=== PATIENT | male | born 1960 | race Caucasian/White ===

== ENCOUNTER 2018-07-08 02:00 | Inpatient (IN) | payer OTHER ==
--- NOTE | 2018-07-08 02:29 | PDOC ---
Attending Attestation - Resident Resident Name: Branden Mars - ED Attending Attestation I have performed the following: I have examined & evaluated the patient, The case was reviewed & discussed with the resident, I agree w/resident's findings & plan - HPI HPI: 07/08/18 03:49 Pt comes with fever as well vomiting and diarrhea x 2-3 days. - Physicial Exam PE: 07/08/18 03:49 Petechiae all over face -likely from vomiting. Tachycardia; SOB; but clear lungs. Abdsoft and NT and ND Pt is febrile. Diaphoretic. No complaint of CP. - Medical Decision Making 07/08/18 03:52 Pt has hyponatremia and hypochloremia. Pt is febrile - received ofirmev and 1L NSS only. 07/08/18 03:55 influenza negative 07/08/18 03:56 Pt has flank pain; no dysuria noted 07/08/18 06:30 Pt still looks exhausted and ill; states he feels better though. I gave tc turkey sandwich as well as apple juice. Pt's is at bedside and she is tending to him Heart Score/ECG Review - ECG Intrepretation Rhythm: Regular Rhythm - [place]: Normal - P and CO Prominent R with upright T in V1 (true posterior [place]): No Delta Wave(s) Present: No WPW: No - QRS Poor R Wave Progression: No Q Wave Present: No - ST and T Early Repolarization: No Non Specific ST-T Wave changes: No - ECG Impressions Normal ECG: Yes Non-specific ST Elevation: No Ischemic Changes: No Bradycardia: No Torsades julio c Pointes: No WPW: No
[2018-07-08] MEDS ORDERED: SODIUM CHLORIDE 1,000 ML IV STA ×2 (02:53→04:08)
--- NOTE | 2018-07-08 03:02 | PDOC ---
History of Present Illness - General Chief Complaint: Cold Symptoms Stated Complaint: FEVER Time Seen by Provider: 07/08/18 02:25 History Source: Patient Exam Limitations: Language Barrier (fairly fluent in Green[place]ic but some vocabulary limitations) - History of Present Illness Initial Comments: Patient is a 58 y/o M new to this facility w/ reported PMHx NIDDM, HTN, HLD, reports having ceased all home medications several months ago and no longer having a PMD d/t unspecified social circumstances. P/w 4 days febrile illness that begin with diarrhea, characterized by subjective fevers, chills, febrile temperatures measured at home (does not recall the temperatures), continuing diarrhea, nausea, vomiting, substernal chest pain, pleuritic pain, SOB, weakness , diffuse body and muscle aches, also states legs "feel swollen." States he did not receive flu vaccine this year. 07/08/18 02:57 Past History - Past Medical History Allergies/Adverse Reactions: Allergies Allergy/AdvReac Type Severity Reaction Status Date / Time No Known Allergies Allergy Verified 07/08/18 02:16 - Suicide/Smoking/Psychosocial Hx Smoking History: Unknown if ever smoked Have you smoked in the past 12 months: No Information on smoking cessation initiated: No Hx Alcohol Use: No Drug/Substance Use Hx: No Review of Systems - Review of Systems Comments:: As per HPI 07/08/18 03:02 *Physical Exam - Vital Signs Last Vital Signs Temp Pulse Resp BP Pulse Ox 100.9 F H 113 H 22 H 133/69 99 07/08/18 02:14 07/08/18 02:14 07/08/18 02:14 07/08/18 02:14 07/08/18 02:14 - Physical Exam Comments: Gen: A&Ox3, toxic appearing HEENT: NC/AT, PERRLA, EOMI, MMM Neck: supple, NT, scant JVD, no LAD CV: tachycardic no m/r/g Resp: CTA b/l Abd: +bs, soft, NT, ND, states that deep abdominal palpation exacerbates substernal chest pain Ext: 2+ pulses, wwp, no edema, no calf tenderness Neuro: ug designer, motor w/o focal deficit, reports symmetric b/l loss of sensation in distal LE otherwise sensorium intact Psych: normal mood, normal affect Skin: warm, dry, normal turgor 07/08/18 03:02 Moderate Sedation - Procedure Monitoring Vital Signs: Procedure Monitoring Vital Signs Temperature 100.9 F H 07/08/18 02:14 Pulse Rate 113 H 07/08/18 02:14 Respiratory Rate 22 H 07/08/18 02:14 Blood Pressure 133/69 07/08/18 02:14 O2 Sat by Pulse Oximetry (%) 99 07/08/18 02:14 Medical Decision Making - Medical Decision Making Presentation is most consistent w/ viral syndrome. Ordered flu screening. As patient is febrile, tachycardic, and tachypneic on arrival and c/o unremitting substernal pain, will obtain sepsis and cardiac w/u. Giving NS bolus, Ofirmev. 07/08/18 03:05 WBC 14.8 w/ L shift. Flu swab negative. 07/08/18 03:46 Na 127 (corrected 130), LFTs mildly elevated, glucose 294, troponin negative. Adding urine and serum osm to w/u. RUQ US to assess LFT abnormalities. Urine legionella antigens. Further fluid bolus. 07/08/18 03:57 D/w Dr. Lozano, will admit to med/surg. 07/08/18 04:15 *DC/Admit/Observation/Transfer Diagnosis at time of Disposition: Hyponatremia Sepsis Qualifiers: Sepsis type: sepsis due to unspecified organism Qualified Code(s): A41.9 - Sepsis, unspecified organism - Discharge Dispostion Condition at time of disposition: Guarded - Referrals - Patient Instructions - Post Discharge Activity
[2018-07-08 03:23] LABS: BASO % 0.3 % (0-2.0); EOS % 0.1 % (0-4.5); HEMATOCRIT 36.2 % (35.4-49); HEMOGLOBIN 12.9 GM/dL (11.7-16.9); LYMPH % 2.7 % (8-40); MCH 30.7 pg (25.7-33.7); MCHC 35.7 g/dl (32.0-35.9); MEAN PLT VOLUME 8.1 fl (7.5-11.1); MONO % 2.2 % (3.8-10.2); NEUT % 94.7 % (42.8-82.8); PLATELET COUNT 262 K/MM3 (134-434); RDW 12.7 % (11.9-15.9); WHITE BLOOD COUNT 14.8 K/mm3 (4.0-10.0)
[2018-07-08] MEDS ORDERED: ACETAMINOPHEN INJECTION 100 ML IVPB ONE (03:24)
[2018-07-08 03:48] LABS: ALBUMIN 2.6 g/dl (3.4-5.0); ALK PHOS 210 U/L (45-117); ANION GAP 11 MMOL/L (8-16); BILIRUBIN,TOTAL 0.8 mg/dL (0.2-1); BLOOD UREA NITROGEN 13 mg/dL (7-18); CHLORIDE 91 mmol/L (98-107); CO2 24 mmol/L (21-32); CREATININE 1.4 mg/dL (0.55-1.3); GLUCOSE,RANDOM 294 mg/dL (74-106); N-TERMINAL BNP 407.8 pg/ml (5-125); POTASSIUM 4.2 mmol/L (3.5-5.1); SGOT/AST 55 U/L (15-37); SGPT/ALT 72 U/L (13-61); SODIUM 127 mmol/L (136-145); TOT PROT 6.6 g/dl (6.4-8.2)
[2018-07-08 03:51] LABS: INR 1.2 (0.83-1.09); PROTHROMBIN TIME (PATIENT) 14.2 SEC (9.7-13.0)
[2018-07-08] MEDS ORDERED: FOLIC ACID INJECTION - 1 MG, THIAMINE HCL 100 MG, MULTIVIT INJECTION ADULT 10 ML in SOD... IVPB ONE (03:55)
[2018-07-08] MEDS ORDERED: PIPERACILLIN/TAZOB 3.375 GM 3.375 GM in DEXTROSE 5%-WATER - 50 ML IVPB ONE (04:22)
[2018-07-08] MEDS ORDERED: PIPERACILLIN/TAZOB 3.375 GM 3.375 GM/50 ML BAG IVPB ONE (05:16)
--- NOTE | 2018-07-08 05:32 | PN ---
Teaching Attending Note Name of Resident: Marquise Lozano ATTENDING PHYSICIAN STATEMENT I saw and evaluated the patient. I reviewed the resident's note and discussed the case with the resident. I agree with the resident's findings and plan as documented. SUBJECTIVE: Patient is a 58 year old man with PMH of NIDDM, HTN and HLD who presents with febrile illness that begin with diarrhea several days ago. There is associated chills, ongoing diarrhea, nausea, vomiting, substernal pleuritic chest pain, SOB and weakness. Also has diffuse body and muscle aches, and states legs "feel swollen. He stopped all home medications several months ago and no longer having a PMD due to unspecified social circumstances. Did not receive flu vaccine this year. OBJECTIVE: Alert Vital Signs Period Temp Pulse Resp BP Sys/Negron Pulse Ox Last 24 Hr 100.9 F 113 22 133/69 99 HEENT: No Jaundice, eye redness or discharge, PERRLA, EOMI. Normocephalic, atraumatic. External ears are normal and hearing is grossly intact. No nasal discharge. Neck: Supple, nontender. No palpable adenopathy or thyromegaly. No JVD Chest: Good effort. Clear to auscultation and percussion. Heart: Regular. No S3, rub or murmur Abdomen: Not distended, soft, nontender and no HSM. No rebound or guarding. Normoactive bowel sounds. Ext: Peripheral pulses intact. No leg edema. Skin: Warm and dry. No petechiae, rash or ecchymosis. Neuro: Alert. Oriented x3. CN 2-12 grossly intact. Sensation grossly intact in all four extremities and DTR are symmetric. Abnormal Lab Results 07/08/18 07/08/18 07/08/18 03:11 03:11 03:11 WBC 14.8 H Absolute Neuts (auto) 14.0 H Neutrophils % 94.7 H Lymphocytes % 2.7 L Monocytes % 2.2 L PT with INR INR Sodium 127 L Chloride 91 L Creatinine 1.4 H Random Glucose 294 H Calcium 8.0 L AST 55 H ALT 72 H Alkaline Phosphatase 210 H B-Natriuretic Peptide 407.8 H Albumin 2.6 L 07/08/18 03:15 WBC Absolute Neuts (auto) Neutrophils % Lymphocytes % Monocytes % PT with INR 14.20 H INR 1.20 H Sodium Chloride Creatinine Random Glucose Calcium AST ALT Alkaline Phosphatase B-Natriuretic Peptide Albumin ASSESSMENT AND PLAN: 1. Sepsis - Source of sepsis is unclear. Flu swab negative. CXR and Urinalysis pending. Will get STAT CT scan of abdomen/pelvis in view of elevated LFTs ( hepatobiliary source) and loose bowel movements (colon). Blood cultures and urine for legionella antigen sent. Will hydrate with IV NS and treat with stat dose of Zosyn pending results of the workup. 2. Hypoalbuminemia - Possibly due to combined effects of malnutrition and inflammation associated with comorbid chronic conditions. Will ensure adequate dietary protein intake and also consult clinical cytogeneticist. Will rule out proteinuria. 3. DM For now, we will hold the home diabetes drugs and implement sliding scale insulin regimen. Provide comprehensive diabetes care with patient teaching and counseling about the importance of adherence to prescribed diabetes regimen, euglycemia, eye care and foot care. Patient needs social work evaluation to figure out the issues that are hindering his access to outpatient care and failure to take his medications for his chronic comorbid issues. 4. KENAN - Likely due to dehydration though he has risk factors for CKD. Will continue hydration and avoid nephrotoxic agents such as NSAIDS, aminoglycosides , contrast dyes and certain Alternative medicine products. 5. DVT prophylaxis - Lovenox 40 mg SQ q 24 hours. 6. Advance directives - Full code
--- NOTE | 2018-07-08 06:11 | HP ---
CHIEF COMPLAINT: Fevers and diarrhea PCP: None HISTORY OF PRESENT ILLNESS: 58yo M with PHx of HTN, HLD, and DM presents with four days of watery diarrhea, fevers, nausea, and some intermittent shortness of breath. Pt reports being in good health about 4 days ago when his symptoms developed and eventually worsened. Pt currently endorses diaphoresis as well. Pt denies any sick contacts known to him and states that the did not receive his influenza vaccine. Pt denies any unusual foods eaten or travel outside of the area. Pt denies headache, lightheadedness, rhinorrhea, ear pain, sore throat, cough, chest pain/discomfort, abdominal pain, back pain, hematuria, polyuria, and dysuria. in addition pt has had chronic diabetic neuropathy present in his feet , however denies any ulcerations/wounds that have developed as a result. Of note, pt reports stopping his medications several months ago due to thinking that since he was feeling better he didn't need them. Pt reports he used to take a pill twice per day for his DM (likely metformin) and an antihypertensive once per day in the morning. Pt does not know the exact name of the medications but used to pick them up at [facility] in [place]. 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 Independent in ADLs and lives with Family History: Noncontributory Allergies No Known Allergies Allergy (Verified 07/08/18 02:16) REVIEW OF SYSTEMS As per HPI PHYSICAL EXAMINATION Vital Signs - 24 hr 07/08/18 02:14 Temperature 100.9 F H Pulse Rate 113 H Respiratory 22 H Rate Blood Pressure 133/69 O2 Sat by Pulse 99 Oximetry (%) GENERAL: NAD, Awake, alert, and fully oriented, diaphoretic HEENT: NC/AT, EOMI, KARL, sclera anicteric, TM's b/l carlson and translucent w/o erythema, posterior oropharynx w/o exudates or erythema, [id number]-no-[id number] mucosa NECK: No JVD, or lymphadenopathy appreciated LUNGS: Overall CTA bilaterally with minimal bibasillar end-expiratory wheeze. No crackles. No accessory muscle use. 100% on RA HEART: Tachycardic and regular rhythm, normal S1 and S2 without murmur ABDOMEN: Soft, NT/ND, normoactive bowel sounds, no guarding, no suprapubic tenderness. MUSCULOSKELETAL: No CVA tenderness. No spinal tenderness EXTREMITIES: 2+ DP pulses, very warm, No peripheral edema, no wounds or rash noted NEUROLOGICAL: director workforce management II-XII intact. Strength symmetrical and 5/5 throughout. Sensation dulled at soles of feet b/l. Normal speech. Gait not observed. PSYCHIATRIC: Cooperative. Good eye contact. Appropriate mood and affect. SKIN: Warm, no rashes or lesions noted Laboratory Results 07/08/18 07/08/18 03:11 03:11 WBC 14.8 H RBC 4.20 Hgb 12.9 Hct 36.2 MCV 86.0 MCH 30.7 MCHC 35.7 RDW 12.7 Plt Count 262 MPV 8.1 Absolute Neuts (auto) 14.0 H Neutrophils % 94.7 H Lymphocytes % 2.7 L Monocytes % 2.2 L Eosinophils % 0.1 Basophils % 0.3 Nucleated RBC % 0 PT with INR INR Sodium 127 L Potassium 4.2 Chloride 91 L Carbon Dioxide 24 Anion Gap 11 BUN 13 Creatinine 1.4 H Creat Clearance w eGFR 52.05 Random Glucose 294 H Lactic Acid 1.7 Calcium 8.0 L Total Bilirubin 0.8 AST 55 H ALT 72 H Alkaline Phosphatase 210 H Creatine Kinase Troponin I <0.02 B-Natriuretic Peptide Total Protein 6.6 Albumin 2.6 L Acetone, Qual Influenza A (Rapid) Negative Influenza B (Rapid) Negative ASSESSMENT/PLAN: Sepsis 2/2 to unknown source Hyponatremia Transaminitis ? Acute Kidney insufficiency Diabetes Mellitus HTN HLD --Source being investigated at this time --Still awaiting CXR and urine studies --Noncontrast abdomen and pelvis ordered urgently --F/u Urine and Blood cultures --NS@100cc/hr --Zosyn 3.375mg q8h IVPB for now until ID consult tomorrow morning --Dr. Santiago consulted --Cannot give tylenol for fevers due to transaminitis; Motrin PRN for fevers --Hyponatremia likely dehydration related; fluid as above --Monitor Na --Urine Legionella ordered --Urine Na, Cr, osm and serum osm ordered --CT A/P as above for post-obstructive etiology as well --Monitor Urine output --Continue to hydrate as above --BGM ACHS --ISS coverage for hyperglycemic states; control glucose <180 --HTN and HLD medications need to be reconciled with pharmacy FEN: Fluids: NS@100cc/hr (s/p 2LNS boluses) Electrolyte abnormalities: HypoNa as above (no active signs/symptoms) Nutrition: Diabetic diet PPX: DVT - Heparin SQ TID GI - Not indicated currently GOC: Full code Dispo: Admit M/S Case discussed with Dr. Zach Lozano, DO - IM PGY-2 Visit type - Emergency Visit Emergency Visit: Yes ED Registration Date: 07/08/18 Care time: The patient presented to the Emergency Department on the above date and was hospitalized for further evaluation of their emergent condition. - New Patient This patient is new to me today: Yes Date on this admission: 07/08/18 - Critical Care Critical Care patient: No
[2018-07-08] MEDS ORDERED: CEFAZOLIN 1 GM/D5W 1 GM/50 ML BAG IVPB SCH (06:15)
[2018-07-08] MEDS: INSULIN SLIDING SCALE (NOVOLOG) 1 VIAL SQ SCH ×4 (07:34→21:20)
[2018-07-08] MEDS: SODIUM CHLORIDE 1,000 ML IV SCH ×2 (07:34→11:36)
[2018-07-08] MEDS: HEPARIN NA (PORCINE) 5,000 UNITS/ML 1ML VIAL SQ SCH ×3 (07:34→21:20)
[2018-07-08 08:26] LABS: URINE APPEARANCE CLEAR; URINE BILIRUBIN NEGATIVE (<2.0 mg/dL); URINE COLOR YELLOW; URINE GLUCOSE (UA) 3+ (NEGATIVE); URINE KETONE NEGATIVE (NEGATIVE); URINE LEUK ESTERASE NEGATIVE (NEGATIVE); URINE NITRITE NEGATIVE (NEGATIVE); URINE PROTEIN 3+ (NEGATIVE); URINE UROBILINOGEN NEGATIVE mg/dL (0.2-1.0)
[2018-07-08 08:30] LABS: EPI CELLS RARE /HPF (FEW); URINE HYALINE CAST 21 /lpf
[2018-07-08] MEDS ORDERED: PNEUMOC 13-VAL CONJ-DIP CRM/PF 0.5 ML DISP.SYRIN IM ONE (10:08)
[2018-07-08 11:03] LABS: ANISOCYTOSIS 0; MACROCYTOSIS 0; PLATELET ESTIMATE NORMAL
[2018-07-08] MEDS: IBUPROFEN 400 MG TABLET (FP) PO PRN ×2 (11:40→17:39)
--- NOTE | 2018-07-08 12:40 | PN ---
Progress Note (short form) - Note Progress Note: SUBJECTIVE: Feels okay - no further diarrhea since yesterday. No cough/sputum/ abdominal pain/dysuria/hematuria. OBJECTIVE: Tmax 100.9, Hemodynamically stable. Last Vital Signs Temp Pulse Resp BP Pulse Ox 98.6 F 87 18 104/58 L 95 07/08/18 10:08 07/08/18 10:08 07/08/18 10:09 07/08/18 10:08 07/08/18 10:09 HEENT - Atraumatic, Normocephalic Heart - S1, S2, RRR Lungs - clear to auscultation Abdomen - soft, non-tender. Bowel Sounds normal. Extremities - no edema. No calf tenderness. Neuro - AAO x 3. Tone/Power normal all 4 extremities. Laboratory Results - last 24 hr 07/08/18 07/08/18 07/08/18 03:00 03:00 03:00 WBC RBC Hgb Hct MCV MCH MCHC RDW Plt Count MPV Absolute Neuts (auto) Neutrophils % Neutrophils % (Manual) Band Neutrophils % Lymphocytes % Lymphocytes % (Manual) Monocytes % Monocytes % (Manual) Eosinophils % Eosinophils % (Manual) Basophils % Basophils % (Manual) Myelocytes % (Man) Promyelocytes % (Man) Blast Cells % (Manual) Nucleated RBC % Metamyelocytes Hypochromia Platelet Estimate Platelet Comment Polychromasia Poikilocytosis Anisocytosis Microcytosis Macrocytosis PT with INR INR Sodium Potassium Chloride Carbon Dioxide Anion Gap BUN Creatinine Creat Clearance w eGFR POC Glucometer Random Glucose Serum Osmolality Lactic Acid Calcium Total Bilirubin AST ALT Alkaline Phosphatase Creatine Kinase Troponin I B-Natriuretic Peptide Total Protein Albumin Urine Color Yellow Urine Appearance Clear Urine pH 5.0 Ur Specific [place] 1.013 Urine Protein 3+ H Urine Glucose (UA) 3+ H Urine Ketones Negative Urine Blood Negative Urine Nitrite Negative Urine Bilirubin Negative Urine Urobilinogen Negative Ur Leukocyte Esterase Negative Urine WBC (Auto) 2 Urine RBC (Auto) 1 Ur Epithelial Cells Rare Hyaline Casts 21 Urine Osmolality 268 L Ur Random Sodium < 18 L Urine Creatinine 155.0 Acetone, Qual Influenza A (Rapid) Influenza B (Rapid) 07/08/18 07/08/18 07/08/18 03:11 03:11 03:11 WBC 14.8 H RBC 4.20 Hgb 12.9 Hct 36.2 MCV 86.0 MCH 30.7 MCHC 35.7 RDW 12.7 Plt Count 262 MPV 8.1 Absolute Neuts (auto) 14.0 H Neutrophils % 94.7 H Neutrophils % (Manual) 79.2 Band Neutrophils % 13.5 Lymphocytes % 2.7 L Lymphocytes % (Manual) 3.1 L Monocytes % 2.2 L Monocytes % (Manual) 1 L Eosinophils % 0.1 Eosinophils % (Manual) 1.1 Basophils % 0.3 Basophils % (Manual) 0.0 Myelocytes % (Man) 0 Promyelocytes % (Man) 0 Blast Cells % (Manual) 0 Nucleated RBC % 0 Metamyelocytes 1 Hypochromia 0 Platelet Estimate Normal Platelet Comment Present Polychromasia 1+ Poikilocytosis 0 Anisocytosis 0 Microcytosis 0 Macrocytosis 0 PT with INR INR Sodium 127 L Potassium 4.2 Chloride 91 L Carbon Dioxide 24 Anion Gap 11 BUN 13 Creatinine 1.4 H Creat Clearance w eGFR 52.05 POC Glucometer Random Glucose 294 H Serum Osmolality Lactic Acid Calcium 8.0 L Total Bilirubin 0.8 AST 55 H ALT 72 H Alkaline Phosphatase 210 H Creatine Kinase Troponin I B-Natriuretic Peptide Total Protein 6.6 Albumin 2.6 L Urine Color Urine Appearance Urine pH Ur Specific [place] Urine Protein Urine Glucose (UA) Urine Ketones Urine Blood Urine Nitrite Urine Bilirubin Urine Urobilinogen Ur Leukocyte Esterase Urine WBC (Auto) Urine RBC (Auto) Ur Epithelial Cells Hyaline Casts Urine Osmolality Ur Random Sodium Urine Creatinine Acetone, Qual Influenza A (Rapid) Negative Influenza B (Rapid) Negative 07/08/18 07/08/18 07/08/18 03:11 03:11 03:15 WBC RBC Hgb Hct MCV MCH MCHC RDW Plt Count MPV Absolute Neuts (auto) Neutrophils % Neutrophils % (Manual) Band Neutrophils % Lymphocytes % Lymphocytes % (Manual) Monocytes % Monocytes % (Manual) Eosinophils % Eosinophils % (Manual) Basophils % Basophils % (Manual) Myelocytes % (Man) Promyelocytes % (Man) Blast Cells % (Manual) Nucleated RBC % Metamyelocytes Hypochromia Platelet Estimate Platelet Comment Polychromasia Poikilocytosis Anisocytosis Microcytosis Macrocytosis PT with INR INR Sodium Potassium Chloride Carbon Dioxide Anion Gap BUN Creatinine Creat Clearance w eGFR POC Glucometer Random Glucose Serum Osmolality Lactic Acid 1.7 Calcium Total Bilirubin AST ALT Alkaline Phosphatase Creatine Kinase 38 Troponin I < 0.02 B-Natriuretic Peptide 407.8 H Total Protein Albumin Urine Color Urine Appearance Urine pH Ur Specific [place] Urine Protein Urine Glucose (UA) Urine Ketones Urine Blood Urine Nitrite Urine Bilirubin Urine Urobilinogen Ur Leukocyte Esterase Urine WBC (Auto) Urine RBC (Auto) Ur Epithelial Cells Hyaline Casts Urine Osmolality Ur Random Sodium Urine Creatinine Acetone, Qual Positive small 1+ Influenza A (Rapid) Influenza B (Rapid) 07/08/18 07/08/18 07/08/18 03:15 03:40 06:00 WBC RBC Hgb Hct MCV MCH MCHC RDW Plt Count MPV Absolute Neuts (auto) Neutrophils % Neutrophils % (Manual) Band Neutrophils % Lymphocytes % Lymphocytes % (Manual) Monocytes % Monocytes % (Manual) Eosinophils % Eosinophils % (Manual) Basophils % Basophils % (Manual) Myelocytes % (Man) Promyelocytes % (Man) Blast Cells % (Manual) Nucleated RBC % Metamyelocytes Hypochromia Platelet Estimate Platelet Comment Polychromasia Poikilocytosis Anisocytosis Microcytosis Macrocytosis PT with INR 14.20 H INR 1.20 H Sodium Potassium Chloride Carbon Dioxide Anion Gap BUN Creatinine Creat Clearance w eGFR POC Glucometer Random Glucose Serum Osmolality 276 L Lactic Acid Calcium Total Bilirubin AST ALT Alkaline Phosphatase Creatine Kinase Troponin I < 0.02 B-Natriuretic Peptide Total Protein Albumin Urine Color Urine Appearance Urine pH Ur Specific [place] Urine Protein Urine Glucose (UA) Urine Ketones Urine Blood Urine Nitrite Urine Bilirubin Urine Urobilinogen Ur Leukocyte Esterase Urine WBC (Auto) Urine RBC (Auto) Ur Epithelial Cells Hyaline Casts Urine Osmolality Ur Random Sodium Urine Creatinine Acetone, Qual Influenza A (Rapid) Influenza B (Rapid) 07/08/18 11:50 WBC RBC Hgb Hct MCV MCH MCHC RDW Plt Count MPV Absolute Neuts (auto) Neutrophils % Neutrophils % (Manual) Band Neutrophils % Lymphocytes % Lymphocytes % (Manual) Monocytes % Monocytes % (Manual) Eosinophils % Eosinophils % (Manual) Basophils % Basophils % (Manual) Myelocytes % (Man) Promyelocytes % (Man) Blast Cells % (Manual) Nucleated RBC % Metamyelocytes Hypochromia Platelet Estimate Platelet Comment Polychromasia Poikilocytosis Anisocytosis Microcytosis Macrocytosis PT with INR INR Sodium Potassium Chloride Carbon Dioxide Anion Gap BUN Creatinine Creat Clearance w eGFR POC Glucometer 309 Random Glucose Serum Osmolality Lactic Acid Calcium Total Bilirubin AST ALT Alkaline Phosphatase Creatine Kinase Troponin I B-Natriuretic Peptide Total Protein Albumin Urine Color Urine Appearance Urine pH Ur Specific [place] Urine Protein Urine Glucose (UA) Urine Ketones Urine Blood Urine Nitrite Urine Bilirubin Urine Urobilinogen Ur Leukocyte Esterase Urine WBC (Auto) Urine RBC (Auto) Ur Epithelial Cells Hyaline Casts Urine Osmolality Ur Random Sodium Urine Creatinine Acetone, Qual Influenza A (Rapid) Influenza B (Rapid) Current Medications Generic Name Dose Route Start Last Admin Trade Name Freq PRN Reason Stop Dose Admin Heparin Sodium (Porcine) 5,000 unit 07/08/18 06:15 07/08/18 07:34 Heparin - SQ Not Given TID ALEXANDRA Sodium Chloride 1,000 mls @ 100 mls/hr 07/08/18 06:15 07/08/18 11:36 Normal Saline - IV 100 mls/hr ASDIR ALEXANDRA Administration Metronidazole 500 mg in 100 mls @ 100 mls/hr 07/08/18 10:57 07/08/18 11:37 Flagyl 500mg Premixed Ivpb - IVPB 100 mls/hr Q8H-IV ALEXANDRA Administration Ibuprofen 400 mg 07/08/18 06:04 07/08/18 11:40 Motrin - PO 400 mg Q6H PRN Administration FEVER Influenza Virus Vaccine Quadrival 60 mcg 07/08/18 13:00 Flulaval Quad [id number] IM 07/08/18 13:01 .ONCE ONE Insulin Aspart 1 vial 07/08/18 07:00 07/08/18 11:57 Novolog Vial Sliding Scale - SQ 4 units ACHS ALEXANDRA Administration Protocol Pneumococcal Polyvalent Vaccine 0.5 ml 07/08/18 13:00 Pneumovax - IM 07/08/18 13:01 .ONCE ONE ASSESSMENT/PLAN: 58 year old male with HTN, HLD, DM 2 with neuropathy, presented with 4 day history of watery diarrhea, fevers, nausea - no vomiting/melena/hematochezia. 1. Sepsis, etiology unclear Fever, leukocytosis CXR - no acute cardiopulmonary process ?intra-abdominal source If any further diarrhea, will send Stool for culture and Cdiff. Abdominal exam currently benign - CT A/P pending. Will empirically add Flagyl to Zosyn pending Culture results. ID consulted. 2. Hyponatremia, likely sec to dehydration due to diarrhea. Will monitor Na levels in response to hydration. Serum Osmo pending. 3. Transaminitis - mild, possibly due to sepsis versus fatty liver. CT A/P for further imaging. 4. DM 2 - will maintain on sliding scale insulin. 5. HTN/HLD - Home meds unclear - need clarification/reconciliation. Anti- hypertensive meds held for now due to borderline BP. DVT Px - Heparin SQ GI Px - Protonix. Visit type - Emergency Visit Emergency Visit: Yes ED Registration Date: 07/08/18 Care time: The patient presented to the Emergency Department on the above date and was hospitalized for further evaluation of their emergent condition. - New Patient This patient is new to me today: Yes Date on this admission: 07/08/18 - Critical Care Critical Care patient: No - Discharge Referral Referred to [facility] Med [facility] No
[2018-07-08] MEDS ORDERED: PNEUMOCOCCAL 23 VACCINE 0.5 ML VIAL IM ONE (13:00)
[2018-07-08] MEDS ORDERED: FLU VACCINE QUAD 60 MCG/0.5 ML (MDV 18-19) IM ONE (13:00)
--- NOTE | 2018-07-08 13:04 | CON.ID ---
Consult - History of Present Illness History of Present Illness: Pt is a 58 y.o. male with PMH of HTN, DM, and HLD presenting with c/o abdominal pain/n/v/d and subjective fever/chills. He states that symptoms began several days ago with loose, nonbloody BMs 4-5x per day and few episodes of non-bloody vomiting. Describes abd pain mainly focused in the epigastric area and occurring after meals. Also has been having non-specific generalized chest discomfort intermittently. He denies cough, rhinorrhea, sore throat and has no other specific symptoms. Pt states he has not been taking his medications for the past 6 months and has not followed up with a physician. He was noted to have leukocytosis (wbc 14.8K) and fever (100.9F) along with tachycardia and mildly elevated RR. Today he states he has minimal abd pain and no episodes of vomiting, reported 1 loose BM in the a.m. - History Source History Provided By: Patient Limitations to Obtaining History: No Limitations - Past Medical History Cardio/Vascular: Yes: HTN Endocrine: Yes: Diabetes Mellitus - Alcohol/Substance Use Hx Alcohol Use: No - Smoking History Smoking history: Unknown if ever smoked Have you smoked in the past 12 months: No - Social History History of Recent Travel: No Home Medications - Allergies Allergies/Adverse Reactions: Allergies Allergy/AdvReac Type Severity Reaction Status Date / Time No Known Allergies Allergy Verified 07/08/18 02:16 Review of Systems - Review of Systems Constitutional: reports: Fever, Weakness Eyes: reports: No Symptoms HENT: reports: No Symptoms Neck: reports: No Symptoms Cardiovascular: reports: No Symptoms Respiratory: reports: No Symptoms Gastrointestinal: reports: Abdominal Pain (now decreased, epigastric) Genitourinary: reports: No Symptoms Musculoskeletal: reports: No Symptoms Integumentary: reports: No Symptoms Neurological: reports: No Symptoms Endocrine: reports: No Symptoms Hematology/Lymphatic: reports: No Symptoms Psychiatric: reports: No Symptoms Physical Exam Vital Signs: Vital Signs Temperature 98.6 F 07/08/18 10:08 Pulse Rate 87 07/08/18 10:08 Respiratory Rate 18 07/08/18 10:09 Blood Pressure 104/58 L 07/08/18 10:08 O2 Sat by Pulse Oximetry (%) 95 07/08/18 10:09 Constitutional: Yes: No Distress, Calm Eyes: Yes: Conjunctiva Clear, EOM Intact HENT: Yes: Atraumatic Neck: Yes: Supple Cardiovascular: Yes: Regular Rate and Rhythm Respiratory: Yes: CTA Bilaterally Gastrointestinal: Yes: Normal Bowel Sounds, Soft Renal/: Yes: WNL Musculoskeletal: Yes: WNL Extremities: Yes: WNL Integumentary: Yes: WNL Neurological: Yes: Alert, Oriented Labs: CBC, BMP 07/08/18 03:11 07/08/18 03:11 Laboratory Tests 07/08/18 07/08/18 07/08/18 03:00 03:00 03:00 WBC RBC Hgb Hct MCV MCH MCHC RDW Plt Count MPV Absolute Neuts (auto) Neutrophils % Neutrophils % (Manual) Band Neutrophils % Lymphocytes % Lymphocytes % (Manual) Monocytes % Monocytes % (Manual) Eosinophils % Eosinophils % (Manual) Basophils % Basophils % (Manual) Myelocytes % (Man) Promyelocytes % (Man) Blast Cells % (Manual) Nucleated RBC % Metamyelocytes Hypochromia Platelet Estimate Platelet Comment Polychromasia Poikilocytosis Anisocytosis Microcytosis Macrocytosis PT with INR INR Sodium Potassium Chloride Carbon Dioxide Anion Gap BUN Creatinine Creat Clearance w eGFR POC Glucometer Random Glucose Serum Osmolality Lactic Acid Calcium Total Bilirubin AST ALT Alkaline Phosphatase Creatine Kinase Troponin I B-Natriuretic Peptide Total Protein Albumin Urine Color Yellow Urine Appearance Clear Urine pH 5.0 Ur Specific [place] 1.013 Urine Protein 3+ H Urine Glucose (UA) 3+ H Urine Ketones Negative Urine Blood Negative Urine Nitrite Negative Urine Bilirubin Negative Urine Urobilinogen Negative Ur Leukocyte Esterase Negative Urine WBC (Auto) 2 Urine RBC (Auto) 1 Ur Epithelial Cells Rare Hyaline Casts 21 Urine Osmolality 268 L Ur Random Sodium < 18 L Urine Creatinine 155.0 Acetone, Qual Influenza A (Rapid) Influenza B (Rapid) 07/08/18 07/08/18 07/08/18 03:11 03:11 03:11 WBC 14.8 H RBC 4.20 Hgb 12.9 Hct 36.2 MCV 86.0 MCH 30.7 MCHC 35.7 RDW 12.7 Plt Count 262 MPV 8.1 Absolute Neuts (auto) 14.0 H Neutrophils % 94.7 H Neutrophils % (Manual) 79.2 Band Neutrophils % 13.5 Lymphocytes % 2.7 L Lymphocytes % (Manual) 3.1 L Monocytes % 2.2 L Monocytes % (Manual) 1 L Eosinophils % 0.1 Eosinophils % (Manual) 1.1 Basophils % 0.3 Basophils % (Manual) 0.0 Myelocytes % (Man) 0 Promyelocytes % (Man) 0 Blast Cells % (Manual) 0 Nucleated RBC % 0 Metamyelocytes 1 Hypochromia 0 Platelet Estimate Normal Platelet Comment Present Polychromasia 1+ Poikilocytosis 0 Anisocytosis 0 Microcytosis 0 Macrocytosis 0 PT with INR INR Sodium 127 L Potassium 4.2 Chloride 91 L Carbon Dioxide 24 Anion Gap 11 BUN 13 Creatinine 1.4 H Creat Clearance w eGFR 52.05 POC Glucometer Random Glucose 294 H Serum Osmolality Lactic Acid Calcium 8.0 L Total Bilirubin 0.8 AST 55 H ALT 72 H Alkaline Phosphatase 210 H Creatine Kinase Troponin I B-Natriuretic Peptide Total Protein 6.6 Albumin 2.6 L Urine Color Urine Appearance Urine pH Ur Specific [place] Urine Protein Urine Glucose (UA) Urine Ketones Urine Blood Urine Nitrite Urine Bilirubin Urine Urobilinogen Ur Leukocyte Esterase Urine WBC (Auto) Urine RBC (Auto) Ur Epithelial Cells Hyaline Casts Urine Osmolality Ur Random Sodium Urine Creatinine Acetone, Qual Influenza A (Rapid) Negative Influenza B (Rapid) Negative 07/08/18 07/08/18 07/08/18 03:11 03:11 03:15 WBC RBC Hgb Hct MCV MCH MCHC RDW Plt Count MPV Absolute Neuts (auto) Neutrophils % Neutrophils % (Manual) Band Neutrophils % Lymphocytes % Lymphocytes % (Manual) Monocytes % Monocytes % (Manual) Eosinophils % Eosinophils % (Manual) Basophils % Basophils % (Manual) Myelocytes % (Man) Promyelocytes % (Man) Blast Cells % (Manual) Nucleated RBC % Metamyelocytes Hypochromia Platelet Estimate Platelet Comment Polychromasia Poikilocytosis Anisocytosis Microcytosis Macrocytosis PT with INR INR Sodium Potassium Chloride Carbon Dioxide Anion Gap BUN Creatinine Creat Clearance w eGFR POC Glucometer Random Glucose Serum Osmolality Lactic Acid 1.7 Calcium Total Bilirubin AST ALT Alkaline Phosphatase Creatine Kinase 38 Troponin I < 0.02 B-Natriuretic Peptide 407.8 H Total Protein Albumin Urine Color Urine Appearance Urine pH Ur Specific [place] Urine Protein Urine Glucose (UA) Urine Ketones Urine Blood Urine Nitrite Urine Bilirubin Urine Urobilinogen Ur Leukocyte Esterase Urine WBC (Auto) Urine RBC (Auto) Ur Epithelial Cells Hyaline Casts Urine Osmolality Ur Random Sodium Urine Creatinine Acetone, Qual Positive small 1+ Influenza A (Rapid) Influenza B (Rapid) 07/08/18 07/08/18 07/08/18 03:15 03:40 06:00 WBC RBC Hgb Hct MCV MCH MCHC RDW Plt Count MPV Absolute Neuts (auto) Neutrophils % Neutrophils % (Manual) Band Neutrophils % Lymphocytes % Lymphocytes % (Manual) Monocytes % Monocytes % (Manual) Eosinophils % Eosinophils % (Manual) Basophils % Basophils % (Manual) Myelocytes % (Man) Promyelocytes % (Man) Blast Cells % (Manual) Nucleated RBC % Metamyelocytes Hypochromia Platelet Estimate Platelet Comment Polychromasia Poikilocytosis Anisocytosis Microcytosis Macrocytosis PT with INR 14.20 H INR 1.20 H Sodium Potassium Chloride Carbon Dioxide Anion Gap BUN Creatinine Creat Clearance w eGFR POC Glucometer Random Glucose Serum Osmolality 276 L Lactic Acid Calcium Total Bilirubin AST ALT Alkaline Phosphatase Creatine Kinase Troponin I < 0.02 B-Natriuretic Peptide Total Protein Albumin Urine Color Urine Appearance Urine pH Ur Specific [place] Urine Protein Urine Glucose (UA) Urine Ketones Urine Blood Urine Nitrite Urine Bilirubin Urine Urobilinogen Ur Leukocyte Esterase Urine WBC (Auto) Urine RBC (Auto) Ur Epithelial Cells Hyaline Casts Urine Osmolality Ur Random Sodium Urine Creatinine Acetone, Qual Influenza A (Rapid) Influenza B (Rapid) 07/08/18 11:50 WBC RBC Hgb Hct MCV MCH MCHC RDW Plt Count MPV Absolute Neuts (auto) Neutrophils % Neutrophils % (Manual) Band Neutrophils % Lymphocytes % Lymphocytes % (Manual) Monocytes % Monocytes % (Manual) Eosinophils % Eosinophils % (Manual) Basophils % Basophils % (Manual) Myelocytes % (Man) Promyelocytes % (Man) Blast Cells % (Manual) Nucleated RBC % Metamyelocytes Hypochromia Platelet Estimate Platelet Comment Polychromasia Poikilocytosis Anisocytosis Microcytosis Macrocytosis PT with INR INR Sodium Potassium Chloride Carbon Dioxide Anion Gap BUN Creatinine Creat Clearance w eGFR POC Glucometer 309 Random Glucose Serum Osmolality Lactic Acid Calcium Total Bilirubin AST ALT Alkaline Phosphatase Creatine Kinase Troponin I B-Natriuretic Peptide Total Protein Albumin Urine Color Urine Appearance Urine pH Ur Specific [place] Urine Protein Urine Glucose (UA) Urine Ketones Urine Blood Urine Nitrite Urine Bilirubin Urine Urobilinogen Ur Leukocyte Esterase Urine WBC (Auto) Urine RBC (Auto) Ur Epithelial Cells Hyaline Casts Urine Osmolality Ur Random Sodium Urine Creatinine Acetone, Qual Influenza A (Rapid) Influenza B (Rapid) Imaging - Results X-ray: Report Reviewed Assessment/Plan 58 y.o. male with DM, HTN, HLD presenting with complaints of fever/chills, epigastric pain/n/v/d x several days noted to have fever, leukocytosis, tachycardia, and hyponatremia. He is noncompliant with medications or f/u with PMD. Sepsis Abd Pain/Diarrhea Fever Leukocytosis -- labs/imaging results noted -- continue Zosyn empirically for now -- CXR/uA/Influenza rapid testing neg -- Urine legionella Ag requested -- suggest abdominal imaging -- follow up Blood cultures -- no current diarrhea/vomiting, if diarrhea noted send stool cultures -- monitor temps/wbc trend Will follow up Thank you
[2018-07-08] MEDS ORDERED: DEXTROSE 5%-WATER - 50 ML IVPB ONE ×2 (13:29→16:15)
[2018-07-08] MEDS ORDERED: PIPERACILLIN/TAZOBACTAM 3.375 GM VIAL IVPB ONE ×2 (13:29→16:14)
[2018-07-08] MEDS: PIPERACILLIN/TAZOB 3.375 GM 3.375 GM in DEXTROSE 5%-WATER - 50 ML IVPB SCH ×2 (13:32→17:40)
--- NOTE | 2018-07-08 15:37 | EKG ---
Test Reason : Blood Pressure : / mmHG Vent. Rate : 102 BPM Atrial Rate : 102 BPM P-R Int : 154 ms QRS Dur : 090 ms QT Int : 342 ms P-R-T Axes : 029 055 039 degrees QTc Int : 445 ms SINUS TACHYCARDIA OTHERWISE NORMAL ECG NO PREVIOUS ECGS AVAILABLE Confirmed by FRANKO BRYANT MD ([id number]) on 07/08/2018 3:36:34 PM Referred By: Confirmed By:FRANKO BRYANT MD
[2018-07-09] MEDS ORDERED: PIPERACILLIN/TAZOBACTAM 3.375 GM VIAL IVPB ONE ×3 (00:36→16:18)
[2018-07-09] MEDS ORDERED: DEXTROSE 5%-WATER - 50 ML IVPB ONE ×3 (00:36→16:19)
[2018-07-09] MEDS: SODIUM CHLORIDE 1,000 ML IV SCH ×3 (01:03→15:44)
[2018-07-09] MEDS: PIPERACILLIN/TAZOB 3.375 GM 3.375 GM in DEXTROSE 5%-WATER - 50 ML IVPB SCH ×3 (01:03→17:39)
[2018-07-09] MEDS: IBUPROFEN 400 MG TABLET (FP) PO PRN (01:50)
[2018-07-09] MEDS: HEPARIN NA (PORCINE) 5,000 UNITS/ML 1ML VIAL SQ SCH (06:04)
[2018-07-09] MEDS: INSULIN SLIDING SCALE (NOVOLOG) 1 VIAL SQ SCH ×4 (06:04→21:23)
[2018-07-09 09:20] LABS: BASO % 0.2 % (0-2.0); EOS % 0.3 % (0-4.5); HEMATOCRIT 33.5 % (35.4-49); HEMOGLOBIN 11.8 GM/dL (11.7-16.9); LYMPH % 6.8 % (8-40); MCHC 35.3 g/dl (32.0-35.9); MEAN CELL VOLUME 87.9 fl (80-96); MEAN PLT VOLUME 7.9 fl (7.5-11.1); MONO % 5.3 % (3.8-10.2); NEUT % 87.4 % (42.8-82.8); PLATELET COUNT 256 K/MM3 (134-434); RBC 3.81 M/mm3 (4.00-5.60); RDW 12.6 % (11.9-15.9); WHITE BLOOD COUNT 14.6 K/mm3 (4.0-10.0)
[2018-07-09 09:55] LABS: ALBUMIN 2.3 g/dl (3.4-5.0); ALK PHOS 221 U/L (45-117); ANION GAP 5 MMOL/L (8-16); BILIRUBIN,TOTAL 0.4 mg/dL (0.2-1); BLOOD UREA NITROGEN 12 mg/dL (7-18); CALCIUM 7.8 mg/dL (8.5-10.1); CHLORIDE 102 mmol/L (98-107); CO2 26 mmol/L (21-32); CREATININE 1.2 mg/dL (0.55-1.3); GLUCOSE,RANDOM 286 mg/dL (74-106); POTASSIUM 4.3 mmol/L (3.5-5.1); SGOT/AST 57 U/L (15-37); SGPT/ALT 75 U/L (13-61); SODIUM 132 mmol/L (136-145); TOT PROT 6.1 g/dl (6.4-8.2)
--- NOTE | 2018-07-09 11:45 | PN ---
Physical Exam: SUBJECTIVE: Patient seen and examined this AM. He states he is feeling better than yesterday. He does endorse one fever yesterday late but denies any overnight. OBJECTIVE: Vital Signs Period Temp Pulse Resp BP Sys/Negron Pulse Ox Last 24 Hr 98.1 F-101 F 65-114 16-20 106-137/54-72 95-95 GENERAL: A&O, no acute distress EYES: PERRL, no scleral icterus EARS, NOSE, THROAT: oropharynx clear without exudates. Moist mucous membranes. NECK: supple without lymphadenopathy LUNGS: CTA b/l, no crackles or wheezes HEART: Regular rate and rhythm, normal S1 and S2 without murmur ABDOMEN: Soft, nontender to palpation, normoactive bowel sounds EXTREMITIES: warm, well-perfused. No peripheral edema. NEUROLOGICAL: Cranial nerves II-XII grossly intact. Normal speech. Laboratory Results - last 24 hr 07/08/18 07/08/18 07/08/18 03:11 06:00 11:50 WBC RBC Hgb Hct MCV MCH MCHC RDW Plt Count MPV Absolute Neuts (auto) Neutrophils % Neutrophils % (Manual) 79.2 Band Neutrophils % 13.5 Lymphocytes % Lymphocytes % (Manual) 3.1 L Monocytes % Monocytes % (Manual) 1 L Eosinophils % Eosinophils % (Manual) 1.1 Basophils % Basophils % (Manual) 0.0 Myelocytes % (Man) 0 Promyelocytes % (Man) 0 Blast Cells % (Manual) 0 Nucleated RBC % 0 Metamyelocytes 1 Hypochromia 0 Platelet Estimate Normal Platelet Comment Present Polychromasia 1+ Poikilocytosis 0 Anisocytosis 0 Microcytosis 0 Macrocytosis 0 Sodium Potassium Chloride Carbon Dioxide Anion Gap BUN Creatinine Creat Clearance w eGFR POC Glucometer 309 Random Glucose Serum Osmolality 276 L Calcium Total Bilirubin AST ALT Alkaline Phosphatase Total Protein Albumin 07/08/18 07/08/18 07/09/18 17:37 21:16 06:03 WBC RBC Hgb Hct MCV MCH MCHC RDW Plt Count MPV Absolute Neuts (auto) Neutrophils % Neutrophils % (Manual) Band Neutrophils % Lymphocytes % Lymphocytes % (Manual) Monocytes % Monocytes % (Manual) Eosinophils % Eosinophils % (Manual) Basophils % Basophils % (Manual) Myelocytes % (Man) Promyelocytes % (Man) Blast Cells % (Manual) Nucleated RBC % Metamyelocytes Hypochromia Platelet Estimate Platelet Comment Polychromasia Poikilocytosis Anisocytosis Microcytosis Macrocytosis Sodium Potassium Chloride Carbon Dioxide Anion Gap BUN Creatinine Creat Clearance w eGFR POC Glucometer 242 222 300 Random Glucose Serum Osmolality Calcium Total Bilirubin AST ALT Alkaline Phosphatase Total Protein Albumin 07/09/18 07/09/18 08:55 08:55 WBC 14.6 H RBC 3.81 L Hgb 11.8 Hct 33.5 L MCV 87.9 MCH 31.0 MCHC 35.3 RDW 12.6 Plt Count 256 MPV 7.9 Absolute Neuts (auto) 12.8 H Neutrophils % 87.4 H Neutrophils % (Manual) Band Neutrophils % Lymphocytes % 6.8 L D Lymphocytes % (Manual) Monocytes % 5.3 D Monocytes % (Manual) Eosinophils % 0.3 D Eosinophils % (Manual) Basophils % 0.2 Basophils % (Manual) Myelocytes % (Man) Promyelocytes % (Man) Blast Cells % (Manual) Nucleated RBC % 0 Metamyelocytes Hypochromia Platelet Estimate Platelet Comment Polychromasia Poikilocytosis Anisocytosis Microcytosis Macrocytosis Sodium 132 L Potassium 4.3 Chloride 102 Carbon Dioxide 26 Anion Gap 5 L BUN 12 Creatinine 1.2 Creat Clearance w eGFR > 60 POC Glucometer Random Glucose 286 H Serum Osmolality Calcium 7.8 L Total Bilirubin 0.4 AST 57 H ALT 75 H Alkaline Phosphatase 221 H Total Protein 6.1 L Albumin 2.3 L Active Medications Generic Name Dose Route Start Last Admin Trade Name Freq PRN Reason Stop Dose Admin Heparin Sodium (Porcine) 5,000 unit 07/08/18 06:15 07/09/18 06:04 Heparin - SQ 5,000 unit TID ALEXANDRA Administration Sodium Chloride 1,000 mls @ 100 mls/hr 07/08/18 06:15 07/09/18 09:30 Normal Saline - IV Not Given ASDIR ALEXANDRA Piperacillin Sod/Tazobactam 50 mls @ 100 mls/hr 07/08/18 13:15 07/09/18 09:31 Sod 3.375 gm/ Dextrose IVPB 100 mls/hr Q8H-IV ALEXANDRA Administration Protocol Insulin Aspart 1 vial 07/08/18 07:00 07/09/18 06:04 Novolog Vial Sliding Scale - SQ 3 units ACHS ALEXANDRA Administration Protocol ASSESSMENT/PLAN: 58yo M with PHx of HTN, HLD, and DM presents with four days of watery diarrhea, fevers, nausea, and some intermittent shortness of breath Sepsis secondary to Gram negative bacteremia, source uncertain, possible hepatic abscess -Afebrile overnight, 101 yesterday -Blood cultures pending Lactose fermenting Gram Negative Bacilli -CT Abd/Pelv: hepatomegally with hepatic mass vs abscess -Zosyn -ID consult appreciated -GI consulted, will await further recs -Consider IR drainage, will hold DVT prophylaxis for now HTN -on lisinopril in the past, has not picked up in almost a year -currently stable, will monitor and restart as needed NIDDM -BGMs ACHS -Insulin sliding scale for glycemic control DVT Prophylaxis -Hold for possible IR/surgical intervention FEN -Fluids: none -Electrolytes: No electrolyte abnormalities, BMP in AM -Nutrition: Diabetic Diet Disposition Med/Surg Visit type - Emergency Visit Emergency Visit: Yes ED Registration Date: 07/08/18 Care time: The patient presented to the Emergency Department on the above date and was hospitalized for further evaluation of their emergent condition. - New Patient This patient is new to me today: Yes Date on this admission: 07/09/18 - Critical Care Critical Care patient: No
--- NOTE | 2018-07-09 12:07 | CON.GI ---
Consult Consult Specialty:: GI Referred by:: Medicine Reason for Consultation:: liver abscess vs mass - History of Present Illness Chief Complaint: fevers/chills History of Present Illness: 58M HTN, DM with neuropathy, HL a/w abdominal pain and fevers/chills for several days. GI asked to comment on CT showing possible liver abscess vs mass. Patient reports R flank pain for some time, several months now. Denies any further diarrhea. Is reporting epigastric discomfort and GERD sx post-prandially. He reports he was told he had [place] in [place]. Never a big ETOH drinker, denies illicit drug use. Has not been reliably taking medications for the above ailments. - History Source History Provided By: Patient Limitations to Obtaining History: No Limitations - Past Medical History Cardio/Vascular: Yes: HTN Endocrine: Yes: Diabetes Mellitus - Alcohol/Substance Use Hx Alcohol Use: No - Smoking History Smoking history: Unknown if ever smoked Have you smoked in the past 12 months: No - Social History History of Recent Travel: No Home Medications - Allergies Allergies/Adverse Reactions: Allergies Allergy/AdvReac Type Severity Reaction Status Date / Time No Known Allergies Allergy Verified 07/08/18 02:16 Review of Systems - Review of Systems Constitutional: reports: Chills, Fever Eyes: reports: No Symptoms HENT: reports: No Symptoms Neck: reports: No Symptoms Cardiovascular: reports: No Symptoms Respiratory: reports: No Symptoms Gastrointestinal: reports: Abdominal Pain, Diarrhea, Nausea, Vomiting Musculoskeletal: reports: No Symptoms Integumentary: reports: No Symptoms Neurological: reports: No Symptoms Endocrine: reports: No Symptoms Hematology/Lymphatic: reports: No Symptoms Physical Exam-GI Vital Signs: Vital Signs Temperature 98.6 F 07/09/18 10:00 Pulse Rate 86 07/09/18 10:00 Respiratory Rate 16 07/09/18 10:00 Blood Pressure 137/68 07/09/18 10:00 O2 Sat by Pulse Oximetry (%) 95 07/09/18 09:00 Constitutional: Yes: Well Nourished, No Distress Eyes: Yes: Conjunctiva Clear Cardiovascular: Yes: Regular Rate and Rhythm Respiratory: Yes: CTA Bilaterally ...Palpate: Yes: Soft, Tenderness (ttp in RUQ/R flank without guarding) ...Rectal Exam: Yes: Deferred Extremities: Yes: WNL Neurological: Yes: Alert, Oriented Labs: CBC, BMP 07/09/18 08:55 07/09/18 08:55 INR, PTT INR 1.20 (0.83-1.09) H 07/08/18 03:15 Hepatic Panel Total Bilirubin 0.4 mg/dL (0.2-1) 07/09/18 08:55 AST 57 U/L (15-37) H 07/09/18 08:55 ALT 75 U/L (13-61) H 07/09/18 08:55 Alkaline Phosphatase 221 U/L (45-117) H 07/09/18 08:55 Albumin 2.3 g/dl (3.4-5.0) L 07/09/18 08:55 Blood cultures growing GNRs Imaging - Results Cat Scan: Report Reviewed Assessment/Plan Impression: liver lesion is likely a hepatic abscess given constitutional symptoms and imaging findings, albeit noncontrast CT, and gram negative bacteremia. Would continue IV antibiotics Would perform contrast enhanced triple phase imaging - MRI with contrast (? if can patient can have given gold dental work) -- if not, consider contrast enhanced triple phase CT Would consult IR for drainage
--- NOTE | 2018-07-09 12:25 | PN ---
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 - Current Medication List Current Medications: Active Medications Heparin Sodium (Porcine) (Heparin -) 5,000 unit SQ TID ALEXANDRA Last Admin: 07/09/18 06:04 Dose: 5,000 unit Piperacillin Sod/Tazobactam (Sod 3.375 gm/ Dextrose) 50 mls @ 100 mls/hr IVPB Q8H-IV ALEXANDRA; Protocol Last Admin: 07/09/18 09:31 Dose: 100 mls/hr Sodium Chloride (Normal Saline -) 1,000 mls @ 75 mls/hr IV ASDIR ALEXANDRA Insulin Aspart (Novolog Vial Sliding Scale -) 1 vial SQ ACHS ALEXANDRA; Protocol Last Admin: 07/09/18 11:41 Dose: 4 units - Objective Vital Signs: Vital Signs Temperature 98.6 F 07/09/18 10:00 Pulse Rate 86 07/09/18 10:00 Respiratory Rate 16 07/09/18 10:00 Blood Pressure 137/68 07/09/18 10:00 O2 Sat by Pulse Oximetry (%) 95 07/09/18 09:00 Constitutional: Yes: Calm, Mild Distress Cardiovascular: Yes: Regular Rate and Rhythm Respiratory: Yes: Regular, CTA Bilaterally Gastrointestinal: Yes: Normal Bowel Sounds, Soft Musculoskeletal: Yes: WNL Extremities: Yes: WNL Neurological: Yes: Alert, Oriented Psychiatric: Yes: Alert, Oriented Labs: CBC, BMP 07/09/18 08:55 07/09/18 08:55 INR, PTT INR 1.20 (0.83-1.09) H 07/08/18 03:15 Assessment/Plan 58 y.o. male with DM, HTN, HLD presenting with complaints of fever/chills, epigastric pain/n/v/d x several days noted to have fever, leukocytosis, tachycardia, and hyponatremia. He is noncompliant with medications or f/u with PMD. Sepsis Abd Pain/Diarrhea Fever Leukocytosis gm negative bacteremia plan continue zosyn repeat blood cx close monitoring of wbc rest as per the team
--- NOTE | 2018-07-09 15:10 | PN ---
Teaching Attending Note Name of Resident: Delano Prieto
--- NOTE | 2018-07-09 15:19 | PN ---
Teaching Attending Note Name of Resident: Delano Prieto ATTENDING PHYSICIAN STATEMENT I saw and evaluated the patient. I reviewed the resident's note and discussed the case with the resident. I agree with the resident's findings and plan as documented. SUBJECTIVE: Feels better - no further diarrhea. No cough/sputum/abdominal pain/ dysuria/hematuria. OBJECTIVE: Tmax 101 yesterday, Hemodynamically stable. Last Vital Signs Temp Pulse Resp BP Pulse Ox 98.4 F 92 H 17 141/76 95 07/09/18 14:35 07/09/18 14:35 07/09/18 14:35 07/09/18 14:35 07/09/18 09:00 HEENT - Atraumatic, Normocephalic Heart - S1, S2, RRR Lungs - clear to auscultation Abdomen - soft, non-tender. Bowel Sounds normal. Extremities - no edema. No calf tenderness. Neuro - AAO x 3. Tone/Power normal all 4 extremities. Laboratory Results - last 24 hr 07/08/18 07/08/18 07/09/18 17:37 21:16 06:03 WBC RBC Hgb Hct MCV MCH MCHC RDW Plt Count MPV Absolute Neuts (auto) Neutrophils % Lymphocytes % Monocytes % Eosinophils % Basophils % Nucleated RBC % Sodium Potassium Chloride Carbon Dioxide Anion Gap BUN Creatinine Creat Clearance w eGFR POC Glucometer 242 222 300 Random Glucose Calcium Total Bilirubin AST ALT Alkaline Phosphatase Total Protein Albumin 07/09/18 07/09/18 07/09/18 08:55 08:55 11:37 WBC 14.6 H RBC 3.81 L Hgb 11.8 Hct 33.5 L MCV 87.9 MCH 31.0 MCHC 35.3 RDW 12.6 Plt Count 256 MPV 7.9 Absolute Neuts (auto) 12.8 H Neutrophils % 87.4 H Lymphocytes % 6.8 L D Monocytes % 5.3 D Eosinophils % 0.3 D Basophils % 0.2 Nucleated RBC % 0 Sodium 132 L Potassium 4.3 Chloride 102 Carbon Dioxide 26 Anion Gap 5 L BUN 12 Creatinine 1.2 Creat Clearance w eGFR > 60 POC Glucometer 341 Random Glucose 286 H Calcium 7.8 L Total Bilirubin 0.4 AST 57 H ALT 75 H Alkaline Phosphatase 221 H Total Protein 6.1 L Albumin 2.3 L Current Medications Generic Name Dose Route Start Last Admin Trade Name Freq PRN Reason Stop Dose Admin Heparin Sodium (Porcine) 5,000 unit 07/08/18 06:15 07/09/18 06:04 Heparin - SQ 5,000 unit TID ALEXANDRA Administration Piperacillin Sod/Tazobactam 50 mls @ 100 mls/hr 07/08/18 13:15 07/09/18 09:31 Sod 3.375 gm/ Dextrose IVPB 100 mls/hr Q8H-IV ALEXANDRA Administration Protocol Sodium Chloride 1,000 mls @ 75 mls/hr 07/09/18 11:24 Normal Saline - IV ASDIR ALEXANDRA Insulin Aspart 1 vial 07/08/18 07:00 07/09/18 11:41 Novolog Vial Sliding Scale - SQ 4 units ACHS ALEXANDRA Administration Protocol ASSESSMENT/PLAN: 58 year old male with HTN, HLD, DM 2 with neuropathy, presented with 4 day history of watery diarrhea, fevers, nausea - no vomiting/melena/hematochezia, found to have Gram neg bacteremia and liver mass/abscess on abdominal imaging. 1. Sepsis sec to Bacteremia due to Liver Abscess Fever, leukocytosis - Tmax 101 07/08/18 CXR - no acute cardiopulmonary process CT A/P - Hepatomegaly with R lobe mass suspicious for abscess/malignancy Stool Cdiff neg. Abdominal exam currently benign. Will continue Zosyn. ID and GI Following IR consulted for guided drainage/biopsy. 2. Hyponatremia, likely sec to dehydration due to diarrhea. Improving with IV hydration 3. Transaminitis - mild, stable, possibly due to sepsis versus hepatocellular process/abscess/mass 4. DM 2 - will maintain on sliding scale insulin. 5. HTN/HLD - Home meds unclear - need clarification/reconciliation. DVT Px - Heparin SQ GI Px - Protonix.
[2018-07-10] MEDS ORDERED: PIPERACILLIN/TAZOBACTAM 3.375 GM VIAL IVPB ONE ×4 (00:23→23:44)
[2018-07-10] MEDS ORDERED: DEXTROSE 5%-WATER - 50 ML IVPB ONE ×4 (00:24→23:44)
[2018-07-10] MEDS: PIPERACILLIN/TAZOB 3.375 GM 3.375 GM in DEXTROSE 5%-WATER - 50 ML IVPB SCH ×3 (01:32→17:15)
[2018-07-10] MEDS ORDERED: IBUPROFEN 600 MG TABLET (FP) PO PRN (06:19)
[2018-07-10] MEDS ORDERED: ACETAMINOPHEN 325 MG TABLET (FP) ONE (06:26)
[2018-07-10 06:49] LABS: BASO % 0.3 % (0-2.0); EOS % 0.1 % (0-4.5); HEMATOCRIT 31.9 % (35.4-49); HEMOGLOBIN 11.2 GM/dL (11.7-16.9); LYMPH % 7.8 % (8-40); MCH 30.5 pg (25.7-33.7); MCHC 35.2 g/dl (32.0-35.9); MEAN CELL VOLUME 86.5 fl (80-96); MEAN PLT VOLUME 7.7 fl (7.5-11.1); MONO % 6.7 % (3.8-10.2); NEUT % 85.1 % (42.8-82.8); PLATELET COUNT 300 K/MM3 (134-434); RBC 3.69 M/mm3 (4.00-5.60); RDW 12.6 % (11.9-15.9); WHITE BLOOD COUNT 15.4 K/mm3 (4.0-10.0)
[2018-07-10] MEDS: INSULIN SLIDING SCALE (NOVOLOG) 1 VIAL SQ SCH ×4 (07:17→22:15)
[2018-07-10 07:19] LABS: ANION GAP 9 MMOL/L (8-16); BLOOD UREA NITROGEN 7 mg/dL (7-18); CALCIUM 8.3 mg/dL (8.5-10.1); CHLORIDE 100 mmol/L (98-107); CO2 24 mmol/L (21-32); CREATININE 1.1 mg/dL (0.55-1.3); GLUCOSE,RANDOM 152 mg/dL (74-106); MAGNESIUM 1.9 mg/dL (1.8-2.4); PHOSPHOROUS 3.4 mg/dL (2.5-4.9); POTASSIUM 4.2 mmol/L (3.5-5.1); SODIUM 133 mmol/L (136-145)
[2018-07-10] MEDS: SODIUM CHLORIDE 1,000 ML IV SCH ×2 (08:00→11:30)
[2018-07-10] MEDS ORDERED: MAGNESIUM OXIDE 400 MG TABLET (FP) PO ONE (09:05)
[2018-07-10 09:38] LABS: ALBUMIN 2.3 g/dl (3.4-5.0); ALK PHOS 245 U/L (45-117); BILIRUBIN,DIRECT 0.3 mg/dL (0.0-0.2); BILIRUBIN,TOTAL 0.6 mg/dL (0.2-1); SGOT/AST 48 U/L (15-37); SGPT/ALT 65 U/L (13-61); TOT PROT 6.2 g/dl (6.4-8.2)
[2018-07-10] MEDS ORDERED: CEFTRIAXONE 1 GM in DEXTROSE 5%-WATER - 100 ML IVPB SCH (12:15)
--- NOTE | 2018-07-10 12:17 | PN ---
Progress Note, Physician History of Present Illness: wbc has increased patient does not feel well - Current Medication List Current Medications: Active Medications Sodium Chloride (Normal Saline -) 1,000 mls @ 75 mls/hr IV ASDIR ALEXANDRA Last Admin: 07/09/18 15:44 Dose: 75 mls/hr Piperacillin Sod/Tazobactam (Sod 3.375 gm/ Dextrose) 50 mls @ 100 mls/hr IVPB Q8H-IV ALEXANDRA; Protocol Ibuprofen (Motrin -) 600 mg PO Q6H PRN PRN Reason: FEVER Last Admin: 07/10/18 06:28 Dose: 600 mg Insulin Aspart (Novolog Vial Sliding Scale -) 1 vial SQ ACHS ALEXANDRA; Protocol Last Admin: 07/10/18 07:17 Dose: Not Given - Objective Vital Signs: Vital Signs Temperature 97 F L 07/10/18 10:00 Pulse Rate 86 07/10/18 10:00 Respiratory Rate 16 07/10/18 10:00 Blood Pressure 150/83 07/10/18 10:00 O2 Sat by Pulse Oximetry (%) 98 07/10/18 09:00 Constitutional: Yes: Calm, Mild Distress Cardiovascular: Yes: Regular Rate and Rhythm Respiratory: Yes: Regular, CTA Bilaterally Gastrointestinal: Yes: Soft, Hypoactive Bowel Sounds Musculoskeletal: Yes: WNL Extremities: Yes: WNL Neurological: Yes: Alert, Oriented Psychiatric: Yes: Alert, Oriented Labs: CBC, BMP 07/10/18 05:40 07/10/18 05:40 INR, PTT INR 1.20 (0.83-1.09) H 07/08/18 03:15 Assessment/Plan 58 y.o. male with DM, HTN, HLD presenting with complaints of fever/chills, epigastric pain/n/v/d x several days noted to have fever, leukocytosis, tachycardia, and hyponatremia. Sepsis Abd Pain/Diarrhea Fever Leukocytosis gm negative bacteremia liver abscess patient continues to spike fever plan will continue abx await for ir to drain the abscess cx to be send rest as per the team
--- NOTE | 2018-07-10 14:24 | PN ---
Physical Exam: SUBJECTIVE: Patient seen and examined this AM. He states he was having some fevers overnight. He states overall he is feeling better than admission, however that he is not feeling as well today as yesterday. OBJECTIVE: Vital Signs Period Temp Pulse Resp BP Sys/Negron Pulse Ox Last 24 Hr 97 F-101.2 F 86-101 16-20 141-150/76-88 98-98 GENERAL: A&O, no acute distress EYES: PERRL, no scleral icterus EARS, NOSE, THROAT: oropharynx clear without exudates. Moist mucous membranes. NECK: supple without lymphadenopathy LUNGS: CTA b/l, no crackles or wheezes HEART: Regular rate and rhythm, normal S1 and S2 without murmur ABDOMEN: Soft, nontender to palpation, normoactive bowel sounds EXTREMITIES: warm, well-perfused. No peripheral edema. NEUROLOGICAL: Cranial nerves II-XII grossly intact. Normal speech. Laboratory Results - last 24 hr 07/09/18 07/09/18 07/10/18 17:36 21:22 05:40 WBC 15.4 H RBC 3.69 L Hgb 11.2 L Hct 31.9 L MCV 86.5 MCH 30.5 MCHC 35.2 RDW 12.6 Plt Count 300 MPV 7.7 Absolute Neuts (auto) 13.1 H Neutrophils % 85.1 H Lymphocytes % 7.8 L Monocytes % 6.7 Eosinophils % 0.1 Basophils % 0.3 Nucleated RBC % 0 Sodium Potassium Chloride Carbon Dioxide Anion Gap BUN Creatinine Creat Clearance w eGFR POC Glucometer 270 139 Random Glucose Calcium Phosphorus Magnesium Total Bilirubin Direct Bilirubin AST ALT Alkaline Phosphatase Total Protein Albumin Blood Type Antibody Screen 07/10/18 07/10/18 07/10/18 05:40 06:13 09:20 WBC RBC Hgb Hct MCV MCH MCHC RDW Plt Count MPV Absolute Neuts (auto) Neutrophils % Lymphocytes % Monocytes % Eosinophils % Basophils % Nucleated RBC % Sodium 133 L Potassium 4.2 Chloride 100 Carbon Dioxide 24 Anion Gap 9 BUN 7 Creatinine 1.1 Creat Clearance w eGFR > 60 POC Glucometer 157 Random Glucose 152 H Calcium 8.3 L Phosphorus 3.4 Magnesium 1.9 Total Bilirubin 0.6 Direct Bilirubin 0.3 H AST 48 H ALT 65 H Alkaline Phosphatase 245 H Total Protein 6.2 L Albumin 2.3 L Blood Type A POSITIVE Antibody Screen Negative 07/10/18 11:42 WBC RBC Hgb Hct MCV MCH MCHC RDW Plt Count MPV Absolute Neuts (auto) Neutrophils % Lymphocytes % Monocytes % Eosinophils % Basophils % Nucleated RBC % Sodium Potassium Chloride Carbon Dioxide Anion Gap BUN Creatinine Creat Clearance w eGFR POC Glucometer 281 Random Glucose Calcium Phosphorus Magnesium Total Bilirubin Direct Bilirubin AST ALT Alkaline Phosphatase Total Protein Albumin Blood Type Antibody Screen Active Medications Generic Name Dose Route Start Last Admin Trade Name Freq PRN Reason Stop Dose Admin Acetaminophen 650 mg 07/10/18 13:27 Tylenol - PO Q4H PRN FEVER Sodium Chloride 1,000 mls @ 75 mls/hr 07/09/18 11:24 07/09/18 15:44 Normal Saline - IV 75 mls/hr ASDIR ALEXANDRA Administration Piperacillin Sod/Tazobactam 50 mls @ 100 mls/hr 07/10/18 18:00 Sod 3.375 gm/ Dextrose IVPB Q8H-IV ALEXANDRA Protocol Insulin Aspart 1 vial 07/08/18 07:00 07/10/18 12:15 Novolog Vial Sliding Scale - SQ 3 units ACHS ALEXANDRA Administration Protocol ASSESSMENT/PLAN: 58yo M with PHx of HTN, HLD, and DM presents with four days of watery diarrhea, fevers, nausea, and some intermittent shortness of breath Sepsis secondary to Gram negative bacteremia, source uncertain, possible hepatic abscess -Febrile overnight to 101.2 -Blood cultures positive for Klebsiella -CT Abd/Pelv: hepatomegally with hepatic mass vs abscess -Repeat CT with contrast suspicious for abscess -Zosyn -ID consult appreciated -GI consult appreciated -For IR guided drainage in AM. PLEASE HOLD ALL HEPARIN AND NSAIDS HTN -on lisinopril in the past, has not picked up in almost a year -currently stable, will monitor and restart as needed NIDDM -BGMs ACHS -Insulin sliding scale for glycemic control -will likely need Metformin restarted on discharge or close follow up with primary as sugars have been elevated DVT Prophylaxis -Hold for possible IR/surgical intervention FEN -Fluids: none -Electrolytes: No electrolyte abnormalities, BMP in AM -Nutrition: Diabetic Diet Disposition Med/Surg Visit type - Emergency Visit Emergency Visit: Yes ED Registration Date: 07/08/18 Care time: The patient presented to the Emergency Department on the above date and was hospitalized for further evaluation of their emergent condition. - New Patient This patient is new to me today: No - Critical Care Critical Care patient: No
--- NOTE | 2018-07-10 16:52 | PN ---
Teaching Attending Note Name of Resident: Delano Prieto ATTENDING PHYSICIAN STATEMENT I saw and evaluated the patient. I reviewed the resident's note and discussed the case with the resident. I agree with the resident's findings and plan as documented. SUBJECTIVE:c/o RUQ pain not worse with anything. felt feverish last night. denies CP, SOB, fever, chills, N/V/C/D OBJECTIVE: Last Vital Signs Temp Pulse Resp BP Pulse Ox 97 F L 86 16 150/83 98 07/10/18 10:00 07/10/18 10:00 07/10/18 10:00 07/10/18 10:07/10/18 09:00 General NAD CV S1 S2 RRR Lungs CTA B/L no wheezing/rales/rhonchi Abdomen soft NT/ND no hepatomegaly ASSESSMENT AND PLAN: 58 year old male with HTN, HLD, DM 2 with neuropathy, presented with 4 day history of watery diarrhea, fevers, nausea - no vomiting/melena/hematochezia, found to have Gram neg bacteremia and liver mass/abscess on abdominal imaging. 1. Sepsis sec to klebsiella Bacteremia due to Liver Abscess- Tm101.2 and tachycardic. will repeat Bcx today. plan for Liver abscess drain by IR today. NPO. will cont zosyn day 3. cont IVF. pain control. can give tylenol as needed would hold motrin with pending bx 2. Hyponatremia-due to dehydration. slowly improving 3. Transaminitis- likely due to abscess and sepsis. stable not worsening. will trend 4. DM 2 -hold oral agents. cont BGM/ISS 5. HTN/HLD - Home meds unclear - need clarification/reconciliation. 6.DVT Px - Heparin SQ
--- NOTE | 2018-07-10 17:27 | PN ---
GI Progress Note Subjective: No acute events overnight Found sleeping comfortably Did complain of some RUQ pain Triple phase CT scan revealed a 7 x 4 x 3.7cm right hepatic lobe fluid structure as well as a possible peripheral thrombosed branch of right hepatic vein, splenomegaly and enlarged Retroperitoneal LN's noted as well. Patient denies a history of liver disease. Denies recent travel. No change in bowel habits, no rectal bleeding. He has never had a colonoscopy. - Objective Vital Signs: Vital Signs Temperature 97 F L 07/10/18 10:00 Pulse Rate 86 07/10/18 10:00 Respiratory Rate 16 07/10/18 10:00 Blood Pressure 150/83 07/10/18 10:00 O2 Sat by Pulse Oximetry (%) 98 07/10/18 09:00 Constitutional: Calm Eyes: No: Sclera Icterus Cardiovascular: Yes: Regular Rate and Rhythm Respiratory: Yes: CTA Bilaterally Gastrointestinal Inspection: No: Distention ...Auscultate: Yes: Normoactive Bowel Sounds ...Palpate: Yes: Soft, Tenderness (Mild TTP RUQ). No: Guarding, Hepatomegaly, Splenomegaly ...Percussion: No: Tympanitic Edema: No (No Le edema) Neurological: Yes: Alert Labs: CBC, BMP 07/10/18 05:40 07/10/18 05:40 INR, PTT INR 1.20 (0.83-1.09) H 07/08/18 03:15 Problem List - Problems (1) Pyogenic liver abscess Assessment/Plan: Pyogenic Liver Abscess with Kelb Pneumoniae bacteremia in a Diabetic (unclear how well controlled his diabetes is as an outpatient) IV Abx per ID For IR drainage tomorrow Code(s): K75.0 - ABSCESS OF LIVER
[2018-07-10] MEDS: ACETAMINOPHEN 325 MG TABLET (FP) PO PRN (19:14)
[2018-07-10] MEDS ORDERED: ACETAMINOPHEN 1000 MG/100 ML VIAL (NON FORMULARY) IVPB PRN (20:47)
[2018-07-11] MEDS: SODIUM CHLORIDE 1,000 ML IV SCH ×3 (00:47→14:43)
[2018-07-11] MEDS: PIPERACILLIN/TAZOB 3.375 GM 3.375 GM in DEXTROSE 5%-WATER - 50 ML IVPB SCH ×3 (01:30→19:03)
[2018-07-11] MEDS ORDERED: PIPERACILLIN/TAZOB 3.375 GM 3.375 GM in DEXTROSE 5%-WATER - 50 ML IVPB SCH (02:00)
[2018-07-11] MEDS: ACETAMINOPHEN 325 MG TABLET (FP) PO PRN ×4 (02:58→18:43)
[2018-07-11] MEDS: INSULIN SLIDING SCALE (NOVOLOG) 1 VIAL SQ SCH ×4 (06:27→22:01)
[2018-07-11 07:47] LABS: BASO % 0.2 % (0-2.0); EOS % 0.1 % (0-4.5); HEMATOCRIT 29.5 % (35.4-49); HEMOGLOBIN 10.5 GM/dL (11.7-16.9); LYMPH % 7.5 % (8-40); MCH 30.9 pg (25.7-33.7); MCHC 35.7 g/dl (32.0-35.9); MEAN CELL VOLUME 86.6 fl (80-96); MEAN PLT VOLUME 7.5 fl (7.5-11.1); MONO % 7.9 % (3.8-10.2); NEUT % 84.3 % (42.8-82.8); PLATELET COUNT 327 K/MM3 (134-434); RBC 3.41 M/mm3 (4.00-5.60); RDW 12.7 % (11.9-15.9); WHITE BLOOD COUNT 13.9 K/mm3 (4.0-10.0)
[2018-07-11 08:37] LABS: ALK PHOS 263 U/L (45-117); ANION GAP 7 MMOL/L (8-16); BILIRUBIN,TOTAL 0.8 mg/dL (0.2-1); BLOOD UREA NITROGEN 8 mg/dL (7-18); CALCIUM 7.5 mg/dL (8.5-10.1); CHLORIDE 101 mmol/L (98-107); CO2 26 mmol/L (21-32); CREATININE 1.1 mg/dL (0.55-1.3); GLUCOSE,RANDOM 199 mg/dL (74-106); MAGNESIUM 1.9 mg/dL (1.8-2.4); PHOSPHOROUS 3.6 mg/dL (2.5-4.9); POTASSIUM 3.9 mmol/L (3.5-5.1); SGOT/AST 56 U/L (15-37); SGPT/ALT 65 U/L (13-61); SODIUM 134 mmol/L (136-145); TOT PROT 5.9 g/dl (6.4-8.2)
[2018-07-11] MEDS ORDERED: PIPERACILLIN/TAZOBACTAM 3.375 GM VIAL IVPB ONE (09:26)
[2018-07-11] MEDS ORDERED: DEXTROSE 5%-WATER - 50 ML IVPB ONE (09:27)
--- NOTE | 2018-07-11 11:24 | PN ---
Progress Note, Physician History of Present Illness: patient stable no new issues - Current Medication List Current Medications: Active Medications Acetaminophen (Tylenol -) 650 mg PO Q4H PRN PRN Reason: FEVER Last Admin: 07/11/18 09:53 Dose: 650 mg Acetaminophen (Ofirmev Injection -) 650 mg IVPB Q6H PRN PRN Reason: FEVER Sodium Chloride (Normal Saline -) 1,000 mls @ 75 mls/hr IV ASDIR ALEXANDRA Last Admin: 07/11/18 00:47 Dose: 75 mls/hr Piperacillin Sod/Tazobactam (Sod 3.375 gm/ Dextrose) 50 mls @ 100 mls/hr IVPB Q8H-IV ALEXANDRA; Protocol Last Admin: 07/11/18 09:28 Dose: 100 mls/hr Insulin Aspart (Novolog Vial Sliding Scale -) 1 vial SQ ACHS ALEXANDRA; Protocol Last Admin: 07/11/18 11:11 Dose: Not Given - Objective Vital Signs: Vital Signs Temperature 98.8 F 07/11/18 06:28 Pulse Rate 90 07/11/18 11:17 Respiratory Rate 22 H 07/11/18 11:17 Blood Pressure 123/77 07/11/18 11:17 O2 Sat by Pulse Oximetry (%) 100 07/11/18 11:17 Constitutional: Yes: No Distress, Calm Neck: Yes: Supple, Trachea Midline Cardiovascular: Yes: Regular Rate and Rhythm Respiratory: Yes: Regular, CTA Bilaterally Gastrointestinal: Yes: Normal Bowel Sounds, Soft Musculoskeletal: Yes: WNL Extremities: Yes: WNL Labs: CBC, BMP 07/11/18 06:20 07/11/18 06:20 INR, PTT INR 1.20 (0.83-1.09) H 07/08/18 03:15 Assessment/Plan 58 y.o. male with DM, HTN, HLD presenting with complaints of fever/chills, epigastric pain/n/v/d x several days noted to have fever, leukocytosis, tachycardia, and hyponatremia. He is noncompliant with medications or f/u with PMD. Sepsis Abd Pain/Diarrhea Fever Leukocytosis gm negative bacteremia plan continue zosyn repeat blood cx negative question of hepatic abscess of further management rest as per the team
--- NOTE | 2018-07-11 11:32 | PN ---
Physical Exam: SUBJECTIVE: Patient seen and examined this AM. He states his is feeling okay but not better. Fevers overnight noted. For IR drainage of liver abscess today OBJECTIVE: Vital Signs Period Temp Pulse Resp BP Sys/Negron Pulse Ox Last 24 Hr 98.8 F-102 F 86-93 15-22 123-153/66-88 96-100 GENERAL: A&O, no acute distress EYES: PERRL, no scleral icterus EARS, NOSE, THROAT: oropharynx clear without exudates. Moist mucous membranes. NECK: supple without lymphadenopathy LUNGS: CTA b/l, no crackles or wheezes HEART: Regular rate and rhythm, normal S1 and S2 without murmur ABDOMEN: Soft, minimal RUQ tenderness to palpation, normoactive bowel sounds EXTREMITIES: warm, well-perfused. No peripheral edema. NEUROLOGICAL: Cranial nerves II-XII grossly intact. Normal speech. Laboratory Results - last 24 hr 07/10/18 07/10/18 07/10/18 09:20 11:42 12:30 WBC RBC Hgb Hct MCV MCH MCHC RDW Plt Count MPV Absolute Neuts (auto) Neutrophils % Lymphocytes % Monocytes % Eosinophils % Basophils % Nucleated RBC % Sodium Potassium Chloride Carbon Dioxide Anion Gap BUN Creatinine Creat Clearance w eGFR POC Glucometer 281 Random Glucose Hemoglobin A1c % Calcium Phosphorus Magnesium Total Bilirubin AST ALT Alkaline Phosphatase Total Protein Albumin Blood Type A POSITIVE A POSITIVE Antibody Screen Negative 07/10/18 07/10/18 07/11/18 16:32 21:40 06:20 WBC 13.9 H RBC 3.41 L Hgb 10.5 L Hct 29.5 L MCV 86.6 MCH 30.9 MCHC 35.7 RDW 12.7 Plt Count 327 MPV 7.5 Absolute Neuts (auto) 11.7 H Neutrophils % 84.3 H Lymphocytes % 7.5 L Monocytes % 7.9 Eosinophils % 0.1 Basophils % 0.2 Nucleated RBC % 0 Sodium Potassium Chloride Carbon Dioxide Anion Gap BUN Creatinine Creat Clearance w eGFR POC Glucometer 281 280 Random Glucose Hemoglobin A1c % Calcium Phosphorus Magnesium Total Bilirubin AST ALT Alkaline Phosphatase Total Protein Albumin Blood Type Antibody Screen 07/11/18 07/11/18 07/11/18 06:20 06:25 06:40 WBC RBC Hgb Hct MCV MCH MCHC RDW Plt Count MPV Absolute Neuts (auto) Neutrophils % Lymphocytes % Monocytes % Eosinophils % Basophils % Nucleated RBC % Sodium 134 L Potassium 3.9 Chloride 101 Carbon Dioxide 26 Anion Gap 7 L BUN 8 Creatinine 1.1 Creat Clearance w eGFR > 60 POC Glucometer 221 Random Glucose 199 H Hemoglobin A1c % 11.3 H Calcium 7.5 L Phosphorus 3.6 Magnesium 1.9 Total Bilirubin 0.8 AST 56 H ALT 65 H Alkaline Phosphatase 263 H Total Protein 5.9 L Albumin 2.0 L Blood Type Antibody Screen Active Medications Generic Name Dose Route Start Last Admin Trade Name Anabell PRN Reason Stop Dose Admin Acetaminophen 650 mg 07/10/18 13:27 07/11/18 09:53 Tylenol - PO 650 mg Q4H PRN Administration FEVER Acetaminophen 650 mg 07/10/18 20:47 Ofirmev Injection - IVPB Q6H PRN FEVER Sodium Chloride 1,000 mls @ 75 mls/hr 07/09/18 11:24 07/11/18 00:47 Normal Saline - IV 75 mls/hr ASDIR ALEXANDRA Administration Piperacillin Sod/Tazobactam 50 mls @ 100 mls/hr 07/10/18 18:00 07/11/18 09:28 Sod 3.375 gm/ Dextrose IVPB 100 mls/hr Q8H-IV ALEXANDRA Administration Protocol Insulin Aspart 1 vial 07/08/18 07:00 07/11/18 11:11 Novolog Vial Sliding Scale - SQ Not Given ACHS ALEXANDRA Protocol ASSESSMENT/PLAN: 58yo M with PHx of HTN, HLD, and DM presents with four days of watery diarrhea, fevers, nausea, and some intermittent shortness of breath Sepsis secondary to Gram negative bacteremia, source uncertain, possible hepatic abscess -Febrile overnight to 102 -Blood cultures positive for Klebsiella -CT Abd/Pelv: hepatomegally with hepatic mass vs abscess -Repeat CT with contrast suspicious for abscess -Continue Zosyn -ID consult appreciated -GI consult appreciated -For IR guided drainage today HTN -on lisinopril in the past, has not picked up in almost a year -currently stable, will monitor and restart as needed NIDDM -BGMs ACHS -Insulin sliding scale for glycemic control -A1C noted 11.3 DVT Prophylaxis -Can restart heparin following IR procedure FEN -Fluids: none -Electrolytes: No electrolyte abnormalities, BMP in AM -Nutrition: Diabetic Diet Disposition Med/Surg Visit type - Emergency Visit Emergency Visit: Yes ED Registration Date: 07/08/18 Care time: The patient presented to the Emergency Department on the above date and was hospitalized for further evaluation of their emergent condition. - New Patient This patient is new to me today: No - Critical Care Critical Care patient: No
--- NOTE | 2018-07-11 13:19 | PN ---
Progress Note, Physician History of Present Illness: Pt seen/examined at bedside this am, ambulating around the room, still with RUQ pain and intermittent fevers, denies n/v. Feels hungry, currently NPO for IR drainage today. - Current Medication List Current Medications: Active Medications Acetaminophen (Tylenol -) 650 mg PO Q4H PRN PRN Reason: FEVER Last Admin: 07/11/18 09:53 Dose: 650 mg Acetaminophen (Ofirmev Injection -) 650 mg IVPB Q6H PRN PRN Reason: FEVER Sodium Chloride (Normal Saline -) 1,000 mls @ 75 mls/hr IV ASDIR ALEXANDRA Last Admin: 07/11/18 12:48 Dose: Not Given Piperacillin Sod/Tazobactam (Sod 3.375 gm/ Dextrose) 50 mls @ 100 mls/hr IVPB Q8H-IV ALEXANDRA; Protocol Last Admin: 07/11/18 09:28 Dose: 100 mls/hr Insulin Aspart (Novolog Vial Sliding Scale -) 1 vial SQ ACHS ALEXANDRA; Protocol Last Admin: 07/11/18 11:11 Dose: Not Given - Objective Vital Signs: Vital Signs Temperature 98.8 F 07/11/18 12:20 Pulse Rate 86 07/11/18 12:20 Respiratory Rate 20 07/11/18 12:20 Blood Pressure 131/74 07/11/18 12:20 O2 Sat by Pulse Oximetry (%) 98 07/11/18 13:03 Constitutional: Yes: Well Nourished, No Distress, Calm Cardiovascular: Yes: WNL, Regular Rate and Rhythm Respiratory: Yes: WNL, Regular, CTA Bilaterally Gastrointestinal: Yes: WNL, Normal Bowel Sounds, Soft, Other (Soft, tender in RUQ on palpation, nondistended) Labs: CBC, BMP 07/11/18 06:20 07/11/18 06:20 INR, PTT INR 1.20 (0.83-1.09) H 07/08/18 03:15 Problem List - Problems (1) Pyogenic liver abscess Assessment/Plan: 58yo male h/o Diabetes presenting with abdominal pain and fevers with CT evidence of a 7 x 4 x 3.7cm right hepatic lobe fluid structure suggestive of an abscess, also with mild splenomegaly and retroperitoneal LNs. LFTs elevated. No prior colonoscopy. -Pt for IR drainage of the abscess today -Continue IV antibiotics per ID -Monitor LFT trend -Follow up hepatitis serologies -Pt will also require close follow up for colonoscopy in setting of liver abscess and klebsiella bacteremia due to association with possible colorectal ca. Discussed with medicine team. Code(s): K75.0 - ABSCESS OF LIVER
--- NOTE | 2018-07-11 13:56 | PN ---
Teaching Attending Note Name of Resident: Delano Prieto ATTENDING PHYSICIAN STATEMENT I saw and evaluated the patient. I reviewed the resident's note and discussed the case with the resident. I agree with the resident's findings and plan as documented. SUBJECTIVE:c/o feeling feverish. denies CP, SOB, N/V/C/D. some slight discomfort in RUQ OBJECTIVE: Last Vital Signs Temp Pulse Resp BP Pulse Ox 98.8 F 86 20 131/74 98 07/11/18 12:20 07/11/18 12:20 07/11/18 12:20 07/11/18 12:20 07/11/18 13:03 General NAD CV S1 S2 RRR Lungs CTA B/L no wheezing/rales/rhonchi Abdomen soft NT/ND no hepatomegaly ASSESSMENT AND PLAN: 58 year old male with HTN, HLD, DM 2 with neuropathy, presented with 4 day history of watery diarrhea, fevers, nausea - no vomiting/melena/hematochezia, found to have Gram neg bacteremia and liver mass/abscess on abdominal imaging. 1. Sepsis sec to klebsiella Bacteremia due to Liver Abscess-multiple fever spikes. Tm 102. NPO for Liver abscess drainage today. repeat Bcx NGTD. on zosyn day 4, ivf, pain control. will need colonoscopy in the future to r/o colorectal cancer as high association. GI and ID on board. 2. Hyponatremia-due to dehydration. slowly improving 3. Transaminitis- likely due to abscess and sepsis. stable not worsening. will trend. hep serologies pending 4. Normocytic anemia- likely dilutional component with underyling chronic anemia. check iron studies. no indication for txn. no signs of bleeding 5. DM 2 - A1c 11.2. pt was not taking medications for 6+ months. will benefit from insulin therapy at this time. start levemir 5 units HS and titrate as needed to optimize control. RN teaching of how to check BGM and administer insulin. dietary consult. 6. HTN- will start acei to optimize control. 7. dyslipidemia- stated he was on statin in past but d/c himself. should have dietary/lifestyle changes and Lipid panel checked in 3 months to assess if needs statin therapy. would hold this time in setting of acute transaminitis. 8.DVT Px - Heparin SQ
[2018-07-11] MEDS ORDERED: oxyCODONE HCL 5 MG TABLET PO ONE (14:53)
[2018-07-11] MEDS ORDERED: INSULIN (NOVOLOG) ASPART 100 UNITS/ML 10ML VIAL ONE (16:43)
[2018-07-11] MEDS: INSULIN (LEVEMIR) 100 UNITS/ML UNITS SQ SCH (22:02)
[2018-07-12] MEDS ORDERED: PIPERACILLIN/TAZOBACTAM 3.375 GM VIAL IVPB ONE ×3 (02:07→17:48)
[2018-07-12] MEDS ORDERED: DEXTROSE 5%-WATER - 50 ML IVPB ONE ×3 (02:07→17:48)
[2018-07-12] MEDS: PIPERACILLIN/TAZOB 3.375 GM 3.375 GM in DEXTROSE 5%-WATER - 50 ML IVPB SCH ×3 (02:44→17:58)
[2018-07-12] MEDS: SODIUM CHLORIDE 1,000 ML IV SCH ×2 (03:48→11:31)
[2018-07-12] MEDS ORDERED: oxyCODONE HCL 5 MG TABLET PO ONE (04:13)
[2018-07-12] MEDS: INSULIN SLIDING SCALE (NOVOLOG) 1 VIAL SQ SCH ×4 (07:45→21:13)
[2018-07-12 07:57] LABS: HEMOGLOBIN 10.4 GM/dL (11.7-16.9); MCH 30.5 pg (25.7-33.7); MCHC 34.8 g/dl (32.0-35.9); MEAN CELL VOLUME 87.7 fl (80-96); MEAN PLT VOLUME 7.4 fl (7.5-11.1); PLATELET COUNT 381 K/MM3 (134-434); RBC 3.42 M/mm3 (4.00-5.60); RDW 12.7 % (11.9-15.9); WHITE BLOOD COUNT 14.3 K/mm3 (4.0-10.0)
[2018-07-12 08:37] LABS: ALK PHOS 214 U/L (45-117); ANION GAP 8 MMOL/L (8-16); BILIRUBIN,TOTAL 0.7 mg/dL (0.2-1); BLOOD UREA NITROGEN 10 mg/dL (7-18); CALCIUM 7.6 mg/dL (8.5-10.1); CHLORIDE 98 mmol/L (98-107); CO2 26 mmol/L (21-32); CREATININE 1.2 mg/dL (0.55-1.3); GLUCOSE,RANDOM 181 mg/dL (74-106); PHOSPHOROUS 2.4 mg/dL (2.5-4.9); POTASSIUM 4.2 mmol/L (3.5-5.1); SGOT/AST 33 U/L (15-37); SGPT/ALT 52 U/L (13-61); SODIUM 132 mmol/L (136-145); TOT PROT 6.1 g/dl (6.4-8.2)
[2018-07-12] MEDS ORDERED: NAPH,MB-DB/K PH,MBDB POWDER PACKET PO ONE (08:52)
[2018-07-12] MEDS: oxyCODONE HCL 5 MG TABLET PO PRN ×3 (09:32→21:17)
--- NOTE | 2018-07-12 11:26 | PN ---
Physical Exam: SUBJECTIVE: Patient seen and examined this AM. He states that he is still having significant pain today from the catheter insertion site. OBJECTIVE: Vital Signs Period Temp Pulse Resp BP Sys/Negron Pulse Ox Last 24 Hr 98.7 F-100.9 F 80-91 18-22 118-132/61-81 98-100 GENERAL: A&O, no acute distress EYES: PERRL, no scleral icterus EARS, NOSE, THROAT: oropharynx clear without exudates. Moist mucous membranes. NECK: supple without lymphadenopathy LUNGS: CTA b/l, no crackles or wheezes HEART: Regular rate and rhythm, normal S1 and S2 without murmur ABDOMEN: Soft, minimal RUQ tenderness to palpation, normoactive bowel sounds EXTREMITIES: warm, well-perfused. No peripheral edema. NEUROLOGICAL: Cranial nerves II-XII grossly intact. Normal speech. Laboratory Results - last 24 hr 07/11/18 07/11/18 07/11/18 06:20 16:40 21:11 WBC RBC Hgb Hct MCV MCH MCHC RDW Plt Count MPV Retic Count Sodium Potassium Chloride Carbon Dioxide Anion Gap BUN Creatinine Creat Clearance w eGFR POC Glucometer 241 322 Random Glucose Calcium Phosphorus Magnesium Ferritin Total Bilirubin AST ALT Alkaline Phosphatase Total Protein Albumin Hep C Ab Diagnostic 0.2 07/12/18 07/12/18 07/12/18 05:43 06:30 06:30 WBC 14.3 H RBC 3.42 L Hgb 10.4 L Hct 30.0 L MCV 87.7 MCH 30.5 MCHC 34.8 RDW 12.7 Plt Count 381 MPV 7.4 L Retic Count Sodium 132 L Potassium 4.2 Chloride 98 Carbon Dioxide 26 Anion Gap 8 BUN 10 Creatinine 1.2 Creat Clearance w eGFR > 60 POC Glucometer 212 Random Glucose 181 H Calcium 7.6 L Phosphorus 2.4 L Magnesium 2.0 Ferritin 467.7 H Total Bilirubin 0.7 AST 33 ALT 52 Alkaline Phosphatase 214 H Total Protein 6.1 L Albumin 2.0 L Hep C Ab Diagnostic 07/12/18 06:30 WBC RBC Hgb Hct MCV MCH MCHC RDW Plt Count MPV Retic Count 1.98 H Sodium Potassium Chloride Carbon Dioxide Anion Gap BUN Creatinine Creat Clearance w eGFR POC Glucometer Random Glucose Calcium Phosphorus Magnesium Ferritin Total Bilirubin AST ALT Alkaline Phosphatase Total Protein Albumin Hep C Ab Diagnostic Active Medications Generic Name Dose Route Start Last Admin Trade Name Freq PRN Reason Stop Dose Admin Acetaminophen 650 mg 07/10/18 13:27 07/11/18 18:43 Tylenol - PO 650 mg Q4H PRN Administration FEVER Acetaminophen 650 mg 07/10/18 20:47 07/11/18 22:15 Ofirmev Injection - IVPB 650 mg Q6H PRN Administration FEVER Sodium Chloride 1,000 mls @ 75 mls/hr 07/09/18 11:24 07/12/18 03:48 Normal Saline - IV 75 mls/hr ASDIR ALEXANDRA Administration Piperacillin Sod/Tazobactam 50 mls @ 100 mls/hr 07/10/18 18:00 07/12/18 09:32 Sod 3.375 gm/ Dextrose IVPB 100 mls/hr Q8H-IV ALEXANDRA Administration Protocol Insulin Aspart 1 vial 07/08/18 07:00 07/12/18 07:45 Novolog Vial Sliding Scale - SQ Not Given ACHS ALEXANDRA Protocol Insulin Detemir 5 units 07/11/18 22:00 07/11/18 22:02 Levemir Vial SQ 5 units HS ALEXANDRA Administration Oxycodone HCl 5 mg 07/12/18 09:10 07/12/18 09:32 Roxicodone - PO 5 mg Q4H PRN Administration PAIN LEVEL 6-10 Zolpidem Tartrate 5 mg 07/12/18 10:59 Ambien - PO HS PRN INSOMNIA ASSESSMENT/PLAN: 58yo M with PHx of HTN, HLD, and DM presents with four days of watery diarrhea, fevers, nausea, and some intermittent shortness of breath Sepsis secondary to Gram negative bacteremia, source uncertain, possible hepatic abscess -Febrile overnight to 100.9 -Blood cultures positive for Klebsiella -CT Abd/Pelv: hepatomegally with hepatic mass vs abscess -Repeat CT with contrast suspicious for abscess -Continue Zosyn -ID consult appreciated -GI consult appreciated -IR guided drainage yesterday, pigtail with DOMENICA drain in place -Will discuss with IR about length drain should remain and follow up imaging -Awaiting cultures for further antibiotic decisions. Pt will likely need PICC for 14 day course of Abx HTN -on lisinopril in the past, has not picked up in almost a year -currently stable, will monitor and restart as needed NIDDM -BGMs ACHS -Insulin sliding scale for glycemic control -A1C noted 11.3 -will need diabetic teaching and Insulin on discharge DVT Prophylaxis -Lovenox 40 units SQ Daily FEN -Fluids: none -Electrolytes: No electrolyte abnormalities, BMP in AM -Nutrition: Diabetic Diet Disposition Med/Surg Visit type - Emergency Visit Emergency Visit: Yes ED Registration Date: 07/08/18 Care time: The patient presented to the Emergency Department on the above date and was hospitalized for further evaluation of their emergent condition. - New Patient This patient is new to me today: No - Critical Care Critical Care patient: No
--- NOTE | 2018-07-12 11:30 | PN ---
Teaching Attending Note Name of Resident: Delano Prieto ATTENDING PHYSICIAN STATEMENT I saw and evaluated the patient. I reviewed the resident's note and discussed the case with the resident. I agree with the resident's findings and plan as documented. SUBJECTIVE:continues to have pain in the RUQ. was unable to sleep last night due to pain. denies CP, SOB, fever, chills, N/V/C/D OBJECTIVE: Last Vital Signs Temp Pulse Resp BP Pulse Ox 100.9 F H 91 H 20 125/69 98 07/12/18 06:00 07/12/18 06:00 07/12/18 06:00 07/12/18 06:00 07/11/18 21:00 General NAD CV S1 S2 RRR Lungs CTA B/L no wheezing/rales/rhonchi Abdomen soft NT/ND no hepatomegaly + R back drain with bandage c/d/i. no swelling. DOMENICA with serosangenous drainage ASSESSMENT AND PLAN: 58 year old male with HTN, HLD, DM 2 with neuropathy, presented with 4 day history of watery diarrhea, fevers, nausea - no vomiting/melena/hematochezia, found to have Gram neg bacteremia and liver mass/abscess on abdominal imaging. 1. Sepsis sec to klebsiella Bacteremia due to Liver Abscess-Tm 100.9. s/p IR drainage of abscess wtih 10cc of purulent material removed. with DOMENICA drain in place. will give oxycodone for pain relief. on Zosyn day 5. will need 2 weeks total of IV abx. pt would be unable to complete at home. will need PICC and SNF placement for Abx and DOMENICA drain management. will need repeat CT scan in 1 week and then drain removal at that time if abscess has resolved.will need colonoscopy in the future to r/o colorectal cancer as high association. GI and ID on board. 2. Hyponatremia-due to dehydration. resolved 3. Transaminitis- likely due to abscess and sepsis. resolved. hep serologies pending 4. Normocytic anemia- likely dilutional component with underyling chronic anemia. iron studies pending. no indication for txn. no signs of bleeding 5. DM 2 - A1c 11.2. titrate levemir to optimize control.RN teaching of how to check BGM and administer insulin. dietary consult. counseled on [employer] risk of uncontrolled hypergylcemia including blindness, CVA, heart disease, renal failure and recurrent infections. 6. HTN-controlled off medication 7. dyslipidemia- stated he was on statin in past but d/c himself. should have dietary/lifestyle changes and Lipid panel checked in 3 months to assess if needs statin therapy. would hold this time in setting of acute transaminitis. 8.DVT Px - Heparin SQ 9, will need SNF placement when medically optimized for discharge
--- NOTE | 2018-07-12 11:37 | PN ---
GI Progress Note Subjective: Had drain placed by IR. Turbid brown drainage Complains of pain in back at insertion site Abdominal pain improved He states that blood sugar at home is routinely above 300. Association with Kleb pneumoniae abscesses and poorly controlled diabetes IV Abx and follow-up imaging per ID When acute issues are resolved, patient can have colonoscopy to exclude malignancy. Explained to Mr. Gamboa - Objective Vital Signs: Vital Signs Temperature 100.9 F H 07/12/18 06:00 Pulse Rate 91 H 07/12/18 06:00 Respiratory Rate 20 07/12/18 06:00 Blood Pressure 125/69 07/12/18 06:00 O2 Sat by Pulse Oximetry (%) 98 07/11/18 21:00 Eyes: No: Sclera Icterus Cardiovascular: Yes: Regular Rate and Rhythm Respiratory: Yes: CTA Bilaterally Gastrointestinal Inspection: No: Scars ...Auscultate: Yes: Normoactive Bowel Sounds ...Palpate: No: Hepatomegaly, Splenomegaly, Tenderness ...Percussion: No: Tympanitic Edema: No (No LE edema) Neurological: Yes: Alert Labs: CBC, BMP 07/12/18 06:30 07/12/18 06:30 INR, PTT INR 1.20 (0.83-1.09) H 07/08/18 03:15 Problem List - Problems (1) Pyogenic liver abscess Assessment/Plan: In setting of poorly controlled diabetes Drain in place Code(s): K75.0 - ABSCESS OF LIVER
[2018-07-12] MEDS: ENOXAPARIN NA (PORCINE) 40 MG/0.4 ML DISP.SYRIN SQ SCH (12:25)
--- NOTE | 2018-07-12 14:06 | PN ---
Progress Note, Physician History of Present Illness: patient with abscess drainage ibrahima full of pus feels better low grade fever - Current Medication List Current Medications: Active Medications Acetaminophen (Tylenol -) 650 mg PO Q4H PRN PRN Reason: FEVER Last Admin: 07/11/18 18:43 Dose: 650 mg Acetaminophen (Ofirmev Injection -) 650 mg IVPB Q6H PRN PRN Reason: FEVER Last Admin: 07/11/18 22:15 Dose: 650 mg Enoxaparin Sodium (Lovenox -) 40 mg SQ DAILY [facility] Last Admin: 07/12/18 12:25 Dose: 40 mg Sodium Chloride (Normal Saline -) 1,000 mls @ 75 mls/hr IV ASDIR [facility] Last Admin: 07/12/18 11:31 Dose: Not Given Piperacillin Sod/Tazobactam (Sod 3.375 gm/ Dextrose) 50 mls @ 100 mls/hr IVPB Q8H-IV [facility]; Protocol Last Admin: 07/12/18 09:32 Dose: 100 mls/hr Insulin Aspart (Novolog Vial Sliding Scale -) 1 vial SQ ACHS [facility]; Protocol Last Admin: 07/12/18 12:28 Dose: 2 units Insulin Detemir (Levemir Vial) 5 units SQ HS [facility] Last Admin: 07/11/18 22:02 Dose: 5 units Oxycodone HCl (Roxicodone -) 5 mg PO Q4H PRN PRN Reason: PAIN LEVEL 6-10 Last Admin: 07/12/18 13:47 Dose: 5 mg Zolpidem Tartrate (Ambien -) 5 mg PO HS PRN PRN Reason: INSOMNIA - Objective Vital Signs: Vital Signs Temperature 98.5 F 07/12/18 10:00 Pulse Rate 94 H 07/12/18 10:00 Respiratory Rate 20 07/12/18 10:00 Blood Pressure 111/67 07/12/18 10:00 O2 Sat by Pulse Oximetry (%) 94 L 07/12/18 09:00 Constitutional: Yes: No Distress, Calm Cardiovascular: Yes: Regular Rate and Rhythm Respiratory: Yes: Regular, CTA Bilaterally Gastrointestinal: Yes: Normal Bowel Sounds, Soft Musculoskeletal: Yes: WNL Extremities: Yes: WNL Neurological: Yes: Alert, Oriented Psychiatric: Yes: Alert, Oriented Labs: CBC, BMP 07/12/18 06:30 07/12/18 06:30 INR, PTT INR 1.20 (0.83-1.09) H 07/08/18 03:15 Assessment/Plan 58 y.o. male with DM, HTN, HLD presenting with complaints of fever/chills, epigastric pain/n/v/d x several days noted to have fever, leukocytosis, tachycardia, and hyponatremia. He is noncompliant with medications or f/u with PMD. Sepsis Abd Pain/Diarrhea Fever Leukocytosis gm negative bacteremia liver abscess plan patient feeling better monitor fever close watch rest as per the team abx
[2018-07-12 15:23] LABS: HBSAG SCREEN Negative (Negative); HEP A AB, IGM Negative (Negative); HEP B CORE AB, TOT Negative (Negative)
[2018-07-12 17:03] VITALS: BMI 29.7
[2018-07-12] MEDS ORDERED: INSULIN (NOVOLOG) ASPART 100 UNITS/ML 10ML VIAL ONE (20:44)
[2018-07-12] MEDS: INSULIN (LEVEMIR) 100 UNITS/ML UNITS SQ SCH (21:13)
[2018-07-12] MEDS: ZOLPIDEM TARTRATE 5 MG TABLET PO PRN (21:18)
[2018-07-13] MEDS ORDERED: PIPERACILLIN/TAZOBACTAM 3.375 GM VIAL IVPB ONE ×3 (02:01→17:36)
[2018-07-13] MEDS ORDERED: DEXTROSE 5%-WATER - 50 ML IVPB ONE ×3 (02:01→17:37)
[2018-07-13] MEDS: PIPERACILLIN/TAZOB 3.375 GM 3.375 GM in DEXTROSE 5%-WATER - 50 ML IVPB SCH ×3 (02:26→18:02)
[2018-07-13 04:17] LABS: SERUM IRON SATURATION 12 % (15-55); TOTAL IRON BINDING CAPACITY 137 ug/dL (250-450); UIBC 121 ug/dL (111-343)
[2018-07-13] MEDS: INSULIN SLIDING SCALE (NOVOLOG) 1 VIAL SQ SCH ×4 (06:31→22:21)
[2018-07-13] MEDS: ACETAMINOPHEN 325 MG TABLET (FP) PO PRN ×2 (06:32→14:48)
[2018-07-13 07:33] LABS: BASO % 0.4 % (0-2.0); EOS % 0.1 % (0-4.5); HEMATOCRIT 29.1 % (35.4-49); LYMPH % 8.7 % (8-40); MCHC 34.2 g/dl (32.0-35.9); MEAN CELL VOLUME 87.7 fl (80-96); MEAN PLT VOLUME 7.4 fl (7.5-11.1); MONO % 8.6 % (3.8-10.2); NEUT % 82.2 % (42.8-82.8); PLATELET COUNT 456 K/MM3 (134-434); RBC 3.32 M/mm3 (4.00-5.60); RDW 12.9 % (11.9-15.9); WHITE BLOOD COUNT 11.2 K/mm3 (4.0-10.0)
[2018-07-13] MEDS: oxyCODONE HCL 5 MG TABLET PO PRN ×3 (10:04→22:16)
[2018-07-13] MEDS: ENOXAPARIN NA (PORCINE) 40 MG/0.4 ML DISP.SYRIN SQ SCH (10:05)
[2018-07-13 10:12] LABS: ANISOCYTOSIS 0; MACROCYTOSIS 0; PLATELET ESTIMATE NORMAL
[2018-07-13] MEDS ORDERED: IRON SUCROSE INJECTION 200 MG in SODIUM CHLORIDE 90 ML IVPB ONE (10:16)
[2018-07-13] MEDS ORDERED: RANITIDINE HCL 150 MG TABLET (FP) PO ONE (10:16)
--- NOTE | 2018-07-13 10:45 | PN ---
Physical Exam: SUBJECTIVE: Patient seen and examined this AM. He states he is feeling well and knows that he is still having fevers but that they are much improved. He says his pain is well controlled overnight and he was able to sleep well with the ambien last night. OBJECTIVE: Vital Signs Period Temp Pulse Resp BP Sys/Negron Pulse Ox Last 24 Hr 99.0 F-102.5 F 96-102 18-20 125-154/66-84 GENERAL: A&O, no acute distress EYES: PERRL, no scleral icterus EARS, NOSE, THROAT: oropharynx clear without exudates. Moist mucous membranes. NECK: supple without lymphadenopathy LUNGS: CTA b/l, no crackles or wheezes HEART: Regular rate and rhythm, normal S1 and S2 without murmur ABDOMEN: Soft, minimal RUQ tenderness to palpation, normoactive bowel sounds, DOMENICA drain in place EXTREMITIES: warm, well-perfused. No peripheral edema. NEUROLOGICAL: Cranial nerves II-XII grossly intact. Normal speech. Laboratory Results - last 24 hr 07/11/18 07/12/18 07/12/18 06:20 06:30 06:30 WBC RBC Hgb Hct MCV MCH MCHC RDW Plt Count MPV Absolute Neuts (auto) Neutrophils % Neutrophils % (Manual) Band Neutrophils % Lymphocytes % Lymphocytes % (Manual) Monocytes % Monocytes % (Manual) Eosinophils % Eosinophils % (Manual) Basophils % Basophils % (Manual) Myelocytes % (Man) Promyelocytes % (Man) Blast Cells % (Manual) Nucleated RBC % Metamyelocytes Hypochromia Platelet Estimate Polychromasia Poikilocytosis Anisocytosis Microcytosis Macrocytosis Stomatocytes POC Glucometer Iron 16 L TIBC 137 L Iron Saturation 12 L Stool Occult Blood Negative Hep A IgM Ab Confirm Negative Hepatitis A Ab Total Positive H Hep Bs Antigen Negative Hep Bs Antibody Non reactive Hep B Core Total Ab Negative 07/12/18 07/12/18 07/12/18 12:26 17:41 21:10 WBC RBC Hgb Hct MCV MCH MCHC RDW Plt Count MPV Absolute Neuts (auto) Neutrophils % Neutrophils % (Manual) Band Neutrophils % Lymphocytes % Lymphocytes % (Manual) Monocytes % Monocytes % (Manual) Eosinophils % Eosinophils % (Manual) Basophils % Basophils % (Manual) Myelocytes % (Man) Promyelocytes % (Man) Blast Cells % (Manual) Nucleated RBC % Metamyelocytes Hypochromia Platelet Estimate Polychromasia Poikilocytosis Anisocytosis Microcytosis Macrocytosis Stomatocytes POC Glucometer 216 211 255 Iron TIBC Iron Saturation Stool Occult Blood Hep A IgM Ab Confirm Hepatitis A Ab Total Hep Bs Antigen Hep Bs Antibody Hep B Core Total Ab 07/13/18 07/13/18 06:20 06:29 WBC 11.2 H RBC 3.32 L Hgb 10.0 L Hct 29.1 L MCV 87.7 MCH 30.0 MCHC 34.2 RDW 12.9 Plt Count 456 H MPV 7.4 L Absolute Neuts (auto) 9.2 H Neutrophils % 82.2 Neutrophils % (Manual) 91.1 H Band Neutrophils % 1.0 Lymphocytes % 8.7 Lymphocytes % (Manual) 4.9 L D Monocytes % 8.6 Monocytes % (Manual) 2 L D Eosinophils % 0.1 Eosinophils % (Manual) 0.0 D Basophils % 0.4 Basophils % (Manual) 0.0 Myelocytes % (Man) 1 D Promyelocytes % (Man) 0 Blast Cells % (Manual) 0 Nucleated RBC % 0 Metamyelocytes 0 D Hypochromia 0 Platelet Estimate Normal Polychromasia 0 Poikilocytosis 0 Anisocytosis 0 Microcytosis 0 Macrocytosis 0 Stomatocytes 1+ POC Glucometer 232 Iron TIBC Iron Saturation Stool Occult Blood Hep A IgM Ab Confirm Hepatitis A Ab Total Hep Bs Antigen Hep Bs Antibody Hep B Core Total Ab Active Medications Generic Name Dose Route Start Last Admin Trade Name Freq PRN Reason Stop Dose Admin Acetaminophen 650 mg 07/10/18 13:27 07/13/18 06:32 Tylenol - PO 650 mg Q4H PRN Administration FEVER Enoxaparin Sodium 40 mg 07/12/18 11:30 07/13/18 10:05 Lovenox - SQ 40 mg DAILY [facility] Administration Sodium Chloride 1,000 mls @ 75 mls/hr 07/09/18 11:24 07/12/18 11:31 Normal Saline - IV Not Given ASDIR ALEXANDRA Piperacillin Sod/Tazobactam 50 mls @ 100 mls/hr 07/10/18 18:00 07/13/18 10:05 Sod 3.375 gm/ Dextrose IVPB 100 mls/hr Q8H-IV [facility] Administration Protocol Iron Sucrose 200 mg/ Sodium 100 mls @ 100 mls/hr 07/13/18 10:16 Chloride IVPB 07/13/18 11:15 ONCE ONE Insulin Aspart 1 vial 07/08/18 07:00 07/13/18 06:31 Novolog Vial Sliding Scale - SQ 2 units ACHS [facility] Administration Protocol Insulin Detemir 5 units 07/11/18 22:00 07/12/18 21:13 Levemir Vial SQ 5 units HS [facility] Administration Oxycodone HCl 5 mg 07/12/18 09:10 07/13/18 10:04 Roxicodone - PO 5 mg Q4H PRN Administration PAIN LEVEL 6-10 Zolpidem Tartrate 5 mg 07/12/18 10:59 07/12/18 21:18 Ambien - PO 5 mg HS PRN Administration INSOMNIA ASSESSMENT/PLAN: 58yo M with PHx of HTN, HLD, and DM presents with four days of watery diarrhea, fevers, nausea, and some intermittent shortness of breath Sepsis secondary to Gram negative bacteremia, source uncertain, possible hepatic abscess -Febrile overnight to 102.5 overnight -Blood cultures positive for Klebsiella, repeat cultures negative, additional repeat with new fever pending -CT Abd/Pelv: hepatomegally with hepatic mass vs abscess -Repeat CT with contrast suspicious for abscess -Continue Zosyn, will discuss with ID about sensitivities and possible switch to Rocephin -ID consult appreciated -GI consult appreciated -IR guided drain placed, pigtail with DOMENICA drain in place -Will discuss with IR about length drain should remain and follow up imaging -Awaiting cultures for further antibiotic decisions. Pt will likely need PICC for 14 day course of Abx HTN -on lisinopril in the past, has not picked up in almost a year -currently stable, will monitor and restart as needed NIDDM -BGMs ACHS -Insulin sliding scale for glycemic control -A1C noted 11.3 -will need diabetic teaching and Insulin on discharge DVT Prophylaxis -Lovenox 40 units SQ Daily FEN -Fluids: none -Electrolytes: No electrolyte abnormalities, BMP in AM -Nutrition: Diabetic Diet Disposition Med/Surg Visit type - Emergency Visit Emergency Visit: Yes ED Registration Date: 07/08/18 Care time: The patient presented to the Emergency Department on the above date and was hospitalized for further evaluation of their emergent condition. - New Patient This patient is new to me today: No - Critical Care Critical Care patient: No
--- NOTE | 2018-07-13 10:55 | PN ---
Teaching Attending Note Name of Resident: Delano Prieto ATTENDING PHYSICIAN STATEMENT I saw and evaluated the patient. I reviewed the resident's note and discussed the case with the resident. I agree with the resident's findings and plan as documented. SUBJECTIVE:pain is much improved. has some dysuria. denies CP, SOb, fever, chills, N/V/C/D OBJECTIVE: Last Vital Signs Temp Pulse Resp BP Pulse Ox 102.5 F H 99 H 20 154/84 94 L 07/13/18 06:00 07/13/18 06:00 07/13/18 06:00 07/13/18 06:00 07/12/18 09:00 General NAD CV S1 S2 RRR Lungs CTA B/L no wheezing/rales/rhonchi Abdomen soft NT/ND no hepatomegaly + R back drain with bandage c/d/i. no swelling. DOMENICA with serosangenous drainage ASSESSMENT AND PLAN: 58 year old male with HTN, HLD, DM 2 with neuropathy, presented with 4 day history of watery diarrhea, fevers, nausea - no vomiting/melena/hematochezia, found to have Gram neg bacteremia and liver mass/abscess on abdominal imaging. 1. Sepsis sec to klebsiella Bacteremia due to Liver Abscess-Tm 102.5. s/p IR drainage of abscess wtih 10cc of purulent material removed. with DOMENICA drain in place. sepsis workup ordered. on Zosyn day 6. will need PICC for 2 weeks total of IV abx. will need repeat CT scan in 1 week and then drain removal at that time if abscess has resolved.will need colonoscopy in the future to r/o colorectal cancer as high association. GI and ID on board. 2. Hyponatremia-due to dehydration. resolved 3. Transaminitis- likely due to abscess and sepsis. resolved. hep serologies pending 4. Normocytic anemia- +iron def anemia. will give venfer while here. repeat iron studies in 3 months. no indication for txn. no signs of bleeding 5. DM 2 - A1c 11.2. cont lev 5 units. cont ISS and BGM. 6. HTN-controlled off medication 7. dyslipidemia- stated he was on statin in past but d/c himself. should have dietary/lifestyle changes and Lipid panel checked in 3 months to assess if needs statin therapy. would hold this time in setting of acute transaminitis. 8.DVT Px - Heparin SQ 9, will need SNF placement when medically optimized for discharge
[2018-07-13] MEDS: FERROUS GLUCONATE 324 MG TAB (FP) PO SCH (11:20)
[2018-07-13] MEDS: SODIUM CHLORIDE 1,000 ML IV SCH (11:42)
--- NOTE | 2018-07-13 11:49 | PN ---
Progress Note, Physician History of Present Illness: says pain has increased patient also spiked a fever high grade minimal drainage noted - Current Medication List Current Medications: Active Medications Acetaminophen (Tylenol -) 650 mg PO Q4H PRN PRN Reason: FEVER Last Admin: 07/13/18 06:32 Dose: 650 mg Enoxaparin Sodium (Lovenox -) 40 mg SQ DAILY [facility] Last Admin: 07/13/18 10:05 Dose: 40 mg Ferrous Gluconate (Fergon -) 324 mg PO DAILY [facility] Last Admin: 07/13/18 11:20 Dose: 324 mg Sodium Chloride (Normal Saline -) 1,000 mls @ 75 mls/hr IV ASDIR [facility] Last Admin: 07/13/18 11:42 Dose: 75 mls/hr Piperacillin Sod/Tazobactam (Sod 3.375 gm/ Dextrose) 50 mls @ 100 mls/hr IVPB Q8H-IV [facility]; Protocol Last Admin: 07/13/18 10:05 Dose: 100 mls/hr Insulin Aspart (Novolog Vial Sliding Scale -) 1 vial SQ ACHS [facility]; Protocol Last Admin: 07/13/18 11:38 Dose: 2 units Insulin Detemir (Levemir Vial) 5 units SQ HS [facility] Last Admin: 07/12/18 21:13 Dose: 5 units Oxycodone HCl (Roxicodone -) 5 mg PO Q4H PRN PRN Reason: PAIN LEVEL 6-10 Last Admin: 07/13/18 10:04 Dose: 5 mg Zolpidem Tartrate (Ambien -) 5 mg PO HS PRN PRN Reason: INSOMNIA Last Admin: 07/12/18 21:18 Dose: 5 mg - Objective Vital Signs: Vital Signs Temperature 102.5 F H 07/13/18 06:00 Pulse Rate 99 H 07/13/18 06:00 Respiratory Rate 20 07/13/18 06:00 Blood Pressure 154/84 07/13/18 06:00 O2 Sat by Pulse Oximetry (%) 94 L 07/12/18 09:00 Constitutional: Yes: No Distress, Calm Cardiovascular: Yes: Regular Rate and Rhythm Respiratory: Yes: Regular, CTA Bilaterally Gastrointestinal: Yes: Normal Bowel Sounds, Soft, Other (drain in place) Musculoskeletal: Yes: WNL Extremities: Yes: WNL Neurological: Yes: Alert, Oriented Psychiatric: Yes: Alert, Oriented Labs: CBC, BMP 07/13/18 06:20 07/12/18 06:30 INR, PTT INR 1.20 (0.83-1.09) H 07/08/18 03:15 Assessment/Plan 58 y.o. male with DM, HTN, HLD presenting with complaints of fever/chills, epigastric pain/n/v/d x several days noted to have fever, leukocytosis, tachycardia, and hyponatremia. He is noncompliant with medications or f/u with PMD. Sepsis Abd Pain/Diarrhea Fever Leukocytosis gm negative bacteremia liver abscess plan repeat cx done monitor for fevers wbc trending down rest as per the team
[2018-07-13 13:11] LABS: URINE APPEARANCE CLEAR; URINE BILIRUBIN NEGATIVE (<2.0 mg/dL); URINE COLOR STRAW; URINE GLUCOSE (UA) 1+ (NEGATIVE); URINE KETONE NEGATIVE (NEGATIVE); URINE LEUK ESTERASE NEGATIVE (NEGATIVE); URINE NITRITE NEGATIVE (NEGATIVE); URINE PROTEIN 2+ (NEGATIVE); URINE UROBILINOGEN NEGATIVE mg/dL (0.2-1.0)
[2018-07-13 13:33] LABS: EPI CELLS RARE /HPF (FEW)
[2018-07-13] MEDS ORDERED: MORPHINE SULFATE 2 MG/ML VIAL IVPUSH ONE (15:46)
--- NOTE | 2018-07-13 16:55 | PATH ---
Cytology Non-Gynecological Report Patient Name: FRANK PERAZA Med. Rec. #: [id number] /Age/Gender: 1960 (Age: 58) / M Account: [id number] Location: [facility] MED/SURG Taken: 07/11/2018 Received: 07/11/2018 Reported: 07/13/2018 Physicians: Deshawn Mike M.D. Specimen(s) Received LIVER ABSCESS Clinical History Liver mass/abscess Final Diagnosis LIVER ABSCESS FOR CYTOLOGY: SATISFACTORY FOR EVALUATION. NO MALIGNANT CELLS IDENTIFIED. ACUTE INFLAMMATORY EXUDATE COMPRISED OF NUMEROUS NEUTROPHILS, SCATTERED LYMPHOCYTES, AND DEGENERATED CELLS CONSISTENT WITH ABSCESS. Comment: Suggest clinical and microbiology studies correlation. Electronically Signed Shannon Vincent M.D. Gross Description Approximately 35 cc of brown fluid received fixed in 50% alcohol. One cytofunnel prepared and Pap stained. One cellblock prepared.
[2018-07-13] MEDS: ZOLPIDEM TARTRATE 5 MG TABLET PO PRN (22:15)
[2018-07-13] MEDS: INSULIN (LEVEMIR) 100 UNITS/ML UNITS SQ SCH (22:16)
[2018-07-14] MEDS ORDERED: DEXTROSE 5%-WATER - 50 ML IVPB ONE ×3 (01:29→17:04)
[2018-07-14] MEDS ORDERED: PIPERACILLIN/TAZOBACTAM 3.375 GM VIAL IVPB ONE ×3 (01:29→17:04)
[2018-07-14] MEDS: PIPERACILLIN/TAZOB 3.375 GM 3.375 GM in DEXTROSE 5%-WATER - 50 ML IVPB SCH ×3 (01:55→17:53)
[2018-07-14] MEDS: oxyCODONE HCL 5 MG TABLET PO PRN ×3 (05:21→16:31)
[2018-07-14] MEDS: INSULIN SLIDING SCALE (NOVOLOG) 1 VIAL SQ SCH ×4 (06:10→21:36)
[2018-07-14] MEDS: ACETAMINOPHEN 325 MG TABLET (FP) PO PRN (06:10)
--- NOTE | 2018-07-14 08:02 | PN ---
Progress Note (short form) - Note Progress Note: states he feels much better today. pain is better controlled. still have fevers but no assoc chills. denies Cp, SOB, chills, N/V/C/D. tolerating diet Current Medications Generic Name Dose Route Start Last Admin Trade Name Freq PRN Reason Stop Dose Admin Acetaminophen 650 mg 07/10/18 13:27 07/14/18 06:10 Tylenol - PO 650 mg Q4H PRN Administration FEVER Enoxaparin Sodium 40 mg 07/12/18 11:30 07/13/18 10:05 Lovenox - SQ 40 mg DAILY [facility] Administration Ferrous Gluconate 324 mg 07/13/18 11:00 07/13/18 11:20 Fergon - PO 324 mg DAILY [facility] Administration Sodium Chloride 1,000 mls @ 75 mls/hr 07/09/18 11:24 07/13/18 11:42 Normal Saline - IV 75 mls/hr ASDIR [facility] Administration Piperacillin Sod/Tazobactam 50 mls @ 100 mls/hr 07/10/18 18:00 07/14/18 01:55 Sod 3.375 gm/ Dextrose IVPB 100 mls/hr Q8H-IV [facility] Administration Protocol Insulin Aspart 1 vial 07/08/18 07:00 07/14/18 06:10 Novolog Vial Sliding Scale - SQ Not Given [facility] Protocol Insulin Detemir 5 units 07/11/18 22:00 07/13/18 22:16 Levemir Vial SQ 5 units HS [facility] Administration Lisinopril 5 mg 07/14/18 10:00 Prinivil PO DAILY [facility] Oxycodone HCl 5 mg 07/12/18 09:10 07/14/18 05:21 Roxicodone - PO 5 mg Q4H PRN Administration PAIN LEVEL 6-10 Zolpidem Tartrate 5 mg 07/12/18 10:59 07/13/18 22:15 Ambien - PO 5 mg HS PRN Administration INSOMNIA Last Vital Signs Temp Pulse Resp BP Pulse Ox 101.9 F H 99 H 20 148/72 100 07/14/18 06:00 07/14/18 06:00 07/14/18 06:00 07/14/18 06:00 07/13/18 21:00 General NAD CV S1 S2 RRR Lungs CTA B/L no wheezing/rales/rhonchi Abdomen soft NT/ND no hepatomegaly + R back drain with bandage c/d/i. no swelling. DOMENICA with serosangenous drainage CBCD WBC 11.2 K/mm3 (4.0-10.0) H 07/13/18 06:20 RBC 3.32 M/mm3 (4.00-5.60) L 07/13/18 06:20 Hgb 10.0 GM/dL (11.7-16.9) L 07/13/18 06:20 Hct 29.1 % (35.4-49) L 07/13/18 06:20 MCV 87.7 fl (80-96) 07/13/18 06:20 MCHC 34.2 g/dl (32.0-35.9) 07/13/18 06:20 RDW 12.9 % (11.9-15.9) 07/13/18 06:20 Plt Count 456 K/MM3 (134-434) H 07/13/18 06:20 MPV 7.4 fl (7.5-11.1) L 07/13/18 06:20 CMP Sodium 132 mmol/L (136-145) L 07/12/18 06:30 Potassium 4.2 mmol/L (3.5-5.1) 07/12/18 06:30 Chloride 98 mmol/L (98-107) 07/12/18 06:30 Carbon Dioxide 26 mmol/L (21-32) 07/12/18 06:30 Anion Gap 8 MMOL/L (8-16) 07/12/18 06:30 BUN 10 mg/dL (7-18) 07/12/18 06:30 Creatinine 1.2 mg/dL (0.55-1.3) 07/12/18 06:30 Creat Clearance w eGFR > 60 (>60) 07/12/18 06:30 Calcium 7.6 mg/dL (8.5-10.1) L 07/12/18 06:30 Total Bilirubin 0.7 mg/dL (0.2-1) 07/12/18 06:30 AST 33 U/L (15-37) 07/12/18 06:30 ALT 52 U/L (13-61) 07/12/18 06:30 Alkaline Phosphatase 214 U/L (45-117) H 07/12/18 06:30 Total Protein 6.1 g/dl (6.4-8.2) L 07/12/18 06:30 Albumin 2.0 g/dl (3.4-5.0) L 07/12/18 06:30 Microbiology 07/13/18 08:35 Blood - Peripheral Venous Blood Culture - Preliminary NO GROWTH OBTAINED AFTER 24 HOURS, INCUBATION TO CONTINUE FOR 4 DAYS. 07/11/18 11:30 Abscess AFB Smear Concentration - Final 07/11/18 11:30 Abscess Mycobacterial Culture - Preliminary 07/11/18 11:30 Abscess Gram Stain - Final 07/11/18 11:30 Abscess Body Fluid Culture - Preliminary Klebsiella Pneumoniae 07/11/18 11:30 Abscess Anaerobic Culture - Final NO ANAEROBES WERE ISOLATED 07/10/18 09:51 Blood - Peripheral Venous Blood Culture - Preliminary NO GROWTH OBTAINED AFTER 72 HOURS, INCUBATION TO CONTINUE FOR 2 DAYS. 07/10/18 09:55 Blood - Peripheral Venous Blood Culture - Preliminary NO GROWTH OBTAINED AFTER 72 HOURS, INCUBATION TO CONTINUE FOR 2 DAYS. 07/11/18 11:30 Abscess ZELALEM Preparation - Preliminary 07/11/18 11:30 Abscess Fungal Culture - Preliminary 07/09/18 18:00 Urine For Antigen Detection Legionella Antigen - Final 07/09/18 18:00 Urine For Antigen Detection Streptococcus pneumoniae Antigen (M - Final 07/08/18 03:11 Blood - Peripheral Venous Blood Culture - Final Klebsiella Pneumoniae 07/08/18 03:11 Blood - Peripheral Venous Blood Culture - Final Klebsiella Pneumoniae 07/08/18 22:38 Stool Clostridium difficile Antigen (ISSA) - Final 07/08/18 22:38 Stool Clostridium difficile Toxin Assay - Final 07/08/18 03:00 Urine - Urine Clean Catch Urine Culture - Final NO GROWTH OBTAINED ASSESSMENT AND PLAN: 58 year old male with HTN, HLD, DM 2 with neuropathy, presented with 4 day history of watery diarrhea, fevers, nausea - no vomiting/melena/hematochezia, found to have Gram neg bacteremia and liver mass/abscess on abdominal imaging. 1. Sepsis sec to klebsiella Bacteremia due to Liver Abscess- multiple fever spikes. Tm 102.5. s/p IR drainage of abscess wtih 10cc of purulent material removed. with DOMENICA drain in place. reepat CT done yesterday to assess if DOMENICA is adequately draining. BCx and UA negative. Cx showing same organism. if CT is unrevealing will d/w ID about adjusting abx. on Zosyn day 7. will need PICC for 2 weeks total of IV abx. will need repeat CT scan in 1 week and then drain removal at that time if abscess has resolved.will need colonoscopy in the future to r/o colorectal cancer as high association. GI and ID on board. 2. Hyponatremia-due to dehydration. resolved 3. Transaminitis- likely due to abscess and sepsis. resolved. hep serologies pending 4. Normocytic anemia- +iron def anemia. will give venfer while here day 2. repeat iron studies in 3 months. no indication for txn. no signs of bleeding 5. DM 2 - A1c 11.2. cont lev 5 units. cont ISS and BGM. 6. HTN-started low dose lisinopril. titrate to optimize control 7. dyslipidemia- stated he was on statin in past but d/c himself. should have dietary/lifestyle changes and Lipid panel checked in 3 months to assess if needs statin therapy. would hold this time in setting of acute transaminitis. 8.DVT Px - Heparin SQ 9, will need SNF placement when medically optimized for discharge Visit type - Emergency Visit Emergency Visit: Yes ED Registration Date: 07/08/18 Care time: The patient presented to the Emergency Department on the above date and was hospitalized for further evaluation of their emergent condition. - New Patient This patient is new to me today: No - Critical Care Critical Care patient: No - Discharge Referral Referred to [facility] Med P.C[facility] No
[2018-07-14] MEDS ORDERED: PT OWN MED DRAWER 7, Y5N ONE ×2 (09:54→17:07)
[2018-07-14] MEDS: FERROUS GLUCONATE 324 MG TAB (FP) PO SCH (10:00)
[2018-07-14] MEDS: LISINOPRIL 5 MG TABLET (FP) PO SCH (10:01)
[2018-07-14] MEDS: ENOXAPARIN NA (PORCINE) 40 MG/0.4 ML DISP.SYRIN SQ SCH (10:01)
[2018-07-14 10:22] LABS: BASO % 0.6 % (0-2.0); EOS % 0.4 % (0-4.5); HEMATOCRIT 29.6 % (35.4-49); HEMOGLOBIN 10.3 GM/dL (11.7-16.9); LYMPH % 9.5 % (8-40); MCH 30.7 pg (25.7-33.7); MCHC 34.7 g/dl (32.0-35.9); MEAN CELL VOLUME 88.5 fl (80-96); MEAN PLT VOLUME 7.3 fl (7.5-11.1); MONO % 11.5 % (3.8-10.2); PLATELET COUNT 539 K/MM3 (134-434); RBC 3.35 M/mm3 (4.00-5.60); RDW 12.8 % (11.9-15.9); WHITE BLOOD COUNT 9.9 K/mm3 (4.0-10.0)
[2018-07-14 10:51] LABS: ALBUMIN 1.8 g/dl (3.4-5.0); ALK PHOS 194 U/L (45-117); ANION GAP 6 MMOL/L (8-16); BILIRUBIN,TOTAL 0.4 mg/dL (0.2-1); BLOOD UREA NITROGEN 8 mg/dL (7-18); CALCIUM 7.6 mg/dL (8.5-10.1); CHLORIDE 98 mmol/L (98-107); CO2 26 mmol/L (21-32); CREATININE 1.3 mg/dL (0.55-1.3); GLUCOSE,RANDOM 154 mg/dL (74-106); POTASSIUM 4.4 mmol/L (3.5-5.1); SGOT/AST 25 U/L (15-37); SGPT/ALT 33 U/L (13-61); SODIUM 130 mmol/L (136-145)
[2018-07-14] MEDS: IRON SUCROSE INJECTION 200 MG in SODIUM CHLORIDE 90 ML IVPB SCH (11:51)
[2018-07-14] MEDS: SODIUM CHLORIDE 1,000 ML IV SCH (13:15)
--- NOTE | 2018-07-14 13:58 | PN ---
Progress Note, Physician History of Present Illness: continues to spike fever repeat cx are send drain draining pus patient feels weak - Current Medication List Current Medications: Active Medications Acetaminophen (Tylenol -) 650 mg PO Q4H PRN PRN Reason: FEVER Last Admin: 07/14/18 06:10 Dose: 650 mg Enoxaparin Sodium (Lovenox -) 40 mg SQ DAILY [facility] Last Admin: 07/14/18 10:01 Dose: 40 mg Ferrous Gluconate (Fergon -) 324 mg PO DAILY [facility] Last Admin: 07/14/18 10:00 Dose: 324 mg Piperacillin Sod/Tazobactam (Sod 3.375 gm/ Dextrose) 50 mls @ 100 mls/hr IVPB Q8H-IV [facility]; Protocol Last Admin: 07/14/18 10:00 Dose: 100 mls/hr Iron Sucrose 200 mg/ Sodium (Chloride) 100 mls @ 100 mls/hr IVPB DAILY [facility] Stop: 07/17/18 10:59 Last Admin: 07/14/18 11:51 Dose: 100 mls/hr Insulin Aspart (Novolog Vial Sliding Scale -) 1 vial SQ [facility]; Protocol Last Admin: 07/14/18 12:08 Dose: 1 units Insulin Detemir (Levemir Vial) 5 units SQ HS [facility] Last Admin: 07/13/18 22:16 Dose: 5 units Lisinopril (Prinivil) 5 mg PO DAILY [facility] Last Admin: 07/14/18 10:01 Dose: 5 mg Oxycodone HCl (Roxicodone -) 5 mg PO Q4H PRN PRN Reason: PAIN LEVEL 6-10 Last Admin: 07/14/18 10:00 Dose: 5 mg Zolpidem Tartrate (Ambien -) 5 mg PO HS PRN PRN Reason: INSOMNIA Last Admin: 07/13/18 22:15 Dose: 5 mg - Objective Vital Signs: Vital Signs Temperature 100.5 F H 07/14/18 12:11 Pulse Rate 97 H 07/14/18 12:11 Respiratory Rate 20 07/14/18 12:11 Blood Pressure 156/85 07/14/18 12:11 O2 Sat by Pulse Oximetry (%) 100 07/13/18 21:00 Constitutional: Yes: No Distress, Calm Cardiovascular: Yes: Regular Rate and Rhythm Respiratory: Yes: Regular, CTA Bilaterally Gastrointestinal: Yes: Normal Bowel Sounds, Soft, Other (drain in place) Musculoskeletal: Yes: WNL Extremities: Yes: WNL Neurological: Yes: Alert, Oriented Psychiatric: Yes: Alert, Oriented Labs: CBC, BMP 07/14/18 09:52 07/14/18 09:52 INR, PTT INR 1.20 (0.83-1.09) H 07/08/18 03:15 Assessment/Plan 58 y.o. male with DM, HTN, HLD presenting with complaints of fever/chills, epigastric pain/n/v/d x several days noted to have fever, leukocytosis, tachycardia, and hyponatremia. Sepsis Abd Pain/Diarrhea Fever Leukocytosis gm negative bacteremia liver abscess patient continues to spike fever plan we will continue abx monitor for fever will d/w the team rest as per the team
[2018-07-14] MEDS ORDERED: ENOXAPARIN NA (PORCINE) 80 MG/0.8 ML DISP.SYRIN SQ ONE (19:00)
[2018-07-14] MEDS: ZOLPIDEM TARTRATE 5 MG TABLET PO PRN (21:35)
[2018-07-14] MEDS: INSULIN (LEVEMIR) 100 UNITS/ML UNITS SQ SCH (21:36)
[2018-07-15] MEDS ORDERED: DEXTROSE 5%-WATER - 50 ML IVPB ONE ×4 (01:28→20:20)
[2018-07-15] MEDS ORDERED: PIPERACILLIN/TAZOBACTAM 3.375 GM VIAL IVPB ONE ×4 (01:28→20:19)
[2018-07-15] MEDS: PIPERACILLIN/TAZOB 3.375 GM 3.375 GM in DEXTROSE 5%-WATER - 50 ML IVPB SCH ×3 (01:46→18:23)
[2018-07-15] MEDS: ACETAMINOPHEN 325 MG TABLET (FP) PO PRN ×3 (01:48→13:38)
[2018-07-15] MEDS: oxyCODONE HCL 5 MG TABLET PO PRN ×4 (01:52→20:47)
[2018-07-15] MEDS: INSULIN SLIDING SCALE (NOVOLOG) 1 VIAL SQ SCH ×4 (06:49→21:53)
--- NOTE | 2018-07-15 08:22 | PN ---
GI Progress Note Subjective: No acute events Temp spikes overnight Does complain of some RUQ discomfort since having drain placed - Objective Vital Signs: Vital Signs Temperature 99.2 F 07/15/18 06:00 Pulse Rate 89 07/15/18 06:00 Respiratory Rate 20 07/15/18 06:00 Blood Pressure 113/64 07/15/18 06:00 O2 Sat by Pulse Oximetry (%) 96 07/14/18 21:00 Constitutional: Calm Eyes: No: Sclera Icterus Cardiovascular: Yes: Regular Rate and Rhythm Respiratory: Yes: Diminished (at base R>L with some splinting with deep insp) Gastrointestinal Inspection: No: Distention ...Auscultate: Yes: Normoactive Bowel Sounds ...Palpate: Yes: Tenderness (Mild TTP RUQ) ...Percussion: No: Tympanitic ...Rectal Exam: Yes: Other (No external lesions, no masses, light brown guaiac negative stool) Edema: No (No LE edema) Neurological: Yes: Alert Labs: CBC, BMP 07/14/18 09:52 07/14/18 09:52 INR, PTT INR 1.20 (0.83-1.09) H 07/08/18 03:15 Problem List - Problems (1) Pyogenic liver abscess Assessment/Plan: CT scan reveals improved appearance of the abscess fluid. Still w/ question of hepatic vein thrombosis at the site of the abscess. No clear data regarding A/C in this setting. Hematology consult has been placed to give opinion. Continued fever spikes: ordered repeat CBC/CMP for today. ID following Guaiac negative on exam today. Will need colonoscopy when acute issues are resolved Code(s): K75.0 - ABSCESS OF LIVER
[2018-07-15] MEDS ORDERED: PT OWN MED DRAWER 7, Y5N ONE (08:55)
[2018-07-15] MEDS: LISINOPRIL 5 MG TABLET (FP) PO SCH (09:07)
[2018-07-15] MEDS: FERROUS GLUCONATE 324 MG TAB (FP) PO SCH (09:07)
[2018-07-15 09:22] LABS: BASO % 0.3 % (0-2.0); EOS % 0.8 % (0-4.5); HEMATOCRIT 32.8 % (35.4-49); HEMOGLOBIN 11.2 GM/dL (11.7-16.9); MCH 30.2 pg (25.7-33.7); MCHC 34.2 g/dl (32.0-35.9); MEAN CELL VOLUME 88.3 fl (80-96); MEAN PLT VOLUME 6.9 fl (7.5-11.1); MONO % 10.6 % (3.8-10.2); NEUT % 77.3 % (42.8-82.8); PLATELET COUNT 660 K/MM3 (134-434); RBC 3.71 M/mm3 (4.00-5.60); RDW 12.7 % (11.9-15.9); WHITE BLOOD COUNT 9.9 K/mm3 (4.0-10.0)
[2018-07-15] MEDS ORDERED: ENOXAPARIN NA (PORCINE) 40 MG/0.4 ML DISP.SYRIN SQ ONE ×2 (09:25→09:28)
[2018-07-15] MEDS: IRON SUCROSE INJECTION 200 MG in SODIUM CHLORIDE 90 ML IVPB SCH (09:31)
[2018-07-15] MEDS: ENOXAPARIN NA (PORCINE) 80 MG/0.8 ML DISP.SYRIN SQ SCH ×2 (09:33→21:53)
[2018-07-15 09:54] LABS: ALK PHOS 211 U/L (45-117); ANION GAP 6 MMOL/L (8-16); BILIRUBIN,TOTAL 0.5 mg/dL (0.2-1); BLOOD UREA NITROGEN 10 mg/dL (7-18); CALCIUM 8.6 mg/dL (8.5-10.1); CHLORIDE 95 mmol/L (98-107); CO2 28 mmol/L (21-32); CREATININE 1.4 mg/dL (0.55-1.3); GLUCOSE,RANDOM 135 mg/dL (74-106); POTASSIUM 4.5 mmol/L (3.5-5.1); SGOT/AST 29 U/L (15-37); SGPT/ALT 35 U/L (13-61); SODIUM 129 mmol/L (136-145); TOT PROT 6.5 g/dl (6.4-8.2)
[2018-07-15] MEDS ORDERED: FUROSEMIDE 20 MG TABLET (FP) PO ONE (10:28)
[2018-07-15 10:49] LABS: ANISOCYTOSIS 0; HELMET CELLS 0; HOWELL-JOLLY BODIES 0; MACROCYTOSIS 0; OVALOCYTE 0; PLATELET ESTIMATE INCREASED; ROULEAU 0; SICKELED CELLS 0; TARGET CELLS 0; TEAR DROP CELLS 0; TOXIC GRANULATION 0
--- NOTE | 2018-07-15 11:27 | PN ---
Teaching Attending Note Name of Resident: Marquise Lozano ATTENDING PHYSICIAN STATEMENT I saw and evaluated the patient. I reviewed the resident's note and discussed the case with the resident. I agree with the resident's findings and plan as documented. SUBJECTIVE:feels SOB today with non productive cough. pain persists but improved. denies CP, fever, chills, N/V/C/D OBJECTIVE: Last Vital Signs Temp Pulse Resp BP Pulse Ox 99.2 F 89 20 113/64 96 07/15/18 06:00 07/15/18 06:00 07/15/18 06:00 07/15/18 06:00 07/14/18 21:00 General NAD CV S1 S2 RRR Lungs decreased breath sounds on R to mid lung field Abdomen soft NT/ND no hepatomegaly + R back drain with bandage c/d/i. no swelling. DOMENICA with serosangenous drainage ASSESSMENT AND PLAN: 58 year old male with HTN, HLD, DM 2 with neuropathy, presented with 4 day history of watery diarrhea, fevers, nausea - no vomiting/melena/hematochezia, found to have Gram neg bacteremia and liver mass/abscess on abdominal imaging. 1. Sepsis sec to klebsiella Bacteremia due to Liver Abscess- multiple fever spikes. Tm 101.9. s/p IR drainage of abscess wtih 10cc of purulent material removed. with DOMENICA drain in place. CT shwoing abscess improvement. with hepatic vein thrombosis. this is liekly due to infection but unclear if require anticoauglation. started on full dose lovenox. hematology consult. fevers possible due to this vs atelectasis seen on CT. on Zosyn day 8. will need PICC for 2 weeks total of IV abx. will need repeat CT scan in 1 week and then drain removal at that time if abscess has resolved.will need colonoscopy in the future to r/o colorectal cancer as high association. GI and ID on board. 2. SOB- due to pleural effusion and atelectasis. saturating 93% on RA. lasix 20mg po and incentive spirometer 3. Hypervolemia Hyponatremia-will give lasix 4. Transaminitis- likely due to abscess and sepsis. resolved. hep serologies pending 5. Normocytic anemia- +iron def anemia. will give venfer while here day 3. repeat iron studies in 3 months. no indication for txn. no signs of bleeding 6. DM 2 - A1c 11.2. cont lev 5 units. cont ISS and BGM. 7. HTN-started low dose lisinopril. titrate to optimize control 8. dyslipidemia- stated he was on statin in past but d/c himself. should have dietary/lifestyle changes and Lipid panel checked in 3 months to assess if needs statin therapy. would hold this time in setting of acute transaminitis. 9.DVT Px - Heparin SQ 10, will need SNF placement when medically optimized for discharge
--- NOTE | 2018-07-15 11:51 | PN ---
Progress Note, Physician History of Present Illness: still spiking fever findings noted on the ct scan - Current Medication List Current Medications: Active Medications Acetaminophen (Tylenol -) 650 mg PO Q4H PRN PRN Reason: FEVER Last Admin: 07/15/18 09:07 Dose: 650 mg Enoxaparin Sodium (Lovenox -) 80 mg SQ BID [facility] Last Admin: 07/15/18 09:33 Dose: 80 mg Ferrous Gluconate (Fergon -) 324 mg PO DAILY [facility] Last Admin: 07/15/18 09:07 Dose: 324 mg Piperacillin Sod/Tazobactam (Sod 3.375 gm/ Dextrose) 50 mls @ 100 mls/hr IVPB Q8H-IV [facility]; Protocol Last Admin: 07/15/18 09:07 Dose: 100 mls/hr Iron Sucrose 200 mg/ Sodium (Chloride) 100 mls @ 100 mls/hr IVPB DAILY [facility] Stop: 07/17/18 10:59 Last Admin: 07/15/18 09:31 Dose: 100 mls/hr Insulin Aspart (Novolog Vial Sliding Scale -) 1 vial SQ [facility]; Protocol Last Admin: 07/15/18 11:02 Dose: 2 units Insulin Detemir (Levemir Vial) 5 units SQ HS [facility] Last Admin: 07/14/18 21:36 Dose: 5 units Lisinopril (Prinivil) 5 mg PO DAILY [facility] Last Admin: 07/15/18 09:07 Dose: 5 mg Oxycodone HCl (Roxicodone -) 5 mg PO Q4H PRN PRN Reason: PAIN LEVEL 6-10 Last Admin: 07/15/18 09:06 Dose: 5 mg Zolpidem Tartrate (Ambien -) 5 mg PO HS PRN PRN Reason: INSOMNIA Last Admin: 07/14/18 21:35 Dose: 5 mg - Objective Vital Signs: Vital Signs Temperature 99.2 F 07/15/18 06:00 Pulse Rate 89 07/15/18 06:00 Respiratory Rate 20 07/15/18 06:00 Blood Pressure 113/64 07/15/18 06:00 O2 Sat by Pulse Oximetry (%) 96 07/14/18 21:00 Constitutional: Yes: Calm, Mild Distress Cardiovascular: Yes: Regular Rate and Rhythm Respiratory: Yes: Regular, CTA Bilaterally Gastrointestinal: Yes: Soft, Hypoactive Bowel Sounds Musculoskeletal: Yes: WNL Extremities: Yes: WNL Wound/Incision: Yes: Other (drain in place) Neurological: Yes: Alert, Oriented Psychiatric: Yes: Alert Labs: CBC, BMP 07/15/18 08:50 07/15/18 08:50 INR, PTT INR 1.20 (0.83-1.09) H 07/08/18 03:15 Assessment/Plan 58 y.o. male with DM, HTN, HLD presenting with complaints of fever/chills, epigastric pain/n/v/d x several days noted to have fever, leukocytosis, tachycardia, and hyponatremia. Sepsis Abd Pain/Diarrhea Fever Leukocytosis gm negative bacteremia liver abscess thrombosed hepatic vein patient continues to spike fever plan will continue abx vascular monitor fevers rest as per the team
--- NOTE | 2018-07-15 13:01 | PN ---
Physical Exam: SUBJECTIVE: No acute events overnight. Temperature last night 101.8 max. Over the weekend pt was found to have hepatic clot. Today pt has RUQ pain that is unchanged. OBJECTIVE: Vital Signs Period Temp Pulse Resp BP Sys/Negron Pulse Ox Last 24 Hr 99.2 F-101.8 F 76-109 20-20 113-160/64-87 96 GENERAL: NAD, alert, laying in bed, orientedx3 HEENT: NC/AT, PERRL, no scleral icterus, MMM LUNGS: CTA b/l, no crackles or wheezes HEART: RRR, normal S1 and S2 without murmur ABDOMEN: Soft, minimal RUQ tenderness to palpation, nondistended, DOMENICA drain intact with minimal darker fluid in collecting bulb. EXTREMITIES: 2+ DP pulses, warm, no edema. PSYCH: Depressed mood noted Laboratory Results - last 24 hr 07/14/18 07/14/18 07/15/18 16:35 20:37 05:42 WBC RBC Hgb Hct MCV MCH MCHC RDW Plt Count MPV Absolute Neuts (auto) Neutrophils % Neutrophils % (Manual) Band Neutrophils % Lymphocytes % Lymphocytes % (Manual) Monocytes % Monocytes % (Manual) Eosinophils % Eosinophils % (Manual) Basophils % Basophils % (Manual) Myelocytes % (Man) Promyelocytes % (Man) Blast Cells % (Manual) Nucleated RBC % Metamyelocytes Hypochromia Toxic Granulation Dohle Bodies Platelet Estimate Polychromasia Poikilocytosis Basophilic Stippling Anisocytosis Microcytosis Macrocytosis Spherocytes Sickle Cells Target Cells Tear Drop Cells Ovalocytes Stomatocytes Helmet Cells [place] Bodies [place] Rings Gayla Cells Acanthocytes (Spur) Rouleaux Fragmented RBCs Schistocytes Sodium Potassium Chloride Carbon Dioxide Anion Gap BUN Creatinine Creat Clearance w eGFR POC Glucometer 221 211 150 Random Glucose Calcium Total Bilirubin AST ALT Alkaline Phosphatase Total Protein Albumin 07/15/18 07/15/18 07/15/18 08:50 08:50 11:01 WBC 9.9 RBC 3.71 L Hgb 11.2 L Hct 32.8 L MCV 88.3 MCH 30.2 MCHC 34.2 RDW 12.7 Plt Count 660 H D MPV 6.9 L Absolute Neuts (auto) 7.6 Neutrophils % 77.3 Neutrophils % (Manual) 75.2 Band Neutrophils % 5.0 Lymphocytes % 11.0 Lymphocytes % (Manual) 9.9 D Monocytes % 10.6 H Monocytes % (Manual) 7 D Eosinophils % 0.8 D Eosinophils % (Manual) 1.0 D Basophils % 0.3 Basophils % (Manual) 0.0 Myelocytes % (Man) 0 D Promyelocytes % (Man) 0 Blast Cells % (Manual) 0 Nucleated RBC % 0 Metamyelocytes 0 Hypochromia 0 Toxic Granulation 0 Dohle Bodies 0 Platelet Estimate Increased Polychromasia 0 Poikilocytosis 0 Basophilic Stippling 0 Anisocytosis 0 Microcytosis 0 Macrocytosis 0 Spherocytes 0 Sickle Cells 0 Target Cells 0 Tear Drop Cells 0 Ovalocytes 0 Stomatocytes 0 Helmet Cells 0 [place] Bodies 0 [place] Rings 0 Gayla Cells 0 Acanthocytes (Spur) 0 Rouleaux 0 Fragmented RBCs 0 Schistocytes 0 Sodium 129 L Potassium 4.5 Chloride 95 L Carbon Dioxide 28 Anion Gap 6 L BUN 10 Creatinine 1.4 H Creat Clearance w eGFR 52.05 POC Glucometer 226 Random Glucose 135 H Calcium 8.6 Total Bilirubin 0.5 AST 29 ALT 35 Alkaline Phosphatase 211 H Total Protein 6.5 Albumin 2.0 L Active Medications Generic Name Dose Route Start Last Admin Trade Name Freq PRN Reason Stop Dose Admin Acetaminophen 650 mg 07/10/18 13:27 07/15/18 09:07 Tylenol - PO 650 mg Q4H PRN Administration FEVER Enoxaparin Sodium 80 mg 07/15/18 10:00 07/15/18 09:33 Lovenox - SQ 80 mg BID ALEXANDRA Administration Ferrous Gluconate 324 mg 07/13/18 11:00 07/15/18 09:07 Fergon - PO 324 mg DAILY ALEXANDRA Administration Piperacillin Sod/Tazobactam 50 mls @ 100 mls/hr 07/10/18 18:00 07/15/18 09:07 Sod 3.375 gm/ Dextrose IVPB 100 mls/hr Q8H-IV ALEXANDRA Administration Protocol Iron Sucrose 200 mg/ Sodium 100 mls @ 100 mls/hr 07/14/18 10:00 07/15/18 09: 31 Chloride IVPB 07/17/18 10:59 100 mls/hr DAILY ALEXANDRA Administration Insulin Aspart 1 vial 07/08/18 07:00 07/15/18 11:02 Novolog Vial Sliding Scale - SQ 2 units ACHS ALEXANDRA Administration Protocol Insulin Detemir 5 units 07/11/18 22:00 07/14/18 21:36 Levemir Vial SQ 5 units HS ALEXANDRA Administration Lisinopril 5 mg 07/14/18 10:00 07/15/18 09:07 Prinivil PO 5 mg DAILY ALEX[facility]A Administration Oxycodone HCl 5 mg 07/12/18 09:10 07/15/18 09:06 Roxicodone - PO 5 mg Q4H PRN Administration PAIN LEVEL 6-10 Zolpidem Tartrate 5 mg 07/12/18 10:59 07/14/18 21:35 Ambien - PO 5 mg HS PRN Administration INSOMNIA ASSESSMENT/PLAN: Sepsis 2/2 to Klebisella bacteremia and liver abscess Hepatic vein thrombosis Hypervolemic Hyponatremia Iron deficiency anemia Thrombocytosis HTN Type 2 DM HLD Transaminitis (resolved) --Post DOMENICA drain insertion into liver abscess. --Continue Zosyn day 8 today --Pt's fevers likely 2/2 to mixed picture of atelectasis and thrombosis --Monitor for fevers --Will need 2 weeks total of ABX (picc line insertion prior to D/c to SNF) --GI on board --Will need colonscopy on an outpatient basis due to high incidence of Klebsiella bactermia, liver abscess, and colon Ca --ID on board --Lovenox 80mg BID SQ for full AC --Will await Hem/Onc recommendation for hepatic vein thrombosis --Lasix 20mg PO today due to effusion on CT and hypervolemic hyponatremia --Monitor Na --Likely will see improvement tomorrow --Continue Lisinopril 5mg qdaily PO --Hold statin in setting of transaminitis; now resolved. Lipid panel recommendation on outpatient basis with dietary and lifestyle changes implemented --ISS, Levemir 5U HS, BGM ACHS --Pt's A1c this admission 11.2% --Will need recheck in 3 mo with insulin regiment on board --Iron supplementation to continue (day 3) --Repeat iron studies on outpatient basis FEN: Fluids: Encourage PO; diuresis currently Electrolyte abnormalities: Nutrition: PPX: DVT - Already on full dose AC GI - Already on Protonix daily Dispo: Continue monitoring; will need SNF and 2wks total of IV ABX Case discussed with Dr. Mai and Dr. Nirmal Lozano, DO - IM PGY-2 Visit type - Emergency Visit Emergency Visit: Yes ED Registration Date: 07/08/18 Care time: The patient presented to the Emergency Department on the above date and was hospitalized for further evaluation of their emergent condition. - New Patient This patient is new to me today: No - Critical Care Critical Care patient: No
--- NOTE | 2018-07-15 14:45 | CONSULT ---
Consult Consult Specialty:: Hematology Oncology Referred by:: Lisa Mai Reason for Consultation:: Hepatic vein thrombosis - History of Present Illness Chief Complaint: diarrhea, fevers, abdominal pain X 4-5 days prior to admission History of Present Illness: 58 y/o H M w 4-5 d hx of diarrhea,fever,chills, mild SOB, weakness, myalgias/ arthralgias, swollen feet , found to have a 3.8x4.8x4.6cm R lobe liver mass on US(and also CT) most c/w liver abcess ; abdominal CT's also showed tubular structure associated w the abcess c/w a thrombosed peripheral hepatic vein . Pt Rx w iv antibiotics, blood c/s- Klebsiella s/p pigtail placed by IR to drain abcess , 10cc pus removed initially. Post-procedure CT a/p showed liver abcess/ mass again as well as the thrombosed peripheral hepatic vein. He was started on full dose Lovenox. He has no hx ETOH abuse , Hep B and C profile neg , no family hx cancer / blood or clotting problems ; he has been told he had a fatty liver on an US from [facility] yrs ago.He has not had any endoscopies and denies melena/BRBPR, change bowel habits/dyspepsia/anemia/N&V.Blood studies on admission revealed WBC 14.8 w mostly polys, plates 262K , AST/ALT 55/72 ALK 210 Alb2.6 PT14.Pt has mild anemia , normocytic , Retic 1.9 T.prot 6.1 Ferritin 467 , Iron sat12% (started on FeSO4) ; CTa/p also showed small pleural effusions R> L , enlarged prostate, borderline spleen size ; doppler legs neg DVT ; initial CXR neg. Pt seems to be improving , on Zosyn. Last Hgb11 ,MCV88,plates up to 660K.He c/o mild RUQ discomfort. 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 hx fatty liver). No: Ascites, Cancer, Constipation, Crohn's Disease, Diverticulitis, Diverticulosis, Esophageal Varices, Gastritis, GERD, GI Bleed, Hemorrhoids, Hiatal Hernia, Inflamatory Bowel Disease, Irritable Bowel Disease, Pancreatitis, Peptic Ulcer Disease, Ulcerative Colitis Hepatobiliary: Yes: Hepatitis A Infectious Disease: No: AIDS, C-Diff, Herpes Zoster, HIV, MRSA, STD's, Tuberculosis, VREF, Other Psych: No: Addictions, Anxiety, Bipolar, Depression, Panic, Psychosis, Schizophrenia, Other Musculoskeletal: No: Bursitis, Chronic low back pain, Hemiparesis, Hemiplegia, Osteoarthritis, Paraplegia, Other Rheumatology: No: Fibromyalgia, Gout, Lupus, Rheumatoid Arthritis, Sarcoidosis, Vasculitis, Other ENT: No: Allergic Rhinitis, Sinusitis, Other Endocrine: Yes: Diabetes Mellitus Dermatology: No: Basal Cell, Cellulitis, Eczema, Melanoma, Psoriasis, Squamous Cell, Other - Past Surgical History Past Surgical History: No: None, AAA Repair, AICD, Amputation, Appendectomy, Arthrosocopy, AV Fistula/Graft, Bariatric Surgery, Breast Biopsy, Bypass, CABG, Carotid Endarterectomy, Cataract Removal, Cholecystectomy, Colectomy, Colonoscopy, Colostomy, Craniotomy, , Cystectomy, Hernia Repair, Hysterectomy, Ileal Conduit, Ileosotomy, Joint Replacement, Kidney Transplant, Laminectomy, Liver Transplant, Mastectomy, Nephrectomy, Oopherectomy, Orchiectomy, Permanent Pacemaker, Prostatectomy, Splenectomy, Stent, Thoracotomy , TURP, Tonsillectomy, Tubal Ligation, Upper Endoscopy, Valve Replacement, Vasectomy, Vein Stripping/Ligation - Alcohol/Substance Use Hx Alcohol Use: No - Smoking History Smoking history: Unknown if ever smoked Have you smoked in the past 12 months: No - Social History History of Recent Travel: No Home Medications - Allergies Allergies/Adverse Reactions: Allergies Allergy/AdvReac Type Severity Reaction Status Date / Time No Known Allergies Allergy Verified 07/08/18 02:16 - Home Medications Home Medications: Ambulatory Orders NK [No Known Home Medication] 07/10/18 Family Disease History - Family Disease History Family History: Denies (denies hx cancer/clotting issues/bleeding problems) Family Disease History: Other: Father (had ? DVT) Review of Systems - Review of Systems Constitutional: reports: Loss of Appetite, Weakness Eyes: reports: No Symptoms HENT: reports: No Symptoms Neck: reports: No Symptoms Cardiovascular: reports: No Symptoms Respiratory: reports: No Symptoms Gastrointestinal: reports: Abdominal Pain Genitourinary: denies: No Symptoms, Burning, Discharge, Dysuria, Flank Pain, Frequency, Hematuria, Incontinence, Lesions, Menses, Pain, Testicular Mass, Testicular Pain, Testicular Swelling, Urgency, Vaginal Bleeding, Other Breasts: denies: No Symptoms Reported, See HPI, Breast Implants, Discharge from Nipple, Lumps, Pain, Skin Changes, Other Musculoskeletal: denies: No Symptoms, Back Pain, Crepitus, Decreased ROM, Extremity Pain, Joint Pain, Joint Swelling, Muscle Pain, Muscle Cramps, Muscle Weakness, Other Integumentary: reports: No Symptoms Neurological: reports: No Symptoms Endocrine: reports: No Symptoms Hematology/Lymphatic: reports: No Symptoms Psychiatric: reports: No Symptoms Physical Exam Vital Signs: Vital Signs Temperature 99.9 F H 07/15/18 10:00 Pulse Rate 90 07/15/18 10:00 Respiratory Rate 18 07/15/18 10:00 Blood Pressure 148/83 07/15/18 10:00 O2 Sat by Pulse Oximetry (%) 96 07/14/18 21:00 Constitutional: Yes: Well Nourished, No Distress, Calm Eyes: Yes: WNL, Conjunctiva Clear, EOM Intact HENT: Yes: WNL, Atraumatic, Normocephalic Neck: Yes: WNL, Supple, Trachea Midline Cardiovascular: Yes: WNL, Regular Rate and Rhythm Respiratory: Yes: WNL, Regular, CTA Bilaterally, Other ( decreased BS R base) Labs: CBC, BMP 07/15/18 08:50 07/15/18 08:50 Assessment/Plan 58 y/o male w hepatic vein thrombosis on Lovenox , liver abcess but need to r/o underlying malignancy in near future, r/o another prothrombotic state . Pt will need full GI w/u w endoscopies. He may have a mild iron def anemia , thrombocytosis (likely secondary to iron def or infection) but if still present in 2 weeks may need to r/o myeloprolif diseases. Continue Lovenox unless there is signif bleeding, length of Rx to be determined. Suggested to pt to see me in 2 weeks in office [phone] #[id number] for f/u
[2018-07-15] MEDS ORDERED: INSULIN (NOVOLOG) ASPART 100 UNITS/ML 10ML VIAL ONE (20:43)
[2018-07-15] MEDS: INSULIN (LEVEMIR) 100 UNITS/ML UNITS SQ SCH (21:52)
[2018-07-16] MEDS: PIPERACILLIN/TAZOB 3.375 GM 3.375 GM in DEXTROSE 5%-WATER - 50 ML IVPB SCH ×3 (02:27→17:16)
[2018-07-16] MEDS: INSULIN SLIDING SCALE (NOVOLOG) 1 VIAL SQ SCH ×4 (06:37→21:34)
--- NOTE | 2018-07-16 08:57 | PN ---
Physical Exam: SUBJECTIVE: Patient seen and examined overnight. No acute complaints. Fever to 101.2 in AM. Remains in pain without change. OBJECTIVE: Vital Signs Period Temp Pulse Resp BP Sys/Negron Pulse Ox Last 24 Hr 98.8 F-101.2 F 90-96 18-20 130-148/69-87 92-92 GENERAL: A&Ox3, NAD HEENT: NC/AT, PERRLA, EOMI, anicteric sclera NECK: Trachea midline, full range of motion, supple. LUNGS: CTA b/l HEART: RRR no m/r/g ABDOMEN: soft, mild right-sided TTP upper>lower, DOMENICA drain intact w/ minimal sanguineous drainage EXTREMITIES: 2+ pulses, warm, well-perfused, no edema. 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 w/o focal deficit PSYCH: Depressed mood Laboratory Results - last 24 hr 07/15/18 07/15/18 07/15/18 08:50 08:50 11:01 WBC 9.9 RBC 3.71 L Hgb 11.2 L Hct 32.8 L MCV 88.3 MCH 30.2 MCHC 34.2 RDW 12.7 Plt Count 660 H D MPV 6.9 L Absolute Neuts (auto) 7.6 Neutrophils % 77.3 Neutrophils % (Manual) 75.2 Band Neutrophils % 5.0 Lymphocytes % 11.0 Lymphocytes % (Manual) 9.9 D Monocytes % 10.6 H Monocytes % (Manual) 7 D Eosinophils % 0.8 D Eosinophils % (Manual) 1.0 D Basophils % 0.3 Basophils % (Manual) 0.0 Myelocytes % (Man) 0 D Promyelocytes % (Man) 0 Blast Cells % (Manual) 0 Nucleated RBC % 0 Metamyelocytes 0 Hypochromia 0 Toxic Granulation 0 Dohle Bodies 0 Platelet Estimate Increased Polychromasia 0 Poikilocytosis 0 Basophilic Stippling 0 Anisocytosis 0 Microcytosis 0 Macrocytosis 0 Spherocytes 0 Sickle Cells 0 Target Cells 0 Tear Drop Cells 0 Ovalocytes 0 Stomatocytes 0 Helmet Cells 0 [place] Bodies 0 Rifle Rings 0 Gayla Cells 0 Acanthocytes (Spur) 0 Rouleaux 0 Fragmented RBCs 0 Schistocytes 0 Sodium 129 L Potassium 4.5 Chloride 95 L Carbon Dioxide 28 Anion Gap 6 L BUN 10 Creatinine 1.4 H Creat Clearance w eGFR 52.05 POC Glucometer 226 Random Glucose 135 H Calcium 8.6 Total Bilirubin 0.5 AST 29 ALT 35 Alkaline Phosphatase 211 H Total Protein 6.5 Albumin 2.0 L 07/15/18 07/15/18 07/16/18 17:52 20:40 06:33 WBC RBC Hgb Hct MCV MCH MCHC RDW Plt Count MPV Absolute Neuts (auto) Neutrophils % Neutrophils % (Manual) Band Neutrophils % Lymphocytes % Lymphocytes % (Manual) Monocytes % Monocytes % (Manual) Eosinophils % Eosinophils % (Manual) Basophils % Basophils % (Manual) Myelocytes % (Man) Promyelocytes % (Man) Blast Cells % (Manual) Nucleated RBC % Metamyelocytes Hypochromia Toxic Granulation Dohle Bodies Platelet Estimate Polychromasia Poikilocytosis Basophilic Stippling Anisocytosis Microcytosis Macrocytosis Spherocytes Sickle Cells Target Cells Tear Drop Cells Ovalocytes Stomatocytes Helmet Cells [place] Bodies Rifle Rings Gayla Cells Acanthocytes (Spur) Rouleaux Fragmented RBCs Schistocytes Sodium Potassium Chloride Carbon Dioxide Anion Gap BUN Creatinine Creat Clearance w eGFR POC Glucometer 247 297 198 Random Glucose Calcium Total Bilirubin AST ALT Alkaline Phosphatase Total Protein Albumin Active Medications Generic Name Dose Route Start Last Admin Trade Name Freq PRN Reason Stop Dose Admin Acetaminophen 650 mg 07/10/18 13:27 07/15/18 13:38 Tylenol - PO 650 mg Q4H PRN Administration FEVER Enoxaparin Sodium 80 mg 07/15/18 10:00 07/15/18 21:53 Lovenox - SQ 80 mg BID ALEXANDRA Administration Ferrous Gluconate 324 mg 07/13/18 11:00 07/15/18 09:07 Fergon - PO 324 mg DAILY ALEXANDRA Administration Piperacillin Sod/Tazobactam 50 mls @ 100 mls/hr 07/10/18 18:00 07/16/18 02:27 Sod 3.375 gm/ Dextrose IVPB 100 mls/hr Q8H-IV ALEXANDRA Administration Protocol Iron Sucrose 200 mg/ Sodium 100 mls @ 100 mls/hr 07/14/18 10:00 07/15/18 09: 31 Chloride IVPB 07/17/18 10:59 100 mls/hr DAILY ALEXANDRA Administration Insulin Aspart 1 vial 07/08/18 07:00 07/16/18 06:37 Novolog Vial Sliding Scale - SQ 1 units ACHS ALEXANDRA Administration Protocol Insulin Detemir 5 units 07/11/18 22:00 07/15/18 21:52 Levemir Vial SQ 5 units HS ALEXANDRA Administration Lisinopril 10 mg 07/16/18 08:02 Prinivil PO DAILY ALEXANDRA Oxycodone HCl 5 mg 07/12/18 09:10 07/15/18 20:47 Roxicodone - PO 5 mg Q4H PRN Administration PAIN LEVEL 6-10 Zolpidem Tartrate 5 mg 07/12/18 10:59 07/14/18 21:35 Ambien - PO 5 mg HS PRN Administration INSOMNIA ASSESSMENT/PLAN: 58 y/o M w/ PMHx HTN, HLD, DM admitted for sepsis 2/2 Klebsiella bacteremia and liver abscess #Sepsis 2/2 to Klebisella bacteremia and liver abscess -fever 101.2 this AM, may be 2/2 to thrombosis/atelectasis -cont Zosyn day 9 -DOMENICA drain in place w/ minimal sanguineous drainage -will need 2 weeks IV ABx, PICC line insertion prior to d/c -will need outpt colon Ca surveillance given increased risk in setting of Klebsiella bacteremia and liver abscess -GI following -ID following -low threshold for re-imaging #Hepatic vein thrombosis -heme/onc following, recommends AC unless significant bleeding results and outpt f/u -Lovenox 80mg BID SQ for full AC -Oxy PRN for pain #hypervolemic hyponatremia -monitor Na #HLD -hold statin given recently resolved transaminitis #HTN -increased lisinopril to 10mg qd #DM -SSI, Levemir 5U HS, BGM ACHS -Pt's A1c this admission 11.2% -Will need recheck in 3 mo with insulin regiment on board #iron deficiency anemia -cont iron supplementation -repeat iron studies as outpt #FEN: -Encourage PO; diuresis currently -monitor and correct electrolytes -diabetic/sodium diet #PPX: -DVT: full dose Lovenox -GI: PTX #code -full #dispo -continue to monitoring on med/surg -can D/C after 24 hours afebrile -will need SNF and 2wks total of IV ABX Visit type - Emergency Visit Emergency Visit: No - New Patient This patient is new to me today: Yes Date on this admission: 07/16/18 - Critical Care Critical Care patient: No
[2018-07-16 09:34] LABS: HEMATOCRIT 31.1 % (35.4-49); HEMOGLOBIN 10.7 GM/dL (11.7-16.9); MCH 30.2 pg (25.7-33.7); MCHC 34.5 g/dl (32.0-35.9); MEAN CELL VOLUME 87.5 fl (80-96); MEAN PLT VOLUME 7.1 fl (7.5-11.1); PLATELET COUNT 680 K/MM3 (134-434); RBC 3.55 M/mm3 (4.00-5.60); RDW 12.7 % (11.9-15.9); WHITE BLOOD COUNT 9.3 K/mm3 (4.0-10.0)
[2018-07-16] MEDS ORDERED: PT OWN MED DRAWER 7, Y5N ONE (09:59)
[2018-07-16] MEDS ORDERED: PIPERACILLIN/TAZOBACTAM 3.375 GM VIAL IVPB ONE ×3 (09:59→19:58)
[2018-07-16] MEDS ORDERED: DEXTROSE 5%-WATER - 50 ML IVPB ONE ×3 (09:59→19:58)
[2018-07-16 10:02] LABS: ALBUMIN 1.8 g/dl (3.4-5.0); ALK PHOS 184 U/L (45-117); ANION GAP 7 MMOL/L (8-16); BILIRUBIN,TOTAL 0.3 mg/dL (0.2-1); BLOOD UREA NITROGEN 10 mg/dL (7-18); CALCIUM 8.7 mg/dL (8.5-10.1); CHLORIDE 97 mmol/L (98-107); CO2 26 mmol/L (21-32); CREATININE 1.3 mg/dL (0.55-1.3); GLUCOSE,RANDOM 139 mg/dL (74-106); POTASSIUM 4.6 mmol/L (3.5-5.1); SGOT/AST 26 U/L (15-37); SGPT/ALT 33 U/L (13-61); SODIUM 130 mmol/L (136-145); TOT PROT 6.2 g/dl (6.4-8.2)
[2018-07-16] MEDS: FERROUS GLUCONATE 324 MG TAB (FP) PO SCH (10:11)
[2018-07-16] MEDS: ENOXAPARIN NA (PORCINE) 80 MG/0.8 ML DISP.SYRIN SQ SCH ×2 (10:11→21:42)
[2018-07-16] MEDS: oxyCODONE HCL 5 MG TABLET PO PRN ×2 (10:11→15:04)
[2018-07-16] MEDS: LISINOPRIL 10 MG TABLET (FP) PO SCH (10:11)
[2018-07-16] MEDS: ACETAMINOPHEN 325 MG TABLET (FP) PO PRN ×2 (10:12→17:16)
[2018-07-16] MEDS: IRON SUCROSE INJECTION 200 MG in SODIUM CHLORIDE 90 ML IVPB SCH (10:13)
--- NOTE | 2018-07-16 11:43 | PN ---
Progress Note, Physician History of Present Illness: patient does not feel so good looks fatigued still running fevers - Current Medication List Current Medications: Active Medications Acetaminophen (Tylenol -) 650 mg PO Q4H PRN PRN Reason: FEVER Last Admin: 07/16/18 10:12 Dose: 650 mg Enoxaparin Sodium (Lovenox -) 80 mg SQ BID [facility] Last Admin: 07/16/18 10:11 Dose: 80 mg Ferrous Gluconate (Fergon -) 324 mg PO DAILY [facility] Last Admin: 07/16/18 10:11 Dose: 324 mg Piperacillin Sod/Tazobactam (Sod 3.375 gm/ Dextrose) 50 mls @ 100 mls/hr IVPB Q8H-IV [facility]; Protocol Last Admin: 07/16/18 10:12 Dose: 100 mls/hr Iron Sucrose 200 mg/ Sodium (Chloride) 100 mls @ 100 mls/hr IVPB DAILY [facility] Stop: 07/17/18 10:59 Last Admin: 07/16/18 10:13 Dose: 100 mls/hr Insulin Aspart (Novolog Vial Sliding Scale -) 1 vial SQ ACHS [facility]; Protocol Last Admin: 07/16/18 06:37 Dose: 1 units Insulin Detemir (Levemir Vial) 5 units SQ HS [facility] Last Admin: 07/15/18 21:52 Dose: 5 units Lisinopril (Prinivil) 10 mg PO DAILY [facility] Last Admin: 07/16/18 10:11 Dose: 10 mg Zolpidem Tartrate (Ambien -) 5 mg PO HS PRN PRN Reason: INSOMNIA Last Admin: 07/14/18 21:35 Dose: 5 mg - Objective Vital Signs: Vital Signs Temperature 101.2 F H 07/16/18 07:47 Pulse Rate 96 H 07/16/18 07:47 Respiratory Rate 20 07/16/18 07:47 Blood Pressure 147/74 07/16/18 07:47 O2 Sat by Pulse Oximetry (%) 92 L 07/15/18 21:00 Constitutional: Yes: Calm, Mild Distress Cardiovascular: Yes: Regular Rate and Rhythm Respiratory: Yes: Regular, CTA Bilaterally Gastrointestinal: Yes: Normal Bowel Sounds, Soft Musculoskeletal: Yes: WNL Extremities: Yes: WNL Neurological: Yes: Alert, Oriented Psychiatric: Yes: Alert, Oriented Labs: CBC, BMP 07/16/18 08:40 07/16/18 08:40 INR, PTT INR 1.20 (0.83-1.09) H 07/08/18 03:15 Assessment/Plan 58 y.o. male with DM, HTN, HLD presenting with complaints of fever/chills, epigastric pain/n/v/d x several days noted to have fever, leukocytosis, tachycardia, and hyponatremia. Sepsis Abd Pain/Diarrhea Fever Leukocytosis gm negative bacteremia liver abscess thrombosed hepatic vein patient continues to spike fever plan will continue abx watch drainage monitor fevers rest as per the team
--- NOTE | 2018-07-16 12:45 | PN ---
Progress Note, Physician History of Present Illness: Pt seen/examined at bedside, sitting in chair, still with RUQ pain and fevers. Appetite poor, denies n/v. - Current Medication List Current Medications: Active Medications Acetaminophen (Tylenol -) 650 mg PO Q4H PRN PRN Reason: FEVER Last Admin: 07/16/18 10:12 Dose: 650 mg Enoxaparin Sodium (Lovenox -) 80 mg SQ BID [facility] Last Admin: 07/16/18 10:11 Dose: 80 mg Ferrous Gluconate (Fergon -) 324 mg PO DAILY ALEXANDRA Last Admin: 07/16/18 10:11 Dose: 324 mg Piperacillin Sod/Tazobactam (Sod 3.375 gm/ Dextrose) 50 mls @ 100 mls/hr IVPB Q8H-IV ALEXANDRA; Protocol Last Admin: 07/16/18 10:12 Dose: 100 mls/hr Iron Sucrose 200 mg/ Sodium (Chloride) 100 mls @ 100 mls/hr IVPB DAILY ALEXANDRA Stop: 07/17/18 10:59 Last Admin: 07/16/18 10:13 Dose: 100 mls/hr Insulin Aspart (Novolog Vial Sliding Scale -) 1 vial SQ ACHS [facility]; Protocol Last Admin: 07/16/18 11:59 Dose: 2 units Insulin Detemir (Levemir Vial) 5 units SQ HS [facility] Last Admin: 07/15/18 21:52 Dose: 5 units Lisinopril (Prinivil) 10 mg PO DAILY [facility] Last Admin: 07/16/18 10:11 Dose: 10 mg Zolpidem Tartrate (Ambien -) 5 mg PO HS PRN PRN Reason: INSOMNIA Last Admin: 07/14/18 21:35 Dose: 5 mg - Objective Vital Signs: Vital Signs Temperature 101.2 F H 07/16/18 07:47 Pulse Rate 96 H 07/16/18 07:47 Respiratory Rate 20 07/16/18 07:47 Blood Pressure 147/74 07/16/18 07:47 O2 Sat by Pulse Oximetry (%) 92 L 07/15/18 21:00 Constitutional: Yes: Well Nourished, No Distress, Calm Cardiovascular: Yes: WNL, Regular Rate and Rhythm Respiratory: Yes: WNL, Regular, CTA Bilaterally Gastrointestinal: Yes: WNL, Normal Bowel Sounds, Soft, Other (Tender in RUQ on palpation, nondistended, +DOMENICA drain in place (minimal serosanguineous fluid)) Labs: CBC, BMP 07/16/18 08:40 07/16/18 08:40 INR, PTT INR 1.20 (0.83-1.09) H 07/08/18 03:15 Problem List - Problems (1) Pyogenic liver abscess Assessment/Plan: 58yo male h/o Diabetes presenting with abdominal pain and fevers with CT evidence of a 7 x 4 x 3.7cm right hepatic lobe fluid structure suggestive of an abscess s/p IR drainage with DOMENICA in place. Still with RUQ pain and fevers, no leucocytosis. Repeat CT abd revealing similar abscess size though less fluid, and with evidence of hepatic vein thrombosis. No prior colonoscopy. -Monitor drain output -Antibiotics per ID -Follow up cultures -Therapeutic dose lovenox per hematology -Colonoscopy once clinically improved Code(s): K75.0 - ABSCESS OF LIVER
--- NOTE | 2018-07-16 15:02 | PN ---
Teaching Attending Note Name of Resident: Branden Mars ATTENDING PHYSICIAN STATEMENT I saw and evaluated the patient. I reviewed the resident's note and discussed the case with the resident. I agree with the resident's findings and plan as documented. SUBJECTIVE:c/o RUQ pain, improves with pain medication. breathing has improved. denies Cp, SOB, cough, N/V/C/D OBJECTIVE: Last Vital Signs Temp Pulse Resp BP Pulse Ox 100.4 F H 100 H 18 141/70 94 L 07/16/18 10:00 07/16/18 10:00 07/16/18 10:00 07/16/18 10:00 07/16/18 09:00 General NAD CV S1 S2 RRR Lungs CTA B/L no wheeizng/rales/rhonchi Abdomen soft NT/ND no hepatomegaly + R back drain with bandage c/d/i. no swelling. DOMENICA with serosangenous drainage ASSESSMENT AND PLAN: 58 year old male with HTN, HLD, DM 2 with neuropathy, presented with 4 day history of watery diarrhea, fevers, nausea - no vomiting/melena/hematochezia, found to have Gram neg bacteremia and liver mass/abscess on abdominal imaging. 1. Sepsis sec to klebsiella Bacteremia due to Liver Abscess- Tm 101.2. s/p IR drainage of abscess wtih 10cc of purulent material removed. with DOMENICA drain in place. fever curve coming down, more liekly due to inflammation than infection. on zosyn day 9. will need a total of [address] scan next week to determine if drain can be pulled. will need colonoscopy in the future to r/o colorectal cancer as high association. GI and ID on board. 2. 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 on full dose lovenox. f/u heme as outpatient 3. SOB- due to pleural effusion and atelectasis. improved. cont incentive spirometer 4. Hypervolemia Hyponatremia-slwoing improving. hold IVF 5. Transaminitis- likely due to abscess and sepsis. resolved. hep serologies pending 6. Normocytic anemia- +iron def anemia. will give venfer while here day 3. repeat iron studies in 3 months. no indication for txn. no signs of bleeding 7. DM 2 - A1c 11.2. cont lev 5 units. cont ISS and BGM. 8. HTN-titrate lisinopril to optimize control. some component may be due to pain 9. dyslipidemia- stated he was on statin in past but d/c himself. should have dietary/lifestyle changes and Lipid panel checked in 3 months to assess if needs statin therapy. would hold this time in setting of acute transaminitis. 10.DVT Px - Heparin SQ 11. will need SNF placement when medically optimized for discharge
[2018-07-16] MEDS ORDERED: oxyCODONE HCL 5 MG TABLET PO ONE (16:51)
[2018-07-16] MEDS: INSULIN (LEVEMIR) 100 UNITS/ML UNITS SQ SCH (21:34)
[2018-07-17] MEDS: PIPERACILLIN/TAZOB 3.375 GM 3.375 GM in DEXTROSE 5%-WATER - 50 ML IVPB SCH ×3 (01:49→17:07)
[2018-07-17] MEDS: INSULIN SLIDING SCALE (NOVOLOG) 1 VIAL SQ SCH ×4 (06:54→21:22)
[2018-07-17] MEDS: ACETAMINOPHEN 325 MG TABLET (FP) PO PRN ×2 (06:57→14:03)
[2018-07-17] MEDS: oxyCODONE HCL 5 MG TABLET PO PRN ×2 (06:59→14:02)
[2018-07-17 07:34] LABS: BASO % 0.9 % (0-2.0); EOS % 0.6 % (0-4.5); HEMATOCRIT 31.9 % (35.4-49); HEMOGLOBIN 11.1 GM/dL (11.7-16.9); MCH 30.3 pg (25.7-33.7); MCHC 34.7 g/dl (32.0-35.9); MEAN CELL VOLUME 87.3 fl (80-96); MONO % 9.7 % (3.8-10.2); NEUT % 81.8 % (42.8-82.8); PLATELET COUNT 693 K/MM3 (134-434); RBC 3.65 M/mm3 (4.00-5.60); RDW 12.9 % (11.9-15.9); WHITE BLOOD COUNT 8.7 K/mm3 (4.0-10.0)
--- NOTE | 2018-07-17 07:34 | PN ---
Physical Exam: SUBJECTIVE: Patient seen and examined at bedside. Had low grade fevers during daytime yesterday, spiked to 101.2 this AM. C/o ongoing pain, requested additional pain medications overnight. Had episode of vomiting during encounter. OBJECTIVE: Vital Signs Period Temp Pulse Resp BP Sys/Negron Pulse Ox Last 24 Hr 98.4 F-101.2 F 64-103 18-20 127-187/66-85 94-94 GENERAL: A&Ox3, NAD HEENT: NC/AT, PERRLA, EOMI, anicteric sclera NECK: Trachea midline, full range of motion, supple. LUNGS: CTA b/l HEART: RRR no m/r/g ABDOMEN: soft, mild right-sided TTP upper>lower, DOMENICA drain intact w/ minimal sanguineous drainage EXTREMITIES: 2+ pulses, warm, well-perfused, no edema. 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 PSYCH: Depressed mood Laboratory Results - last 24 hr 07/16/18 07/16/18 07/16/18 08:40 08:40 11:50 WBC 9.3 RBC 3.55 L Hgb 10.7 L Hct 31.1 L MCV 87.5 MCH 30.2 MCHC 34.5 RDW 12.7 Plt Count 680 H MPV 7.1 L Sodium 130 L Potassium 4.6 Chloride 97 L Carbon Dioxide 26 Anion Gap 7 L BUN 10 Creatinine 1.3 Creat Clearance w eGFR 56.70 POC Glucometer 209 Random Glucose 139 H Calcium 8.7 Total Bilirubin 0.3 AST 26 ALT 33 Alkaline Phosphatase 184 H Total Protein 6.2 L Albumin 1.8 L 07/16/18 07/16/18 07/17/18 17:35 21:31 06:49 WBC RBC Hgb Hct MCV MCH MCHC RDW Plt Count MPV Sodium Potassium Chloride Carbon Dioxide Anion Gap BUN Creatinine Creat Clearance w eGFR POC Glucometer 189 279 159 Random Glucose Calcium Total Bilirubin AST ALT Alkaline Phosphatase Total Protein Albumin Active Medications Generic Name Dose Route Start Last Admin Trade Name Freq PRN Reason Stop Dose Admin Acetaminophen 650 mg 07/10/18 13:27 07/17/18 06:57 Tylenol - PO 650 mg Q4H PRN Administration FEVER Enoxaparin Sodium 80 mg 07/15/18 10:00 07/16/18 21:42 Lovenox - SQ 80 mg BID ALEXANDRA Administration Ferrous Gluconate 324 mg 07/13/18 11:00 07/16/18 10:11 Fergon - PO 324 mg DAILY ALEXANDRA Administration Piperacillin Sod/Tazobactam 50 mls @ 100 mls/hr 07/10/18 18:00 07/17/18 01:49 Sod 3.375 gm/ Dextrose IVPB 100 mls/hr Q8H-IV ALEXANDRA Administration Protocol Iron Sucrose 200 mg/ Sodium 100 mls @ 100 mls/hr 07/14/18 10:00 07/16/18 10: 13 Chloride IVPB 07/17/18 10:59 100 mls/hr DAILY ALEXANDRA Administration Insulin Aspart 1 vial 07/08/18 07:00 07/17/18 06:54 Novolog Vial Sliding Scale - SQ 1 units ACHS ALEXANDRA Administration Protocol Insulin Detemir 5 units 07/11/18 22:00 07/16/18 21:34 Levemir Vial SQ 5 units HS ALEXANDRA Administration Lisinopril 10 mg 07/16/18 08:02 07/16/18 10:11 Prinivil PO 10 mg DAILY ALEXANDRA Administration Oxycodone HCl 5 mg 07/16/18 14:32 07/17/18 06:59 Roxicodone - PO 5 mg Q4H PRN Administration PAIN LEVEL 6-10 Zolpidem Tartrate 5 mg 07/12/18 10:59 07/14/18 21:35 Ambien - PO 5 mg HS PRN Administration INSOMNIA ASSESSMENT/PLAN: 58 y/o M w/ PMHx HTN, HLD, DM admitted for sepsis 2/2 Klebsiella bacteremia and liver abscess #Sepsis 2/2 to Klebisella bacteremia and liver abscess -fever 101.2 this AM, may be 2/2 to thrombosis/atelectasis -cont Zosyn day 10 -DOMENICA drain in place w/ minimal sanguineous drainage -will need 2 weeks IV ABx, PICC line insertion prior to d/c -will need outpt colon Ca surveillance given increased risk in setting of Klebsiella bacteremia and liver abscess -GI following -ID following -recurrent fever may be secondary to malignancy -re-imaging with contrast CT a/p obtained, awaiting read #Hepatic vein thrombosis -heme/onc following, recommends AC unless significant bleeding results and outpt f/u -Lovenox 80mg BID SQ for full AC -Oxy PRN for pain -re-imaging with contrast CT a/p obtained, awaiting read #hypervolemic hyponatremia -slowly improving -monitor Na #HLD -hold statin given recently resolved transaminitis #HTN -cont lisinopril #DM -SSI, Levemir 5U HS, BGM ACHS -Pt's A1c this admission 11.2% -Will need recheck in 3 mo with insulin regiment on board #iron deficiency anemia -cont iron supplementation -repeat iron studies as outpt #FEN: -no IVF -monitor and correct electrolytes -diabetic/sodium diet #PPX: -DVT: full dose Lovenox -GI: not indicated #code -full #dispo -continue monitoring on med/surg -can D/C after 24 hours afebrile -will need SNF and 2wks total of IV ABX Visit type - Emergency Visit Emergency Visit: No - New Patient This patient is new to me today: No - Critical Care Critical Care patient: No
[2018-07-17 09:02] LABS: ANION GAP 9 MMOL/L (8-16); CALCIUM 8.3 mg/dL (8.5-10.1); CHLORIDE 97 mmol/L (98-107); CO2 24 mmol/L (21-32); CREATININE 1.2 mg/dL (0.55-1.3); GLUCOSE,RANDOM 153 mg/dL (74-106); MAGNESIUM 2.3 mg/dL (1.8-2.4); POTASSIUM 4.4 mmol/L (3.5-5.1); SODIUM 131 mmol/L (136-145)
[2018-07-17] MEDS ORDERED: PIPERACILLIN/TAZOBACTAM 3.375 GM VIAL IVPB ONE ×2 (09:40→16:57)
[2018-07-17] MEDS ORDERED: DEXTROSE 5%-WATER - 50 ML IVPB ONE ×2 (09:41→16:57)
[2018-07-17] MEDS: FERROUS GLUCONATE 324 MG TAB (FP) PO SCH (09:47)
[2018-07-17] MEDS: LISINOPRIL 10 MG TABLET (FP) PO SCH (09:47)
[2018-07-17] MEDS: ENOXAPARIN NA (PORCINE) 80 MG/0.8 ML DISP.SYRIN SQ SCH ×2 (09:47→21:21)
[2018-07-17 11:39] LABS: ANISOCYTOSIS 1+; MACROCYTOSIS 0; PLATELET ESTIMATE INCREASED
[2018-07-17] MEDS: IRON SUCROSE INJECTION 200 MG in SODIUM CHLORIDE 90 ML IVPB SCH (11:51)
--- NOTE | 2018-07-17 17:45 | PN ---
Teaching Attending Note Name of Resident: Branden Mars ATTENDING PHYSICIAN STATEMENT I saw and evaluated the patient. I reviewed the resident's note and discussed the case with the resident. I agree with the resident's findings and plan as documented. SUBJECTIVE: Feels ok - some R flank pain. Tolerating breakfast. Some nausea/ retching overnight. Fevers +. No diarrhea. OBJECTIVE: Temp 102.3, Hemodynamically Stable. Last Vital Signs Temp Pulse Resp BP Pulse Ox 102.3 F H 104 H 20 153/75 96 07/17/18 16:40 07/17/18 16:40 07/17/18 16:40 07/17/18 16:40 07/17/18 09:00 HEENT - Atraumatic, Normocephalic. Heart - S1, S2, RRR Lungs - bi-basal crackles, R>L. Abdomen - Soft, non-tender anterior abdomen. R flank area tenderness in region of posterior DOMENICA drain with thick purulent material in tubing. Extremities - no edema. No calf swelling/tenderness Neuro - AAO x3. Tone/Power normal all 4 extremities. Laboratory Results - last 24 hr 07/16/18 07/16/18 07/17/18 17:35 21:31 06:30 WBC 8.7 RBC 3.65 L Hgb 11.1 L Hct 31.9 L MCV 87.3 MCH 30.3 MCHC 34.7 RDW 12.9 Plt Count 693 H MPV 7.0 L Absolute Neuts (auto) 7.1 Neutrophils % 81.8 Neutrophils % (Manual) 84.8 H Band Neutrophils % 0.0 Lymphocytes % 7.0 L D Lymphocytes % (Manual) 7.1 L D Monocytes % 9.7 Monocytes % (Manual) 5 Eosinophils % 0.6 Eosinophils % (Manual) 1.0 Basophils % 0.9 Basophils % (Manual) 0.0 Myelocytes % (Man) 1 D Promyelocytes % (Man) 0 Blast Cells % (Manual) 0 Nucleated RBC % 0 Metamyelocytes 0 Hypochromia 0 Platelet Estimate Increased Polychromasia 1+ Poikilocytosis 0 Anisocytosis 1+ Microcytosis 1+ Macrocytosis 0 Sodium Potassium Chloride Carbon Dioxide Anion Gap BUN Creatinine Creat Clearance w eGFR POC Glucometer 189 279 Random Glucose Calcium Phosphorus Magnesium 07/17/18 07/17/18 07/17/18 06:30 06:49 11:50 WBC RBC Hgb Hct MCV MCH MCHC RDW Plt Count MPV Absolute Neuts (auto) Neutrophils % Neutrophils % (Manual) Band Neutrophils % Lymphocytes % Lymphocytes % (Manual) Monocytes % Monocytes % (Manual) Eosinophils % Eosinophils % (Manual) Basophils % Basophils % (Manual) Myelocytes % (Man) Promyelocytes % (Man) Blast Cells % (Manual) Nucleated RBC % Metamyelocytes Hypochromia Platelet Estimate Polychromasia Poikilocytosis Anisocytosis Microcytosis Macrocytosis Sodium 131 L Potassium 4.4 Chloride 97 L Carbon Dioxide 24 Anion Gap 9 BUN Creatinine 1.2 Creat Clearance w eGFR > 60 POC Glucometer 159 217 Random Glucose 153 H Calcium 8.3 L Phosphorus 3.0 Magnesium 2.3 07/17/18 16:20 WBC RBC Hgb Hct MCV MCH MCHC RDW Plt Count MPV Absolute Neuts (auto) Neutrophils % Neutrophils % (Manual) Band Neutrophils % Lymphocytes % Lymphocytes % (Manual) Monocytes % Monocytes % (Manual) Eosinophils % Eosinophils % (Manual) Basophils % Basophils % (Manual) Myelocytes % (Man) Promyelocytes % (Man) Blast Cells % (Manual) Nucleated RBC % Metamyelocytes Hypochromia Platelet Estimate Polychromasia Poikilocytosis Anisocytosis Microcytosis Macrocytosis Sodium Potassium Chloride Carbon Dioxide Anion Gap BUN Creatinine Creat Clearance w eGFR POC Glucometer 216 Random Glucose Calcium Phosphorus Magnesium Current Medications Generic Name Dose Route Start Last Admin Trade Name Freq PRN Reason Stop Dose Admin Acetaminophen 650 mg 07/10/18 13:27 07/17/18 14:03 Tylenol - PO 650 mg Q4H PRN Administration FEVER Enoxaparin Sodium 80 mg 07/15/18 10:00 07/17/18 09:47 Lovenox - SQ 80 mg BID ALEXANDRA Administration Ferrous Gluconate 324 mg 07/13/18 11:00 07/17/18 09:47 Fergon - PO 324 mg DAILY ALEXANDRA Administration Piperacillin Sod/Tazobactam 50 mls @ 100 mls/hr 07/10/18 18:00 07/17/18 17:07 Sod 3.375 gm/ Dextrose IVPB 100 mls/hr Q8H-IV ALEXANDRA Administration Protocol Insulin Aspart 1 vial 07/08/18 07:00 07/17/18 16:22 Novolog Vial Sliding Scale - SQ 2 units ACHS ALEXANDRA Administration Protocol Insulin Detemir 5 units 07/11/18 22:00 07/16/18 21:34 Levemir Vial SQ 5 units HS ALEXANDRA Administration Lisinopril 10 mg 07/16/18 08:02 07/17/18 09:47 Prinivil PO 10 mg DAILY ALEXANDRA Administration Oxycodone HCl 5 mg 07/16/18 14:32 07/17/18 14:02 Roxicodone - PO 5 mg Q4H PRN Administration PAIN LEVEL 6-10 Zolpidem Tartrate 5 mg 07/12/18 10:59 07/14/18 21:35 Ambien - PO 5 mg HS PRN Administration INSOMNIA ASSESSMENT AND PLAN: 58 year old male with history of HTN, HLD, DM 2 with neuropathy, presented with 4 day history of watery diarrhea, fevers, nausea - no vomiting/melena/ hematochezia, found to have Gram neg bacteremia and liver abscess on abdominal imaging. 1. Sepsis secondary to Klebsiella Bacteremia with Liver Abscess as source s/p IR guided drainage 07/11/18 with 10cc of purulence removed. DOMENICA drain in situ with thick purulent material in tubing. Still on Zosyn - Day 10 - continue. Still spiking fevers up to 102.3 ID following - opinion that fever is non-infectious but rather related to thrombosis. Repeat BCx neg, Chest imaging positive for R sided effusion. Repeat CT A/P - decreased size of abscess, onoing hepatic vein thrombus, retroperitoneal lymphadenopathy. 2. Hepatic Vein Thrombosis - etiology unclear Continue Lovenox. Hem/Onc consulted for possible Hypercoagulable state - for out-patient follow up. Will eventually need further GI work-up to eliminate malignancy. 3. DM 2 - Uncontrolled, A1C 11.2, continue Levemir and Sliding Scale . 4. HTN - Continue Lisinopril 5. HLD - Previously on Statin, self-stopped. Not started on this admission due to initial transaminitis, now resolved. Can resume after acute illness. 6. 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 For repeat CT/ MRI in 3 months to ensure resolution. 7. Iron Deficiency Anemia - Low Iron and Iron Saturation. Will need GI work-up as out-patient. Iron supplementation ongoing. 8. Thrombocytosis, reactive versus due to iron deficiency - for iron replacement and recheck in 2 weeks with Hematology out-patient follow up to exclude myeloproliferative disorder. DVT Px - on treatment dose Lovenox for hepatic vein thrombosis.
[2018-07-17] MEDS: INSULIN (LEVEMIR) 100 UNITS/ML UNITS SQ SCH (21:21)
[2018-07-18] MEDS ORDERED: PIPERACILLIN/TAZOBACTAM 3.375 GM VIAL IVPB ONE ×3 (01:19→17:05)
[2018-07-18] MEDS ORDERED: DEXTROSE 5%-WATER - 50 ML IVPB ONE ×3 (01:19→17:06)
[2018-07-18] MEDS: PIPERACILLIN/TAZOB 3.375 GM 3.375 GM in DEXTROSE 5%-WATER - 50 ML IVPB SCH ×3 (01:36→17:24)
[2018-07-18] MEDS: ACETAMINOPHEN 325 MG TABLET (FP) PO PRN ×2 (05:30→17:39)
[2018-07-18] MEDS: oxyCODONE HCL 5 MG TABLET PO PRN (05:30)
[2018-07-18] MEDS: INSULIN SLIDING SCALE (NOVOLOG) 1 VIAL SQ SCH ×4 (06:08→22:40)
[2018-07-18 07:25] LABS: BASO % 0.9 % (0-2.0); EOS % 0.4 % (0-4.5); HEMOGLOBIN 10.9 GM/dL (11.7-16.9); LYMPH % 8.3 % (8-40); MCH 29.9 pg (25.7-33.7); MCHC 34.1 g/dl (32.0-35.9); MEAN CELL VOLUME 87.7 fl (80-96); MEAN PLT VOLUME 7.1 fl (7.5-11.1); MONO % 9.7 % (3.8-10.2); NEUT % 80.7 % (42.8-82.8); PLATELET COUNT 661 K/MM3 (134-434); RBC 3.65 M/mm3 (4.00-5.60); RDW 12.7 % (11.9-15.9)
[2018-07-18 07:47] LABS: ANION GAP 8 MMOL/L (8-16); BLOOD UREA NITROGEN 13 mg/dL (7-18); CHLORIDE 93 mmol/L (98-107); CO2 27 mmol/L (21-32); CREATININE 1.4 mg/dL (0.55-1.3); GLUCOSE,RANDOM 132 mg/dL (74-106); MAGNESIUM 2.3 mg/dL (1.8-2.4); PHOSPHOROUS 3.6 mg/dL (2.5-4.9); POTASSIUM 4.5 mmol/L (3.5-5.1); SODIUM 128 mmol/L (136-145)
[2018-07-18] MEDS ORDERED: SODIUM CHLORIDE 500 ML IV STA (08:01)
--- NOTE | 2018-07-18 08:06 | PN ---
Physical Exam: SUBJECTIVE: Patient seen and examined at bedside. Fever curve worsening, peaked at 102.3 yesterday, again spiked to 101.2 this AM. C/o ongoing pain, no improvement. OBJECTIVE: Vital Signs Period Temp Pulse Resp BP Sys/Negron Pulse Ox Last 24 Hr 98.4 F-102.3 F 80-104 16-20 139-164/64-82 96-96 GENERAL: A&Ox3, NAD HEENT: NC/AT, PERRLA, EOMI, anicteric sclera NECK: Trachea midline, full range of motion, supple. LUNGS: CTA b/l HEART: RRR no m/r/g ABDOMEN: soft, mild right-sided TTP upper>lower EXTREMITIES: 2+ pulses, warm, well-perfused, no edema. 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 deficit PSYCH: Depressed mood Laboratory Results - last 24 hr 07/17/18 07/17/18 07/17/18 06:30 06:30 11:50 WBC RBC Hgb Hct MCV MCH MCHC RDW Plt Count MPV Absolute Neuts (auto) Neutrophils % Neutrophils % (Manual) 84.8 H Band Neutrophils % 0.0 Lymphocytes % Lymphocytes % (Manual) 7.1 L D Monocytes % Monocytes % (Manual) 5 Eosinophils % Eosinophils % (Manual) 1.0 Basophils % Basophils % (Manual) 0.0 Myelocytes % (Man) 1 D Promyelocytes % (Man) 0 Blast Cells % (Manual) 0 Nucleated RBC % Metamyelocytes 0 Hypochromia 0 Platelet Estimate Increased Polychromasia 1+ Poikilocytosis 0 Anisocytosis 1+ Microcytosis 1+ Macrocytosis 0 Sodium 131 L Potassium 4.4 Chloride 97 L Carbon Dioxide 24 Anion Gap 9 BUN Creatinine 1.2 Creat Clearance w eGFR > 60 POC Glucometer 217 Random Glucose 153 H Calcium 8.3 L Phosphorus 3.0 Magnesium 2.3 07/17/18 07/17/18 07/18/18 16:20 20:52 05:24 WBC RBC Hgb Hct MCV MCH MCHC RDW Plt Count MPV Absolute Neuts (auto) Neutrophils % Neutrophils % (Manual) Band Neutrophils % Lymphocytes % Lymphocytes % (Manual) Monocytes % Monocytes % (Manual) Eosinophils % Eosinophils % (Manual) Basophils % Basophils % (Manual) Myelocytes % (Man) Promyelocytes % (Man) Blast Cells % (Manual) Nucleated RBC % Metamyelocytes Hypochromia Platelet Estimate Polychromasia Poikilocytosis Anisocytosis Microcytosis Macrocytosis Sodium Potassium Chloride Carbon Dioxide Anion Gap BUN Creatinine Creat Clearance w eGFR POC Glucometer 216 189 143 Random Glucose Calcium Phosphorus Magnesium 07/18/18 07/18/18 06:00 06:00 WBC 8.0 RBC 3.65 L Hgb 10.9 L Hct 32.0 L MCV 87.7 MCH 29.9 MCHC 34.1 RDW 12.7 Plt Count 661 H MPV 7.1 L Absolute Neuts (auto) 6.5 Neutrophils % 80.7 Neutrophils % (Manual) Band Neutrophils % Lymphocytes % 8.3 Lymphocytes % (Manual) Monocytes % 9.7 Monocytes % (Manual) Eosinophils % 0.4 Eosinophils % (Manual) Basophils % 0.9 Basophils % (Manual) Myelocytes % (Man) Promyelocytes % (Man) Blast Cells % (Manual) Nucleated RBC % 0 Metamyelocytes Hypochromia Platelet Estimate Polychromasia Poikilocytosis Anisocytosis Microcytosis Macrocytosis Sodium 128 L Potassium 4.5 Chloride 93 L Carbon Dioxide 27 Anion Gap 8 BUN 13 Creatinine 1.4 H Creat Clearance w eGFR 52.05 POC Glucometer Random Glucose 132 H Calcium 8.0 L Phosphorus 3.6 Magnesium 2.3 Active Medications Generic Name Dose Route Start Last Admin Trade Name Freq PRN Reason Stop Dose Admin Acetaminophen 650 mg 07/10/18 13:27 07/18/18 05:30 Tylenol - PO 650 mg Q4H PRN Administration FEVER Enoxaparin Sodium 80 mg 07/15/18 10:00 07/17/18 21:21 Lovenox - SQ 80 mg BID ALEXANDRA Administration Ferrous Gluconate 324 mg 07/13/18 11:00 07/17/18 09:47 Fergon - PO 324 mg DAILY ALEXANDRA Administration Piperacillin Sod/Tazobactam 50 mls @ 100 mls/hr 07/10/18 18:00 07/18/18 01:36 Sod 3.375 gm/ Dextrose IVPB 100 mls/hr Q8H-IV ALEXANDRA Administration Protocol Insulin Aspart 1 vial 07/08/18 07:00 07/18/18 06:08 Novolog Vial Sliding Scale - SQ Not Given ACHS [facility] Protocol Insulin Detemir 5 units 07/11/18 22:00 07/17/18 21:21 Levemir Vial SQ 5 units HS ALEXANDRA Administration Lisinopril 10 mg 07/16/18 08:02 07/17/18 09:47 Prinivil PO 10 mg DAILY ALEXANDRA Administration Oxycodone HCl 5 mg 07/16/18 14:32 07/18/18 05:30 Roxicodone - PO 5 mg Q4H PRN Administration PAIN LEVEL 6-10 Zolpidem Tartrate 5 mg 07/12/18 10:59 07/14/18 21:35 Ambien - PO 5 mg HS PRN Administration INSOMNIA ASSESSMENT/PLAN: 58 y/o M w/ PMHx HTN, HLD, DM admitted for sepsis 2/2 Klebsiella bacteremia and liver abscess #Sepsis 2/2 to Klebisella bacteremia and liver abscess -fever 101.2 this AM, Tmax 102.3, may be 2/2 to thrombosis/atelectasis -cont Zosyn day 10 -DOMENICA drain in place w/ minimal sanguineous drainage -will need 2 weeks IV ABx, PICC line insertion prior to d/c -will need outpt colon Ca surveillance given increased risk in setting of Klebsiella bacteremia and liver abscess -GI following -ID following -recurrent fever may be secondary to malignancy -repeat CT a/p showing decreased abscess size, no change in HVT, increased R pleural effusion, new L pleural effusion #Hepatic vein thrombosis -heme/onc following, recommends AC unless significant bleeding results and outpt f/u -Lovenox 80mg BID SQ for full AC -Oxy PRN for pain -repeat CT a/p showing decreased abscess size, no change in HVT, increased R pleural effusion, new L pleural effusion -will discuss w/ IR and consider drainage/exploration of pleural fluid #hypervolemic hyponatremia -Na declined to 128 -500 cc bolus NS -monitor Na #HLD -hold statin given recently resolved transaminitis #HTN -cont lisinopril #DM -SSI, Levemir 5U HS, BGM ACHS -Pt's A1c this admission 11.2% -Will need recheck in 3 mo with insulin regiment on board #iron deficiency anemia -cont iron supplementation -repeat iron studies as outpt #FEN: -no IVF -monitor and correct electrolytes -diabetic/sodium diet #PPX: -DVT: full dose Lovenox -GI: not indicated #code -full #dispo -continue monitoring on med/surg Visit type - Emergency Visit Emergency Visit: No - New Patient This patient is new to me today: No - Critical Care Critical Care patient: No
[2018-07-18] MEDS: ENOXAPARIN NA (PORCINE) 80 MG/0.8 ML DISP.SYRIN SQ SCH ×2 (10:14→22:39)
[2018-07-18] MEDS: FERROUS GLUCONATE 324 MG TAB (FP) PO SCH (10:14)
[2018-07-18] MEDS: LISINOPRIL 10 MG TABLET (FP) PO SCH (10:14)
[2018-07-18 12:05] LABS: ANISOCYTOSIS 1+; MACROCYTOSIS 0; PLATELET ESTIMATE INCREASED
--- NOTE | 2018-07-18 12:28 | PN ---
Progress Note, Physician History of Present Illness: continues to spike fever says he is feeling a little better - Current Medication List Current Medications: Active Medications Acetaminophen (Tylenol -) 650 mg PO Q4H PRN PRN Reason: FEVER Last Admin: 07/18/18 05:30 Dose: 650 mg Enoxaparin Sodium (Lovenox -) 80 mg SQ BID [facility] Last Admin: 07/18/18 10:14 Dose: 80 mg Ferrous Gluconate (Fergon -) 324 mg PO DAILY [facility] Last Admin: 07/18/18 10:14 Dose: 324 mg Piperacillin Sod/Tazobactam (Sod 3.375 gm/ Dextrose) 50 mls @ 100 mls/hr IVPB Q8H-IV [facility]; Protocol Last Admin: 07/18/18 10:14 Dose: 100 mls/hr Insulin Aspart (Novolog Vial Sliding Scale -) 1 vial SQ ACHS [facility]; Protocol Last Admin: 07/18/18 11:04 Dose: 2 units Insulin Detemir (Levemir Vial) 5 units SQ HS [facility] Last Admin: 07/17/18 21:21 Dose: 5 units Lisinopril (Prinivil) 10 mg PO DAILY [facility] Last Admin: 07/18/18 10:14 Dose: 10 mg Oxycodone HCl (Roxicodone -) 5 mg PO Q4H PRN PRN Reason: PAIN LEVEL 6-10 Last Admin: 07/18/18 05:30 Dose: 5 mg Zolpidem Tartrate (Ambien -) 5 mg PO HS PRN PRN Reason: INSOMNIA Last Admin: 07/14/18 21:35 Dose: 5 mg - Objective Vital Signs: Vital Signs Temperature 101.2 F H 07/18/18 07:14 Pulse Rate 94 H 07/18/18 07:14 Respiratory Rate 20 07/18/18 07:14 Blood Pressure 149/65 07/18/18 07:14 O2 Sat by Pulse Oximetry (%) 97 07/18/18 09:00 Constitutional: Yes: Calm, Mild Distress Cardiovascular: Yes: Regular Rate and Rhythm Respiratory: Yes: Regular, CTA Bilaterally Gastrointestinal: Yes: Normal Bowel Sounds, Soft, Other (ibrahima drain in place) Musculoskeletal: Yes: WNL Extremities: Yes: WNL Neurological: Yes: Alert, Oriented Psychiatric: Yes: Alert, Oriented Labs: CBC, BMP 07/18/18 06:00 07/18/18 06:00 INR, PTT INR 1.20 (0.83-1.09) H 07/08/18 03:15 Assessment/Plan 58 y.o. male with DM, HTN, HLD presenting with complaints of fever/chills, epigastric pain/n/v/d x several days noted to have fever, leukocytosis, tachycardia, and hyponatremia. Sepsis Abd Pain/Diarrhea Fever Leukocytosis gm negative bacteremia liver abscess thrombosed hepatic vein patient continues to spike fever plan will continue abx watch drainage monitor fevers rest as per the team fevers probably due to thrombosis
--- NOTE | 2018-07-18 12:29 | PN ---
Progress Note, Physician History of Present Illness: patient still with fevers looks comfortable - Current Medication List Current Medications: Active Medications Acetaminophen (Tylenol -) 650 mg PO Q4H PRN PRN Reason: FEVER Last Admin: 07/18/18 05:30 Dose: 650 mg Enoxaparin Sodium (Lovenox -) 80 mg SQ BID [facility] Last Admin: 07/18/18 10:14 Dose: 80 mg Ferrous Gluconate (Fergon -) 324 mg PO DAILY [facility] Last Admin: 07/18/18 10:14 Dose: 324 mg Piperacillin Sod/Tazobactam (Sod 3.375 gm/ Dextrose) 50 mls @ 100 mls/hr IVPB Q8H-IV [facility]; Protocol Last Admin: 07/18/18 10:14 Dose: 100 mls/hr Insulin Aspart (Novolog Vial Sliding Scale -) 1 vial SQ ACHS [facility]; Protocol Last Admin: 07/18/18 11:04 Dose: 2 units Insulin Detemir (Levemir Vial) 5 units SQ HS [facility] Last Admin: 07/17/18 21:21 Dose: 5 units Lisinopril (Prinivil) 10 mg PO DAILY [facility] Last Admin: 07/18/18 10:14 Dose: 10 mg Oxycodone HCl (Roxicodone -) 5 mg PO Q4H PRN PRN Reason: PAIN LEVEL 6-10 Last Admin: 07/18/18 05:30 Dose: 5 mg Zolpidem Tartrate (Ambien -) 5 mg PO HS PRN PRN Reason: INSOMNIA Last Admin: 07/14/18 21:35 Dose: 5 mg - Objective Vital Signs: Vital Signs Temperature 101.2 F H 07/18/18 07:14 Pulse Rate 94 H 07/18/18 07:14 Respiratory Rate 20 07/18/18 07:14 Blood Pressure 149/65 07/18/18 07:14 O2 Sat by Pulse Oximetry (%) 97 07/18/18 09:00 Constitutional: Yes: No Distress, Calm Cardiovascular: Yes: Regular Rate and Rhythm Respiratory: Yes: Regular, CTA Bilaterally Gastrointestinal: Yes: Normal Bowel Sounds, Soft, Other (tenderness) Musculoskeletal: Yes: WNL Extremities: Yes: WNL Neurological: Yes: Alert, Oriented Psychiatric: Yes: Alert, Oriented Labs: CBC, BMP 07/18/18 06:00 07/18/18 06:00 INR, PTT INR 1.20 (0.83-1.09) H 07/08/18 03:15 Assessment/Plan 58 y.o. male with DM, HTN, HLD presenting with complaints of fever/chills, epigastric pain/n/v/d x several days noted to have fever, leukocytosis, tachycardia, and hyponatremia. Sepsis Abd Pain/Diarrhea Fever Leukocytosis gm negative bacteremia liver abscess thrombosed hepatic vein patient continues to spike fever plan will continue abx watch drainage monitor fevers fevers due to thrombosis further plan as per gi
[2018-07-18] MEDS: morphine SULFATE 4 MG/ML VIAL IVPUSH PRN (14:43)
--- NOTE | 2018-07-18 16:47 | PN ---
Teaching Attending Note Name of Resident: Branden Mars ATTENDING PHYSICIAN STATEMENT I saw and evaluated the patient. I reviewed the resident's note and discussed the case with the resident. I agree with the resident's findings and plan as documented. SUBJECTIVE: Ongoing diffuse R flank pain. Tolerated breakfast. Fevers ongoing. No diarrhea. OBJECTIVE: Tmax 102.3, Hemodynamically Stable. Last Vital Signs Temp Pulse Resp BP Pulse Ox 98.3 F 84 18 116/70 97 07/18/18 15:16 07/18/18 15:16 07/18/18 15:16 07/18/18 15:16 07/18/18 09:00 HEENT - Atraumatic, Normocephalic. Heart - S1, S2, RRR Lungs - bi-basal crackles, R>L. Abdomen - Soft, non-tender anterior abdomen. R flank area tenderness in region of posterior DOMENICA drain with thick purulent material in tubing. Extremities - no edema. No calf swelling/tenderness Neuro - AAO x3. Tone/Power normal all 4 extremities. Laboratory Results - last 24 hr 07/17/18 07/18/18 07/18/18 20:52 05:24 06:00 WBC 8.0 RBC 3.65 L Hgb 10.9 L Hct 32.0 L MCV 87.7 MCH 29.9 MCHC 34.1 RDW 12.7 Plt Count 661 H MPV 7.1 L Absolute Neuts (auto) 6.5 Neutrophils % 80.7 Neutrophils % (Manual) 76.5 Band Neutrophils % 0.0 Lymphocytes % 8.3 Lymphocytes % (Manual) 14.3 D Monocytes % 9.7 Monocytes % (Manual) 4 Eosinophils % 0.4 Eosinophils % (Manual) 1.0 Basophils % 0.9 Basophils % (Manual) 0.0 Myelocytes % (Man) 3 H D Promyelocytes % (Man) 0 Blast Cells % (Manual) 0 Nucleated RBC % 0 Metamyelocytes 1 D Hypochromia 0 Platelet Estimate Increased Polychromasia 0 Poikilocytosis 0 Anisocytosis 1+ Microcytosis 1+ Macrocytosis 0 Sodium Potassium Chloride Carbon Dioxide Anion Gap BUN Creatinine Creat Clearance w eGFR POC Glucometer 189 143 Random Glucose Calcium Phosphorus Magnesium 07/18/18 07/18/18 07/18/18 06:00 11:03 16:06 WBC RBC Hgb Hct MCV MCH MCHC RDW Plt Count MPV Absolute Neuts (auto) Neutrophils % Neutrophils % (Manual) Band Neutrophils % Lymphocytes % Lymphocytes % (Manual) Monocytes % Monocytes % (Manual) Eosinophils % Eosinophils % (Manual) Basophils % Basophils % (Manual) Myelocytes % (Man) Promyelocytes % (Man) Blast Cells % (Manual) Nucleated RBC % Metamyelocytes Hypochromia Platelet Estimate Polychromasia Poikilocytosis Anisocytosis Microcytosis Macrocytosis Sodium 128 L Potassium 4.5 Chloride 93 L Carbon Dioxide 27 Anion Gap 8 BUN 13 Creatinine 1.4 H Creat Clearance w eGFR 52.05 POC Glucometer 203 189 Random Glucose 132 H Calcium 8.0 L Phosphorus 3.6 Magnesium 2.3 Current Medications Generic Name Dose Route Start Last Admin Trade Name Freq PRN Reason Stop Dose Admin Acetaminophen 650 mg 07/10/18 13:27 07/18/18 05:30 Tylenol - PO 650 mg Q4H PRN Administration FEVER Enoxaparin Sodium 80 mg 07/15/18 10:00 07/18/18 10:14 Lovenox - SQ 80 mg BID ALEXANDRA Administration Ferrous Gluconate 324 mg 07/13/18 11:00 07/18/18 10:14 Fergon - PO 324 mg DAILY ALEXANDRA Administration Piperacillin Sod/Tazobactam 50 mls @ 100 mls/hr 07/10/18 18:00 07/18/18 10:14 Sod 3.375 gm/ Dextrose IVPB 100 mls/hr Q8H-IV ALEXANDRA Administration Protocol Insulin Aspart 1 vial 07/08/18 07:00 07/18/18 16:08 Novolog Vial Sliding Scale - SQ 1 units ACHS ALEXANDRA Administration Protocol Insulin Detemir 5 units 07/11/18 22:00 07/17/18 21:21 Levemir Vial SQ 5 units HS ALEXANDRA Administration Lisinopril 10 mg 07/16/18 08:02 07/18/18 10:14 Prinivil PO 10 mg DAILY ALEXANDRA Administration Morphine Sulfate 4 mg 07/18/18 14:15 07/18/18 14:43 Morphine Sulfate IVPUSH 4 mg Q4H PRN Administration PAIN LEVEL 7 - 10 Oxycodone HCl 5 mg 07/18/18 14:16 Roxicodone - PO Q4H PRN PAIN LEVEL 4 - 6 Zolpidem Tartrate 5 mg 07/12/18 10:59 07/14/18 21:35 Ambien - PO 5 mg HS PRN Administration INSOMNIA ASSESSMENT AND PLAN: 58 year old male with history of HTN, HLD, DM 2 with neuropathy, presented with 4 day history of watery diarrhea, fevers, nausea - no vomiting/melena/ hematochezia, found to have Gram neg bacteremia and liver abscess on abdominal imaging. 1. Sepsis secondary to Klebsiella Bacteremia with Liver Abscess as source s/p IR guided drainage 07/11/18 with 10cc of purulence removed. Blood Cx and Abscess fluid Cx positive for Klebsiella. DOMENICA drain in situ with thick purulent material in tubing. Still on Zosyn - Day 11 - continue. Still spiking fevers ID following - opinion that fever is non-infectious but rather related to thrombosis. Repeat BCx neg, Chest imaging positive for R sided effusion - will discuss with Radiology re: possible thoracentesis. Repeat CT A/P - decreased size of abscess, ongoing hepatic vein thrombus, retroperitoneal lymphadenopathy. GI contacted for further recommendations given persisting fever and pain despite abscess drainage. 2. Hepatic Vein Thrombosis - etiology unclear Continue Lovenox. Hem/Onc consulted for possible Hypercoagulable state - for out-patient follow up. Will eventually need further GI work-up to eliminate malignancy. 3. DM 2 - Uncontrolled, A1C 11.2, continue Levemir and Sliding Scale. 4. HTN - Continue Lisinopril 5. HLD - Previously on Statin, self-stopped. Not started on this admission due to initial transaminitis, now resolved. Can resume after acute illness. 6. 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 For repeat CT/ MRI in 3 months to ensure resolution. 7. Iron Deficiency Anemia - Low Iron and Iron Saturation. Will need GI work-up as out-patient. Iron supplementation ongoing. 8. Thrombocytosis, reactive versus due to iron deficiency - for iron replacement and recheck in 2 weeks with Hematology out-patient follow up to exclude myeloproliferative disorder. DVT Px - on treatment dose Lovenox for hepatic vein thrombosis.
[2018-07-18] MEDS: SODIUM CHLORIDE 1,000 ML IV SCH (17:23)
--- NOTE | 2018-07-18 18:07 | PN ---
Progress Note, Physician Chief Complaint: patient with complaints of fever / right sided abdominal pain also with loose bm 's and occasional cough FEVER NOTED - Current Medication List Current Medications: Active Medications Acetaminophen (Tylenol -) 650 mg PO Q4H PRN PRN Reason: FEVER Last Admin: 07/18/18 17:39 Dose: 650 mg Enoxaparin Sodium (Lovenox -) 80 mg SQ BID [facility] Last Admin: 07/18/18 10:14 Dose: 80 mg Ferrous Gluconate (Fergon -) 324 mg PO DAILY [facility] Last Admin: 07/18/18 10:14 Dose: 324 mg Piperacillin Sod/Tazobactam (Sod 3.375 gm/ Dextrose) 50 mls @ 100 mls/hr IVPB Q8H-IV [facility]; Protocol Last Admin: 07/18/18 17:24 Dose: 100 mls/hr Sodium Chloride (Normal Saline -) 1,000 mls @ 75 mls/hr IV [facility] Last Admin: 07/18/18 17:23 Dose: 75 mls/hr Insulin Aspart (Novolog Vial Sliding Scale -) 1 vial SQ ACHS [facility]; Protocol Last Admin: 07/18/18 16:08 Dose: 1 units Insulin Detemir (Levemir Vial) 5 units SQ HS [facility] Last Admin: 07/17/18 21:21 Dose: 5 units Lisinopril (Prinivil) 10 mg PO DAILY [facility] Last Admin: 07/18/18 10:14 Dose: 10 mg Morphine Sulfate (Morphine Sulfate) 4 mg IVPUSH Q4H PRN PRN Reason: PAIN LEVEL 7 - 10 Last Admin: 07/18/18 14:43 Dose: 4 mg Oxycodone HCl (Roxicodone -) 5 mg PO Q4H PRN PRN Reason: PAIN LEVEL 4 - 6 Zolpidem Tartrate (Ambien -) 5 mg PO HS PRN PRN Reason: INSOMNIA Last Admin: 07/14/18 21:35 Dose: 5 mg - Objective Vital Signs: Vital Signs Temperature 102.7 F H 07/18/18 17:14 Pulse Rate 98 H 07/18/18 17:14 Respiratory Rate 20 07/18/18 17:14 Blood Pressure 155/74 07/18/18 17:14 O2 Sat by Pulse Oximetry (%) 97 07/18/18 09:00 Constitutional: Yes: Well Nourished Eyes: Yes: WNL HENT: Yes: Normocephalic Neck: Yes: WNL Cardiovascular: Yes: Regular Rate and Rhythm Respiratory: Yes: Regular Gastrointestinal: Yes: WNL, Normal Bowel Sounds, Soft, Other (tender ruq - no rebound or guarding) Extremities: Yes: WNL Edema: No Labs: CBC, BMP 07/18/18 06:00 07/18/18 06:00 INR, PTT INR 1.20 (0.83-1.09) H 07/08/18 03:15 Problem List - Problems (1) Fever Code(s): R50.9 - FEVER, UNSPECIFIED Qualifiers: Fever type: due to other condition Qualified Code(s): R50.81 - Fever presenting with conditions classified elsewhere (2) Pyogenic liver abscess Assessment/Plan: s/p drain for liver abscess - with some fluid in the bag. Still spiking fevers - REC: -duran culture / including repeat stool c.diff - considering his diarrhea. - influenza swab - the repeat ct scan was noted which revealed decrease in size of the abscess - if continues to have fever may consider repeat imaging to ensure continuing resolution if not may need repositioning of the tube. -? thrombosis also contributing to fever. - ID evaluation for completeness ; may need to broaden abx. Code(s): K75.0 - ABSCESS OF LIVER
[2018-07-18] MEDS: INSULIN (LEVEMIR) 100 UNITS/ML UNITS SQ SCH (22:39)
[2018-07-19] MEDS ORDERED: DEXTROSE 5%-WATER - 50 ML IVPB ONE ×3 (01:35→18:01)
[2018-07-19] MEDS ORDERED: PIPERACILLIN/TAZOBACTAM 3.375 GM VIAL IVPB ONE ×3 (01:35→18:01)
[2018-07-19] MEDS: PIPERACILLIN/TAZOB 3.375 GM 3.375 GM in DEXTROSE 5%-WATER - 50 ML IVPB SCH ×3 (02:13→18:07)
[2018-07-19] MEDS: INSULIN SLIDING SCALE (NOVOLOG) 1 VIAL SQ SCH ×4 (06:38→21:14)
--- NOTE | 2018-07-19 07:05 | PN ---
Physical Exam: SUBJECTIVE: Patient seen and examined at bedside. Fever curve worsening, peaked at 102.7 yesterday. C/o ongoing pain, required increased pain medication per pain scale yesterday. Pain regimen is now sufficient for control. Pt additionally c/o diarrhea. OBJECTIVE: Vital Signs Period Temp Pulse Resp BP Sys/Negron Pulse Ox Last 24 Hr 98.3 F-102.7 F 82-98 18-24 116-157/55-88 97-97 GENERAL: A&Ox3, NAD HEENT: NC/AT, PERRLA, EOMI, anicteric sclera NECK: Trachea midline, full range of motion, supple. LUNGS: CTA b/l HEART: RRR no m/r/g ABDOMEN: soft, right-sided TTP upper>lower most prominent posteriorly and extending superiorly to diaphragm EXTREMITIES: 2+ pulses, warm, well-perfused, no edema. 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 PSYCH: Depressed mood Laboratory Results - last 24 hr 07/18/18 07/18/18 07/18/18 06:00 06:00 11:03 WBC 8.0 RBC 3.65 L Hgb 10.9 L Hct 32.0 L MCV 87.7 MCH 29.9 MCHC 34.1 RDW 12.7 Plt Count 661 H MPV 7.1 L Absolute Neuts (auto) 6.5 Neutrophils % 80.7 Neutrophils % (Manual) 76.5 Band Neutrophils % 0.0 Lymphocytes % 8.3 Lymphocytes % (Manual) 14.3 D Monocytes % 9.7 Monocytes % (Manual) 4 Eosinophils % 0.4 Eosinophils % (Manual) 1.0 Basophils % 0.9 Basophils % (Manual) 0.0 Myelocytes % (Man) 3 H D Promyelocytes % (Man) 0 Blast Cells % (Manual) 0 Nucleated RBC % 0 Metamyelocytes 1 D Hypochromia 0 Platelet Estimate Increased Polychromasia 0 Poikilocytosis 0 Anisocytosis 1+ Microcytosis 1+ Macrocytosis 0 Sodium 128 L Potassium 4.5 Chloride 93 L Carbon Dioxide 27 Anion Gap 8 BUN 13 Creatinine 1.4 H Creat Clearance w eGFR 52.05 POC Glucometer 203 Random Glucose 132 H Calcium 8.0 L Phosphorus 3.6 Magnesium 2.3 Influenza A (Rapid) Influenza B (Rapid) 07/18/18 07/18/18 07/18/18 16:06 22:04 22:22 WBC RBC Hgb Hct MCV MCH MCHC RDW Plt Count MPV Absolute Neuts (auto) Neutrophils % Neutrophils % (Manual) Band Neutrophils % Lymphocytes % Lymphocytes % (Manual) Monocytes % Monocytes % (Manual) Eosinophils % Eosinophils % (Manual) Basophils % Basophils % (Manual) Myelocytes % (Man) Promyelocytes % (Man) Blast Cells % (Manual) Nucleated RBC % Metamyelocytes Hypochromia Platelet Estimate Polychromasia Poikilocytosis Anisocytosis Microcytosis Macrocytosis Sodium Potassium Chloride Carbon Dioxide Anion Gap BUN Creatinine Creat Clearance w eGFR POC Glucometer 189 276 Random Glucose Calcium Phosphorus Magnesium Influenza A (Rapid) Negative Influenza B (Rapid) Negative 07/19/18 06:26 WBC RBC Hgb Hct MCV MCH MCHC RDW Plt Count MPV Absolute Neuts (auto) Neutrophils % Neutrophils % (Manual) Band Neutrophils % Lymphocytes % Lymphocytes % (Manual) Monocytes % Monocytes % (Manual) Eosinophils % Eosinophils % (Manual) Basophils % Basophils % (Manual) Myelocytes % (Man) Promyelocytes % (Man) Blast Cells % (Manual) Nucleated RBC % Metamyelocytes Hypochromia Platelet Estimate Polychromasia Poikilocytosis Anisocytosis Microcytosis Macrocytosis Sodium Potassium Chloride Carbon Dioxide Anion Gap BUN Creatinine Creat Clearance w eGFR POC Glucometer 110 Random Glucose Calcium Phosphorus Magnesium Influenza A (Rapid) Influenza B (Rapid) Active Medications Generic Name Dose Route Start Last Admin Trade Name Freq PRN Reason Stop Dose Admin Acetaminophen 650 mg 07/10/18 13:27 07/18/18 17:39 Tylenol - PO 650 mg Q4H PRN Administration FEVER Enoxaparin Sodium 80 mg 07/15/18 10:00 07/18/18 22:39 Lovenox - SQ 80 mg BID ALEXANDRA Administration Ferrous Gluconate 324 mg 07/13/18 11:00 07/18/18 10:14 Fergon - PO 324 mg DAILY ALEXANDRA Administration Piperacillin Sod/Tazobactam 50 mls @ 100 mls/hr 07/10/18 18:00 07/19/18 02:13 Sod 3.375 gm/ Dextrose IVPB 100 mls/hr Q8H-IV ALEXANDRA Administration Protocol Sodium Chloride 1,000 mls @ 75 mls/hr 07/18/18 17:00 07/18/18 17:23 Normal Saline - IV 75 mls/hr ASDIR ALEXANDRA Administration Insulin Aspart 1 vial 07/08/18 07:00 07/19/18 06:38 Novolog Vial Sliding Scale - SQ Not Given ACHS [facility] Protocol Insulin Detemir 5 units 07/11/18 22:00 07/18/18 22:39 Levemir Vial SQ 5 units HS ALEXANDRA Administration Lisinopril 10 mg 07/16/18 08:02 07/18/18 10:14 Prinivil PO 10 mg DAILY ALEXANDRA Administration Morphine Sulfate 4 mg 07/18/18 14:15 07/18/18 14:43 Morphine Sulfate IVPUSH 4 mg Q4H PRN Administration PAIN LEVEL 7 - 10 Oxycodone HCl 5 mg 07/18/18 14:16 Roxicodone - PO Q4H PRN PAIN LEVEL 4 - 6 Zolpidem Tartrate 5 mg 07/12/18 10:59 07/14/18 21:35 Ambien - PO 5 mg HS PRN Administration INSOMNIA ASSESSMENT/PLAN: 58 y/o M w/ PMHx HTN, HLD, DM admitted for sepsis 2/2 Klebsiella bacteremia and liver abscess #Sepsis 2/2 to Klebisella bacteremia and liver abscess -fever 102.7 yesterday, may be 2/2 to thrombosis/atelectasis -cont Zosyn day 12 -DOMENICA drain in place w/ minimal sanguineous drainage -will need 2 weeks IV ABx, PICC line insertion prior to d/c -will need outpt colon Ca surveillance given increased risk in setting of Klebsiella bacteremia and liver abscess -GI following -ID following -recurrent fever may be secondary to malignancy -repeat CT a/p showing decreased abscess size, no change in HVT, increased R pleural effusion, new L pleural effusion -per GI, repeating duran culture + Cdiff, flu swab is negative -d/w and consulted IR: abscess drain catheter is passing through pleural space and may be infected, requires investigation by IR; additionally, R pleural effusion requires thoracentesis -- will pursue these interventions after anticoagulation is held #Hepatic vein thrombosis -heme/onc following, recommends AC unless significant bleeding results and outpt f/u -holding Lovenox pending IR intervention -Oxy and morphine PRN per pain scale -repeat CT a/p showing decreased abscess size, no change in HVT, increased R pleural effusion, new L pleural effusion #hypervolemic hyponatremia -Na improved to 135 -monitor Na #HLD -hold statin given recently resolved transaminitis #HTN -cont lisinopril #DM -SSI, Levemir 5U HS, BGM ACHS -Pt's A1c this admission 11.2% -Will need recheck in 3 mo with insulin regiment on board #iron deficiency anemia -cont iron supplementation -repeat iron studies as outpt #FEN: -no IVF -monitor and correct electrolytes -diabetic/sodium diet #PPX: -DVT: full dose Lovenox -GI: not indicated #code -full #dispo -continue monitoring on med/surg Visit type - Emergency Visit Emergency Visit: No - New Patient This patient is new to me today: No - Critical Care Critical Care patient: No
[2018-07-19] MEDS: ACETAMINOPHEN 325 MG TABLET (FP) PO PRN ×2 (08:25→16:39)
[2018-07-19] MEDS: morphine SULFATE 4 MG/ML VIAL IVPUSH PRN ×3 (08:26→20:59)
[2018-07-19 08:38] LABS: BASO % 0.6 % (0-2.0); EOS % 0.6 % (0-4.5); HEMATOCRIT 31.7 % (35.4-49); HEMOGLOBIN 10.9 GM/dL (11.7-16.9); LYMPH % 7.2 % (8-40); MCH 29.9 pg (25.7-33.7); MCHC 34.2 g/dl (32.0-35.9); MEAN CELL VOLUME 87.4 fl (80-96); MEAN PLT VOLUME 6.8 fl (7.5-11.1); MONO % 8.9 % (3.8-10.2); NEUT % 82.7 % (42.8-82.8); PLATELET COUNT 617 K/MM3 (134-434); RBC 3.62 M/mm3 (4.00-5.60); RDW 12.7 % (11.9-15.9); WHITE BLOOD COUNT 6.3 K/mm3 (4.0-10.0)
[2018-07-19 08:55] LABS: ANION GAP 9 MMOL/L (8-16); BLOOD UREA NITROGEN 12 mg/dL (7-18); CALCIUM 7.7 mg/dL (8.5-10.1); CHLORIDE 102 mmol/L (98-107); CO2 24 mmol/L (21-32); CREATININE 1.3 mg/dL (0.55-1.3); GLUCOSE,RANDOM 122 mg/dL (74-106); MAGNESIUM 2.4 mg/dL (1.8-2.4); PHOSPHOROUS 3.2 mg/dL (2.5-4.9); POTASSIUM 4.1 mmol/L (3.5-5.1); SODIUM 135 mmol/L (136-145)
[2018-07-19] MEDS: LISINOPRIL 10 MG TABLET (FP) PO SCH (09:34)
[2018-07-19] MEDS: ENOXAPARIN NA (PORCINE) 80 MG/0.8 ML DISP.SYRIN SQ SCH (09:34)
[2018-07-19] MEDS: FERROUS GLUCONATE 324 MG TAB (FP) PO SCH (09:35)
[2018-07-19 11:31] LABS: ALBUMIN 1.7 g/dl (3.4-5.0); ALK PHOS 182 U/L (45-117); BILIRUBIN,DIRECT 0.1 mg/dL (0.0-0.2); BILIRUBIN,TOTAL 0.2 mg/dL (0.2-1); SGOT/AST 49 U/L (15-37); SGPT/ALT 46 U/L (13-61); TOT PROT 6.1 g/dl (6.4-8.2)
[2018-07-19] MEDS ORDERED: INSULIN (NOVOLOG) ASPART 100 UNITS/ML 10ML VIAL ONE (11:35)
[2018-07-19 12:10] LABS: ANISOCYTOSIS 1+; MACROCYTOSIS 0; PLATELET ESTIMATE INCREASED
--- NOTE | 2018-07-19 15:18 | PN ---
Teaching Attending Note Name of Resident: Branden Mars ATTENDING PHYSICIAN STATEMENT I saw and evaluated the patient. I reviewed the resident's note and discussed the case with the resident. I agree with the resident's findings and plan as documented. SUBJECTIVE: Ongoing diffuse R flank pain. Tolerated breakfast. Fevers ongoing. Diarrhea yesterday OBJECTIVE: Tmax 102.7, now 101, Hemodynamically Stable. Last Vital Signs Temp Pulse Resp BP Pulse Ox 98.4 F 85 18 132/72 97 07/19/18 14:57 07/19/18 14:57 07/19/18 14:57 07/19/18 14:57 07/19/18 09:00 HEENT - Atraumatic, Normocephalic. Heart - S1, S2, RRR Lungs - bi-basal crackles, R>L. Abdomen - Soft, non-tender anterior abdomen. R flank area tenderness in region of posterior DOMENICA drain with thick purulent material in tubing - only 2cc output in 24 hours. Extremities - no edema. Some venous stasis changes. No calf swelling/tenderness Neuro - AAO x3. Tone/Power normal all 4 extremities. Laboratory Results - last 24 hr 07/18/18 07/18/18 07/18/18 16:06 22:04 22:22 WBC RBC Hgb Hct MCV MCH MCHC RDW Plt Count MPV Absolute Neuts (auto) Neutrophils % Neutrophils % (Manual) Band Neutrophils % Lymphocytes % Lymphocytes % (Manual) Monocytes % Monocytes % (Manual) Eosinophils % Eosinophils % (Manual) Basophils % Basophils % (Manual) Myelocytes % (Man) Promyelocytes % (Man) Blast Cells % (Manual) Nucleated RBC % Metamyelocytes Hypochromia Platelet Estimate Polychromasia Poikilocytosis Anisocytosis Microcytosis Macrocytosis Sodium Potassium Chloride Carbon Dioxide Anion Gap BUN Creatinine Creat Clearance w eGFR POC Glucometer 189 276 Random Glucose Calcium Phosphorus Magnesium Total Bilirubin Direct Bilirubin AST ALT Alkaline Phosphatase Total Protein Albumin Influenza A (Rapid) Negative Influenza B (Rapid) Negative 07/19/18 07/19/18 07/19/18 06:26 08:00 08:00 WBC 6.3 RBC 3.62 L Hgb 10.9 L Hct 31.7 L MCV 87.4 MCH 29.9 MCHC 34.2 RDW 12.7 Plt Count 617 H MPV 6.8 L Absolute Neuts (auto) 5.2 Neutrophils % 82.7 Neutrophils % (Manual) 80.0 Band Neutrophils % 1.0 Lymphocytes % 7.2 L Lymphocytes % (Manual) 10.0 D Monocytes % 8.9 Monocytes % (Manual) 7 Eosinophils % 0.6 Eosinophils % (Manual) 0.0 D Basophils % 0.6 Basophils % (Manual) 0.0 Myelocytes % (Man) 0 D Promyelocytes % (Man) 0 Blast Cells % (Manual) 0 Nucleated RBC % 0 Metamyelocytes 1 Hypochromia 0 Platelet Estimate Increased Polychromasia 1+ Poikilocytosis 0 Anisocytosis 1+ Microcytosis 1+ Macrocytosis 0 Sodium 135 L Potassium 4.1 Chloride 102 Carbon Dioxide 24 Anion Gap 9 BUN 12 Creatinine 1.3 Creat Clearance w eGFR 56.70 POC Glucometer 110 Random Glucose 122 H Calcium 7.7 L Phosphorus 3.2 Magnesium 2.4 Total Bilirubin 0.2 Direct Bilirubin 0.1 AST 49 H ALT 46 Alkaline Phosphatase 182 H Total Protein 6.1 L Albumin 1.7 L Influenza A (Rapid) Influenza B (Rapid) Current Medications Generic Name Dose Route Start Last Admin Trade Name Freq PRN Reason Stop Dose Admin Acetaminophen 650 mg 07/10/18 13:27 07/19/18 08:25 Tylenol - PO 650 mg Q4H PRN Administration FEVER Ferrous Gluconate 324 mg 07/13/18 11:00 07/19/18 09:35 Fergon - PO 324 mg DAILY ALEXANDRA Administration Piperacillin Sod/Tazobactam 50 mls @ 100 mls/hr 07/10/18 18:00 07/19/18 09:34 Sod 3.375 gm/ Dextrose IVPB 100 mls/hr Q8H-IV ALEXANDRA Administration Protocol Sodium Chloride 1,000 mls @ 75 mls/hr 07/18/18 17:00 07/18/18 17:23 Normal Saline - IV 75 mls/hr ASDIR ALEXANDRA Administration Insulin Aspart 1 vial 07/08/18 07:00 07/19/18 11:44 Novolog Vial Sliding Scale - SQ 1 units ACHS ALEXANDRA Administration Protocol Insulin Detemir 5 units 07/11/18 22:00 07/18/18 22:39 Levemir Vial SQ 5 units HS ALEXANDRA Administration Lisinopril 10 mg 07/16/18 08:02 07/19/18 09:34 Prinivil PO 10 mg DAILY ALEXANDRA Administration Morphine Sulfate 4 mg 07/18/18 14:15 07/19/18 08:26 Morphine Sulfate IVPUSH 4 mg Q4H PRN Administration PAIN LEVEL 7 - 10 Oxycodone HCl 5 mg 07/18/18 14:16 Roxicodone - PO Q4H PRN PAIN LEVEL 4 - 6 ASSESSMENT AND PLAN: 58 year old male with history of HTN, HLD, DM 2 with neuropathy, presented with 4 day history of watery diarrhea, fevers, nausea - no vomiting/melena/ hematochezia, found to have Gram neg bacteremia and liver abscess on abdominal imaging. 1. Sepsis secondary to Klebsiella Bacteremia with Liver Abscess as source s/p IR guided drainage 07/11/18 with 10cc of purulence removed. Blood Cx and Abscess fluid Cx positive for Klebsiella. DOMENICA drain in situ with thick purulent material in tubing. Still on Zosyn - Day 12 - continue. Still spiking fevers - Tmax 102.7 ID following - opinion that fever is non-infectious but rather related to thrombosis. Sent another repeat BCx (pending), Flu negative, and Stool for Cdiff requested. Repeat CT A/P - decreased size of abscess, ongoing hepatic vein thrombus, retroperitoneal lymphadenopathy. Imaging positive for R sided effusion - discussed with IR - for thoracentesis as well as re-positioning of DOMENICA drain given low output (2cc in 24 hours) Analgesic relief at drain site/R flank with IV MS. Daily GI input requested given complexity of patient's presentation and ongoing fevers. 2. Hepatic Vein Thrombosis - etiology unclear Continue Lovenox - will hold tonight for IR guided procedures (thoracentesis and drain manipulation) 07/20/18 am. Hem/Onc consulted for possible Hypercoagulable state - for out-patient follow up. Will eventually need further GI work-up for endoscopies to eliminate malignancy. 3. DM 2 - Uncontrolled, A1C 11.2, continue Levemir and Sliding Scale. 4. HTN - Continue Lisinopril 5. HLD - Previously on Statin, self-stopped. Not started on this admission due to initial transaminitis, now resolved. Can resume after acute illness. 6. 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 For repeat CT/ MRI in 3 months to ensure resolution. 7. Iron Deficiency Anemia - Low Iron and Iron Saturation. Will need GI work-up as out-patient. Iron supplementation ongoing. 8. Thrombocytosis, reactive versus due to iron deficiency - for iron replacement and recheck in 2 weeks with Hematology out-patient follow up to exclude myeloproliferative disorder. 9. Hyponatremia, likely secondary to hypovolemia due to fevers and decreased oral fluid intake - improved with IV normal saline hydration. DVT Px - on treatment dose Lovenox for hepatic vein thrombosis.
--- NOTE | 2018-07-19 15:43 | PN ---
Progress Note, Physician History of Present Illness: stable no new issues - Current Medication List Current Medications: Active Medications Acetaminophen (Tylenol -) 650 mg PO Q4H PRN PRN Reason: FEVER Last Admin: 07/19/18 08:25 Dose: 650 mg Ferrous Gluconate (Fergon -) 324 mg PO DAILY [facility] Last Admin: 07/19/18 09:35 Dose: 324 mg Piperacillin Sod/Tazobactam (Sod 3.375 gm/ Dextrose) 50 mls @ 100 mls/hr IVPB Q8H-IV [facility]; Protocol Last Admin: 07/19/18 09:34 Dose: 100 mls/hr Sodium Chloride (Normal Saline -) 1,000 mls @ 75 mls/hr IV ASDIR [facility] Last Admin: 07/18/18 17:23 Dose: 75 mls/hr Insulin Aspart (Novolog Vial Sliding Scale -) 1 vial SQ ACHS [facility]; Protocol Last Admin: 07/19/18 11:44 Dose: 1 units Insulin Detemir (Levemir Vial) 5 units SQ HS [facility] Last Admin: 07/18/18 22:39 Dose: 5 units Lisinopril (Prinivil) 10 mg PO DAILY [facility] Last Admin: 07/19/18 09:34 Dose: 10 mg Morphine Sulfate (Morphine Sulfate) 4 mg IVPUSH Q4H PRN PRN Reason: PAIN LEVEL 7 - 10 Last Admin: 07/19/18 08:26 Dose: 4 mg Oxycodone HCl (Roxicodone -) 5 mg PO Q4H PRN PRN Reason: PAIN LEVEL 4 - 6 - Objective Vital Signs: Vital Signs Temperature 98.4 F 07/19/18 14:57 Pulse Rate 85 07/19/18 14:57 Respiratory Rate 18 07/19/18 14:57 Blood Pressure 132/72 07/19/18 14:57 O2 Sat by Pulse Oximetry (%) 97 07/19/18 09:00 Constitutional: Yes: No Distress, Calm Cardiovascular: Yes: Regular Rate and Rhythm Respiratory: Yes: Regular, CTA Bilaterally Gastrointestinal: Yes: Normal Bowel Sounds, Soft Musculoskeletal: Yes: WNL Extremities: Yes: WNL Neurological: Yes: Alert, Oriented Psychiatric: Yes: Alert, Oriented Labs: CBC, BMP 07/19/18 08:00 07/19/18 08:00 INR, PTT INR 1.20 (0.83-1.09) H 07/08/18 03:15 Assessment/Plan 58 y.o. male with DM, HTN, HLD presenting with complaints of fever/chills, epigastric pain/n/v/d x several days noted to have fever, leukocytosis, tachycardia, and hyponatremia. Sepsis Abd Pain/Diarrhea Fever Leukocytosis gm negative bacteremia liver abscess thrombosed hepatic vein patient continues to spike fever plan will continue abx watch drainage monitor fevers fevers due to thrombosis further plan as per gi
[2018-07-19] MEDS: ZOLPIDEM TARTRATE 5 MG TABLET PO PRN (21:05)
[2018-07-19] MEDS: INSULIN (LEVEMIR) 100 UNITS/ML UNITS SQ SCH (21:14)
[2018-07-20] MEDS ORDERED: PIPERACILLIN/TAZOBACTAM 3.375 GM VIAL IVPB ONE ×3 (01:06→18:19)
[2018-07-20] MEDS ORDERED: DEXTROSE 5%-WATER - 50 ML IVPB ONE ×3 (01:06→18:19)
[2018-07-20] MEDS: PIPERACILLIN/TAZOB 3.375 GM 3.375 GM in DEXTROSE 5%-WATER - 50 ML IVPB SCH ×3 (01:32→18:25)
[2018-07-20] MEDS: oxyCODONE HCL 5 MG TABLET PO PRN (02:37)
[2018-07-20] MEDS: INSULIN SLIDING SCALE (NOVOLOG) 1 VIAL SQ SCH ×4 (06:16→21:09)
[2018-07-20 07:29] LABS: BASO % 0.5 % (0-2.0); EOS % 2.2 % (0-4.5); HEMATOCRIT 28.9 % (35.4-49); LYMPH % 9.5 % (8-40); MCH 30.2 pg (25.7-33.7); MCHC 34.5 g/dl (32.0-35.9); MEAN CELL VOLUME 87.5 fl (80-96); MEAN PLT VOLUME 6.9 fl (7.5-11.1); MONO % 8.3 % (3.8-10.2); NEUT % 79.5 % (42.8-82.8); PLATELET COUNT 547 K/MM3 (134-434); RDW 12.8 % (11.9-15.9); WHITE BLOOD COUNT 4.9 K/mm3 (4.0-10.0)
[2018-07-20 07:50] LABS: INR 1.11 (0.83-1.09); PROTHROMBIN TIME (PATIENT) 13.1 SEC (9.7-13.0)
--- NOTE | 2018-07-20 08:24 | PN ---
Physical Exam: SUBJECTIVE: Patient seen and examined at bedside. Continues spiking fevers @ 101 yesterday, currently afebrile. C/o ongoing pain,but pain regimen presently sufficient for control. No further diarrhea. OBJECTIVE: Vital Signs Period Temp Pulse Resp BP Sys/Negron Pulse Ox Last 24 Hr 98.4 F-101 F 80-97 18-20 132-152/65-82 97-97 GENERAL: A&Ox3, NAD HEENT: NC/AT, PERRLA, EOMI, anicteric sclera NECK: Trachea midline, full range of motion, supple. LUNGS: CTA b/l HEART: RRR no m/r/g ABDOMEN: soft, right-sided TTP upper>lower most prominent posteriorly and extending superiorly to diaphragm EXTREMITIES: 2+ pulses, warm, well-perfused, no edema. 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 PSYCH: Depressed mood Laboratory Results - last 24 hr 07/19/18 07/19/18 07/19/18 08:00 08:00 11:27 WBC 6.3 RBC 3.62 L Hgb 10.9 L Hct 31.7 L MCV 87.4 MCH 29.9 MCHC 34.2 RDW 12.7 Plt Count 617 H MPV 6.8 L Absolute Neuts (auto) 5.2 Neutrophils % 82.7 Neutrophils % (Manual) 80.0 Band Neutrophils % 1.0 Lymphocytes % 7.2 L Lymphocytes % (Manual) 10.0 D Monocytes % 8.9 Monocytes % (Manual) 7 Eosinophils % 0.6 Eosinophils % (Manual) 0.0 D Basophils % 0.6 Basophils % (Manual) 0.0 Myelocytes % (Man) 0 D Promyelocytes % (Man) 0 Blast Cells % (Manual) 0 Nucleated RBC % 0 Metamyelocytes 1 Hypochromia 0 Platelet Estimate Increased Polychromasia 1+ Poikilocytosis 0 Anisocytosis 1+ Microcytosis 1+ Macrocytosis 0 PT with INR INR Sodium 135 L Potassium 4.1 Chloride 102 Carbon Dioxide 24 Anion Gap 9 BUN 12 Creatinine 1.3 Creat Clearance w eGFR 56.70 POC Glucometer 187 Random Glucose 122 H Calcium 7.7 L Phosphorus 3.2 Magnesium 2.4 Total Bilirubin 0.2 Direct Bilirubin 0.1 AST 49 H ALT 46 Alkaline Phosphatase 182 H Total Protein 6.1 L Albumin 1.7 L 07/19/18 07/19/18 07/20/18 17:04 20:38 05:25 WBC 4.9 RBC 3.30 L Hgb 10.0 L Hct 28.9 L MCV 87.5 MCH 30.2 MCHC 34.5 RDW 12.8 Plt Count 547 H MPV 6.9 L Absolute Neuts (auto) 3.9 Neutrophils % 79.5 Neutrophils % (Manual) Band Neutrophils % Lymphocytes % 9.5 D Lymphocytes % (Manual) Monocytes % 8.3 Monocytes % (Manual) Eosinophils % 2.2 D Eosinophils % (Manual) Basophils % 0.5 Basophils % (Manual) Myelocytes % (Man) Promyelocytes % (Man) Blast Cells % (Manual) Nucleated RBC % 0 Metamyelocytes Hypochromia Platelet Estimate Polychromasia Poikilocytosis Anisocytosis Microcytosis Macrocytosis PT with INR INR Sodium Potassium Chloride Carbon Dioxide Anion Gap BUN Creatinine Creat Clearance w eGFR POC Glucometer 224 208 Random Glucose Calcium Phosphorus Magnesium Total Bilirubin Direct Bilirubin AST ALT Alkaline Phosphatase Total Protein Albumin 07/20/18 07/20/18 05:25 06:14 WBC RBC Hgb Hct MCV MCH MCHC RDW Plt Count MPV Absolute Neuts (auto) Neutrophils % Neutrophils % (Manual) Band Neutrophils % Lymphocytes % Lymphocytes % (Manual) Monocytes % Monocytes % (Manual) Eosinophils % Eosinophils % (Manual) Basophils % Basophils % (Manual) Myelocytes % (Man) Promyelocytes % (Man) Blast Cells % (Manual) Nucleated RBC % Metamyelocytes Hypochromia Platelet Estimate Polychromasia Poikilocytosis Anisocytosis Microcytosis Macrocytosis PT with INR 13.10 H INR 1.11 H Sodium Potassium Chloride Carbon Dioxide Anion Gap BUN Creatinine Creat Clearance w eGFR POC Glucometer 125 Random Glucose Calcium Phosphorus Magnesium Total Bilirubin Direct Bilirubin AST ALT Alkaline Phosphatase Total Protein Albumin Active Medications Generic Name Dose Route Start Last Admin Trade Name Freq PRN Reason Stop Dose Admin Acetaminophen 650 mg 07/10/18 13:27 07/19/18 16:39 Tylenol - PO 650 mg Q4H PRN Administration FEVER Ferrous Gluconate 324 mg 07/13/18 11:00 07/19/18 09:35 Fergon - PO 324 mg DAILY ALEXANDRA Administration Piperacillin Sod/Tazobactam 50 mls @ 100 mls/hr 07/10/18 18:00 07/20/18 01:32 Sod 3.375 gm/ Dextrose IVPB 100 mls/hr Q8H-IV ALEXANDRA Administration Protocol Sodium Chloride 1,000 mls @ 75 mls/hr 07/18/18 17:00 07/18/18 17:23 Normal Saline - IV 75 mls/hr ASDIR ALEXANDRA Administration Insulin Aspart 1 vial 07/08/18 07:00 07/20/18 06:16 Novolog Vial Sliding Scale - SQ Not Given ACHS ALEXANDRA Protocol Insulin Detemir 5 units 07/11/18 22:00 07/19/18 21:14 Levemir Vial SQ 5 units HS ALEXANDRA Administration Lisinopril 10 mg 07/16/18 08:02 07/19/18 09:34 Prinivil PO 10 mg DAILY ALEXANDRA Administration Morphine Sulfate 4 mg 07/18/18 14:15 07/19/18 20:59 Morphine Sulfate IVPUSH 4 mg Q4H PRN Administration PAIN LEVEL 7 - 10 Oxycodone HCl 5 mg 07/18/18 14:16 07/20/18 02:37 Roxicodone - PO 5 mg Q4H PRN Administration PAIN LEVEL 4 - 6 Zolpidem Tartrate 5 mg 07/19/18 22:00 07/19/18 21:05 Ambien - PO 5 mg HS PRN Administration INSOMNIA ASSESSMENT/PLAN: 58 y/o M w/ PMHx HTN, HLD, DM admitted for sepsis 2/2 Klebsiella bacteremia and liver abscess #Sepsis 2/2 to Klebisella bacteremia and liver abscess -fever 102.7 yesterday, may be 2/2 to thrombosis/atelectasis -cont Zosyn day 12 -DOMENICA drain in place w/ minimal sanguineous drainage -will need 2 weeks IV ABx, PICC line insertion prior to d/c -will need outpt colon Ca surveillance given increased risk in setting of Klebsiella bacteremia and liver abscess -GI following -ID following -recurrent fever may be secondary to malignancy -repeat CT a/p showing decreased abscess size, no change in HVT, increased R pleural effusion, new L pleural effusion -per GI, repeating duran culture + Cdiff, flu swab is negative -d/w and consulted IR: abscess drain catheter is passing through pleural space and may be infected, requires investigation by IR; additionally, R pleural effusion requires thoracentesis -- awaiting results of these interventions #Hepatic vein thrombosis -heme/onc following, recommends AC unless significant bleeding results and outpt f/u -holding Lovenox pending IR intervention -Oxy and morphine PRN per pain scale -repeat CT a/p showing decreased abscess size, no change in HVT, increased R pleural effusion, new L pleural effusion #hypervolemic hyponatremia -improving -monitor Na #HLD -hold statin given recently resolved transaminitis #HTN -cont lisinopril #DM -SSI, Levemir 5U HS, BGM ACHS -Pt's A1c this admission 11.2% -Will need recheck in 3 mo with insulin regiment on board #iron deficiency anemia -cont iron supplementation -repeat iron studies as outpt #FEN: -no IVF -monitor and correct electrolytes -diabetic/sodium diet #PPX: -DVT: SCDs presently, AC held pending IR interventions -GI: not indicated #code -full #dispo -continue monitoring on med/surg Visit type - Emergency Visit Emergency Visit: No - New Patient This patient is new to me today: No - Critical Care Critical Care patient: No
[2018-07-20 08:52] LABS: ALBUMIN 1.6 g/dl (3.4-5.0); ALK PHOS 160 U/L (45-117); ANION GAP 9 MMOL/L (8-16); BILIRUBIN,TOTAL 0.2 mg/dL (0.2-1); BLOOD UREA NITROGEN 11 mg/dL (7-18); CALCIUM 7.4 mg/dL (8.5-10.1); CHLORIDE 101 mmol/L (98-107); CO2 23 mmol/L (21-32); CREATININE 1.2 mg/dL (0.55-1.3); GLUCOSE,RANDOM 114 mg/dL (74-106); MAGNESIUM 2.4 mg/dL (1.8-2.4); PHOSPHOROUS 3.4 mg/dL (2.5-4.9); POTASSIUM 4.4 mmol/L (3.5-5.1); SGOT/AST 46 U/L (15-37); SGPT/ALT 47 U/L (13-61); SODIUM 133 mmol/L (136-145); TOT PROT 5.8 g/dl (6.4-8.2)
--- NOTE | 2018-07-20 09:35 | PN ---
Progress Note, Physician History of Present Illness: stable no new issues - Current Medication List Current Medications: Active Medications Acetaminophen (Tylenol -) 650 mg PO Q4H PRN PRN Reason: FEVER Last Admin: 07/19/18 16:39 Dose: 650 mg Ferrous Gluconate (Fergon -) 324 mg PO DAILY [facility] Last Admin: 07/19/18 09:35 Dose: 324 mg Piperacillin Sod/Tazobactam (Sod 3.375 gm/ Dextrose) 50 mls @ 100 mls/hr IVPB Q8H-IV ALEXANDRA; Protocol Last Admin: 07/20/18 01:32 Dose: 100 mls/hr Sodium Chloride (Normal Saline -) 1,000 mls @ 75 mls/hr IV ASDIR [facility] Last Admin: 07/18/18 17:23 Dose: 75 mls/hr Insulin Aspart (Novolog Vial Sliding Scale -) 1 vial SQ ACHS [facility]; Protocol Last Admin: 07/20/18 06:16 Dose: Not Given Insulin Detemir (Levemir Vial) 5 units SQ HS [facility] Last Admin: 07/19/18 21:14 Dose: 5 units Lisinopril (Prinivil) 10 mg PO DAILY [facility] Last Admin: 07/19/18 09:34 Dose: 10 mg Morphine Sulfate (Morphine Sulfate) 4 mg IVPUSH Q4H PRN PRN Reason: PAIN LEVEL 7 - 10 Last Admin: 07/19/18 20:59 Dose: 4 mg Oxycodone HCl (Roxicodone -) 5 mg PO Q4H PRN PRN Reason: PAIN LEVEL 4 - 6 Last Admin: 07/20/18 02:37 Dose: 5 mg Zolpidem Tartrate (Ambien -) 5 mg PO HS PRN PRN Reason: INSOMNIA Last Admin: 07/19/18 21:05 Dose: 5 mg - Objective Vital Signs: Vital Signs Temperature 99.3 F 07/20/18 07:09 Pulse Rate 80 07/20/18 02:10 Respiratory Rate 07/20/18 02:10 Blood Pressure 136/65 07/20/18 02:10 O2 Sat by Pulse Oximetry (%) 97 07/19/18 21:00 Constitutional: Yes: No Distress, Calm Cardiovascular: Yes: Regular Rate and Rhythm Respiratory: Yes: Regular, CTA Bilaterally Gastrointestinal: Yes: Normal Bowel Sounds, Soft, Other (drain) Musculoskeletal: Yes: WNL Extremities: Yes: WNL Neurological: Yes: Alert, Oriented Psychiatric: Yes: Alert, Oriented Labs: CBC, BMP 07/20/18 05:25 07/20/18 05:25 INR, PTT INR 1.11 (0.83-1.09) H 07/20/18 05:25 Assessment/Plan 58 y.o. male with DM, HTN, HLD presenting with complaints of fever/chills, epigastric pain/n/v/d x several days noted to have fever, leukocytosis, tachycardia, and hyponatremia. Sepsis Abd Pain/Diarrhea Fever Leukocytosis gm negative bacteremia liver abscess thrombosed hepatic vein patient continues to spike fever plan will continue abx watch drainage monitor fevers further plan as per gi
[2018-07-20] MEDS ORDERED: PT OWN MED DRAWER 7, Y5N ONE (09:43)
[2018-07-20 12:12] LABS: ANISOCYTOSIS 1+; MACROCYTOSIS 0; PLATELET ESTIMATE INCREASED
[2018-07-20] MEDS: LISINOPRIL 10 MG TABLET (FP) PO SCH (12:50)
[2018-07-20] MEDS: FERROUS GLUCONATE 324 MG TAB (FP) PO SCH (12:51)
[2018-07-20] MEDS: morphine SULFATE 4 MG/ML VIAL IVPUSH PRN ×3 (13:14→20:57)
--- NOTE | 2018-07-20 17:13 | PN ---
GI Progress Note Subjective: covering for Dr Wyatt liver abscess, s/p drainage, less return today, bilous, noabdomina pain, tolerating diet,s/p thoracentesis and tube change - Objective Vital Signs: Vital Signs Temperature 99.3 F 07/20/18 15:00 Pulse Rate 91 H 07/20/18 15:00 Respiratory Rate 20 07/20/18 15:00 Blood Pressure 128/64 07/20/18 15:00 O2 Sat by Pulse Oximetry (%) 100 07/20/18 11:36 Constitutional: Well Nourished Eyes: Yes: Conjunctiva Clear HENT: Yes: Atraumatic Neck: Yes: Supple Cardiovascular: Yes: Regular Rate and Rhythm Respiratory: Yes: CTA Bilaterally ...Palpate: Yes: Soft, Tenderness (--ruq mild). No: Firm/Rigid, Guarding, Hepatomegaly, Mass, Pulsatile Mass, Splenomegaly, Tenderness, Epigastium Labs: CBC, BMP 07/20/18 05:25 07/20/18 05:25 INR, PTT INR 1.11 (0.83-1.09) H 07/20/18 05:25 Problem List - Problems (1) Pyogenic liver abscess Assessment/Plan: R> continue antibiotics repeat imaging in 3 days Code(s): K75.0 - ABSCESS OF LIVER
--- NOTE | 2018-07-20 17:50 | PN ---
Teaching Attending Note Name of Resident: Branden Mars ATTENDING PHYSICIAN STATEMENT I saw and evaluated the patient. I reviewed the resident's note and discussed the case with the resident. I agree with the resident's findings and plan as documented. SUBJECTIVE: Ongoing diffuse R flank pain, better controlled. Fevers subsiding. No further diarrhea today. OBJECTIVE: Afebrile, Hemodynamically Stable. Currently s/p Thoracentesis and DOMENICA drain repositioning. Last Vital Signs Temp Pulse Resp BP Pulse Ox 99.3 F 91 H 20 128/64 100 07/20/18 15:00 07/20/18 15:00 07/20/18 15:00 07/20/18 15:00 07/20/18 11:36 HEENT - Atraumatic, Normocephalic. Heart - S1, S2, RRR Lungs - bi-basal crackles, R>L. Abdomen - Soft, non-tender anterior abdomen. R flank area tenderness in region of posterior DOMENICA drain with thick purulent material in tubing, recently repositioned by IR Extremities - no edema. Some venous stasis changes. No calf swelling/tenderness Neuro - AAO x3. Tone/Power normal all 4 extremities. Laboratory Results - last 24 hr 07/19/18 07/20/18 07/20/18 20:38 05:25 05:25 WBC 4.9 RBC 3.30 L Hgb 10.0 L Hct 28.9 L MCV 87.5 MCH 30.2 MCHC 34.5 RDW 12.8 Plt Count 547 H MPV 6.9 L Absolute Neuts (auto) 3.9 Neutrophils % 79.5 Neutrophils % (Manual) 80.4 Band Neutrophils % 2.1 Lymphocytes % 9.5 D Lymphocytes % (Manual) 8.2 Monocytes % 8.3 Monocytes % (Manual) 6 Eosinophils % 2.2 D Eosinophils % (Manual) 1.0 D Basophils % 0.5 Basophils % (Manual) 0.0 Myelocytes % (Man) 0 Promyelocytes % (Man) 0 Blast Cells % (Manual) 0 Nucleated RBC % 0 Metamyelocytes 2 D Hypochromia 1+ Platelet Estimate Increased Polychromasia 1+ Poikilocytosis 0 Anisocytosis 1+ Microcytosis 1+ Macrocytosis 0 PT with INR 13.10 H INR 1.11 H Sodium Potassium Chloride Carbon Dioxide Anion Gap BUN Creatinine Creat Clearance w eGFR POC Glucometer 208 Random Glucose Calcium Phosphorus Magnesium Total Bilirubin AST ALT Alkaline Phosphatase Total Protein Albumin 07/20/18 07/20/18 07/20/18 05:25 06:14 13:22 WBC RBC Hgb Hct MCV MCH MCHC RDW Plt Count MPV Absolute Neuts (auto) Neutrophils % Neutrophils % (Manual) Band Neutrophils % Lymphocytes % Lymphocytes % (Manual) Monocytes % Monocytes % (Manual) Eosinophils % Eosinophils % (Manual) Basophils % Basophils % (Manual) Myelocytes % (Man) Promyelocytes % (Man) Blast Cells % (Manual) Nucleated RBC % Metamyelocytes Hypochromia Platelet Estimate Polychromasia Poikilocytosis Anisocytosis Microcytosis Macrocytosis PT with INR INR Sodium 133 L Potassium 4.4 Chloride 101 Carbon Dioxide 23 Anion Gap 9 BUN 11 Creatinine 1.2 Creat Clearance w eGFR > 60 POC Glucometer 125 134 Random Glucose 114 H Calcium 7.4 L Phosphorus 3.4 Magnesium 2.4 Total Bilirubin 0.2 AST 46 H ALT 47 Alkaline Phosphatase 160 H Total Protein 5.8 L Albumin 1.6 L 07/20/18 17:21 WBC RBC Hgb Hct MCV MCH MCHC RDW Plt Count MPV Absolute Neuts (auto) Neutrophils % Neutrophils % (Manual) Band Neutrophils % Lymphocytes % Lymphocytes % (Manual) Monocytes % Monocytes % (Manual) Eosinophils % Eosinophils % (Manual) Basophils % Basophils % (Manual) Myelocytes % (Man) Promyelocytes % (Man) Blast Cells % (Manual) Nucleated RBC % Metamyelocytes Hypochromia Platelet Estimate Polychromasia Poikilocytosis Anisocytosis Microcytosis Macrocytosis PT with INR INR Sodium Potassium Chloride Carbon Dioxide Anion Gap BUN Creatinine Creat Clearance w eGFR POC Glucometer 166 Random Glucose Calcium Phosphorus Magnesium Total Bilirubin AST ALT Alkaline Phosphatase Total Protein Albumin Current Medications Generic Name Dose Route Start Last Admin Trade Name Freq PRN Reason Stop Dose Admin Acetaminophen 650 mg 07/10/18 13:27 07/19/18 16:39 Tylenol - PO 650 mg Q4H PRN Administration FEVER Enoxaparin Sodium 80 mg 07/20/18 22:00 Lovenox - SQ BID ALEXANDRA Ferrous Gluconate 324 mg 07/13/18 11:00 07/20/18 12:51 Fergon - PO 324 mg DAILY ALEXANDRA Administration Piperacillin Sod/Tazobactam 50 mls @ 100 mls/hr 07/10/18 18:00 07/20/18 12:50 Sod 3.375 gm/ Dextrose IVPB 100 mls/hr Q8H-IV ALEXANDRA Administration Protocol Sodium Chloride 1,000 mls @ 75 mls/hr 07/18/18 17:00 07/18/18 17:23 Normal Saline - IV 75 mls/hr ASDIR ALEXANDRA Administration Insulin Aspart 1 vial 07/08/18 07:00 07/20/18 13:23 Novolog Vial Sliding Scale - SQ Not Given ACHS ALEXANDRA Protocol Insulin Detemir 5 units 07/11/18 22:00 07/19/18 21:14 Levemir Vial SQ 5 units HS ALEXANDRA Administration Lisinopril 10 mg 07/16/18 08:02 07/20/18 12:50 Prinivil PO 10 mg DAILY [facility]A Administration Morphine Sulfate 4 mg 07/18/18 14:15 07/20/18 17:30 Morphine Sulfate IVPUSH 4 mg Q4H PRN Administration PAIN LEVEL 7 - 10 Oxycodone HCl 5 mg 07/18/18 14:16 07/20/18 02:37 Roxicodone - PO 5 mg Q4H PRN Administration PAIN LEVEL 4 - 6 Zolpidem Tartrate 5 mg 07/19/18 22:00 07/19/18 21:05 Ambien - PO 5 mg HS PRN Administration INSOMNIA ASSESSMENT AND PLAN: 58 year old male with history of HTN, HLD, DM 2 with neuropathy, presented with 4 day history of watery diarrhea, fevers, nausea - no vomiting/melena/ hematochezia, found to have Gram neg bacteremia and liver abscess on abdominal imaging. 1. Sepsis secondary to Klebsiella Bacteremia with Liver Abscess as source s/p IR guided drainage 07/11/18 with 10cc of purulence removed. Blood Cx and Abscess fluid Cx positive for Klebsiella. DOMENICA drain in situ s/p manipulation/re-positioning 07/20 Still on Zosyn - Day 13 No fevers overnight. ID following - opinion that fever is non-infectious but rather related to thrombosis. Sent another repeat BCx (negative), Flu negative, Urine Cx (pending), and Stool Cdiff negative Repeat CT A/P - decreased size of abscess, ongoing hepatic vein thrombus, retroperitoneal lymphadenopathy. Imaging positive for R sided effusion s/p thoracentesis 07/20 - awaiting results Analgesic relief at drain site/R flank with IV MS. Gi following. 2. Hepatic Vein Thrombosis - etiology unclear Lovenox resumed after IR guided procedures (thoracentesis and drain manipulation ) 07/20/18. Hem/Onc consulted for possible Hypercoagulable state - for out-patient follow up. Will eventually need further GI work-up for endoscopies to eliminate malignancy. 3. DM 2 - Uncontrolled, A1C 11.2, continue Levemir and Sliding Scale. 4. HTN - Continue Lisinopril 5. HLD - Previously on Statin, self-stopped. Not started on this admission due to initial transaminitis, now resolved. Can resume after acute illness. 6. Retroperitoneal lymph nodes - likely reactive due to infection. For repeat CT /MRI in 3 months to ensure resolution. 7. Iron Deficiency Anemia - Low Iron and Iron Saturation. Will need GI work-up as out-patient. Iron supplementation ongoing. 8. Thrombocytosis, reactive versus due to iron deficiency - for iron replacement and recheck in 2 weeks with Hematology out-patient follow up to exclude myeloproliferative disorder. 9. Hyponatremia, likely secondary to hypovolemia due to fevers and decreased oral fluid intake - resolved with IV normal saline hydration. DVT Px - on treatment dose Lovenox for hepatic vein thrombosis.
[2018-07-20] MEDS: ZOLPIDEM TARTRATE 5 MG TABLET PO PRN (20:43)
[2018-07-20] MEDS: INSULIN (LEVEMIR) 100 UNITS/ML UNITS SQ SCH (21:00)
[2018-07-20] MEDS: ENOXAPARIN NA (PORCINE) 80 MG/0.8 ML DISP.SYRIN SQ SCH (21:00)
[2018-07-21] MEDS ORDERED: DEXTROSE 5%-WATER - 50 ML IVPB ONE ×3 (01:38→16:59)
[2018-07-21] MEDS ORDERED: PIPERACILLIN/TAZOBACTAM 3.375 GM VIAL IVPB ONE ×3 (01:38→16:59)
[2018-07-21] MEDS: PIPERACILLIN/TAZOB 3.375 GM 3.375 GM in DEXTROSE 5%-WATER - 50 ML IVPB SCH ×3 (01:54→17:15)
[2018-07-21] MEDS: INSULIN SLIDING SCALE (NOVOLOG) 1 VIAL SQ SCH ×4 (06:04→21:12)
[2018-07-21] MEDS: morphine SULFATE 4 MG/ML VIAL IVPUSH PRN ×3 (06:04→21:12)
[2018-07-21] MEDS: ACETAMINOPHEN 325 MG TABLET (FP) PO PRN ×2 (07:46→17:14)
--- NOTE | 2018-07-21 08:03 | PN ---
Physical Exam: SUBJECTIVE: Patient seen and examined at bedside. Patient c/o the site of his DOMENICA drain leaving overnight. Placed tegaderm over area to reinforce bandage. OBJECTIVE: Vital Signs Period Temp Pulse Resp BP Sys/Negron Pulse Ox Last 24 Hr 98.6 F-101.1 F 84-91 16-20 128-170/64-88 100-100 GENERAL: The patient is awake, alert, and fully oriented, in no acute distress. HEAD: Normal with no signs of trauma. EYES: PERRL, extraocular movements intact, sclera anicteric, conjunctiva clear. No ptosis. LUNGS: Breath sounds equal, clear to auscultation bilaterally, no wheezes, no crackles, no accessory muscle use. HEART: Regular rate and rhythm, S1, S2 without murmur, rub or gallop. ABDOMEN: Soft, nontender, nondistended, normoactive bowel sounds, no guarding, no rebound, no hepatosplenomegaly, no masses. EXTREMITIES: 2+ pulses, warm, well-perfused, no edema. NEUROLOGICAL: Cranial nerves II through X grossly intact. Normal speech, gait not observed. SKIN: Warm, dry, normal turgor, no rashes or lesions noted Laboratory Results - last 24 hr 07/20/18 07/20/18 07/20/18 05:25 05:25 13:22 WBC 4.9 RBC 3.30 L Hgb 10.0 L Hct 28.9 L MCV 87.5 MCH 30.2 MCHC 34.5 RDW 12.8 Plt Count 547 H MPV 6.9 L Absolute Neuts (auto) 3.9 Neutrophils % 79.5 Neutrophils % (Manual) 80.4 Band Neutrophils % 2.1 Lymphocytes % 9.5 D Lymphocytes % (Manual) 8.2 Monocytes % 8.3 Monocytes % (Manual) 6 Eosinophils % 2.2 D Eosinophils % (Manual) 1.0 D Basophils % 0.5 Basophils % (Manual) 0.0 Myelocytes % (Man) 0 Promyelocytes % (Man) 0 Blast Cells % (Manual) 0 Nucleated RBC % 0 Metamyelocytes 2 D Hypochromia 1+ Platelet Estimate Increased Polychromasia 1+ Poikilocytosis 0 Anisocytosis 1+ Microcytosis 1+ Macrocytosis 0 Sodium 133 L Potassium 4.4 Chloride 101 Carbon Dioxide 23 Anion Gap 9 BUN 11 Creatinine 1.2 Creat Clearance w eGFR > 60 POC Glucometer 134 Random Glucose 114 H Calcium 7.4 L Phosphorus 3.4 Magnesium 2.4 Total Bilirubin 0.2 AST 46 H ALT 47 Alkaline Phosphatase 160 H Total Protein 5.8 L Albumin 1.6 L 07/20/18 07/20/18 07/21/18 17:21 20:39 05:59 WBC RBC Hgb Hct MCV MCH MCHC RDW Plt Count MPV Absolute Neuts (auto) Neutrophils % Neutrophils % (Manual) Band Neutrophils % Lymphocytes % Lymphocytes % (Manual) Monocytes % Monocytes % (Manual) Eosinophils % Eosinophils % (Manual) Basophils % Basophils % (Manual) Myelocytes % (Man) Promyelocytes % (Man) Blast Cells % (Manual) Nucleated RBC % Metamyelocytes Hypochromia Platelet Estimate Polychromasia Poikilocytosis Anisocytosis Microcytosis Macrocytosis Sodium Potassium Chloride Carbon Dioxide Anion Gap BUN Creatinine Creat Clearance w eGFR POC Glucometer 166 150 168 Random Glucose Calcium Phosphorus Magnesium Total Bilirubin AST ALT Alkaline Phosphatase Total Protein Albumin Active Medications Generic Name Dose Route Start Last Admin Trade Name Freq PRN Reason Stop Dose Admin Acetaminophen 650 mg 07/10/18 13:27 07/21/18 07:46 Tylenol - PO 650 mg Q4H PRN Administration FEVER Enoxaparin Sodium 80 mg 07/20/18 22:00 07/20/18 21:00 Lovenox - SQ 80 mg BID ALEXANDRA Administration Ferrous Gluconate 324 mg 07/13/18 11:00 07/20/18 12:51 Fergon - PO 324 mg DAILY ALEXAN[facility]A Administration Piperacillin Sod/Tazobactam 50 mls @ 100 mls/hr 07/10/18 18:00 07/21/18 01:54 Sod 3.375 gm/ Dextrose IVPB 100 mls/hr Q8H-IV ALEXANDRA Administration Protocol Sodium Chloride 1,000 mls @ 75 mls/hr 07/18/18 17:00 07/18/18 17:23 Normal Saline - IV 75 mls/hr ASDIR ALEXANDRA Administration Insulin Aspart 1 vial 07/08/18 07:00 07/21/18 06:04 Novolog Vial Sliding Scale - SQ 1 units ACHS ALEXANDRA Administration Protocol Insulin Detemir 5 units 07/11/18 22:00 07/20/18 21:00 Levemir Vial SQ 5 units HS ALEXANDRA Administration Lisinopril 10 mg 07/16/18 08:02 07/20/18 12:50 Prinivil PO 10 mg DAILY [facility]LEX[facility]A Administration Morphine Sulfate 4 mg 07/18/18 14:15 07/21/18 06:04 Morphine Sulfate IVPUSH 4 mg Q4H PRN Administration PAIN LEVEL 7 - 10 Oxycodone HCl 5 mg 07/18/18 14:16 07/20/18 02:37 Roxicodone - PO 5 mg Q4H PRN Administration PAIN LEVEL 4 - 6 Zolpidem Tartrate 5 mg 07/19/18 22:00 07/20/18 20:43 Ambien - PO 5 mg HS PRN Administration INSOMNIA ASSESSMENT/PLAN: 58 y/o M w/ PMHx HTN, HLD, DM admitted for sepsis 2/2 Klebsiella bacteremia and liver abscess #Sepsis 2/2 to Klebisella bacteremia and liver abscess -24hr Tmax 101.1@ 6am -cont Zosyn day 13 -DOMENICA drain in place w/ minimal sanguineous drainage -GI following -ID following -recurrent fever 2/2 maligancy vs hepatic vein thrombosis -drain readjusted by IR and thoracentesis done; thoracic fluid negative for infection #Hepatic vein thrombosis -heme/onc following, recommends AC unless significant bleeding results and outpt f/u -resumed lovenox 80mg sq BID yesterday evening -Oxy and morphine PRN per pain scale -repeat CT a/p showing decreased abscess size, no change in HVT, increased R pleural effusion, new L pleural effusion #hypervolemic hyponatremia -improving -monitor Na #HLD -hold statin given recently resolved transaminitis #HTN -cont lisinopril #DM -SSI, Levemir 5U HS, BGM ACHS -Pt's A1c this admission 11.2% -Will need recheck in 3 mo with insulin regiment on board #iron deficiency anemia -cont iron supplementation -repeat iron studies as outpt #FEN: -no IVF -monitor and correct electrolytes -diabetic/sodium diet #PPX: -DVT: SCDs presently, AC held pending IR interventions -GI: not indicated #dispo -continue monitoring on med/surg -full code Visit type - Emergency Visit Emergency Visit: Yes ED Registration Date: 07/08/18 Care time: The patient presented to the Emergency Department on the above date and was hospitalized for further evaluation of their emergent condition. - New Patient This patient is new to me today: Yes Date on this admission: 07/21/18 - Critical Care Critical Care patient: No - Discharge Referral Referred to [facility] Med P.C.: No
[2018-07-21] MEDS: SODIUM CHLORIDE 1,000 ML IV SCH (08:07)
[2018-07-21 08:56] LABS: BASO % 0.4 % (0-2.0); EOS % 1.6 % (0-4.5); HEMATOCRIT 30.4 % (35.4-49); HEMOGLOBIN 10.5 GM/dL (11.7-16.9); MCH 30.4 pg (25.7-33.7); MCHC 34.7 g/dl (32.0-35.9); MEAN CELL VOLUME 87.6 fl (80-96); MEAN PLT VOLUME 7.1 fl (7.5-11.1); MONO % 5.3 % (3.8-10.2); NEUT % 83.7 % (42.8-82.8); PLATELET COUNT 504 K/MM3 (134-434); RBC 3.47 M/mm3 (4.00-5.60); RDW 12.9 % (11.9-15.9); WHITE BLOOD COUNT 6.2 K/mm3 (4.0-10.0)
[2018-07-21] MEDS: FERROUS GLUCONATE 324 MG TAB (FP) PO SCH (09:18)
[2018-07-21] MEDS: LISINOPRIL 10 MG TABLET (FP) PO SCH (09:18)
[2018-07-21] MEDS: ENOXAPARIN NA (PORCINE) 80 MG/0.8 ML DISP.SYRIN SQ SCH ×2 (09:19→21:14)
[2018-07-21 10:05] LABS: ALBUMIN 1.9 g/dl (3.4-5.0); ALK PHOS 175 U/L (45-117); ANION GAP 8 MMOL/L (8-16); BILIRUBIN,TOTAL 0.2 mg/dL (0.2-1); BLOOD UREA NITROGEN 11 mg/dL (7-18); CALCIUM 7.9 mg/dL (8.5-10.1); CHLORIDE 100 mmol/L (98-107); CO2 25 mmol/L (21-32); CREATININE 1.3 mg/dL (0.55-1.3); GLUCOSE,RANDOM 152 mg/dL (74-106); MAGNESIUM 2.1 mg/dL (1.8-2.4); PHOSPHOROUS 3.4 mg/dL (2.5-4.9); SGOT/AST 55 U/L (15-37); SGPT/ALT 51 U/L (13-61); SODIUM 134 mmol/L (136-145)
--- NOTE | 2018-07-21 15:19 | PN ---
Progress Note, Physician History of Present Illness: Pt seen and examined. Events noted, lab results reviewed. He is s/p thoracentesis done yesterday. Febrile to 101.1F early am, currently afebrile. No specific complaints. - Current Medication List Current Medications: Active Medications Acetaminophen (Tylenol -) 650 mg PO Q4H PRN PRN Reason: FEVER Last Admin: 07/21/18 07:46 Dose: 650 mg Enoxaparin Sodium (Lovenox -) 80 mg SQ BID [facility] Last Admin: 07/21/18 09:19 Dose: 80 mg Ferrous Gluconate (Fergon -) 324 mg PO DAILY [facility] Last Admin: 07/21/18 09:18 Dose: 324 mg Piperacillin Sod/Tazobactam (Sod 3.375 gm/ Dextrose) 50 mls @ 100 mls/hr IVPB Q8H-IV [facility]LEXANDRA; Protocol Last Admin: 07/21/18 09:18 Dose: 100 mls/hr Sodium Chloride (Normal Saline -) 1,000 mls @ 75 mls/hr IV ASDIR [facility] Last Admin: 07/21/18 08:07 Dose: 75 mls/hr Insulin Aspart (Novolog Vial Sliding Scale -) 1 vial SQ ACHS [facility]; Protocol Last Admin: 07/21/18 11:54 Dose: 1 units Insulin Detemir (Levemir Vial) 5 units SQ HS [facility] Last Admin: 07/20/18 21:00 Dose: 5 units Lisinopril (Prinivil) 10 mg PO DAILY [facility] Last Admin: 07/21/18 09:18 Dose: 10 mg Morphine Sulfate (Morphine Sulfate) 4 mg IVPUSH Q4H PRN PRN Reason: PAIN LEVEL 7 - 10 Last Admin: 07/21/18 14:33 Dose: 4 mg Oxycodone HCl (Roxicodone -) 5 mg PO Q4H PRN PRN Reason: PAIN LEVEL 4 - 6 Last Admin: 07/20/18 02:37 Dose: 5 mg Zolpidem Tartrate (Ambien -) 5 mg PO HS PRN PRN Reason: INSOMNIA Last Admin: 07/20/18 20:43 Dose: 5 mg - Objective Vital Signs: Vital Signs Temperature 99.0 F 07/21/18 14:43 Pulse Rate 77 07/21/18 14:43 Respiratory Rate 18 07/21/18 14:43 Blood Pressure 174/88 H 07/21/18 14:43 O2 Sat by Pulse Oximetry (%) 100 07/20/18 11:36 Constitutional: Yes: No Distress, Calm Cardiovascular: Yes: Regular Rate and Rhythm Respiratory: Yes: Regular Gastrointestinal: Yes: Normal Bowel Sounds, Soft, Other (drain with purulent fluid) Genitourinary: Yes: WNL Extremities: Yes: WNL Neurological: Yes: Alert Labs: CBC, BMP 07/21/18 06:00 07/21/18 06:00 INR, PTT INR 1.11 (0.83-1.09) H 07/20/18 05:25 Microbiology 07/20/18 11:25 Pleural Fluid Gram Stain - Final 07/20/18 11:25 Pleural Fluid Body Fluid Culture - Preliminary NO AEROBIC GROWTH, 24 HRS 07/19/18 15:30 Urine - Urine Clean Catch Urine Culture - Final NO GROWTH OBTAINED 07/18/18 21:00 Blood - Peripheral Venous Blood Culture - Preliminary NO GROWTH OBTAINED AFTER 48 HOURS, INCUBATION TO CONTINUE FOR 3 DAYS. 07/18/18 20:30 Blood - Peripheral Venous Blood Culture - Preliminary NO GROWTH OBTAINED AFTER 48 HOURS, INCUBATION TO CONTINUE FOR 3 DAYS. 07/19/18 15:30 Stool Clostridium difficile Antigen (ISSA) - Final 07/19/18 15:30 Stool Clostridium difficile Toxin Assay - Final 07/11/18 11:30 Abscess Gram Stain - Final 07/11/18 11:30 Abscess Body Fluid Culture - Final Klebsiella Pneumoniae 07/11/18 11:30 Abscess Anaerobic Culture - Final NO ANAEROBES WERE ISOLATED 07/13/18 10:20 Blood - Peripheral Venous Blood Culture - Final NO GROWTH AFTER 5 DAYS INCUBATION 07/13/18 08:35 Blood - Peripheral Venous Blood Culture - Final NO GROWTH AFTER 5 DAYS INCUBATION 07/10/18 09:51 Blood - Peripheral Venous Blood Culture - Final NO GROWTH AFTER 5 DAYS INCUBATION 07/10/18 09:55 Blood - Peripheral Venous Blood Culture - Final NO GROWTH AFTER 5 DAYS INCUBATION 07/11/18 11:30 Abscess AFB Smear Concentration - Final 07/11/18 11:30 Abscess Mycobacterial Culture - Preliminary 07/11/18 11:30 Abscess ZELALEM Preparation - Preliminary 07/11/18 11:30 Abscess Fungal Culture - Preliminary 07/09/18 18:00 Urine For Antigen Detection Legionella Antigen - Final 02/04/19 18:00 Urine For Antigen Detection Streptococcus pneumoniae Antigen (M - Final 07/08/18 03:11 Blood - Peripheral Venous Blood Culture - Final Klebsiella Pneumoniae 07/08/18 03:11 Blood - Peripheral Venous Blood Culture - Final Klebsiella Pneumoniae 07/08/18 22:38 Stool Clostridium difficile Antigen (ISSA) - Final 07/08/18 22:38 Stool Clostridium difficile Toxin Assay - Final 07/08/18 03:00 Urine - Urine Clean Catch Urine Culture - Final NO GROWTH OBTAINED - ....Imaging Chest X-ray: Report Reviewed Cat Scan: Report Reviewed Problem List - Problems (1) Fever Code(s): R50.9 - FEVER, UNSPECIFIED Qualifiers: Fever type: due to other condition Qualified Code(s): R50.81 - Fever presenting with conditions classified elsewhere (2) Pyogenic liver abscess Code(s): K75.0 - ABSCESS OF LIVER Assessment/Plan Sepsis Klebsiella Bacteremia Liver abscess s/p drainage Pleural effusion s/p thoracentesis Persistent fever Hepatic vein thrombosis -- continue antibiotics -- Pt is s/p thoracentesis yesterday -- latest cultures no growth -- Febrile this am (source) , continue monitor temp curve Vitals otherwise stable
[2018-07-21] MEDS ORDERED: IBUPROFEN 600 MG TABLET (FP) PO ONE (18:24)
--- NOTE | 2018-07-21 19:22 | PN ---
Teaching Attending Note Name of Resident: Shannon Escalante ATTENDING PHYSICIAN STATEMENT I saw and evaluated the patient. I reviewed the resident's note and discussed the case with the resident. I agree with the resident's findings and plan as documented. SUBJECTIVE: Ongoing diffuse R flank discomfort. No further diarrhea. Fevers again today. No cough/sputum. No dysuria/hematuria OBJECTIVE: Fevers ongoing - Tmax 101.5. Hemodynamically Stable. Currently s/p Thoracentesis and DOMENICA drain repositioning. Last Vital Signs Temp Pulse Resp BP Pulse Ox 101.5 F H 92 H 20 151/79 100 07/21/18 18:18 07/21/18 17:06 07/21/18 17:06 07/21/18 17:06 07/20/18 11:36 Heart - S1, S2, RRR Lungs - bi-basal crackles, R>L. Abdomen - Soft, non-tender anterior abdomen. R flank area tenderness in region of posterior DOMENICA drain with thick purulent material in tubing, recently repositioned by IR - 20cc since repositioning. Extremities - no edema. Some venous stasis changes. No calf swelling/tenderness Neuro - AAO x3. Tone/Power normal all 4 extremities. Laboratory Results - last 24 hr 07/20/18 07/21/18 07/21/18 20:39 05:59 06:00 WBC 6.2 RBC 3.47 L Hgb 10.5 L Hct 30.4 L MCV 87.6 MCH 30.4 MCHC 34.7 RDW 12.9 Plt Count 504 H MPV 7.1 L Absolute Neuts (auto) 5.2 Neutrophils % 83.7 H Lymphocytes % 9.0 Monocytes % 5.3 Eosinophils % 1.6 Basophils % 0.4 Nucleated RBC % 0 Sodium Potassium Chloride Carbon Dioxide Anion Gap BUN Creatinine Creat Clearance w eGFR POC Glucometer 150 168 Random Glucose Calcium Phosphorus Magnesium Total Bilirubin AST ALT Alkaline Phosphatase Total Protein Albumin 07/21/18 07/21/18 07/21/18 06:00 11:51 16:41 WBC RBC Hgb Hct MCV MCH MCHC RDW Plt Count MPV Absolute Neuts (auto) Neutrophils % Lymphocytes % Monocytes % Eosinophils % Basophils % Nucleated RBC % Sodium 134 L Potassium 5.0 Chloride 100 Carbon Dioxide 25 Anion Gap 8 BUN 11 Creatinine 1.3 Creat Clearance w eGFR 56.70 POC Glucometer 197 189 Random Glucose 152 H Calcium 7.9 L Phosphorus 3.4 Magnesium 2.1 Total Bilirubin 0.2 AST 55 H ALT 51 Alkaline Phosphatase 175 H Total Protein 6.0 L Albumin 1.9 L Current Medications Generic Name Dose Route Start Last Admin Trade Name Freq PRN Reason Stop Dose Admin Acetaminophen 650 mg 07/10/18 13:27 07/21/18 17:14 Tylenol - PO 650 mg Q4H PRN Administration FEVER Enoxaparin Sodium 80 mg 07/20/18 22:00 07/21/18 09:19 Lovenox - SQ 80 mg BID ALEXANDRA Administration Ferrous Gluconate 324 mg 07/13/18 11:00 07/21/18 09:18 Fergon - PO 324 mg DAILY ALEXANDRA Administration Piperacillin Sod/Tazobactam 50 mls @ 100 mls/hr 07/10/18 18:00 07/21/18 17:15 Sod 3.375 gm/ Dextrose IVPB 100 mls/hr Q8H-IV ALEXANDRA Administration Protocol Sodium Chloride 1,000 mls @ 75 mls/hr 07/18/18 17:00 07/21/18 08:07 Normal Saline - IV 75 mls/hr ASDIR ALEXANDRA Administration Insulin Aspart 1 vial 07/08/18 07:00 07/21/18 16:44 Novolog Vial Sliding Scale - SQ 1 units ACHS ALEXANDRA Administration Protocol Insulin Detemir 5 units 07/11/18 22:00 07/20/18 21:00 Levemir Vial SQ 5 units HS ALEXANDRA Administration Lisinopril 10 mg 07/16/18 08:02 07/21/18 09:18 Prinivil PO 10 mg DAILY ALEXANDRA Administration Morphine Sulfate 4 mg 07/18/18 14:15 07/21/18 14:33 Morphine Sulfate IVPUSH 4 mg Q4H PRN Administration PAIN LEVEL 7 - 10 Oxycodone HCl 5 mg 07/18/18 14:16 07/20/18 02:37 Roxicodone - PO 5 mg Q4H PRN Administration PAIN LEVEL 4 - 6 Zolpidem Tartrate 5 mg 07/19/18 22:00 07/20/18 20:43 Ambien - PO 5 mg HS PRN Administration INSOMNIA ASSESSMENT AND PLAN: 58 year old male with history of HTN, HLD, DM 2 with neuropathy, presented with 4 day history of watery diarrhea, fevers, nausea - no vomiting/melena/ hematochezia, found to have Klebsiella bacteremia and liver abscess on abdominal imaging. 1. Sepsis secondary to Klebsiella Bacteremia with Liver Abscess as source s/p IR guided drainage 07/11/18 with 10cc of purulence removed. Blood Cx and Abscess fluid Cx positive for Klebsiella. DOMENICA drain in situ s/p manipulation/re-positioning 07/20 Still on Zosyn - continue as per ID Ongoing fevers. ID following - opinion that fever is non-infectious but rather related to thrombosis. Sent another repeat BCx (negative), Flu negative, Urine Cx (negative), and Stool Cdiff negative Repeat CT A/P - decreased size of abscess, ongoing hepatic vein thrombus, retroperitoneal lymphadenopathy. Imaging positive for R sided effusion s/p thoracentesis 07/20 - fluid Cx negative. Analgesic relief at drain site/R flank with IV MS/Roxicodone. Gi following. 2. Hepatic Vein Thrombosis - etiology unclear Lovenox resumed after IR guided procedures (thoracentesis and drain manipulation ) 07/20/18. Hem/Onc consulted for possible Hypercoagulable state - for out-patient follow up. Will eventually need further GI work-up for endoscopies to eliminate malignancy. 3. DM 2 - Uncontrolled, A1C 11.2, continue Levemir and Sliding Scale. 4. HTN - Continue Lisinopril 5. HLD - Previously on Statin, self-stopped. Not started on this admission due to initial transaminitis, now resolved. Can resume after acute illness. 6. Retroperitoneal lymph nodes - likely reactive due to infection. For repeat CT /MRI in 3 months to ensure resolution. 7. Iron Deficiency Anemia - Low Iron and Iron Saturation. Will need GI work-up as out-patient. Iron supplementation ongoing. 8. Thrombocytosis, reactive versus due to iron deficiency - for iron replacement and recheck in 2 weeks with Hematology out-patient follow up to exclude myeloproliferative disorder. 9. Hyponatremia, likely secondary to hypovolemia due to fevers and decreased oral fluid intake - resolved with IV normal saline hydration. DVT Px - on treatment dose Lovenox for hepatic vein thrombosis.
[2018-07-21] MEDS ORDERED: INSULIN (NOVOLOG) ASPART 100 UNITS/ML 10ML VIAL ONE (20:34)
[2018-07-21] MEDS: INSULIN (LEVEMIR) 100 UNITS/ML UNITS SQ SCH (21:11)
[2018-07-21] MEDS: ZOLPIDEM TARTRATE 5 MG TABLET PO PRN (21:12)
[2018-07-22] MEDS ORDERED: DEXTROSE 5%-WATER - 50 ML IVPB ONE ×3 (01:55→17:03)
[2018-07-22] MEDS ORDERED: PIPERACILLIN/TAZOBACTAM 3.375 GM VIAL IVPB ONE ×3 (01:55→17:03)
[2018-07-22] MEDS: PIPERACILLIN/TAZOB 3.375 GM 3.375 GM in DEXTROSE 5%-WATER - 50 ML IVPB SCH ×3 (02:54→17:19)
[2018-07-22] MEDS: INSULIN SLIDING SCALE (NOVOLOG) 1 VIAL SQ SCH ×4 (06:08→21:38)
[2018-07-22] MEDS: oxyCODONE HCL 5 MG TABLET PO PRN ×2 (06:09→11:27)
[2018-07-22] MEDS: SODIUM CHLORIDE 1,000 ML IV SCH ×3 (06:13→18:39)
[2018-07-22 08:14] LABS: ANION GAP 8 MMOL/L (8-16); BLOOD UREA NITROGEN 10 mg/dL (7-18); CALCIUM 7.5 mg/dL (8.5-10.1); CHLORIDE 103 mmol/L (98-107); CO2 24 mmol/L (21-32); CREATININE 1.4 mg/dL (0.55-1.3); GLUCOSE,RANDOM 128 mg/dL (74-106); POTASSIUM 4.4 mmol/L (3.5-5.1); SODIUM 135 mmol/L (136-145)
[2018-07-22] MEDS: FERROUS GLUCONATE 324 MG TAB (FP) PO SCH (09:53)
[2018-07-22] MEDS: ENOXAPARIN NA (PORCINE) 80 MG/0.8 ML DISP.SYRIN SQ SCH ×2 (09:53→21:39)
[2018-07-22] MEDS: LISINOPRIL 10 MG TABLET (FP) PO SCH (09:53)
--- NOTE | 2018-07-22 15:11 | PN ---
Progress Note, Physician History of Present Illness: Pt febrile to 101.5F yesterday, afebrile today. Has no new specific complaints. Denies n/v, dysuria, rash, sob/cough. - Current Medication List Current Medications: Active Medications Acetaminophen (Tylenol -) 650 mg PO Q4H PRN PRN Reason: FEVER Last Admin: 07/21/18 17:14 Dose: 650 mg Enoxaparin Sodium (Lovenox -) 80 mg SQ BID [facility] Last Admin: 07/22/18 09:53 Dose: 80 mg Ferrous Gluconate (Fergon -) 324 mg PO DAILY [facility] Last Admin: 07/22/18 09:53 Dose: 324 mg Piperacillin Sod/Tazobactam (Sod 3.375 gm/ Dextrose) 50 mls @ 100 mls/hr IVPB Q8H-IV [facility]; Protocol Last Admin: 07/22/18 09:52 Dose: 100 mls/hr Sodium Chloride (Normal Saline -) 1,000 mls @ 75 mls/hr IV ASDIR [facility] Last Admin: 07/22/18 06:13 Dose: 75 mls/hr Insulin Aspart (Novolog Vial Sliding Scale -) 1 vial SQ ACHS [facility]; Protocol Last Admin: 07/22/18 11:25 Dose: 1 units Insulin Detemir (Levemir Vial) 5 units SQ HS [facility] Last Admin: 07/21/18 21:11 Dose: 5 units Lisinopril (Prinivil) 10 mg PO DAILY [facility] Last Admin: 07/22/18 09:53 Dose: 10 mg Morphine Sulfate (Morphine Sulfate) 4 mg IVPUSH Q4H PRN PRN Reason: PAIN LEVEL 7 - 10 Last Admin: 07/21/18 21:12 Dose: 4 mg Oxycodone HCl (Roxicodone -) 5 mg PO Q4H PRN PRN Reason: PAIN LEVEL 4 - 6 Last Admin: 07/22/18 11:27 Dose: 5 mg Zolpidem Tartrate (Ambien -) 5 mg PO HS PRN PRN Reason: INSOMNIA Last Admin: 07/21/18 21:12 Dose: 5 mg - Objective Vital Signs: Vital Signs Temperature 98.7 F 07/22/18 10:00 Pulse Rate 96 H 07/22/18 10:00 Respiratory Rate 18 07/22/18 10:00 Blood Pressure 135/81 07/22/18 10:00 O2 Sat by Pulse Oximetry (%) 99 07/22/18 09:00 Constitutional: Yes: No Distress, Calm Cardiovascular: Yes: Tachycardia Respiratory: Yes: CTA Bilaterally Gastrointestinal: Yes: Normal Bowel Sounds, Soft, Other (Rt back drain with purulent fluid) Genitourinary: Yes: WNL Extremities: Yes: WNL Integumentary: Yes: WNL Neurological: Yes: Alert, Oriented Labs: CBC, BMP 07/21/18 06:00 07/22/18 06:30 INR, PTT INR 1.11 (0.83-1.09) H 07/20/18 05:25 Microbiology 07/20/18 11:25 Pleural Fluid Gram Stain - Final 07/20/18 11:25 Pleural Fluid Body Fluid Culture - Preliminary Gram Negative Donovan 07/20/18 11:25 Pleural Fluid Anaerobic Culture - Final NO ANAEROBES WERE ISOLATED 07/18/18 21:00 Blood - Peripheral Venous Blood Culture - Preliminary NO GROWTH OBTAINED AFTER 72 HOURS, INCUBATION TO CONTINUE FOR 2 DAYS. 07/18/18 20:30 Blood - Peripheral Venous Blood Culture - Preliminary NO GROWTH OBTAINED AFTER 72 HOURS, INCUBATION TO CONTINUE FOR 2 DAYS. 07/19/18 15:30 Urine - Urine Clean Catch Urine Culture - Final NO GROWTH OBTAINED Problem List - Problems (1) Fever Code(s): R50.9 - FEVER, UNSPECIFIED Qualifiers: Fever type: due to other condition Qualified Code(s): R50.81 - Fever presenting with conditions classified elsewhere (2) Pyogenic liver abscess Code(s): K75.0 - ABSCESS OF LIVER Assessment/Plan Sepsis Klebsiella Bacteremia Pyogenic Liver abscess s/p drainage - klebsiella isolated Pleural effusion s/p thoracentesis Persistent fever Hepatic vein thrombosis -- Pt afebrile today, Tmax 101.5F noted yesterday -- repeat blood cultures ordered -- latest cultures no growth -- Drain with purulent fluid continue current antibiotic for now continue monitor temps, wbc normal/pt without distress
[2018-07-22] MEDS: morphine SULFATE 4 MG/ML VIAL IVPUSH PRN ×2 (16:58→21:36)
--- NOTE | 2018-07-22 19:26 | PN ---
Progress Note (short form) - Note Progress Note: SUBJECTIVE: Ongoing diffuse R flank discomfort. No further diarrhea. Fevers again yesterday. No cough/sputum. No dysuria/hematuria. Tolerating oral intake - no nausea/vomiting. OBJECTIVE: Fevers ongoing - Tmax 07/21 101.5, 07/22 100.2. Hemodynamically Stable. Last Vital Signs Temp Pulse Resp BP Pulse Ox 99.4 F 94 H 20 142/72 99 07/22/18 17:17 07/22/18 17:17 07/22/18 17:17 07/22/18 17:07/22/18 09:00 Heart - S1, S2, RRR Lungs - bi-basal crackles, R>L. Abdomen - Soft, non-tender anterior abdomen. R flank area tenderness in region of posterior DOMENICA drain with thick purulent material in tubing, dressing over tube entry/thoracentesis site soaked with sanguinous fluid. Extremities - no edema. Some venous stasis changes. No calf swelling/tenderness Neuro - AAO x3. Tone/Power normal all 4 extremities. Laboratory Results - last 24 hr 07/21/18 07/22/18 07/22/18 21:02 06:06 06:30 Sodium 135 L Potassium 4.4 Chloride 103 Carbon Dioxide 24 Anion Gap 8 BUN 10 Creatinine 1.4 H Creat Clearance w eGFR 52.05 POC Glucometer 216 140 Random Glucose 128 H Calcium 7.5 L 07/22/18 07/22/18 11:23 17:17 Sodium Potassium Chloride Carbon Dioxide Anion Gap BUN Creatinine Creat Clearance w eGFR POC Glucometer 195 223 Random Glucose Calcium Current Medications Generic Name Dose Route Start Last Admin Trade Name Freq PRN Reason Stop Dose Admin Acetaminophen 650 mg 07/10/18 13:27 07/21/18 17:14 Tylenol - PO 650 mg Q4H PRN Administration FEVER Enoxaparin Sodium 80 mg 07/20/18 22:00 07/22/18 09:53 Lovenox - SQ 80 mg BID ALEXANDRA Administration Ferrous Gluconate 324 mg 07/13/18 11:00 07/22/18 09:53 Fergon - PO 324 mg DAILY ALEXANDRA Administration Piperacillin Sod/Tazobactam 50 mls @ 100 mls/hr 07/10/18 18:00 07/22/18 17:19 Sod 3.375 gm/ Dextrose IVPB 100 mls/hr Q8H-IV ALEXANDAR Administration Protocol Sodium Chloride 1,000 mls @ 75 mls/hr 07/18/18 17:00 07/22/18 18:39 Normal Saline - IV Not Given ASDIR [facility] Insulin Aspart 1 vial 07/08/18 07:00 07/22/18 17:18 Novolog Vial Sliding Scale - SQ 2 units ACHS ALEXANDRA Administration Protocol Insulin Detemir 5 units 07/11/18 22:00 07/21/18 21:11 Levemir Vial SQ 5 units HS ALEXANDRA Administration Lisinopril 10 mg 07/16/18 08:02 07/22/18 09:53 Prinivil PO 10 mg DAILY ALEXANDRA Administration Morphine Sulfate 4 mg 07/18/18 14:15 07/22/18 16:58 Morphine Sulfate IVPUSH 4 mg Q4H PRN Administration PAIN LEVEL 7 - 10 Oxycodone HCl 5 mg 07/18/18 14:16 07/22/18 11:27 Roxicodone - PO 5 mg Q4H PRN Administration PAIN LEVEL 4 - 6 Zolpidem Tartrate 5 mg 07/19/18 22:00 07/21/18 21:12 Ambien - PO 5 mg HS PRN Administration INSOMNIA ASSESSMENT AND PLAN: 58 year old male with history of HTN, HLD, DM 2 with neuropathy, presented with 4 day history of watery diarrhea, fevers, nausea - no vomiting/melena/ hematochezia, found to have Klebsiella bacteremia and liver abscess on abdominal imaging. 1. Sepsis secondary to Klebsiella Bacteremia with Liver Abscess as source s/p IR guided drainage 07/11/18 with 10cc of purulence removed. Blood Cx and Abscess fluid Cx positive for Klebsiella. DOMENICA drain in situ s/p manipulation/re-positioning 07/20 Ongoing fever - last Temp 07/21 ID following - opinion that fever is non-infectious but rather related to thrombosis. Sent another repeat BCx (negative), Flu negative, Urine Cx (negative), and Stool Cdiff negative Repeat CT A/P - decreased size of abscess, ongoing hepatic vein thrombus, retroperitoneal lymphadenopathy. Imaging positive for R sided effusion s/p thoracentesis 07/20 - fluid Cx positive for gram neg rods, awaiting final ID and sens. Still on Zosyn - continue as per ID Analgesic relief at drain site/R flank with IV MS/Roxicodone. Gi following. 2. Hepatic Vein Thrombosis - etiology unclear Lovenox resumed after IR guided procedures (thoracentesis and drain manipulation ) 07/20/18. Hem/Onc consulted for possible Hypercoagulable state - for out-patient follow up. Will eventually need further GI work-up for endoscopies to eliminate malignancy. 3. DM 2 - Uncontrolled, A1C 11.2, continue Levemir and Sliding Scale. 4. HTN - Continue Lisinopril 5. HLD - Previously on Statin, self-stopped. Not started on this admission due to initial transaminitis, now resolved. Can resume after acute illness. 6. Retroperitoneal lymph nodes - likely reactive due to infection. For repeat CT /MRI in 3 months to ensure resolution. 7. Iron Deficiency Anemia - Low Iron and Iron Saturation. Will need GI work-up as out-patient. Iron supplementation ongoing. 8. Thrombocytosis, reactive versus due to iron deficiency - for iron replacement and recheck in 2 weeks with Hematology out-patient follow up to exclude myeloproliferative disorder. 9. Hyponatremia, likely secondary to hypovolemia due to fevers and decreased oral fluid intake - resolved with IV normal saline hydration. 10, Hypoalbuminemia - Albumin 1.6 - sec to malnutrition + ?hepatic dysfunction - for nutrition eval for protein/dietary supplementation. DVT Px - on treatment dose Lovenox for hepatic vein thrombosis. Visit type - Emergency Visit Emergency Visit: Yes ED Registration Date: 07/08/18 Care time: The patient presented to the Emergency Department on the above date and was hospitalized for further evaluation of their emergent condition. - New Patient This patient is new to me today: No - Critical Care Critical Care patient: No - Discharge Referral Referred to [facility] Med P.C.: No
[2018-07-22] MEDS: ZOLPIDEM TARTRATE 5 MG TABLET PO PRN (21:38)
[2018-07-22] MEDS: INSULIN (LEVEMIR) 100 UNITS/ML UNITS SQ SCH (21:39)
[2018-07-23] MEDS ORDERED: PIPERACILLIN/TAZOBACTAM 3.375 GM VIAL IVPB ONE ×3 (01:15→17:48)
[2018-07-23] MEDS ORDERED: DEXTROSE 5%-WATER - 50 ML IVPB ONE ×3 (01:15→17:49)
[2018-07-23] MEDS: PIPERACILLIN/TAZOB 3.375 GM 3.375 GM in DEXTROSE 5%-WATER - 50 ML IVPB SCH ×3 (01:31→17:50)
[2018-07-23] MEDS: ACETAMINOPHEN 325 MG TABLET (FP) PO PRN (01:34)
[2018-07-23] MEDS: oxyCODONE HCL 5 MG TABLET PO PRN ×3 (05:57→21:01)
[2018-07-23] MEDS: INSULIN SLIDING SCALE (NOVOLOG) 1 VIAL SQ SCH ×4 (06:21→21:15)
[2018-07-23] MEDS: ENOXAPARIN NA (PORCINE) 80 MG/0.8 ML DISP.SYRIN SQ SCH (09:11)
[2018-07-23] MEDS: FERROUS GLUCONATE 324 MG TAB (FP) PO SCH (09:11)
[2018-07-23] MEDS: LISINOPRIL 10 MG TABLET (FP) PO SCH (09:11)
--- NOTE | 2018-07-23 09:20 | PN ---
Physical Exam: SUBJECTIVE: Pt with low-grade temp (100.1) overnight, but afebrile for 24hrs. Pt reports feeling improved however pain remains the same. Leakage around drain site noted in evening yesterday, however pt's dressing was changed immediately and no other episodes since. DOMENICA output remains purulent currently. OBJECTIVE: Vital Signs Period Temp Pulse Resp BP Sys/Negron Pulse Ox Last 24 Hr 98.7 F-100.2 F 83-100 18-20 130-145/61-81 GENERAL: A&Ox3, NAD HEENT: NC/AT, PERRLA, EOMI, sclera anicteric, MMM LUNGS: CTA b/l HEART: RRR no murmurs appreciated ABDOMEN: soft, right-sided TTP upper>lower most prominent at the flank, normoactive BS, DOMENICA output minimal purulent drainage, DOMENICA insertion site with dry gauze overlying, no active drainage around insertion site, no erythema noted around insertion site. EXTREMITIES: 2+ pulses, warm, well-perfused, no edema. NEUROLOGICAL: Nonfocal exam. Normal speech, gait not observed today PSYCH: Depressed mood, cooperative Laboratory Results - last 24 hr 07/22/18 07/22/18 07/22/18 11:23 17:17 21:07 POC Glucometer 195 223 179 07/23/18 06:01 POC Glucometer 103 Active Medications Generic Name Dose Route Start Last Admin Trade Name Freq PRN Reason Stop Dose Admin Acetaminophen 650 mg 07/10/18 13:27 07/23/18 01:34 Tylenol - PO 650 mg Q4H PRN Administration FEVER Enoxaparin Sodium 80 mg 07/20/18 22:00 07/23/18 09:11 Lovenox - SQ 80 mg BID ALEXANDRA Administration Ferrous Gluconate 324 mg 07/13/18 11:00 07/23/18 09:11 Fergon - PO 324 mg DAILY ALEXANDRA Administration Piperacillin Sod/Tazobactam 50 mls @ 100 mls/hr 07/10/18 18:00 07/23/18 09:11 Sod 3.375 gm/ Dextrose IVPB 100 mls/hr Q8H-IV ALEXANDRA Administration Protocol Sodium Chloride 1,000 mls @ 75 mls/hr 07/18/18 17:00 07/22/18 18:39 Normal Saline - IV Not Given ASDIR ALEXANDRA Insulin Aspart 1 vial 07/08/18 07:00 07/23/18 06:21 Novolog Vial Sliding Scale - SQ Not Given ACHS [facility] Protocol Insulin Detemir 5 units 07/11/18 22:00 07/22/18 21:39 Levemir Vial SQ 5 units HS ALEXANDRA Administration Lisinopril 10 mg 07/16/18 08:02 07/23/18 09:11 Prinivil PO 10 mg DAILY ALEXANDRA Administration Morphine Sulfate 4 mg 07/18/18 14:15 07/22/18 21:36 Morphine Sulfate IVPUSH 4 mg Q4H PRN Administration PAIN LEVEL 7 - 10 Oxycodone HCl 5 mg 07/18/18 14:16 07/23/18 05:57 Roxicodone - PO 5 mg Q4H PRN Administration PAIN LEVEL 4 - 6 Zolpidem Tartrate 5 mg 07/19/18 22:00 07/22/18 21:38 Ambien - PO 5 mg HS PRN Administration INSOMNIA ASSESSMENT/PLAN: Sepsis 07/07 to Klebsiella Bactermia Liver abscess s/p IR drainage 07/11/18 and drain manipulation 07/20 Hepatic Vein thrombosis T2DM HTN HLD Iron deficiency anemia Hypoalbuminemia 07/07 to malnutrition vs. hepatic dysfunction --BCx and fluid Cx noted to have Klebsiella positive result --ID on board --Zosyn day 14 (total day 15 ABX) --Afebrile overnight! --Continue Morphine 4mg q4h and Oxy 5mg q4h for DOMENICA drain site pain --CT scan abdomen noncontrast for tomorrow --Based upon CT scan will go to IR for possible abscess drain manipulation and possible pleural fluid drainage/catheter --Once pt back from procedure can start Heparin gtt for therapeutic AC with anticipation of catheter removal in subsequent 24hrs --GI on board - Recommended Colonoscopy once infection resolved due to prevalence of malignancy with these constellation of symptoms --Etiology unclear for thrombosis --Holding Lovenox 80mg BID for IR procedure --Monitor for signs of bleeding and platelets --Hem/Onc on board --A1c this admission 11.2 --Continue Levemir 5U HS and ISS --BGM ACHS --Continue Lisinopril 10mg qdaily --Resume statin after acute problems resolve; previously pt stopped and not restarted due to transaminitis (now resolved) --Monitor H/H --Continue Iron supplementation FEN: Fluids: NS@75cc/hr Electrolyte abnormalities: Lab vacation today; BMP tomorrow Nutrition: Diabetic and sodium controlled diet PPX: DVT - Holding Lovenox dose tonight for possible IR procedure Dispo: Pending abx and DOMENICA drain long-term plans Case discussed with Dr. Samy Lozano, DO - IM PGY-2 Visit type - Emergency Visit Emergency Visit: Yes ED Registration Date: 07/08/18 Care time: The patient presented to the Emergency Department on the above date and was hospitalized for further evaluation of their emergent condition. - New Patient This patient is new to me today: No - Critical Care Critical Care patient: No
--- NOTE | 2018-07-23 09:20 | PN ---
Progress Note, Physician History of Present Illness: continues to spike fever drain still draining shawn abscess also leaking by the side of the tube growing klmaximebsella again - Current Medication List Current Medications: Active Medications Acetaminophen (Tylenol -) 650 mg PO Q4H PRN PRN Reason: FEVER Last Admin: 07/23/18 01:34 Dose: 650 mg Enoxaparin Sodium (Lovenox -) 80 mg SQ BID [facility] Last Admin: 07/23/18 09:11 Dose: 80 mg Ferrous Gluconate (Fergon -) 324 mg PO DAILY [facility] Last Admin: 07/23/18 09:11 Dose: 324 mg Piperacillin Sod/Tazobactam (Sod 3.375 gm/ Dextrose) 50 mls @ 100 mls/hr IVPB Q8H-IV [facility]; Protocol Last Admin: 07/23/18 09:11 Dose: 100 mls/hr Sodium Chloride (Normal Saline -) 1,000 mls @ 75 mls/hr IV ASDIR [facility] Last Admin: 07/22/18 18:39 Dose: Not Given Insulin Aspart (Novolog Vial Sliding Scale -) 1 vial SQ ACHS [facility]; Protocol Last Admin: 07/23/18 06:21 Dose: Not Given Insulin Detemir (Levemir Vial) 5 units SQ HS [facility] Last Admin: 07/22/18 21:39 Dose: 5 units Lisinopril (Prinivil) 10 mg PO DAILY [facility] Last Admin: 07/23/18 09:11 Dose: 10 mg Morphine Sulfate (Morphine Sulfate) 4 mg IVPUSH Q4H PRN PRN Reason: PAIN LEVEL 7 - 10 Last Admin: 07/22/18 21:36 Dose: 4 mg Oxycodone HCl (Roxicodone -) 5 mg PO Q4H PRN PRN Reason: PAIN LEVEL 4 - 6 Last Admin: 07/23/18 05:57 Dose: 5 mg Zolpidem Tartrate (Ambien -) 5 mg PO HS PRN PRN Reason: INSOMNIA Last Admin: 07/22/18 21:38 Dose: 5 mg - Objective Vital Signs: Vital Signs Temperature 98.8 F 07/23/18 06:00 Pulse Rate 83 07/23/18 06:00 Respiratory Rate 20 07/23/18 06:00 Blood Pressure 130/76 07/23/18 06:00 O2 Sat by Pulse Oximetry (%) 99 07/22/18 09:00 Constitutional: Yes: No Distress, Calm Cardiovascular: Yes: Regular Rate and Rhythm Respiratory: Yes: Regular, CTA Bilaterally Gastrointestinal: Yes: Normal Bowel Sounds, Soft, Other (drain in place--abscess --leaking around the tube) Musculoskeletal: Yes: WNL Extremities: Yes: WNL Neurological: Yes: Alert, Oriented Psychiatric: Yes: Alert, Oriented Labs: CBC, BMP 07/21/18 06:00 07/22/18 06:30 INR, PTT INR 1.11 (0.83-1.09) H 07/20/18 05:25 Assessment/Plan 58 y.o. male with DM, HTN, HLD presenting with complaints of fever/chills, epigastric pain/n/v/d x several days noted to have fever, leukocytosis, tachycardia, and hyponatremia. Sepsis Abd Pain/Diarrhea Fever Leukocytosis gm negative bacteremia liver abscess thrombosed hepatic vein patient continues to spike fever plan will continue abx watch drainage monitor fevers await for repeat cx reports
[2018-07-23] MEDS: morphine SULFATE 4 MG/ML VIAL IVPUSH PRN ×2 (11:59→18:13)
--- NOTE | 2018-07-23 16:55 | PN ---
GI Progress Note Subjective: Laying in bed, appears comfortable Still with low grade temps S/P Thoracentesis. Culture from pleural fluid = Klebsiella Turbid / purulent bilious fluid noted from drain - Objective Vital Signs: Vital Signs Temperature 98.1 F 07/23/18 14:58 Pulse Rate 83 07/23/18 14:58 Respiratory Rate 20 07/23/18 14:58 Blood Pressure 151/80 07/23/18 14:58 O2 Sat by Pulse Oximetry (%) 99 07/23/18 09:00 Constitutional: Calm Eyes: No: Sclera Icterus Cardiovascular: Yes: Regular Rate and Rhythm Respiratory: Yes: Diminished (at right base) Gastrointestinal Inspection: No: Distention ...Auscultate: Yes: Normoactive Bowel Sounds ...Palpate: No: Hepatomegaly, Splenomegaly, Tenderness ...Percussion: No: Tympanitic Edema: No (No LE edema) Neurological: Yes: Alert Labs: CBC, BMP 07/21/18 06:00 07/22/18 06:30 INR, PTT INR 1.11 (0.83-1.09) H 07/20/18 05:25 Hepatic Panel Total Bilirubin 0.2 mg/dL (0.2-1) 07/21/18 06:00 Direct Bilirubin 0.1 mg/dL (0.0-0.2) 07/19/18 08:00 AST 55 U/L (15-37) H 07/21/18 06:00 ALT 51 U/L (13-61) 07/21/18 06:00 Alkaline Phosphatase 175 U/L (45-117) H 07/21/18 06:00 Albumin 1.9 g/dl (3.4-5.0) L 07/21/18 06:00 Problem List - Problems (1) Pyogenic liver abscess Assessment/Plan: With right lung empyema ID following. Abx per ID Code(s): K75.0 - ABSCESS OF LIVER
--- NOTE | 2018-07-23 17:53 | PN ---
Teaching Attending Note Name of Resident: Marquise Lozano ATTENDING PHYSICIAN STATEMENT I saw and evaluated the patient. I reviewed the resident's note and discussed the case with the resident. I agree with the resident's findings and plan as documented. SUBJECTIVE: Ongoing diffuse R flank discomfort. No further diarrhea. Low grade fevers. No cough/sputum. No dysuria/hematuria. Tolerating oral intake - no nausea/vomiting. OBJECTIVE: Tmax overnight 100.2. Hemodynamically Stable. Last Vital Signs Temp Pulse Resp BP Pulse Ox 98.1 F 83 20 151/80 99 07/23/18 14:58 07/23/18 14:58 07/23/18 14:58 07/23/18 14:58 07/23/18 09:00 Heart - S1, S2, RRR Lungs - Good air entry - much improved. Abdomen - Soft, non-tender anterior abdomen. R flank area tenderness in region of posterior DOMENICA drain with thick purulent material in tubing, dressing over tube entry/thoracentesis site soaked with sanguinous fluid. Extremities - no edema. Some venous stasis changes. No calf swelling/tenderness Neuro - AAO x3. Tone/Power normal all 4 extremities. Laboratory Results - last 24 hr 07/22/18 07/23/18 07/23/18 21:07 06:01 12:40 POC Glucometer 179 103 181 Current Medications Generic Name Dose Route Start Last Admin Trade Name Freq PRN Reason Stop Dose Admin Acetaminophen 650 mg 07/10/18 13:27 07/23/18 01:34 Tylenol - PO 650 mg Q4H PRN Administration FEVER Ferrous Gluconate 324 mg 07/13/18 11:00 07/23/18 09:11 Fergon - PO 324 mg DAILY ALEXANDRA Administration Piperacillin Sod/Tazobactam 50 mls @ 100 mls/hr 07/10/18 18:00 07/23/18 09:11 Sod 3.375 gm/ Dextrose IVPB 100 mls/hr Q8H-IV ALEXANDRA Administration Protocol Sodium Chloride 1,000 mls @ 75 mls/hr 07/18/18 17:00 07/22/18 18:39 Normal Saline - IV Not Given ASDIR ALEXANDRA Insulin Aspart 1 vial 07/08/18 07:00 07/23/18 17:44 Novolog Vial Sliding Scale - SQ 1 units ACHS ALEXANDRA Administration Protocol Insulin Detemir 5 units 07/11/18 22:00 02/17/19 21:39 Levemir Vial SQ 5 units HS ALEXANDRA Administration Lisinopril 10 mg 07/16/18 08:02 07/23/18 09:11 Prinivil PO 10 mg DAILY ALEXANDRA Administration Morphine Sulfate 4 mg 07/18/18 14:15 07/23/18 11:59 Morphine Sulfate IVPUSH 4 mg Q4H PRN Administration PAIN LEVEL 7 - 10 Oxycodone HCl 5 mg 07/18/18 14:16 07/23/18 14:22 Roxicodone - PO 5 mg Q4H PRN Administration PAIN LEVEL 4 - 6 Zolpidem Tartrate 5 mg 07/19/18 22:00 07/22/18 21:38 Ambien - PO 5 mg HS PRN Administration INSOMNIA ASSESSMENT AND PLAN: 58 year old male with history of HTN, HLD, DM 2 with neuropathy, presented with 4 day history of watery diarrhea, fevers, nausea - no vomiting/melena/ hematochezia, found to have Klebsiella bacteremia and liver abscess on abdominal imaging. 1. Sepsis secondary to Klebsiella Bacteremia with Liver Abscess as source s/p IR guided drainage 07/11/18 with 10cc of purulence removed. Blood Cx and Abscess fluid Cx positive for Klebsiella. DOMENICA drain in situ s/p manipulation/re-positioning 07/20 s/p Pleural tap 07/20 - Cx positive for Klebsiella Ongoing low grade fever ID following - opinion that fever is non-infectious but rather related to thrombosis. Sent another repeat BCx (negative), Flu negative, Urine Cx (negative), and Stool Cdiff negative Repeat CT A/P - decreased size of abscess, ongoing hepatic vein thrombus, retroperitoneal lymphadenopathy. Imaging shows much improved R sided pleural effusion and L sided atelectasis. Still on Zosyn - continue as per ID Analgesic relief at drain site/R flank with IV MS/Roxicodone. GI following. IR Plan (as discussed with Dr. Guerra) Repeat CT A/P 07/24/18 with repositioning/removal of DOMENICA drain and possible Chest tube. Lovenox held for procedure. 2. Hepatic Vein Thrombosis - etiology unclear Lovenox resumed after IR guided procedures (thoracentesis and drain manipulation ) 07/20/18 - will be held again this oleg for IR procedure 07/24 Hem/Onc consulted for possible Hypercoagulable state - for out-patient follow up. Will eventually need further GI work-up as out-patient for endoscopies to eliminate malignancy. 3. DM 2 - Uncontrolled, A1C 11.2, continue Levemir and Sliding Scale. 4. HTN - Continue Lisinopril 5. HLD - Previously on Statin, self-stopped. Not started on this admission due to initial transaminitis, now resolved. Can resume after acute illness. 6. Retroperitoneal lymph nodes - likely reactive due to infection. For repeat CT /MRI in 3 months to ensure resolution. 7. Iron Deficiency Anemia - Low Iron and Iron Saturation. Will need GI work-up as out-patient. Iron supplementation ongoing. 8. Thrombocytosis, reactive versus due to iron deficiency - for iron replacement and recheck in 2 weeks with Hematology out-patient follow up to exclude myeloproliferative disorder. 9. Hyponatremia, likely secondary to hypovolemia due to fevers and decreased oral fluid intake - resolved with IV normal saline hydration. 10, Hypoalbuminemia - Albumin 1.6 - sec to malnutrition + ?hepatic dysfunction - for nutrition eval for protein/dietary supplementation. DVT Px - on treatment dose Lovenox for hepatic vein thrombosis.
[2018-07-23] MEDS ORDERED: INSULIN (NOVOLOG) ASPART 100 UNITS/ML 10ML VIAL ONE (20:19)
[2018-07-23] MEDS: INSULIN (LEVEMIR) 100 UNITS/ML UNITS SQ SCH (21:16)
[2018-07-23] MEDS: ZOLPIDEM TARTRATE 5 MG TABLET PO PRN (21:17)
[2018-07-24] MEDS: PIPERACILLIN/TAZOB 3.375 GM 3.375 GM in DEXTROSE 5%-WATER - 50 ML IVPB SCH ×3 (02:05→17:37)
[2018-07-24] MEDS: oxyCODONE HCL 5 MG TABLET PO PRN (02:05)
[2018-07-24] MEDS ORDERED: PIPERACILLIN/TAZOBACTAM 3.375 GM VIAL IVPB ONE ×3 (02:07→17:34)
[2018-07-24] MEDS ORDERED: DEXTROSE 5%-WATER - 50 ML IVPB ONE ×3 (02:08→17:34)
[2018-07-24] MEDS: SODIUM CHLORIDE 1,000 ML IV SCH (05:43)
[2018-07-24] MEDS: INSULIN SLIDING SCALE (NOVOLOG) 1 VIAL SQ SCH ×4 (06:14→21:40)
[2018-07-24 07:33] LABS: HEMATOCRIT 30.2 % (35.4-49); HEMOGLOBIN 10.5 GM/dL (11.7-16.9); MCH 30.5 pg (25.7-33.7); MCHC 34.8 g/dl (32.0-35.9); MEAN CELL VOLUME 87.5 fl (80-96); MEAN PLT VOLUME 6.7 fl (7.5-11.1); PLATELET COUNT 411 K/MM3 (134-434); RBC 3.45 M/mm3 (4.00-5.60); RDW 13.1 % (11.9-15.9); WHITE BLOOD COUNT 3.9 K/mm3 (4.0-10.0)
[2018-07-24 07:44] LABS: INR 1.09 (0.83-1.09); PROTHROMBIN TIME (PATIENT) 12.9 SEC (9.7-13.0)
[2018-07-24 08:02] LABS: ANION GAP 6 MMOL/L (8-16); BLOOD UREA NITROGEN 9 mg/dL (7-18); CALCIUM 7.7 mg/dL (8.5-10.1); CHLORIDE 106 mmol/L (98-107); CO2 26 mmol/L (21-32); CREATININE 1.1 mg/dL (0.55-1.3); GLUCOSE,RANDOM 89 mg/dL (74-106); POTASSIUM 4.3 mmol/L (3.5-5.1); SODIUM 137 mmol/L (136-145)
--- NOTE | 2018-07-24 08:34 | PN ---
Physical Exam: SUBJECTIVE: Patient seen and examined at bedside. Temp to 100.1 at 1:30 am , afebrile since. Pain improving. No further n/v/d. Affirms improving appetite. OBJECTIVE: Vital Signs Period Temp Pulse Resp BP Sys/Negron Pulse Ox Last 24 Hr 98.1 F-98.8 F 71-90 18-20 139-159/76-87 99 GENERAL: A&Ox3, NAD HEENT: NC/AT, PERRLA, EOMI, anicteric sclera NECK: Trachea midline, full range of motion, supple. LUNGS: CTA b/l HEART: RRR no m/r/g ABDOMEN: soft, DOMENICA drain with purulent fluid drained 30cc yesterday, improving right-sided TTP upper>lower most prominent posteriorly and extending superiorly to diaphragm EXTREMITIES: 2+ pulses, warm, well-perfused, no edema. 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 PSYCH: Depressed mood Laboratory Results - last 24 hr 07/23/18 07/23/18 07/23/18 12:40 17:42 21:06 WBC RBC Hgb Hct MCV MCH MCHC RDW Plt Count MPV PT with INR INR Sodium Potassium Chloride Carbon Dioxide Anion Gap BUN Creatinine Creat Clearance w eGFR POC Glucometer 181 178 174 Random Glucose Calcium 07/24/18 07/24/18 07/24/18 05:30 05:30 05:30 WBC 3.9 L RBC 3.45 L Hgb 10.5 L Hct 30.2 L MCV 87.5 MCH 30.5 MCHC 34.8 RDW 13.1 Plt Count 411 MPV 6.7 L PT with INR 12.90 INR 1.09 Sodium 137 Potassium 4.3 Chloride 106 Carbon Dioxide 26 Anion Gap 6 L BUN 9 Creatinine 1.1 Creat Clearance w eGFR > 60 POC Glucometer Random Glucose 89 Calcium 7.7 L 07/24/18 05:50 WBC RBC Hgb Hct MCV MCH MCHC RDW Plt Count MPV PT with INR INR Sodium Potassium Chloride Carbon Dioxide Anion Gap BUN Creatinine Creat Clearance w eGFR POC Glucometer 101 Random Glucose Calcium Active Medications Generic Name Dose Route Start Last Admin Trade Name Freq PRN Reason Stop Dose Admin Acetaminophen 650 mg 07/10/18 13:27 07/23/18 01:34 Tylenol - PO 650 mg Q4H PRN Administration FEVER Ferrous Gluconate 324 mg 07/13/18 11:00 07/23/18 09:11 Fergon - PO 324 mg DAILY ALEXANDRA Administration Piperacillin Sod/Tazobactam 50 mls @ 100 mls/hr 07/10/18 18:00 07/24/18 02:05 Sod 3.375 gm/ Dextrose IVPB 100 mls/hr Q8H-IV ALEXANDRA Administration Protocol Sodium Chloride 1,000 mls @ 75 mls/hr 07/18/18 17:00 07/24/18 05:43 Normal Saline - IV 75 mls/hr ASDIR ALEXANDRA Administration Insulin Aspart 1 vial 07/08/18 07:00 07/24/18 06:14 Novolog Vial Sliding Scale - SQ Not Given ACHS [facility] Protocol Insulin Detemir 5 units 07/11/18 22:00 07/23/18 21:16 Levemir Vial SQ 5 units HS ALEXANDRA Administration Lisinopril 10 mg 07/16/18 08:02 07/23/18 09:11 Prinivil PO 10 mg DAILY ALEXANDRA Administration Morphine Sulfate 4 mg 07/18/18 14:15 07/23/18 18:13 Morphine Sulfate IVPUSH 4 mg Q4H PRN Administration PAIN LEVEL 7 - 10 Oxycodone HCl 5 mg 07/18/18 14:16 07/24/18 02:05 Roxicodone - PO 5 mg Q4H PRN Administration PAIN LEVEL 4 - 6 Zolpidem Tartrate 5 mg 07/19/18 22:00 07/23/18 21:17 Ambien - PO 5 mg HS PRN Administration INSOMNIA ASSESSMENT/PLAN: 58 y/o M w/ PMHx HTN, HLD, DM admitted for sepsis 2/2 Klebsiella bacteremia and liver abscess, complicated by interval development of RLL empyema #empyema -R pleural effusion was tapped on Monday, pleural fluid grew Klebsiella -repeat CT pending -IR replaced abscess catheter and placed chest tube, now started on heparin gtt #Sepsis 2/2 to Klebisella bacteremia and liver abscess -fever curve improving -cont Zosyn day 15 -DOMENICA drain in place w/ minimal purulent drainage -will need outpt colon Ca surveillance given increased risk in setting of Klebsiella bacteremia and liver abscess -GI following -ID following -repeat CT abd pending for further assessment of abscess and empyema #Hepatic vein thrombosis -heme/onc following, recommends AC unless significant bleeding results and outpt f/u -holding Lovenox pending IR intervention -Oxy and morphine PRN per pain scale -repeat CT a/p showing decreased abscess size, no change in HVT, increased R pleural effusion, new L pleural effusion #hypervolemic hyponatremia -improving -monitor Na #HLD -hold statin given recently resolved transaminitis #HTN -cont lisinopril #DM -SSI, Levemir 5U HS, BGM ACHS -Pt's A1c this admission 11.2% -Will need recheck in 3 mo with insulin regiment on board #iron deficiency anemia -cont iron supplementation -repeat iron studies as outpt #FEN: -no IVF -monitor and correct electrolytes -diabetic/sodium diet #PPX: -DVT: heparin gtt -GI: not indicated #code -full #dispo -continue monitoring on med/surg Visit type - Emergency Visit Emergency Visit: No - New Patient This patient is new to me today: No - Critical Care Critical Care patient: No
--- NOTE | 2018-07-24 12:19 | PN ---
Progress Note, Physician History of Present Illness: continue to spike fever still a lot of drainage - Current Medication List Current Medications: Active Medications Acetaminophen (Tylenol -) 650 mg PO Q4H PRN PRN Reason: FEVER Last Admin: 07/23/18 01:34 Dose: 650 mg Ferrous Gluconate (Fergon -) 324 mg PO DAILY [facility] Last Admin: 07/23/18 09:11 Dose: 324 mg Piperacillin Sod/Tazobactam (Sod 3.375 gm/ Dextrose) 50 mls @ 100 mls/hr IVPB Q8H-IV ALEXANDRA; Protocol Last Admin: 07/24/18 02:05 Dose: 100 mls/hr Sodium Chloride (Normal Saline -) 1,000 mls @ 75 mls/hr IV ASDIR [facility] Last Admin: 07/24/18 05:43 Dose: 75 mls/hr Insulin Aspart (Novolog Vial Sliding Scale -) 1 vial SQ ACHS [facility]; Protocol Last Admin: 07/24/18 06:14 Dose: Not Given Insulin Detemir (Levemir Vial) 5 units SQ HS [facility] Last Admin: 07/23/18 21:16 Dose: 5 units Lisinopril (Prinivil) 10 mg PO DAILY [facility] Last Admin: 07/23/18 09:11 Dose: 10 mg Morphine Sulfate (Morphine Sulfate) 4 mg IVPUSH Q4H PRN PRN Reason: PAIN LEVEL 7 - 10 Last Admin: 07/23/18 18:13 Dose: 4 mg Oxycodone HCl (Roxicodone -) 5 mg PO Q4H PRN PRN Reason: PAIN LEVEL 4 - 6 Last Admin: 07/24/18 02:05 Dose: 5 mg Zolpidem Tartrate (Ambien -) 5 mg PO HS PRN PRN Reason: INSOMNIA Last Admin: 07/23/18 21:17 Dose: 5 mg - Objective Vital Signs: Vital Signs Temperature 98.4 F 07/24/18 10:00 Pulse Rate 84 07/24/18 10:00 Respiratory Rate 20 07/24/18 10:00 Blood Pressure 146/82 07/24/18 10:00 O2 Sat by Pulse Oximetry (%) 99 07/24/18 09:00 Constitutional: Yes: Calm, Mild Distress HENT: Yes: Atraumatic, Normocephalic Neck: Yes: Supple Cardiovascular: Yes: Regular Rate and Rhythm Respiratory: Yes: Regular, CTA Bilaterally Gastrointestinal: Yes: Normal Bowel Sounds, Soft, Other (drain in place with abscess draining) Extremities: Yes: WNL Neurological: Yes: Alert, Oriented Psychiatric: Yes: Alert, Oriented Labs: CBC, BMP 07/24/18 05:30 07/24/18 05:30 INR, PTT INR 1.09 (0.83-1.09) 07/24/18 05:30 Assessment/Plan 58 y.o. male with DM, HTN, HLD presenting with complaints of fever/chills, epigastric pain/n/v/d x several days noted to have fever, leukocytosis, tachycardia, and hyponatremia. Sepsis Abd Pain/Diarrhea Fever Leukocytosis gm negative bacteremia liver abscess thrombosed hepatic vein patient continues to spike fever plan cx report noted continue abx drain might have to be changed rest as per the team
[2018-07-24] MEDS: FERROUS GLUCONATE 324 MG TAB (FP) PO SCH (13:07)
[2018-07-24] MEDS: LISINOPRIL 10 MG TABLET (FP) PO SCH (13:08)
--- NOTE | 2018-07-24 13:33 | PN ---
Teaching Attending Note Name of Resident: Branden Mars ATTENDING PHYSICIAN STATEMENT I reviewed the resident's note and discussed the case with the resident. I agree with the resident's findings and plan as documented. SUBJECTIVE: OBJECTIVE: Last Vital Signs Temp Pulse Resp BP Pulse Ox 98.4 F 84 20 146/82 99 07/24/18 10:00 07/24/18 10:00 07/24/18 10:00 07/24/18 10:00 07/24/18 09:00 ASSESSMENT AND PLAN: 58 year old male with HTN, HLD, DM 2 with neuropathy, presented with 4 day history of watery diarrhea, fevers, nausea - no vomiting/melena/hematochezia, found to have Gram neg bacteremia and liver mass/abscess on abdominal imaging. 1. Sepsis sec to klebsiella Bacteremia due to Liver Abscess-afebrile 24H. plan to repeat CT today to determine if DOMENICA can be removed. also will f/u pleural effusion which is also + Klebsiella. awaiting on cytology. on zosyn day 15. will determine further treatment based on repeat imaging today.will need colonoscopy in the future to r/o colorectal cancer as high association. GI and ID on board. 2. 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 on full dose lovenox. held this AM dose due to possible procedure. will re-start at IR discretion. f/u heme as outpatient 3. Hypervolemia Hyponatremia-resolved 4. Transaminitis- likely due to abscess and sepsis. resolved. hep serologies pending 5. Normocytic anemia- +iron def anemia. s/p venofer treatment. repeat iron studies in 3 months. no indication for txn. no signs of bleeding 6. DM 2 - A1c 11.2. titrate levemir to optimize control. cont ISS and BGM. 7. HTN-improve. cont to titrate as needed. 8. dyslipidemia- stated he was on statin in past but d/c himself. should have dietary/lifestyle changes and Lipid panel checked in 3 months to assess if needs statin therapy. would hold this time in setting of acute transaminitis. 9.DVT Px -full dose lovenox, currently on hold for possible procedure
[2018-07-24] MEDS: morphine SULFATE 4 MG/ML VIAL IVPUSH PRN (14:12)
[2018-07-24] MEDS ORDERED: HEPARIN NA (PORCINE) 5,000 UNITS/ML 1ML VIAL IVPUSH PRN ×2 (15:34)
[2018-07-24] MEDS: HEPARIN - 25,000 UNIT in SODIUM CHLORIDE 495 ML IV SCH (18:27)
[2018-07-24] MEDS: ACETAMINOPHEN 325 MG TABLET (FP) PO PRN (19:11)
[2018-07-24] MEDS: INSULIN (LEVEMIR) 100 UNITS/ML UNITS SQ SCH (21:41)
[2018-07-25] MEDS: morphine SULFATE 4 MG/ML VIAL IVPUSH PRN ×2 (00:14→06:00)
[2018-07-25] MEDS ORDERED: PIPERACILLIN/TAZOBACTAM 3.375 GM VIAL IVPB ONE ×5 (00:57→21:52)
[2018-07-25] MEDS ORDERED: DEXTROSE 5%-WATER - 50 ML IVPB ONE ×5 (00:58→21:52)
[2018-07-25] MEDS: PIPERACILLIN/TAZOB 3.375 GM 3.375 GM in DEXTROSE 5%-WATER - 50 ML IVPB SCH ×3 (01:05→17:07)
[2018-07-25] MEDS: INSULIN SLIDING SCALE (NOVOLOG) 1 VIAL SQ SCH ×4 (06:00→22:04)
[2018-07-25] MEDS: SODIUM CHLORIDE 1,000 ML IV SCH ×3 (06:28→23:19)
[2018-07-25 06:55] LABS: BASO % 0.5 % (0-2.0); HEMATOCRIT 30.3 % (35.4-49); HEMOGLOBIN 10.5 GM/dL (11.7-16.9); MCHC 34.7 g/dl (32.0-35.9); MEAN CELL VOLUME 86.4 fl (80-96); MEAN PLT VOLUME 6.3 fl (7.5-11.1); MONO % 9.9 % (3.8-10.2); NEUT % 76.6 % (42.8-82.8); PLATELET COUNT 418 K/MM3 (134-434); RBC 3.51 M/mm3 (4.00-5.60); RDW 12.9 % (11.9-15.9); WHITE BLOOD COUNT 6.9 K/mm3 (4.0-10.0)
[2018-07-25 07:22] LABS: ALBUMIN 1.8 g/dl (3.4-5.0); ALK PHOS 148 U/L (45-117); ANION GAP 7 MMOL/L (8-16); BILIRUBIN,TOTAL 0.2 mg/dL (0.2-1); BLOOD UREA NITROGEN 10 mg/dL (7-18); CALCIUM 7.4 mg/dL (8.5-10.1); CHLORIDE 103 mmol/L (98-107); CO2 24 mmol/L (21-32); CREATININE 1.1 mg/dL (0.55-1.3); GLUCOSE,RANDOM 132 mg/dL (74-106); MAGNESIUM 1.8 mg/dL (1.8-2.4); PHOSPHOROUS 2.8 mg/dL (2.5-4.9); POTASSIUM 3.9 mmol/L (3.5-5.1); SGOT/AST 22 U/L (15-37); SGPT/ALT 35 U/L (13-61); SODIUM 134 mmol/L (136-145); TOT PROT 5.8 g/dl (6.4-8.2)
[2018-07-25 07:48] LABS: INR 1.18 (0.83-1.09)
[2018-07-25 07:50] LABS: ACTIVATED PTT 45.8 SECONDS (25.2-36.5)
--- NOTE | 2018-07-25 08:36 | PN ---
Progress Note, Physician History of Present Illness: does not feel too good still spiked fever chest tube still draining now on heparin drip - Current Medication List Current Medications: Active Medications Acetaminophen (Tylenol -) 650 mg PO Q4H PRN PRN Reason: FEVER Last Admin: 07/24/18 19:11 Dose: 650 mg Ferrous Gluconate (Fergon -) 324 mg PO DAILY [facility] Last Admin: 07/24/18 13:07 Dose: 324 mg Heparin Sodium (Porcine) (Heparin -) 1,000 unit IVPUSH PRN PRN PRN Reason: Heparin Heparin Sodium (Porcine) (Heparin -) 5,000 unit IVPUSH PRN PRN PRN Reason: Heparin Piperacillin Sod/Tazobactam (Sod 3.375 gm/ Dextrose) 50 mls @ 100 mls/hr IVPB Q8H-IV ALEXANDRA; Protocol Last Admin: 07/25/18 01:05 Dose: 100 mls/hr Sodium Chloride (Normal Saline -) 1,000 mls @ 75 mls/hr IV ASDIR [facility] Last Admin: 07/25/18 06:28 Dose: 75 mls/hr Heparin Sodium (Porcine) 25, (000 unit/ Sodium Chloride) 500 mls @ 20 mls/hr IV TITR ALEXANDRA; Protocol Last Titration: 07/25/18 01:31 Dose: 1,100 unit/hr, 22 mls/hr Insulin Aspart (Novolog Vial Sliding Scale -) 1 vial SQ ACHS [facility]; Protocol Last Admin: 07/25/18 06:00 Dose: 1 units Insulin Detemir (Levemir Vial) 5 units SQ HS [facility] Last Admin: 07/24/18 21:41 Dose: 5 units Lisinopril (Prinivil) 10 mg PO DAILY [facility] Last Admin: 07/24/18 13:08 Dose: 10 mg Morphine Sulfate (Morphine Sulfate) 4 mg IVPUSH Q4H PRN PRN Reason: PAIN LEVEL 7 - 10 Last Admin: 07/25/18 06:00 Dose: 4 mg Oxycodone HCl (Roxicodone -) 5 mg PO Q4H PRN PRN Reason: PAIN LEVEL 4 - 6 Last Admin: 07/24/18 02:05 Dose: 5 mg Zolpidem Tartrate (Ambien -) 5 mg PO HS PRN PRN Reason: INSOMNIA Last Admin: 02/18/19 21:17 Dose: 5 mg - Objective Vital Signs: Vital Signs Temperature 98.8 F 07/25/18 06:19 Pulse Rate 84 07/25/18 06:19 Respiratory Rate 20 07/25/18 06:19 Blood Pressure 128/65 07/25/18 06:19 O2 Sat by Pulse Oximetry (%) 95 07/24/18 21:19 Constitutional: Yes: No Distress, Calm Eyes: Yes: Conjunctiva Clear, EOM Intact Cardiovascular: Yes: Regular Rate and Rhythm Respiratory: Yes: Regular, CTA Bilaterally Gastrointestinal: Yes: Normal Bowel Sounds, Soft Musculoskeletal: Yes: WNL Extremities: Yes: WNL Neurological: Yes: Alert, Oriented Psychiatric: Yes: Alert, Oriented Labs: CBC, BMP 07/25/18 05:40 07/25/18 05:40 INR, PTT INR 1.18 (0.83-1.09) H 07/25/18 05:41 Assessment/Plan 58 y.o. male with DM, HTN, HLD presenting with complaints of fever/chills, epigastric pain/n/v/d x several days noted to have fever, leukocytosis, tachycardia, and hyponatremia. Sepsis Abd Pain/Diarrhea Fever Leukocytosis gm negative bacteremia liver abscess thrombosed hepatic vein patient continues to spike fever plan continue abx await for cx reports rest as per the team nutrition
--- NOTE | 2018-07-25 08:51 | PN ---
Physical Exam: SUBJECTIVE: Patient seen and examined at bedside. Fever to 101.3 following chest tube placement yesterday. Significant post-procedural nausea vomiting since resolved. New complaint of R-sided pleuritic pain; pneumothorax was noted after chest tube placement. Otherwise pain well controlled. OBJECTIVE: Vital Signs Period Temp Pulse Resp BP Sys/Negron Pulse Ox Last 24 Hr 98.4 F-101.3 F 84-101 20-20 128-155/65-86 95-99 GENERAL: A&Ox3, NAD HEENT: NC/AT, PERRLA, EOMI, anicteric sclera NECK: Trachea midline, full range of motion, supple. LUNGS: CTA b/l HEART: RRR no m/r/g ABDOMEN: soft, posterior tenderness, DOMENICA drain minimal with purulent fluid, chest tube in place c/d/i EXTREMITIES: 2+ pulses, warm, well-perfused, no edema. 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 PSYCH: Depressed mood Laboratory Results - last 24 hr 07/24/18 07/24/18 07/24/18 13:25 16:51 21:38 WBC RBC Hgb Hct MCV MCH MCHC RDW Plt Count MPV Absolute Neuts (auto) Neutrophils % Lymphocytes % Monocytes % Eosinophils % Basophils % Nucleated RBC % PT with INR INR PTT (Actin FS) Sodium Potassium Chloride Carbon Dioxide Anion Gap BUN Creatinine Creat Clearance w eGFR POC Glucometer 174 265 186 Random Glucose Calcium Phosphorus Magnesium Total Bilirubin AST ALT Alkaline Phosphatase Total Protein Albumin 07/25/18 07/25/18 07/25/18 00:01 05:35 05:40 WBC 6.9 RBC 3.51 L Hgb 10.5 L Hct 30.3 L MCV 86.4 MCH 30.0 MCHC 34.7 RDW 12.9 Plt Count 418 MPV 6.3 L Absolute Neuts (auto) 5.3 Neutrophils % 76.6 Lymphocytes % 12.0 D Monocytes % 9.9 D Eosinophils % 1.0 Basophils % 0.5 Nucleated RBC % 0 PT with INR INR PTT (Actin FS) 40.5 H Sodium Potassium Chloride Carbon Dioxide Anion Gap BUN Creatinine Creat Clearance w eGFR POC Glucometer 154 Random Glucose Calcium Phosphorus Magnesium Total Bilirubin AST ALT Alkaline Phosphatase Total Protein Albumin 07/25/18 07/25/18 05:40 05:41 WBC RBC Hgb Hct MCV MCH MCHC RDW Plt Count MPV Absolute Neuts (auto) Neutrophils % Lymphocytes % Monocytes % Eosinophils % Basophils % Nucleated RBC % PT with INR 14.00 H INR 1.18 H PTT (Actin FS) 45.8 H Sodium 134 L Potassium 3.9 Chloride 103 Carbon Dioxide 24 Anion Gap 7 L BUN 10 Creatinine 1.1 Creat Clearance w eGFR > 60 POC Glucometer Random Glucose 132 H Calcium 7.4 L Phosphorus 2.8 Magnesium 1.8 Total Bilirubin 0.2 AST 22 ALT 35 Alkaline Phosphatase 148 H Total Protein 5.8 L Albumin 1.8 L Active Medications Generic Name Dose Route Start Last Admin Trade Name Freq PRN Reason Stop Dose Admin Acetaminophen 650 mg 07/10/18 13:27 07/24/18 19:11 Tylenol - PO 650 mg Q4H PRN Administration FEVER Ferrous Gluconate 324 mg 07/13/18 11:00 07/24/18 13:07 Fergon - PO 324 mg DAILY ALEXANDRA Administration Heparin Sodium (Porcine) 1,000 unit 07/24/18 15:34 Heparin - IVPUSH PRN PRN Heparin Heparin Sodium (Porcine) 5,000 unit 07/24/18 15:34 Heparin - IVPUSH PRN PRN Heparin Piperacillin Sod/Tazobactam 50 mls @ 100 mls/hr 07/10/18 18:00 07/25/18 01:05 Sod 3.375 gm/ Dextrose IVPB 100 mls/hr Q8H-IV ALEXANDRA Administration Protocol Sodium Chloride 1,000 mls @ 75 mls/hr 07/18/18 17:00 07/25/18 06:28 Normal Saline - IV 75 mls/hr ASDIR ALEXANDRA Administration Heparin Sodium (Porcine) 25, 500 mls @ 20 mls/hr 07/24/18 15:45 07/25/18 01: 31 000 unit/ Sodium Chloride IV 1,100 unit/hr TITR ALEXANDRA 22 mls/hr Titration Protocol 1,000 UNIT/HR Insulin Aspart 1 vial 07/08/18 07:00 07/25/18 06:00 Novolog Vial Sliding Scale - SQ 1 units ACHS ALEXANDRA Administration Protocol Insulin Detemir 5 units 07/11/18 22:00 07/24/18 21:41 Levemir Vial SQ 5 units HS ALEXANDRA Administration Lisinopril 10 mg 07/16/18 08:02 07/24/18 13:08 Prinivil PO 10 mg DAILY ALEXANDRA Administration Morphine Sulfate 4 mg 07/18/18 14:15 07/25/18 06:00 Morphine Sulfate IVPUSH 4 mg Q4H PRN Administration PAIN LEVEL 7 - 10 Oxycodone HCl 5 mg 07/18/18 14:16 07/24/18 02:05 Roxicodone - PO 5 mg Q4H PRN Administration PAIN LEVEL 4 - 6 Zolpidem Tartrate 5 mg 07/19/18 22:00 07/23/18 21:17 Ambien - PO 5 mg HS PRN Administration INSOMNIA ASSESSMENT/PLAN: 58 y/o M w/ PMHx HTN, HLD, DM admitted for sepsis 2/2 Klebsiella bacteremia and liver abscess, complicated by interval development of RLL empyema #empyema -R pleural effusion was tapped on Monday, pleural fluid grew Klebsiella -repeat CT pending -IR replaced abscess catheter and placed chest tube, now started on heparin gtt -awaiting pleural fluid studies -pneumothorax noted after chest tube placed #pneumothorax -no tension physiology -2L NC -serial AM CXR to resolution #Sepsis 2/2 to Klebisella bacteremia and liver abscess -fever curve had been improving prior to 101.3 event, may have been 2/2 pneumothorax -cont Zosyn day 17 -DOMENICA drain in place w/ minimal purulent drainage, chest tube in place -will need outpt colon Ca surveillance given increased risk in setting of Klebsiella bacteremia and liver abscess -GI following -ID following -repeat CT abd pending for further assessment of abscess and empyema #Hepatic vein thrombosis -heme/onc following, recommends AC unless significant bleeding results and outpt f/u -holding Lovenox pending IR intervention -Oxy and morphine PRN per pain scale -repeat CT a/p showing decreased abscess size, no change in HVT, increased R pleural effusion, new L pleural effusion #hypervolemic hyponatremia -improving -monitor Na #HLD -hold statin given recently resolved transaminitis #HTN -cont lisinopril #DM -SSI, Levemir 5U HS, BGM ACHS -Pt's A1c this admission 11.2% -Will need recheck in 3 mo with insulin regiment on board #iron deficiency anemia -cont iron supplementation -repeat iron studies as outpt #FEN: -no IVF -monitor and correct electrolytes -diabetic/sodium diet #PPX: -DVT: heparin gtt until chest tube removed, then full dose Lovenox -GI: not indicated #code -full #dispo -continue monitoring on med/surg Visit type - Emergency Visit Emergency Visit: No - New Patient This patient is new to me today: No - Critical Care Critical Care patient: No
[2018-07-25] MEDS: LISINOPRIL 10 MG TABLET (FP) PO SCH (10:26)
[2018-07-25] MEDS: FERROUS GLUCONATE 324 MG TAB (FP) PO SCH (10:26)
--- NOTE | 2018-07-25 11:02 | PN ---
Progress Note, Physician History of Present Illness: Pt seen/examined at bedside, reports discomfort at chest tube site otherwise no new complaints. Denies abdominal pain, n/v. Still with intermittent fever spikes. Pending repeat CT abd. - Current Medication List Current Medications: Active Medications Acetaminophen (Tylenol -) 650 mg PO Q4H PRN PRN Reason: FEVER Last Admin: 07/24/18 19:11 Dose: 650 mg Ferrous Gluconate (Fergon -) 324 mg PO DAILY ALEXANDRA Last Admin: 07/25/18 10:26 Dose: 324 mg Heparin Sodium (Porcine) (Heparin -) 1,000 unit IVPUSH PRN PRN PRN Reason: Heparin Heparin Sodium (Porcine) (Heparin -) 5,000 unit IVPUSH PRN PRN PRN Reason: Heparin Piperacillin Sod/Tazobactam (Sod 3.375 gm/ Dextrose) 50 mls @ 100 mls/hr IVPB Q8H-IV ALEXANDRA; Protocol Last Admin: 07/25/18 10:26 Dose: 100 mls/hr Sodium Chloride (Normal Saline -) 1,000 mls @ 75 mls/hr IV ASDIR ALEXANDRA Last Admin: 07/25/18 06:28 Dose: 75 mls/hr Heparin Sodium (Porcine) 25, (000 unit/ Sodium Chloride) 500 mls @ 20 mls/hr IV TITR ALEXANDRA; Protocol Last Titration: 07/25/18 01:31 Dose: 1,100 unit/hr, 22 mls/hr Insulin Aspart (Novolog Vial Sliding Scale -) 1 vial SQ ACHS ALEXANDRA; Protocol Last Admin: 07/25/18 06:00 Dose: 1 units Insulin Detemir (Levemir Vial) 5 units SQ HS [facility] Last Admin: 07/24/18 21:41 Dose: 5 units Lisinopril (Prinivil) 10 mg PO DAILY ALEXANDRA Last Admin: 07/25/18 10:26 Dose: 10 mg Morphine Sulfate (Morphine Sulfate) 4 mg IVPUSH Q4H PRN PRN Reason: PAIN LEVEL 7 - 10 Last Admin: 07/25/18 06:00 Dose: 4 mg Oxycodone HCl (Roxicodone -) 5 mg PO Q4H PRN PRN Reason: PAIN LEVEL 4 - 6 Last Admin: 07/24/18 02:05 Dose: 5 mg Zolpidem Tartrate (Ambien -) 5 mg PO HS PRN PRN Reason: INSOMNIA Last Admin: 07/23/18 21:17 Dose: 5 mg - Objective Vital Signs: Vital Signs Temperature 98.8 F 07/25/18 06:19 Pulse Rate 84 07/25/18 06:19 Respiratory Rate 20 07/25/18 06:19 Blood Pressure 128/65 07/25/18 06:19 O2 Sat by Pulse Oximetry (%) 95 07/24/18 21:19 Constitutional: Yes: Well Nourished, No Distress, Calm Cardiovascular: Yes: WNL, Regular Rate and Rhythm Respiratory: Yes: WNL, Regular, Other (Decreased A/E R>L, chest tube in place) Gastrointestinal: Yes: WNL, Normal Bowel Sounds, Soft, Other (Abd soft, nt, nd) Labs: CBC, BMP 07/25/18 05:40 07/25/18 05:40 INR, PTT INR 1.18 (0.83-1.09) H 07/25/18 05:41 Problem List - Problems (1) Pyogenic liver abscess Assessment/Plan: s/p IR drainage (now removed) with 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 Still with intermittent fever spikes, afebrile this am. C difficile negative. -Follow up repeat pleural fluid cultures -Antibiotics per ID with tailoring accordingly -Await repeat CT abd/pelvis -If further loose stool, please send stool ova/parasites Code(s): K75.0 - ABSCESS OF LIVER
[2018-07-25] MEDS ORDERED: INSULIN (NOVOLOG) ASPART 100 UNITS/ML 10ML VIAL ONE (12:06)
--- NOTE | 2018-07-25 12:30 | PN ---
Teaching Attending Note Name of Resident: Branden Mars ATTENDING PHYSICIAN STATEMENT I saw and evaluated the patient. I reviewed the resident's note and discussed the case with the resident. I agree with the resident's findings and plan as documented. SUBJECTIVE: c/o pain at chest tube site. difficult to take deep inspirations. denies CP, fever, chills, N/V/C/D OBJECTIVE: Last Vital Signs Temp Pulse Resp BP Pulse Ox 98.8 F 84 20 128/65 95 07/25/18 06:19 07/25/18 06:19 07/25/18 06:19 07/25/18 06:19 07/24/18 21:19 General NAD Lungs CTA no wheezing abdomen soft NT/ND back chest tube on posterior R side with dressing intact, minimally tender no fluctuance or drainage ASSESSMENT AND PLAN: 58 year old male with HTN, HLD, DM 2 with neuropathy, presented with 4 day history of watery diarrhea, fevers, nausea - no vomiting/melena/hematochezia, found to have Gram neg bacteremia and liver mass/abscess on abdominal imaging. 1. Sepsis sec to klebsiella Bacteremia due to Liver Abscess-Tm 101.3. s/p R chest tube placed yesterday. Fluid sent for analysis. DOMENICA drain for liver removed. plan to pull Chest tube later today. on zosyn day 16. will determine further treatment based on repeat imaging today.will need colonoscopy in the future to r/o colorectal cancer as high association. GI and ID on board. 2. PTX- due to trauma from chest tube insertion. saturating 97% on RA. will place on high flow oxygen. serial CXR to monitor 2. 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 will keep on hep ggt at this time. will need 6 months minimum of anticoagulation. f/u heme as outpatient 3. Hypervolemia Hyponatremia-resolved 4. Transaminitis- likely due to abscess and sepsis. resolved. hep serologies pending 5. Normocytic anemia- +iron def anemia. s/p venofer treatment. repeat iron studies in 3 months. no indication for txn. no signs of bleeding 6. DM 2 - A1c 11.2. titrate levemir to optimize control. cont ISS and BGM. 7. HTN-improve. cont to titrate as needed. 8. dyslipidemia- stated he was on statin in past but d/c himself. should have dietary/lifestyle changes and Lipid panel checked in 3 months to assess if needs statin therapy. would hold this time in setting of acute transaminitis. 9.DVT Px -hep ggt
[2018-07-25] MEDS ORDERED: PT OWN MED DRAWER 7, Y5N ONE (16:06)
[2018-07-25] MEDS: oxyCODONE HCL 5 MG TABLET PO PRN ×2 (16:52→22:01)
[2018-07-25] MEDS: HEPARIN - 25,000 UNIT in SODIUM CHLORIDE 495 ML IV SCH (17:04)
[2018-07-25] MEDS: ZOLPIDEM TARTRATE 5 MG TABLET PO PRN (22:01)
[2018-07-25] MEDS: INSULIN (LEVEMIR) 100 UNITS/ML UNITS SQ SCH (22:07)
[2018-07-26] MEDS ORDERED: PIPERACILLIN/TAZOBACTAM 3.375 GM VIAL IVPB ONE ×3 (01:50→17:54)
[2018-07-26] MEDS: PIPERACILLIN/TAZOB 3.375 GM 3.375 GM in DEXTROSE 5%-WATER - 50 ML IVPB SCH ×3 (02:02→18:06)
[2018-07-26] MEDS: INSULIN SLIDING SCALE (NOVOLOG) 1 VIAL SQ SCH ×4 (06:20→21:38)
[2018-07-26] MEDS: oxyCODONE HCL 5 MG TABLET PO PRN ×3 (07:07→18:05)
[2018-07-26 08:23] LABS: BASO % 0.9 % (0-2.0); EOS % 1.3 % (0-4.5); HEMATOCRIT 31.5 % (35.4-49); LYMPH % 10.8 % (8-40); MCHC 34.9 g/dl (32.0-35.9); MEAN CELL VOLUME 86.1 fl (80-96); MEAN PLT VOLUME 6.6 fl (7.5-11.1); MONO % 8.5 % (3.8-10.2); NEUT % 78.5 % (42.8-82.8); PLATELET COUNT 438 K/MM3 (134-434); RBC 3.65 M/mm3 (4.00-5.60); RDW 13.1 % (11.9-15.9); WHITE BLOOD COUNT 6.8 K/mm3 (4.0-10.0)
[2018-07-26 08:58] LABS: ALK PHOS 139 U/L (45-117); ANION GAP 6 MMOL/L (8-16); BILIRUBIN,TOTAL 0.2 mg/dL (0.2-1); BLOOD UREA NITROGEN 9 mg/dL (7-18); CALCIUM 7.6 mg/dL (8.5-10.1); CHLORIDE 104 mmol/L (98-107); CO2 24 mmol/L (21-32); CREATININE 1.1 mg/dL (0.55-1.3); GLUCOSE,RANDOM 114 mg/dL (74-106); PHOSPHOROUS 2.5 mg/dL (2.5-4.9); POTASSIUM 4.2 mmol/L (3.5-5.1); SGOT/AST 27 U/L (15-37); SGPT/ALT 37 U/L (13-61); SODIUM 134 mmol/L (136-145); TOT PROT 6.2 g/dl (6.4-8.2)
--- NOTE | 2018-07-26 10:22 | PN ---
Progress Note, Physician History of Present Illness: patient starting to feel better going for tube removal - Current Medication List Current Medications: Active Medications Acetaminophen (Tylenol -) 650 mg PO Q4H PRN PRN Reason: FEVER Last Admin: 07/24/18 19:11 Dose: 650 mg Ferrous Gluconate (Fergon -) 324 mg PO DAILY ALEXANDRA Last Admin: 07/25/18 10:26 Dose: 324 mg Heparin Sodium (Porcine) (Heparin -) 1,000 unit IVPUSH PRN PRN PRN Reason: Heparin Last Admin: 07/25/18 12:03 Dose: 1,000 unit Heparin Sodium (Porcine) (Heparin -) 5,000 unit IVPUSH PRN PRN PRN Reason: Heparin Piperacillin Sod/Tazobactam (Sod 3.375 gm/ Dextrose) 50 mls @ 100 mls/hr IVPB Q8H-IV ALEXANDRA; Protocol Last Admin: 07/26/18 02:02 Dose: 100 mls/hr Sodium Chloride (Normal Saline -) 1,000 mls @ 75 mls/hr IV ASDIR ALEXANDRA Last Admin: 07/25/18 23:19 Dose: 75 mls/hr Heparin Sodium (Porcine) 25, (000 unit/ Sodium Chloride) 500 mls @ 20 mls/hr IV TITR ALEXANDRA; Protocol Last Titration: 07/25/18 21:54 Dose: 1,200 unit/hr, 24 mls/hr Insulin Aspart (Novolog Vial Sliding Scale -) 1 vial SQ ACHS ALEXANDRA; Protocol Last Admin: 07/26/18 06:20 Dose: Not Given Insulin Detemir (Levemir Vial) 5 units SQ HS [facility]DRA Last Admin: 07/25/18 22:07 Dose: 5 units Lisinopril (Prinivil) 10 mg PO DAILY [facility] Last Admin: 07/25/18 10:26 Dose: 10 mg Morphine Sulfate (Morphine Sulfate) 4 mg IVPUSH Q4H PRN PRN Reason: PAIN LEVEL 7 - 10 Last Admin: 07/25/18 06:00 Dose: 4 mg Oxycodone HCl (Roxicodone -) 5 mg PO Q4H PRN PRN Reason: PAIN LEVEL 4 - 6 Last Admin: 07/26/18 07:07 Dose: 5 mg Zolpidem Tartrate (Ambien -) 5 mg PO HS PRN PRN Reason: INSOMNIA Last Admin: 07/25/18 22:01 Dose: 5 mg - Objective Vital Signs: Vital Signs Temperature 99.2 F 07/26/18 06:00 Pulse Rate 90 07/26/18 06:00 Respiratory Rate 07/26/18 06:00 Blood Pressure 152/76 07/26/18 06:00 O2 Sat by Pulse Oximetry (%) 97 07/25/18 21:00 Constitutional: Yes: No Distress, Calm HENT: Yes: Atraumatic, Normocephalic Neck: Yes: Supple, Trachea Midline Cardiovascular: Yes: Regular Rate and Rhythm Respiratory: Yes: Regular, CTA Bilaterally Gastrointestinal: Yes: Normal Bowel Sounds, Soft Musculoskeletal: Yes: WNL Extremities: Yes: WNL Neurological: Yes: Alert, Oriented Psychiatric: Yes: Alert, Oriented Labs: CBC, BMP 07/26/18 07:08 07/26/18 07:08 INR, PTT INR 1.18 (0.83-1.09) H 07/25/18 05:41 Assessment/Plan 58 y.o. male with DM, HTN, HLD presenting with complaints of fever/chills, epigastric pain/n/v/d x several days noted to have fever, leukocytosis, tachycardia, and hyponatremia. Sepsis Abd Pain/Diarrhea Fever Leukocytosis gm negative bacteremia liver abscess thrombosed hepatic vein patient continues to spike fever plan cx report noted continue abx
[2018-07-26] MEDS ORDERED: DEXTROSE 5%-WATER - 50 ML IVPB ONE ×2 (10:35→17:54)
[2018-07-26] MEDS ORDERED: PT OWN MED DRAWER 7, Y5N ONE (10:35)
--- NOTE | 2018-07-26 10:44 | PN ---
Physical Exam: SUBJECTIVE: Patient seen and examined at bedside. Has been afebrile > 24 hours. Significant soreness at chest tube placement site, pain is stable, breathing improved. OBJECTIVE: Vital Signs Period Temp Pulse Resp BP Sys/Negron Pulse Ox Last 24 Hr 98.2 F-99.2 F 84-107 18-20 123-152/67-77 97 GENERAL: A&Ox3, NAD HEENT: NC/AT, PERRLA, EOMI, anicteric sclera NECK: Trachea midline, full range of motion, supple. LUNGS: CTA b/l HEART: RRR no m/r/g ABDOMEN: soft, posterior tenderness, chest tube in place c/d/i EXTREMITIES: 2+ pulses, warm, well-perfused, no edema. 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 PSYCH: Depressed mood Laboratory Results - last 24 hr 07/25/18 07/25/18 07/25/18 12:09 17:10 19:45 WBC RBC Hgb Hct MCV MCH MCHC RDW Plt Count MPV Absolute Neuts (auto) Neutrophils % Lymphocytes % Monocytes % Eosinophils % Basophils % Nucleated RBC % PTT (Actin FS) 75.3 H Sodium Potassium Chloride Carbon Dioxide Anion Gap BUN Creatinine Creat Clearance w eGFR POC Glucometer 199 309 Random Glucose Calcium Phosphorus Magnesium Total Bilirubin AST ALT Alkaline Phosphatase Total Protein Albumin 07/25/18 07/26/18 07/26/18 22:04 06:18 07:08 WBC RBC Hgb Hct MCV MCH MCHC RDW Plt Count MPV Absolute Neuts (auto) Neutrophils % Lymphocytes % Monocytes % Eosinophils % Basophils % Nucleated RBC % PTT (Actin FS) 77.2 H Sodium Potassium Chloride Carbon Dioxide Anion Gap BUN Creatinine Creat Clearance w eGFR POC Glucometer 121 126 Random Glucose Calcium Phosphorus Magnesium Total Bilirubin AST ALT Alkaline Phosphatase Total Protein Albumin 07/26/18 07/26/18 07:08 07:08 WBC 6.8 RBC 3.65 L Hgb 11.0 L Hct 31.5 L MCV 86.1 MCH 30.0 MCHC 34.9 RDW 13.1 Plt Count 438 H MPV 6.6 L Absolute Neuts (auto) 5.4 Neutrophils % 78.5 Lymphocytes % 10.8 Monocytes % 8.5 Eosinophils % 1.3 Basophils % 0.9 Nucleated RBC % 0 PTT (Actin FS) Sodium 134 L Potassium 4.2 Chloride 104 Carbon Dioxide 24 Anion Gap 6 L BUN 9 Creatinine 1.1 Creat Clearance w eGFR > 60 POC Glucometer Random Glucose 114 H Calcium 7.6 L Phosphorus 2.5 Magnesium 2.0 Total Bilirubin 0.2 AST 27 ALT 37 Alkaline Phosphatase 139 H Total Protein 6.2 L Albumin 2.0 L Active Medications Generic Name Dose Route Start Last Admin Trade Name Freq PRN Reason Stop Dose Admin Acetaminophen 650 mg 07/10/18 13:27 07/24/18 19:11 Tylenol - PO 650 mg Q4H PRN Administration FEVER Ferrous Gluconate 324 mg 07/13/18 11:00 07/25/18 10:26 Fergon - PO 324 mg DAILY ALEXANDRA Administration Heparin Sodium (Porcine) 1,000 unit 07/24/18 15:34 07/25/18 12:03 Heparin - IVPUSH 1,000 unit PRN PRN Administration Heparin Heparin Sodium (Porcine) 5,000 unit 07/24/18 15:34 Heparin - IVPUSH PRN PRN Heparin Piperacillin Sod/Tazobactam 50 mls @ 100 mls/hr 07/10/18 18:00 07/26/18 02:02 Sod 3.375 gm/ Dextrose IVPB 100 mls/hr Q8H-IV ALEXANDRA Administration Protocol Sodium Chloride 1,000 mls @ 75 mls/hr 07/18/18 17:00 07/25/18 23:19 Normal Saline - IV 75 mls/hr ASDIR ALEXANDRA Administration Heparin Sodium (Porcine) 25, 500 mls @ 20 mls/hr 07/24/18 15:45 07/25/18 21: 54 000 unit/ Sodium Chloride IV 1,200 unit/hr TITR ALEXANDRA 24 mls/hr Titration Protocol 1,000 UNIT/HR Insulin Aspart 1 vial 07/08/18 07:00 07/26/18 06:20 Novolog Vial Sliding Scale - SQ Not Given ACHS ALEXANDRA Protocol Insulin Detemir 5 units 07/11/18 22:00 07/25/18 22:07 Levemir Vial SQ 5 units HS ALEXANDRA Administration Lisinopril 10 mg 07/16/18 08:02 07/25/18 10:26 Prinivil PO 10 mg DAILY ALEXANDRA Administration Morphine Sulfate 4 mg 07/18/18 14:15 07/25/18 06:00 Morphine Sulfate IVPUSH 4 mg Q4H PRN Administration PAIN LEVEL 7 - 10 Oxycodone HCl 5 mg 07/18/18 14:16 07/26/18 07:07 Roxicodone - PO 5 mg Q4H PRN Administration PAIN LEVEL 4 - 6 Zolpidem Tartrate 5 mg 07/19/18 22:00 07/25/18 22:01 Ambien - PO 5 mg HS PRN Administration INSOMNIA ASSESSMENT/PLAN: 58 y/o M w/ PMHx HTN, HLD, DM admitted for sepsis 2/2 Klebsiella bacteremia and liver abscess, complicated by interval development of RLL empyema #empyema -R pleural effusion regressed since chest tube placement; tube to be withdrawn today -will transition from heparin gtt to therapeutic Lovenox when chest tube is removed -Gnb growing in pleural fluid culture from 07/24/18 -pneumothorax resolved on serial CT #Sepsis 2/2 to Klebisella bacteremia and liver abscess -now afebrile > 24 hours -cont Zosyn day 18 -will need outpt colon Ca surveillance given increased risk in setting of Klebsiella bacteremia and liver abscess -GI following -ID following #Hepatic vein thrombosis -heme/onc following, recommends AC unless significant bleeding results and outpt f/u -restarting therapeutic Lovenox following chest tube removal -Oxy and morphine PRN per pain scale #hypervolemic hyponatremia -improving -monitor Na #HLD -hold statin given recently resolved transaminitis #HTN -cont lisinopril #DM -SSI, Levemir 5U HS, BGM ACHS -Pt's A1c this admission 11.2% -Will need recheck in 3 mo with insulin regiment on board #iron deficiency anemia -cont iron supplementation -repeat iron studies as outpt #FEN: -no IVF -monitor and correct electrolytes -diabetic/sodium diet #PPX: -DVT: heparin gtt until chest tube removed, then full dose Lovenox -GI: not indicated #code -full #dispo -continue monitoring on med/surg Visit type - Emergency Visit Emergency Visit: No - New Patient This patient is new to me today: No - Critical Care Critical Care patient: No
[2018-07-26] MEDS: FERROUS GLUCONATE 324 MG TAB (FP) PO SCH (11:50)
[2018-07-26] MEDS: LISINOPRIL 10 MG TABLET (FP) PO SCH (11:50)
--- NOTE | 2018-07-26 12:34 | PN ---
Teaching Attending Note Name of Resident: Branden Mars ATTENDING PHYSICIAN STATEMENT I reviewed the resident's note and discussed the case with the resident. I agree with the resident's findings and plan as documented. OBJECTIVE: Last Vital Signs Temp Pulse Resp BP Pulse Ox 99.2 F 90 20 152/76 97 07/26/18 06:00 07/26/18 06:00 07/26/18 06:00 07/26/18 06:00 07/25/18 21:00 ASSESSMENT AND PLAN: 58 year old male with HTN, HLD, DM 2 with neuropathy, presented with 4 day history of watery diarrhea, fevers, nausea - no vomiting/melena/hematochezia, found to have Gram neg bacteremia and liver mass/abscess on abdominal imaging. 1. Sepsis sec to klebsiella Bacteremia due to Liver Abscess-afebrile. reported by Rn that pt is feeling much better today. Chest tube being removed today. pleural studies neg for infction. repeat imaging showing resolution of abscess. on Zosyn day 17. plan to d/c abx in 24-48H. will need colonoscopy in the future to r/o colorectal cancer as high association. GI and ID on board. 2. PTX- due to trauma from chest tube insertion. CXR this Am showing resolution 3. 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 will switch hep ggt to lovenox tomorrow. will need 6 months minimum of anticoagulation. f/u heme as outpatient 4. Hypervolemia Hyponatremia-resolved 5. Transaminitis- likely due to abscess and sepsis. resolved. hep serologies pending 6. Normocytic anemia- +iron def anemia. s/p venofer treatment. repeat iron studies in 3 months. no indication for txn. no signs of bleeding 7. DM 2 - A1c 11.2. titrate levemir to optimize control. cont ISS and BGM. 8. HTN-improve. cont to titrate as needed. 9. dyslipidemia- stated he was on statin in past but d/c himself. should have dietary/lifestyle changes and Lipid panel checked in 3 months to assess if needs statin therapy. would hold this time in setting of acute transaminitis. 10.DVT Px -hep ggt 11. anticipate d/c in next 24-48H
[2018-07-26] MEDS: ENOXAPARIN NA (PORCINE) 80 MG/0.8 ML DISP.SYRIN SQ SCH ×2 (15:51→21:35)
[2018-07-26] MEDS: SODIUM CHLORIDE 1,000 ML IV SCH ×2 (18:05→19:28)
[2018-07-26] MEDS: INSULIN (LEVEMIR) 100 UNITS/ML UNITS SQ SCH (21:35)
[2018-07-27] MEDS ORDERED: DEXTROSE 5%-WATER - 50 ML IVPB ONE ×2 (01:29→09:10)
[2018-07-27] MEDS ORDERED: PIPERACILLIN/TAZOBACTAM 3.375 GM VIAL IVPB ONE ×2 (01:29→09:10)
[2018-07-27] MEDS: PIPERACILLIN/TAZOB 3.375 GM 3.375 GM in DEXTROSE 5%-WATER - 50 ML IVPB SCH ×2 (01:46→09:16)
[2018-07-27] MEDS: ACETAMINOPHEN 325 MG TABLET (FP) PO PRN (02:40)
[2018-07-27] MEDS: oxyCODONE HCL 5 MG TABLET PO PRN ×2 (02:40→14:43)
[2018-07-27] MEDS: INSULIN SLIDING SCALE (NOVOLOG) 1 VIAL SQ SCH ×2 (06:29→11:34)
[2018-07-27 06:48] LABS: EOS % 2.1 % (0-4.5); HEMATOCRIT 33.2 % (35.4-49); HEMOGLOBIN 11.5 GM/dL (11.7-16.9); MCH 30.2 pg (25.7-33.7); MCHC 34.6 g/dl (32.0-35.9); MEAN CELL VOLUME 87.2 fl (80-96); MEAN PLT VOLUME 6.3 fl (7.5-11.1); MONO % 9.7 % (3.8-10.2); NEUT % 76.2 % (42.8-82.8); PLATELET COUNT 445 K/MM3 (134-434); RDW 13.2 % (11.9-15.9)
[2018-07-27 07:19] LABS: ALK PHOS 132 U/L (45-117); ANION GAP 7 MMOL/L (8-16); BILIRUBIN,TOTAL 0.2 mg/dL (0.2-1); BLOOD UREA NITROGEN 10 mg/dL (7-18); CALCIUM 8.2 mg/dL (8.5-10.1); CHLORIDE 105 mmol/L (98-107); CO2 25 mmol/L (21-32); CREATININE 1.1 mg/dL (0.55-1.3); GLUCOSE,RANDOM 120 mg/dL (74-106); MAGNESIUM 2.2 mg/dL (1.8-2.4); PHOSPHOROUS 3.2 mg/dL (2.5-4.9); POTASSIUM 4.2 mmol/L (3.5-5.1); SGOT/AST 29 U/L (15-37); SGPT/ALT 44 U/L (13-61); SODIUM 137 mmol/L (136-145); TOT PROT 6.4 g/dl (6.4-8.2)
[2018-07-27] MEDS ORDERED: LISINOPRIL 10 MG TABLET (FP) PO SCH (08:45)
[2018-07-27] MEDS: ENOXAPARIN NA (PORCINE) 80 MG/0.8 ML DISP.SYRIN SQ SCH (09:16)
[2018-07-27 09:39] LABS: ANISOCYTOSIS 0; MACROCYTOSIS 0; PLATELET ESTIMATE NORMAL
[2018-07-27] MEDS ORDERED: LACTOBACILLUS ACIDOPHILUS 1 TABLET PO SCH (10:00)
--- NOTE | 2018-07-27 10:18 | PN ---
Progress Note, Physician History of Present Illness: patient doing well much better eating well - Current Medication List Current Medications: Active Medications Acetaminophen (Tylenol -) 650 mg PO Q4H PRN PRN Reason: FEVER Last Admin: 07/27/18 02:40 Dose: 650 mg Enoxaparin Sodium (Lovenox -) 80 mg SQ BID [facility] Last Admin: 07/27/18 09:16 Dose: 80 mg Ferrous Gluconate (Fergon -) 324 mg PO DAILY [facility] Last Admin: 07/26/18 11:50 Dose: 324 mg Piperacillin Sod/Tazobactam (Sod 3.375 gm/ Dextrose) 50 mls @ 100 mls/hr IVPB Q8H-IV [facility]; Protocol Last Admin: 07/27/18 09:16 Dose: 100 mls/hr Insulin Aspart (Novolog Vial Sliding Scale -) 1 vial SQ ACHS [facility]; Protocol Last Admin: 07/27/18 06:29 Dose: Not Given Insulin Detemir (Levemir Vial) 5 units SQ HS [facility] Last Admin: 07/26/18 21:35 Dose: 5 units Lactobacillus Acidophilus (Bacid -) 1 tab PO DAILY [facility] Last Admin: 07/27/18 09:16 Dose: 1 tab Lisinopril (Prinivil) 20 mg PO DAILY [facility] Last Admin: 07/27/18 09:16 Dose: 20 mg Morphine Sulfate (Morphine Sulfate) 4 mg IVPUSH Q4H PRN PRN Reason: PAIN LEVEL 7 - 10 Last Admin: 07/25/18 06:00 Dose: 4 mg Oxycodone HCl (Roxicodone -) 5 mg PO Q4H PRN PRN Reason: PAIN LEVEL 4 - 6 Last Admin: 07/27/18 02:40 Dose: 5 mg - Objective Vital Signs: Vital Signs Temperature 97.5 F L 07/27/18 06:26 Pulse Rate 76 07/27/18 06:26 Respiratory Rate 20 07/27/18 06:26 Blood Pressure 152/82 07/27/18 06:26 O2 Sat by Pulse Oximetry (%) 97 07/26/18 09:00 Constitutional: Yes: No Distress, Calm Cardiovascular: Yes: Regular Rate and Rhythm Respiratory: Yes: Poor Air Entry (bases) Gastrointestinal: Yes: Normal Bowel Sounds, Soft Musculoskeletal: Yes: WNL Extremities: Yes: WNL Neurological: Yes: Alert, Oriented Psychiatric: Yes: Alert, Oriented Labs: CBC, BMP 07/27/18 06:00 07/27/18 06:00 INR, PTT INR 1.18 (0.83-1.09) H 07/25/18 05:41 Assessment/Plan 58 y.o. male with DM, HTN, HLD presenting with complaints of fever/chills, epigastric pain/n/v/d x several days noted to have fever, leukocytosis, tachycardia, and hyponatremia. Sepsis Abd Pain/Diarrhea Fever Leukocytosis gm negative bacteremia liver abscess thrombosed hepatic vein patient continues to spike fever plan cx report noted continue abx patient will need at least 7 more days of iv abx then he needs imaging done to see the improvement
--- NOTE | 2018-07-27 10:19 | PN ---
Teaching Attending Note Name of Resident: Branden Mars ATTENDING PHYSICIAN STATEMENT I saw and evaluated the patient. I reviewed the resident's note and discussed the case with the resident. I agree with the resident's findings and plan as documented. SUBJECTIVE:breating has improved. some pain at tube insertion site. denies Cp, SOB, fever, chills, N/V/C/D OBJECTIVE: Last Vital Signs Temp Pulse Resp BP Pulse Ox 97.5 F L 76 20 152/82 97 07/27/18 06:26 07/27/18 06:26 07/27/18 06:26 07/27/18 06:26 07/26/18 09:00 General NAD Lungs CTA B/L no wheezing/rale/srhonchi Abdomen slight tenderness along the inferior ribs. bandage on back c/d/i no surrounding swelling or erythema ASSESSMENT AND PLAN: 58 year old male with HTN, HLD, DM 2 with neuropathy, presented with 4 day history of watery diarrhea, fevers, nausea - no vomiting/melena/hematochezia, found to have Gram neg bacteremia and liver mass/abscess on abdominal imaging. 1. Sepsis sec to klebsiella Bacteremia due to Liver Abscess-afebrile. clinically improved. imaging with resolution of abscess. on Zosyn day 18. plan to d/c abx in 24H. will need colonoscopy in the future to r/o colorectal cancer as high association. GI and ID on board. 2. PTX- due to trauma from chest tube insertion. CXR this Am showing resolution 3. 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 on full dose lovenox. pt is hesitant to use injections at home. agrees to be taught by RN to see if pt would feel comfortable. understands can switch to pill but would be less effective. f/u heme as outpatient 4. Hypervolemia Hyponatremia-resolved 5. Transaminitis- likely due to abscess and sepsis. resolved. hep serologies pending 6. Normocytic anemia- +iron def anemia. s/p venofer treatment. repeat iron studies in 3 months. no indication for txn. no signs of bleeding 7. DM 2 - A1c 11.2. titrate levemir to optimize control. cont ISS and BGM. 8. HTN-above goal. increase lisinopril to 20mg 9. dyslipidemia- stated he was on statin in past but d/c himself. should have dietary/lifestyle changes and Lipid panel checked in 3 months to assess if needs statin therapy. would hold this time in setting of acute transaminitis. 10.DVT Px -lovenox 11. anticipate d/c in next 24H
[2018-07-27 11:08] VITALS: BP 135/91; PULSE 91; TEMP 97.8
[2018-07-27] MEDS ORDERED: RANITIDINE HCL 150 MG TABLET (FP) PO SCH (11:30)
--- NOTE | 2018-07-27 11:34 | PN ---
Physical Exam: SUBJECTIVE: Patient seen and examined at bedside. Remains afebrile. Significant improvement in pain, now comfortable. Chest tube removed yesterday. Does newly voice complaint of longstanding heartburn. OBJECTIVE: Vital Signs Period Temp Pulse Resp BP Sys/Negron Pulse Ox Last 24 Hr 97.5 F-98.8 F 76-91 20-20 135-162/78-91 97 GENERAL: A&Ox3, NAD HEENT: NC/AT, PERRLA, EOMI, anicteric sclera NECK: Trachea midline, full range of motion, supple. LUNGS: CTA b/l HEART: RRR no m/r/g ABDOMEN: soft, posterior tenderness, dressing over catheter site c/d/i EXTREMITIES: 2+ pulses, warm, well-perfused, no edema. 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 PSYCH: Depressed mood Laboratory Results - last 24 hr 07/26/18 07/26/18 07/26/18 11:55 16:25 17:33 WBC RBC Hgb Hct MCV MCH MCHC RDW Plt Count MPV Absolute Neuts (auto) Neutrophils % Neutrophils % (Manual) Band Neutrophils % Lymphocytes % Lymphocytes % (Manual) Monocytes % Monocytes % (Manual) Eosinophils % Eosinophils % (Manual) Basophils % Basophils % (Manual) Myelocytes % (Man) Promyelocytes % (Man) Blast Cells % (Manual) Nucleated RBC % Metamyelocytes Hypochromia Platelet Estimate Polychromasia Poikilocytosis Anisocytosis Microcytosis Macrocytosis PTT (Actin FS) Sodium Potassium Chloride Carbon Dioxide Anion Gap BUN Creatinine Creat Clearance w eGFR POC Glucometer 172 217 Random Glucose Calcium Phosphorus Magnesium Total Bilirubin AST ALT Alkaline Phosphatase Total Protein Albumin Stool Occult Blood Negative 07/26/18 07/27/18 07/27/18 21:32 05:21 06:00 WBC RBC Hgb Hct MCV MCH MCHC RDW Plt Count MPV Absolute Neuts (auto) Neutrophils % Neutrophils % (Manual) Band Neutrophils % Lymphocytes % Lymphocytes % (Manual) Monocytes % Monocytes % (Manual) Eosinophils % Eosinophils % (Manual) Basophils % Basophils % (Manual) Myelocytes % (Man) Promyelocytes % (Man) Blast Cells % (Manual) Nucleated RBC % Metamyelocytes Hypochromia Platelet Estimate Polychromasia Poikilocytosis Anisocytosis Microcytosis Macrocytosis PTT (Actin FS) 40.2 H Sodium Potassium Chloride Carbon Dioxide Anion Gap BUN Creatinine Creat Clearance w eGFR POC Glucometer 188 133 Random Glucose Calcium Phosphorus Magnesium Total Bilirubin AST ALT Alkaline Phosphatase Total Protein Albumin Stool Occult Blood 07/27/18 07/27/18 06:00 06:00 WBC 5.0 RBC 3.80 L Hgb 11.5 L Hct 33.2 L MCV 87.2 MCH 30.2 MCHC 34.6 RDW 13.2 Plt Count 445 H MPV 6.3 L Absolute Neuts (auto) 3.8 Neutrophils % 76.2 Neutrophils % (Manual) 81.6 Band Neutrophils % 0.0 Lymphocytes % 11.0 Lymphocytes % (Manual) 4.1 L D Monocytes % 9.7 Monocytes % (Manual) 6 Eosinophils % 2.1 Eosinophils % (Manual) 1.0 Basophils % 1.0 Basophils % (Manual) 1.0 D Myelocytes % (Man) 1 D Promyelocytes % (Man) 0 Blast Cells % (Manual) 0 Nucleated RBC % 0 Metamyelocytes 2 Hypochromia 1+ Platelet Estimate Normal Polychromasia 1+ Poikilocytosis 0 Anisocytosis 0 Microcytosis 0 Macrocytosis 0 PTT (Actin FS) Sodium 137 Potassium 4.2 Chloride 105 Carbon Dioxide 25 Anion Gap 7 L BUN 10 Creatinine 1.1 Creat Clearance w eGFR > 60 POC Glucometer Random Glucose 120 H Calcium 8.2 L Phosphorus 3.2 Magnesium 2.2 Total Bilirubin 0.2 AST 29 ALT 44 Alkaline Phosphatase 132 H Total Protein 6.4 Albumin 2.0 L Stool Occult Blood Active Medications Generic Name Dose Route Start Last Admin Trade Name Freq PRN Reason Stop Dose Admin Acetaminophen 650 mg 07/10/18 13:27 07/27/18 02:40 Tylenol - PO 650 mg Q4H PRN Administration FEVER Enoxaparin Sodium 80 mg 07/26/18 12:45 07/27/18 09:16 Lovenox - SQ 80 mg BID ALEXANDRA Administration Ferrous Gluconate 324 mg 07/13/18 11:00 07/26/18 11:50 Fergon - PO 324 mg DAILY ALEXANDRA Administration Piperacillin Sod/Tazobactam 50 mls @ 100 mls/hr 07/10/18 18:00 07/27/18 09:16 Sod 3.375 gm/ Dextrose IVPB 100 mls/hr Q8H-IV ALEXANDRA Administration Protocol Insulin Aspart 1 vial 07/08/18 07:00 07/27/18 06:29 Novolog Vial Sliding Scale - SQ Not Given ACHS [facility] Protocol Insulin Detemir 5 units 07/11/18 22:00 07/26/18 21:35 Levemir Vial SQ 5 units HS ALEXANDRA Administration Lactobacillus Acidophilus 1 tab 07/27/18 10:00 07/27/18 09:16 Bacid - PO 1 tab DAILY ALEXANDRA Administration Lisinopril 20 mg 07/27/18 08:45 07/27/18 09:16 Prinivil PO 20 mg DAILY ALEXANDRA Administration Morphine Sulfate 4 mg 07/18/18 14:15 07/25/18 06:00 Morphine Sulfate IVPUSH 4 mg Q4H PRN Administration PAIN LEVEL 7 - 10 Oxycodone HCl 5 mg 07/18/18 14:16 07/27/18 02:40 Roxicodone - PO 5 mg Q4H PRN Administration PAIN LEVEL 4 - 6 ASSESSMENT/PLAN: 58 y/o M w/ PMHx HTN, HLD, DM admitted for sepsis 2/2 Klebsiella bacteremia and liver abscess, complicated by interval development of RLL empyema #empyema -R pleural effusion regressed since chest tube placement; tube to be withdrawn today -will transition from heparin gtt to therapeutic Lovenox when chest tube is removed -Gnb growing in pleural fluid culture from 07/24/18 -pneumothorax resolved on serial CT and CXR #Sepsis 2/2 to Klebisella bacteremia and liver abscess -now afebrile > 24 hours -cont Zosyn day , will d/c tomorrow -will need outpt colon Ca surveillance given increased risk in setting of Klebsiella bacteremia and liver abscess -GI following -ID following #Hepatic vein thrombosis -heme/onc following, recommends AC unless significant bleeding results and outpt f/u -resumed therapeutic Lovenox -required Lovenox home administration education -Oxy and morphine PRN per pain scale #hypervolemic hyponatremia -improving -monitor Na #HLD -hold statin given recently resolved transaminitis #HTN -cont lisinopril #DM -SSI, Levemir 5U HS, BGM ACHS -Pt's A1c this admission 11.2% -requires diabetic/insulin administration education -Will need recheck in 3 mo with insulin regiment on board #iron deficiency anemia -cont iron supplementation -repeat iron studies as outpt #heartburn -starting Zantac, will offer outpatient Tx upon discharge #FEN: -no IVF -monitor and correct electrolytes -diabetic/sodium diet #PPX: -DVT:full dose Lovenox -GI: Zantac #code -full #dispo -continue monitoring on med/surg Visit type - Emergency Visit Emergency Visit: No - New Patient This patient is new to me today: No - Critical Care Critical Care patient: No
[2018-07-27] MEDS ORDERED: INSULIN (NOVOLOG) ASPART 100 UNITS/ML 10ML VIAL ONE (12:24)
[2018-07-27] MEDS: FERROUS GLUCONATE 324 MG TAB (FP) PO SCH (14:44)
--- NOTE | 2018-07-29 12:11 | DS ---
Physical Exam: SUBJECTIVE: Patient seen and examined at bedside. Remains afebrile. Significant improvement in pain, now comfortable. Chest tube removed yesterday. Does newly voice complaint of longstanding heartburn. OBJECTIVE: PHYSICAL EXAM GENERAL: A&Ox3, NAD HEENT: NC/AT, PERRLA, EOMI, anicteric sclera NECK: Trachea midline, full range of motion, supple. LUNGS: CTA b/l HEART: RRR no m/r/g ABDOMEN: soft, posterior tenderness, dressing over catheter site c/d/i EXTREMITIES: 2+ pulses, warm, well-perfused, no edema. 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 These findings were confirmed by serial CT a/p. ID, GI, and heme-onc were consulted. Patient underwent 19 day course of IV Zosyn based on c/ s spanning entire hospitalization. He was placed on therapeutic Lovenox for HVT. He had hepatic abscess catheter drainage placed. As he continued spiking fevers despite appropriate ABx coverage, investigation into pleural effusions was prompted which resulted in finding of Klebsiella empyema. Chest tube was placed by IR for 2 days. His fevers then receded and he was readied for discharge. As final pleural fluid culture remained positive, PICC line was placed for home continuation of IV Zosyn per ID parameters. Additionally, the constellation of signs and symptoms on presentation is concerning for GI malignancy. He was counseled about this possibility and the need for close and careful followup with GI and heme-onc. He was discharged with home services for administration of IV ABx with follow up arranged for primary care, GI, and heme- onc followup evaluation. Date of Discharge: 07/27/18 Minutes to complete discharge: 40 Discharge Summary Reason For Visit: HYPONATREMIA, SEPSIS Condition: Stable - Instructions Diet, Activity, Other Instructions: You were hospitalized due to an infection in your liver, which spread to your blood and also infected the fluid around your lungs. You were found to have blood clots in the veins of the liver. Additionally, your diabetes was found to be poorly controlled and requiring insulin for adequate control of your blood sugar. You were treated with IV antibiotics and underwent procedures to drain the infected sites, were treated with blood thinners for the clots, and were treated with insulin for the diabetes. You were evaluated and treated by specialists in gastroenterology, hematology-oncology, infectious disease, and interventional radiology. You have recovered from the acute illness and are ready to be discharged. You have had a central access line placed for ongoing infusions of antibiotics. You will also continue to be treated with a blood thinner. You additionally require insulin for your diabetes. We are also prescribing medication for blood pressure and to aid in digestion. Additionally , the condition that you presented with has been associated with an underlying cancer of the gastrointestinal system, and it is critical that you be evaluated on an outpatient basis to determine whether this is the case with you. Referrals have been made on your behalf to Dr. Beasley, your primary care doctor, Dr. Kinney, the watch guard gate who treated you in the hospital, and Dr. Gu, the optical goods drill operator-oncologist who treated you in the hospital. Attend your followup appointments with Dr. Beasley, Dr. Kinney, and Dr. Gu within two weeks of your discharge. If you experience any worsening abdominal pain, nausea, vomiting, jaundice, chest pain, shortness of breath, or any other new or concerning symptoms, please return to the Emergency Department. Medical Recommendations Ceftriaxone (antibiotic) 1 infusion daily for 7 days Lovenox (blood thinner) 2 injections per day, once in the morning and once in the evening Insulin Levemir (diabetic medication) 1 injection of 5 units every night Lisinopril (for blood pressure) once daily Bacid (digestive aid) once daily Your visiting nurse will assist you in the administration of these medications. Attend your followup appointments with Dr. Beasley, Dr. Kinney, and Dr. uG within two weeks of your discharge. Referrals: Yasmany Kinney DO [Staff Physician] - 2 Weeks Cornelio Gu MD [Staff Physician] - 2 Weeks Kirsty Beasley [Non Staff, Medical] - 2 Weeks Disposition: HALF-WAY FACILITY - Home Medications Comprehensive Discharge Medication List: Ambulatory Orders Alcohol Antiseptic Pads [Alcohol Prep Pads] 1 each TP TID #100 med..pad Ceftriaxone 2 gm-D5w Bag 2 gm IV DAILY 7 Days ml 07/27/18 Enoxaparin Sodium [Lovenox] 80 mg SQ BID #28 syringe 07/27/18 Insulin (Levemir) [Levemir Vial] 5 unit SQ HS #1 vial 07/27/18 Lactobacillus Acidophilus [Bacid -] 1 each PO DAILY #14 capsule 07/27/18 Lancets 1 each MC TID #100 each 07/27/18 Lisinopril 20 mg PO DAILY #14 tablet 07/27/18 Miscellaneous Medical Supply [Glucometer Device] 1 each SQ ASDIR #1 kit Miscellaneous Medical Supply [Glucometer Test Strips #100] 1 each SQ ASDIR #1 box 07/27/18 Pen Needle, Diabetic [[place]] 1 each MC DAILY #100 dis.needle 07/27/18 This patient is new to me today: No Emergency Visit: No Critical Care patient: No - Discharge Referral Referred to [facility] Med P.C[facility] Yes Physician Referral: [place] Kinney DO (GI)
== END 2018-07-27 18:33 | disposition home or self-care (01) | DRG 720 ==
LOC: JER 02:00 → JERBED 05:04 → J8W 06:55
PROVIDERS: ADMIT Internal Medicine; ATTEND Internal Medicine
PROC: 0F9130Z Drainage of Right Lobe Liver with Drainage Device, Percutaneous Approach (ICD-10-PCS; 2018-07-11)
PROC: 0W9930Z Drainage of Right Pleural Cavity with Drainage Device, Percutaneous Approach (ICD-10-PCS; 2018-07-20)
PROC: 0W9930Z Drainage of Right Pleural Cavity with Drainage Device, Percutaneous Approach (ICD-10-PCS; 2018-07-24)
PROC: 02HV33Z Insertion of Infusion Device into Superior Vena Cava, Percutaneous Approach (ICD-10-PCS; principal; 2018-07-27)
PROC: B518ZZA Fluoroscopy of Superior Vena Cava, Guidance (ICD-10-PCS; 2018-07-27)
DX: A41.59 Other Gram-negative sepsis (principal); I10 Essential (primary) hypertension; E78.5 Hyperlipidemia, unspecified; R00.0 Tachycardia, unspecified; E87.1 Hypo-osmolality and hyponatremia; N17.9 Acute kidney failure, unspecified; E86.0 Dehydration; E88.09 Other disorders of plasma-protein metabolism, not elsewhere classified; D72.829 Elevated white blood cell count, unspecified; R19.7 Diarrhea, unspecified; E11.65 Type 2 diabetes mellitus with hyperglycemia; K21.9 Gastro-esophageal reflux disease without esophagitis; R50.81 Fever presenting with conditions classified elsewhere; E11.40 Type 2 diabetes mellitus with diabetic neuropathy, unspecified; K75.0 Abscess of liver; I82.0 Budd-Chiari syndrome; J90 Pleural effusion, not elsewhere classified; D50.9 Iron deficiency anemia, unspecified; E86.1 Hypovolemia; J98.11 Atelectasis; R22.9 Localized swelling, mass and lump, unspecified; R06.02 Shortness of breath; D47.3 Essential (hemorrhagic) thrombocythemia; Z91.14 Patient's other noncompliance with medication regimen
CPT/HCPCS: 32555; 32557; 36415; 36569; 49405; 49423; 71045-TC-FY; 71046-TC-FY; 74150-TC; 74160-TC; 74176-TC; 74178-TC; 76000-TC-FY; 76942-TC; 77001-TC-FY; 77012-TC; 80048; 80053; 80076; 81003; 81015; 82009; 82272; 82550; 82570; 82728; 82962; 83036; 83540; 83550; 83605; 83735; 83880; 83930; 83935; 84100; 84300; 84484; 85025; 85027; 85044; 85610; 85730; 86704; 86706; 86708; 86803; 86850; 86900; 86901; 87040; 87070; 87075; 87086; 87102; 87116; 87186; 87205; 87206; 87210; 87324; 87340; 87449; 87804; 87899; 88108; 88305-TC; 90688; 90732; 93005; 93010; 93970-TC; 94010; 99283-25; C1729; C1751; C1769; G0008; G0009; J0131; J1644; J1756; J7030; Q9967

== ENCOUNTER 2020-10-08 08:24 | Emergency (ER) | payer OTHER ==
[2020-10-08 08:44] VITALS: TEMP 98.3; BMI 29.1
[2020-10-08] MEDS ORDERED: morphine CARPU-JECT 4 MG/1 ML DISP.SYRIN IVPUSH ONE (10:04)
[2020-10-08] MEDS ORDERED: morphine SULFATE 4 MG/ML VIAL ONE (10:07)
[2020-10-08 10:15] LABS: BASO % 0.2 % (0-2.0); EOS % 0.4 % (0-4.5); HEMATOCRIT 37.1 % (35.4-49); HEMOGLOBIN 12.9 GM/dL (11.7-16.9); LYMPH % 11.1 % (8-40); MCH 29.7 pg (25.7-33.7); MCHC 34.9 g/dl (32.0-35.9); MEAN CELL VOLUME 85.2 fl (80-96); MEAN PLT VOLUME 7.3 fl (7.5-11.1); NEUT % 83.3 % (42.8-82.8); PLATELET COUNT 207 K/MM3 (134-434); RBC 4.35 M/mm3 (4.00-5.60); RDW 12.6 % (11.9-15.9); WHITE BLOOD COUNT 6.4 K/mm3 (4.0-10.0)
[2020-10-08 10:40] LABS: BLOOD UREA NITROGEN 8.1 mg/dL (7-18); CALCIUM 8.4 mg/dL (8.5-10.1)
[2020-10-08 10:44] LABS: CREATININE 1.1 mg/dL (0.55-1.3)
[2020-10-08 12:16] VITALS: BP 148/87; PULSE 90
== END 2020-10-08 12:16 | disposition home or self-care (01) ==
LOC: JER 08:24
PROC: 3E033NZ Introduction of Analgesics, Hypnotics, Sedatives into Peripheral Vein, Percutaneous Approach (ICD-10-PCS; principal; 2020-10-08)
DX: L29.9 Pruritus, unspecified (principal)
CPT/HCPCS: 36415; 72193-TC; 80048; 85025; 99285-25; Q9967

== ENCOUNTER 2020-10-14 10:16 | Inpatient (IN) | payer OTHER ==
[2020-10-14] MEDS ORDERED: LIDO 2%/EPI 1:200000 PRESRVFRE (20 ML SDVIAL) INF ONE (11:12)
[2020-10-14] MEDS ORDERED: LIDOCAINE 1%/EPI 1:100000 (20 ML MULTI DOSE VIAL) ONE (11:15)
[2020-10-14] MEDS ORDERED: LIDOCAINE 1%/EPI 1:100000 (20 ML MULTI DOSE VIAL) IJ ONE (11:16)
[2020-10-14] MEDS ORDERED: morphine CARPU-JECT 4 MG/1 ML DISP.SYRIN IVPUSH ONE (11:32)
[2020-10-14] MEDS ORDERED: CLINDAMYCIN 600MG PREMIX IVPB 600 MG/50 ML BAG IVPB ONE ×2 (11:38→12:38)
[2020-10-14] MEDS ORDERED: morphine SULFATE 4 MG/ML VIAL ONE (11:53)
[2020-10-14 12:45] LABS: BASO % 0.2 % (0-2.0); EOS % 0.4 % (0-4.5); HEMATOCRIT 36.1 % (35.4-49); HEMOGLOBIN 12.6 GM/dL (11.7-16.9); MCH 30.2 pg (25.7-33.7); MCHC 34.9 g/dl (32.0-35.9); MEAN CELL VOLUME 86.4 fl (80-96); MEAN PLT VOLUME 7.3 fl (7.5-11.1); MONO % 5.4 % (3.8-10.2); PLATELET COUNT 252 K/MM3 (134-434); RBC 4.18 M/mm3 (4.00-5.60); RDW 12.8 % (11.9-15.9); WHITE BLOOD COUNT 7.1 K/mm3 (4.0-10.0)
[2020-10-14 13:09] LABS: CALCIUM 8.8 mg/dL (8.5-10.1)
[2020-10-14 13:10] LABS: ALBUMIN 3.3 g/dl (3.4-5.0); BLOOD UREA NITROGEN 13.8 mg/dL (7-18)
[2020-10-14 13:14] LABS: BILIRUBIN,TOTAL 0.2 mg/dL (0.2-1); TOT PROT 7.4 g/dl (6.4-8.2)
[2020-10-14] MEDS ORDERED: LACTATED RINGERS SOLUTION 1000 ML INFUS.BAG IV ONE (13:29)
[2020-10-14] MEDS ORDERED: INSULIN REGULAR HUMAN 100 UNITS/ML *VIAL SQ ONE (13:33)
[2020-10-14] MEDS: D5-1/2NS+20 MEQ KCL - 20 MEQ/1,000 ML INFUS.BAG IV SCH (17:00)
[2020-10-14] MEDS ORDERED: PIPERACILLIN/TAZOB 3.375 GM 3.375 GM/50 ML BAG IVPB ONE (17:36)
[2020-10-14] MEDS: PIPERACILLIN/TAZOB 3.375 GM 3.375 GM in DEXTROSE 5%-WATER - 50 ML IVPB SCH (17:54)
[2020-10-14] MEDS ORDERED: PIPERACILLIN/TAZOB 3.375 GM 3.375 GM in DEXTROSE 5%-WATER - 50 ML IVPB SCH (18:00)
[2020-10-14 19:35] VITALS: BMI 28.8
[2020-10-14] MEDS: ACETAMINOPHEN 1000 MG/100 ML VIAL (NON FORMULARY) IVPB PRN (20:38)
[2020-10-14] MEDS: HEPARIN NA (PORCINE) 5,000 UNITS/ML 1ML VIAL SQ SCH (21:23)
[2020-10-15] MEDS ORDERED: DEXTROSE 5%-WATER - 50 ML IVPB ONE ×3 (01:26→17:00)
[2020-10-15] MEDS ORDERED: PIPERACILLIN/TAZOBACTAM 3.375 GM VIAL IVPB ONE ×4 (01:26→17:24)
[2020-10-15] MEDS: PIPERACILLIN/TAZOB 3.375 GM 3.375 GM in DEXTROSE 5%-WATER - 50 ML IVPB SCH ×3 (01:38→17:22)
[2020-10-15] MEDS: ACETAMINOPHEN 1000 MG/100 ML VIAL (NON FORMULARY) IVPB PRN ×3 (02:40→17:21)
[2020-10-15 07:21] LABS: BASO % 0.3 % (0-2.0); EOS % 0.8 % (0-4.5); HEMOGLOBIN 13.4 GM/dL (11.7-16.9); LYMPH % 6.2 % (8-40); MCH 30.1 pg (25.7-33.7); MCHC 35.2 g/dl (32.0-35.9); MEAN CELL VOLUME 85.7 fl (80-96); MONO % 6.2 % (3.8-10.2); NEUT % 86.5 % (42.8-82.8); PLATELET COUNT 260 K/MM3 (134-434); RBC 4.43 M/mm3 (4.00-5.60); RDW 12.8 % (11.9-15.9); WHITE BLOOD COUNT 7.1 K/mm3 (4.0-10.0)
[2020-10-15 07:53] LABS: ALBUMIN 3.3 g/dl (3.4-5.0); CALCIUM 8.8 mg/dL (8.5-10.1)
[2020-10-15 07:54] LABS: BLOOD UREA NITROGEN 11.4 mg/dL (7-18)
[2020-10-15 07:57] LABS: CREATININE 1.1 mg/dL (0.55-1.3)
[2020-10-15 07:58] LABS: BILIRUBIN,TOTAL 0.4 mg/dL (0.2-1); TOT PROT 7.8 g/dl (6.4-8.2)
[2020-10-15] MEDS: HEPARIN NA (PORCINE) 5,000 UNITS/ML 1ML VIAL SQ SCH ×2 (09:42→21:53)
[2020-10-15] MEDS: LISINOPRIL 20 MG TABLET PO SCH (09:44)
[2020-10-15] MEDS: D5-1/2NS+20 MEQ KCL - 20 MEQ/1,000 ML INFUS.BAG IV SCH (16:58)
[2020-10-15] MEDS ORDERED: PT OWN MED DRAWER 7, Y5N ONE (21:26)
[2020-10-15] MEDS: ATORVASTATIN CA 40 MG TABLET (FP) PO SCH (21:53)
[2020-10-16] MEDS ORDERED: ACETAMINOPHEN 325 MG TABLET (FP) PO ONE ×2 (02:30→20:53)
[2020-10-16] MEDS ORDERED: PIPERACILLIN/TAZOBACTAM 3.375 GM VIAL IVPB ONE ×3 (02:43→17:03)
[2020-10-16] MEDS ORDERED: DEXTROSE 5%-WATER - 50 ML IVPB ONE ×3 (02:44→17:04)
[2020-10-16] MEDS: PIPERACILLIN/TAZOB 3.375 GM 3.375 GM in DEXTROSE 5%-WATER - 50 ML IVPB SCH ×3 (02:52→18:02)
[2020-10-16] MEDS: metFORMIN HCL 500 MG TABLET (FP) PO SCH ×2 (08:30→18:02)
[2020-10-16] MEDS: HEPARIN NA (PORCINE) 5,000 UNITS/ML 1ML VIAL SQ SCH ×2 (10:42→21:56)
[2020-10-16] MEDS: LISINOPRIL 20 MG TABLET PO SCH (10:43)
[2020-10-16] MEDS ORDERED: PT OWN MED DRAWER 7, Y5N ONE ×2 (11:21→18:42)
[2020-10-16] MEDS: ATORVASTATIN CA 40 MG TABLET (FP) PO SCH (21:56)
[2020-10-17] MEDS ORDERED: PIPERACILLIN/TAZOBACTAM 3.375 GM VIAL IVPB ONE ×3 (00:49→14:39)
[2020-10-17] MEDS ORDERED: DEXTROSE 5%-WATER - 50 ML IVPB ONE ×3 (00:49→14:39)
[2020-10-17] MEDS: PIPERACILLIN/TAZOB 3.375 GM 3.375 GM in DEXTROSE 5%-WATER - 50 ML IVPB SCH ×3 (01:08→17:38)
[2020-10-17] MEDS: metFORMIN HCL 500 MG TABLET (FP) PO SCH ×2 (06:06→16:19)
[2020-10-17] MEDS: LISINOPRIL 20 MG TABLET PO SCH (09:02)
[2020-10-17] MEDS: HEPARIN NA (PORCINE) 5,000 UNITS/ML 1ML VIAL SQ SCH (09:02)
[2020-10-17 11:07] LABS: HEMATOCRIT 36.2 % (35.4-49); HEMOGLOBIN 12.5 GM/dL (11.7-16.9); MCH 30.2 pg (25.7-33.7); MCHC 34.4 g/dl (32.0-35.9); MEAN CELL VOLUME 87.7 fl (80-96); MEAN PLT VOLUME 7.1 fl (7.5-11.1); PLATELET COUNT 265 K/MM3 (134-434); RBC 4.12 M/mm3 (4.00-5.60); WHITE BLOOD COUNT 4.8 K/mm3 (4.0-10.0)
[2020-10-17 11:49] LABS: BLOOD UREA NITROGEN 16.6 mg/dL (7-18); CALCIUM 8.5 mg/dL (8.5-10.1)
[2020-10-17 11:53] LABS: CREATININE 1.2 mg/dL (0.55-1.3)
[2020-10-17 18:09] VITALS: BP 153/80; PULSE 89; TEMP 98.5
== END 2020-10-17 18:16 | disposition home or self-care (01) | DRG 254 ==
LOC: JER 10:16 → JERBED 13:32 → J7W 18:53
PROVIDERS: ADMIT Family Medicine; ATTEND Family Medicine
PROC: 0D9P3ZX Drainage of Rectum, Percutaneous Approach, Diagnostic (ICD-10-PCS; principal; 2020-10-14)
DX: K61.1 Rectal abscess (principal); I10 Essential (primary) hypertension; E11.9 Type 2 diabetes mellitus without complications; K62.89 Other specified diseases of anus and rectum; K76.0 Fatty (change of) liver, not elsewhere classified; B15.9 Hepatitis A without hepatic coma
CPT/HCPCS: 36415; 71045-TC-FY; 80048; 80053; 82962; 83036; 83735; 85025; 85027; 87040; 87070; 87076; 87186; 87205; 93005; 93010; 99285-25; C9803; J0131; J1644; U0003; U0005

== ENCOUNTER 2021-01-22 09:24 | Inpatient (IN) | payer OTHER ==
[2021-01-22] MEDS ORDERED: DALBAVANCIN HCL 1,500 MG in DEXTROSE 5%-WATER - 500 ML IVPB ONE (10:31)
[2021-01-22] MEDS ORDERED: DALBAVANCIN HCL 500 MG VIAL (RESTRICTED TO ID ONLY) IVPB ONE (11:22)
[2021-01-22] MEDS ORDERED: ACETAMINOPHEN 1000 MG/100 ML VIAL (NON FORMULARY) IVPB ONE (11:35)
[2021-01-22 11:37] LABS: BASO % 0.3 % (0-2.0); EOS % 0.4 % (0-4.5); HEMATOCRIT 31.5 % (35.4-49); HEMOGLOBIN 10.9 GM/dL (11.7-16.9); LYMPH % 14.3 % (8-40); MCH 29.6 pg (25.7-33.7); MCHC 34.8 g/dl (32.0-35.9); MEAN CELL VOLUME 85.1 fl (80-96); MEAN PLT VOLUME 7.4 fl (7.5-11.1); MONO % 7.2 % (3.8-10.2); NEUT % 77.8 % (42.8-82.8); PLATELET COUNT 229 10^3/uL (134-434); RDW 12.8 % (11.9-15.9)
[2021-01-22] MEDS ORDERED: ACETAMINOPHEN INJECTION 100 ML IVPB ONE (11:38)
[2021-01-22 11:57] LABS: INR 1.03 (0.83-1.09); PROTHROMBIN TIME (PATIENT) 12.5 SEC (9.7-13.0)
[2021-01-22 12:04] LABS: ALBUMIN 3.4 g/dl (3.4-5.0); BLOOD UREA NITROGEN 16.8 mg/dL (7-18); CALCIUM 8.8 mg/dL (8.5-10.1)
[2021-01-22 12:08] LABS: CREATININE 1.2 mg/dL (0.55-1.3)
[2021-01-22 12:09] LABS: BILIRUBIN,TOTAL 0.3 mg/dL (0.2-1)
[2021-01-22 14:53] LABS: EPI CELLS 7 /uL (0-25.1); HYALINE CASTS 0 /uL (0-3.1); PH,URINE 6.5 (5.0-8.0); URINE APPEARANCE CLEAR; URINE BACTERIA 13 /uL (0-1359); URINE BILIRUBIN NEGATIVE (NEGATIVE); URINE COLOR YELLOW; URINE GLUCOSE (UA) 3+ (NEGATIVE); URINE KETONE NEGATIVE (NEGATIVE); URINE LEUK ESTERASE NEGATIVE (NEGATIVE); URINE NITRITE NEGATIVE (NEGATIVE); URINE PROTEIN 1+ (NEGATIVE); URINE RBC 2 /uL (0-23.9); URINE UROBILINOGEN 0.2 mg/dL (0.2-1.0); URINE WBC 5 /uL (0-25.8)
[2021-01-22] MEDS: ATORVASTATIN CA 40 MG TABLET (FP) PO SCH (21:17)
[2021-01-22] MEDS: HEPARIN NA (PORCINE) 5,000 UNITS/ML 1ML VIAL SQ SCH (21:18)
[2021-01-22] MEDS: ACETAMINOPHEN 325 MG TABLET (FP) PO PRN (21:18)
[2021-01-22] MEDS: INSULIN SLIDING SCALE (NOVOLOG) 1 VIAL SQ SCH (21:18)
[2021-01-23] MEDS: INSULIN SLIDING SCALE (NOVOLOG) 1 VIAL SQ SCH ×4 (08:20→21:08)
[2021-01-23 08:27] LABS: HEMATOCRIT 31.4 % (35.4-49); MCH 29.9 pg (25.7-33.7); MEAN CELL VOLUME 85.3 fl (80-96); MEAN PLT VOLUME 7.6 fl (7.5-11.1); PLATELET COUNT 231 10^3/uL (134-434); RBC 3.68 M/mm3 (4.00-5.60); RDW 12.6 % (11.9-15.9); WHITE BLOOD COUNT 5.2 K/mm3 (4.0-10.0)
[2021-01-23 08:56] LABS: CALCIUM 8.5 mg/dL (8.5-10.1)
[2021-01-23 08:57] LABS: BLOOD UREA NITROGEN 13.6 mg/dL (7-18)
[2021-01-23 09:00] LABS: CREATININE 0.9 mg/dL (0.55-1.3)
[2021-01-23 09:01] LABS: BILIRUBIN,TOTAL 0.4 mg/dL (0.2-1)
[2021-01-23] MEDS: HEPARIN NA (PORCINE) 5,000 UNITS/ML 1ML VIAL SQ SCH ×2 (09:37→21:08)
[2021-01-23] MEDS: LISINOPRIL 20 MG TABLET PO SCH (09:38)
[2021-01-23 09:46] LABS: ERYTHROCYTE SEDIMENTATION RATE 71 mm/hr (0-20)
[2021-01-23] MEDS ORDERED: cefTRIAXone SODIUM 1 GM VIAL ONE (11:18)
[2021-01-23] MEDS ORDERED: DEXTROSE 5%-WATER - 50 ML IVPB ONE (11:18)
[2021-01-23] MEDS: CEFTRIAXONE 1 GM in DEXTROSE 5%-WATER - 50 ML IVPB SCH (11:22)
[2021-01-23] MEDS ORDERED: INSULIN (NOVOLOG) ASPART 100 UNITS/ML 10ML VIAL ONE (11:32)
[2021-01-23] MEDS: ACETAMINOPHEN 325 MG TABLET (FP) PO PRN ×2 (11:33→21:10)
[2021-01-23] MEDS: ATORVASTATIN CA 40 MG TABLET (FP) PO SCH (21:09)
[2021-01-24] MEDS: INSULIN SLIDING SCALE (NOVOLOG) 1 VIAL SQ SCH ×4 (06:48→21:57)
[2021-01-24 08:35] LABS: BASO % 0.4 % (0-2.0); HEMATOCRIT 31.1 % (35.4-49); HEMOGLOBIN 10.8 GM/dL (11.7-16.9); LYMPH % 16.7 % (8-40); MCH 29.8 pg (25.7-33.7); MCHC 34.8 g/dl (32.0-35.9); MEAN CELL VOLUME 85.7 fl (80-96); MEAN PLT VOLUME 7.2 fl (7.5-11.1); MONO % 8.2 % (3.8-10.2); NEUT % 73.7 % (42.8-82.8); PLATELET COUNT 255 10^3/uL (134-434); RBC 3.63 M/mm3 (4.00-5.60); RDW 12.7 % (11.9-15.9); WHITE BLOOD COUNT 4.9 K/mm3 (4.0-10.0)
[2021-01-24 08:54] LABS: CALCIUM 8.7 mg/dL (8.5-10.1)
[2021-01-24 08:55] LABS: ALBUMIN 2.9 g/dl (3.4-5.0); BLOOD UREA NITROGEN 17.6 mg/dL (7-18)
[2021-01-24 08:58] LABS: CREATININE 1.1 mg/dL (0.55-1.3)
[2021-01-24 09:00] LABS: BILIRUBIN,TOTAL 0.2 mg/dL (0.2-1); TOT PROT 7.1 g/dl (6.4-8.2)
[2021-01-24] MEDS ORDERED: DEXTROSE 5%-WATER - 50 ML IVPB ONE (09:19)
[2021-01-24] MEDS ORDERED: cefTRIAXone SODIUM 1 GM VIAL ONE (09:19)
[2021-01-24] MEDS: HEPARIN NA (PORCINE) 5,000 UNITS/ML 1ML VIAL SQ SCH ×2 (09:26→21:35)
[2021-01-24] MEDS: LISINOPRIL 20 MG TABLET PO SCH (09:26)
[2021-01-24] MEDS: CEFTRIAXONE 1 GM in DEXTROSE 5%-WATER - 50 ML IVPB SCH (09:34)
[2021-01-24] MEDS: ACETAMINOPHEN 325 MG TABLET (FP) PO PRN ×2 (09:35→21:35)
[2021-01-24] MEDS ORDERED: VANCOMYCIN/WATER BAGS 1,250 MG/250 ML BAG IVPB SCH (11:15)
[2021-01-24] MEDS: ATORVASTATIN CA 40 MG TABLET (FP) PO SCH (21:35)
[2021-01-25] MEDS: ACETAMINOPHEN 325 MG TABLET (FP) PO PRN ×2 (06:21→21:39)
[2021-01-25] MEDS: INSULIN SLIDING SCALE (NOVOLOG) 1 VIAL SQ SCH ×4 (06:22→21:34)
[2021-01-25] MEDS ORDERED: PT OWN MED DRAWER 7, Y5N ONE (09:43)
[2021-01-25] MEDS: HEPARIN NA (PORCINE) 5,000 UNITS/ML 1ML VIAL SQ SCH ×2 (09:46→21:34)
[2021-01-25] MEDS: LISINOPRIL 20 MG TABLET PO SCH (09:46)
[2021-01-25] MEDS: ATORVASTATIN CA 40 MG TABLET (FP) PO SCH (21:34)
[2021-01-25 22:13] VITALS: BMI 28.4
[2021-01-26] MEDS: INSULIN SLIDING SCALE (NOVOLOG) 1 VIAL SQ SCH ×4 (06:31→22:29)
[2021-01-26] MEDS: LISINOPRIL 20 MG TABLET PO SCH (10:40)
[2021-01-26] MEDS: HEPARIN NA (PORCINE) 5,000 UNITS/ML 1ML VIAL SQ SCH ×2 (10:40→22:29)
[2021-01-26] MEDS: POLYETHYLENE GLYCOL (HEALTHYLAX) 3350 17 GM PACKET PO SCH (10:40)
[2021-01-26] MEDS: MULTIVITAMINS THER W-MINERALS COMBO TABLET (FP) PO SCH (10:40)
[2021-01-26] MEDS: BISACODYL 10 MG SUPP.RECT PR ONE ×2 (10:41→10:44)
[2021-01-26] MEDS: ACETAMINOPHEN 325 MG TABLET (FP) PO PRN ×2 (12:44→22:29)
[2021-01-26 15:36] LABS: BASO % 0.6 % (0-2.0); HEMATOCRIT 33.6 % (35.4-49); HEMOGLOBIN 11.7 GM/dL (11.7-16.9); LYMPH % 14.8 % (8-40); MCH 29.9 pg (25.7-33.7); MCHC 34.9 g/dl (32.0-35.9); MEAN CELL VOLUME 85.8 fl (80-96); MEAN PLT VOLUME 7.6 fl (7.5-11.1); MONO % 5.3 % (3.8-10.2); NEUT % 78.3 % (42.8-82.8); PLATELET COUNT 310 10^3/uL (134-434); RBC 3.92 M/mm3 (4.00-5.60); RDW 12.8 % (11.9-15.9); WHITE BLOOD COUNT 6.1 K/mm3 (4.0-10.0)
[2021-01-26] MEDS: ATORVASTATIN CA 40 MG TABLET (FP) PO SCH (22:30)
[2021-01-27] MEDS: INSULIN SLIDING SCALE (NOVOLOG) 1 VIAL SQ SCH ×2 (06:14→11:39)
[2021-01-27 09:20] LABS: HEMATOCRIT 30.8 % (35.4-49); HEMOGLOBIN 10.6 GM/dL (11.7-16.9); MCH 29.4 pg (25.7-33.7); MCHC 34.5 g/dl (32.0-35.9); MEAN CELL VOLUME 85.3 fl (80-96); MEAN PLT VOLUME 7.2 fl (7.5-11.1); PLATELET COUNT 282 10^3/uL (134-434); RBC 3.61 M/mm3 (4.00-5.60); RDW 12.7 % (11.9-15.9); WHITE BLOOD COUNT 5.4 K/mm3 (4.0-10.0)
[2021-01-27 09:29] LABS: CALCIUM 8.5 mg/dL (8.5-10.1)
[2021-01-27 09:30] LABS: MAGNESIUM 2.2 mg/dL (1.8-2.4)
[2021-01-27 09:33] LABS: CREATININE 1.1 mg/dL (0.55-1.3)
[2021-01-27 09:35] LABS: BILIRUBIN,TOTAL 0.2 mg/dL (0.2-1)
[2021-01-27 09:56] LABS: ANISOCYTOSIS 0; HELMET CELLS 0; HOWELL-JOLLY BODIES 0; MACROCYTOSIS 0; OVALOCYTE 0; PLATELET ESTIMATE NORMAL; ROULEAU 0; SICKELED CELLS 0; TARGET CELLS 0; TEAR DROP CELLS 0; TOXIC GRANULATION 0
[2021-01-27 10:47] VITALS: BP 133/74; PULSE 81; TEMP 97.6
[2021-01-27] MEDS: POLYETHYLENE GLYCOL (HEALTHYLAX) 3350 17 GM PACKET PO SCH (11:00)
[2021-01-27] MEDS: LISINOPRIL 20 MG TABLET PO SCH (11:00)
[2021-01-27] MEDS: HEPARIN NA (PORCINE) 5,000 UNITS/ML 1ML VIAL SQ SCH (11:00)
[2021-01-27] MEDS: MULTIVITAMINS THER W-MINERALS COMBO TABLET (FP) PO SCH (11:00)
[2021-01-27] MEDS ORDERED: INSULIN (LEVEMIR) 100 UNITS/ML UNITS SQ SCH (22:00)
== END 2021-01-27 15:16 | disposition home health service (06) | DRG 344 ==
LOC: JER 09:24 → JERBED 13:45 → J8W 17:01
PROVIDERS: ADMIT Family Medicine; ATTEND Family Medicine
DX: E11.69 Type 2 diabetes mellitus with other specified complication (principal); M86.9 Osteomyelitis, unspecified; E11.621 Type 2 diabetes mellitus with foot ulcer; L97.528 Non-pressure chronic ulcer of other part of left foot with other specified severity; I10 Essential (primary) hypertension; E78.5 Hyperlipidemia, unspecified; R50.9 Fever, unspecified; E11.65 Type 2 diabetes mellitus with hyperglycemia; E11.40 Type 2 diabetes mellitus with diabetic neuropathy, unspecified; B95.62 Methicillin resistant Staphylococcus aureus infection as the cause of diseases classified elsewhere
CPT/HCPCS: 36415; 73630-TC-LT; 73718-TC-LT; 80048; 80053; 80061; 81003; 82962; 83036; 83735; 85025; 85027; 85610; 85651; 86140; 87040; 87070; 87086; 87186; 87205; 93005; 93010; 99285-25; C9803; J0131; J0875; J1644; U0003; U0005

== ENCOUNTER 2021-02-01 11:40 | Day surgery (SDC) | payer OTHER ==
[2021-02-01] MEDS ORDERED: DALBAVANCIN HCL 1,500 MG in DEXTROSE 5%-WATER - 500 ML IVPB ONE (13:00)
[2021-02-01 14:50] VITALS: BP 131/71; PULSE 85; TEMP 98.1
== END 2021-02-01 14:50 | disposition home or self-care (01) ==
LOC: JINFUSION 11:40 → J7W 11:41 → JINFUSION 14:50
PROVIDERS: ATTEND Internal Medicine Infectious Disease
DX: E11.621 Type 2 diabetes mellitus with foot ulcer (principal); L97.529 Non-pressure chronic ulcer of other part of left foot with unspecified severity; I10 Essential (primary) hypertension; Z86.19 Personal history of other infectious and parasitic diseases
CPT/HCPCS: 96365; J0875